=== PATIENT | female | born 1995 | race Caucasian/White ===

== ENCOUNTER 2022-06-18 22:42 | Emergency (ER) | payer OTHER, SELFPAY ==
[2022-06-18 22:51] VITALS: BP 148/90; PULSE 97; RESP 18; TEMP 36.6; O2SAT 97; BMI 33.9
--- NOTE | 2022-06-18 23:03 | ED_ITS ---
HPI - General Adult General Time Seen by Provider: 23:03 <Sincere Valdes MD - Last Filed: 06/20/22 08:49> Date Seen: 06/18/22 <Sincere Valdes MD - Last Filed: 06/20/22 08:49> Chief complaint: Flank Pain <Sincere Valdes MD - Last Filed: 06/20/22 08:49> Stated complaint: Right side flank pain <Sincere Valdes MD - Last Filed: 06/20/22 08:49> Time Seen by Provider: 06/18/22 22:57 <Sincere Valdes MD - Last Filed: 06/20/22 08:49> Source: patient <Sincere Valdes MD - Last Filed: 06/20/22 08:49> Mode of arrival: ambulatory <Sincere Valdes MD - Last Filed: 06/20/22 08:49> Limitations: no limitations <Sincere Valdes MD - Last Filed: 06/20/22 08:49> History of Present Illness HPI narrative: Patient is a 27-year-old female has had a gastric sleeve, and has had frequent right flank pain that typically it is better with the shower or ibuprofen. Since she has had her sleeve she can take anti-inflammatories, and she is complaining of right flank pain. She also has history of reflux and that is been bad for today as well had her IUD checked today apparently by Nursing history patient denies chest pain shortness of breath COVID symptoms, leg swelling or edema. She has had the right flank pain for many months on and off. She has had imaging of this in the past by report. <Sincere Valdes MD - Last Filed: 06/20/22 08:49> Related Data Home medications: Home Medications Medication Instructions Recorded Confirmed ergocalciferol (vitamin D2) 1,250 06/18/22 mcg (50,000 unit) capsule metformin 500 mg tablet mg 06/18/22 ondansetron 4 mg disintegrating mg 06/18/22 tablet sertraline 100 mg tablet mg 06/18/22 Previous Rx's Medication Instructions Recorded hydrocodone 5 mg-acetaminophen 325 1 tab PO Q6H PRN pain #7 tabs 06/19/22 mg tablet <Sincere Valdes MD - Last Filed: 06/20/22 08:49> Allergies/adverse reactions: Allergies Allergy/AdvReac Type Severity Reaction Status Date / Time Sulfa (Sulfonamide Allergy hives Verified 06/18/22 22:55 Antibiotics) <Sincere Valdes MD - Last Filed: 06/20/22 08:49> Review of Systems Status of ROS: Reports: 10 or more systems reviewed and unremarkable except as noted in History and below <Sincere Valdes MD - Last Filed: 06/20/22 08:49> Narrative: Specifically no dysuria, frequency, diarrhea, constipation, melena, hematochezia <Sincere Valdes MD - Last Filed: 06/20/22 08:49> PFSH PFSH Social History: Social History Smoking Status: Never smoker How often do you have a drink containing alcohol: never AUDIT-C Alcohol total score: 0 Non-prescribed substance use: denies use <Sincere Valdes MD - Last Filed: 06/20/22 08:49> Exam Narrative: Exam Narrative: Objective: Patient is alert orient x3 pacing about the room holding on her right posterior superior iliac spine area Vital signs unremarkable No palpable CVA tenderness, no swelling or bruising in the back, abdomen benign Pulse regular Neurologic grossly nonfocal Skin periphery warm and dry <Sincere Valdes MD - Last Filed: 06/20/22 08:49> Const: Vital Signs, click to edit/add: Vital Signs - 24 hr 06/18/22 22:51 06/18/22 23:30 06/19/22 00:00 Temperature 97.8 F Pulse Rate [Left P ulse Oximeter] 97 86 92 Respiratory Rate 18 Blood Pressure [Ri ght Upper Arm] 148/90 H 126/81 118/80 Pulse Oximetry 97 99 97 Oxygen Delivery Me thod Room Air Room Air Room Air <Sincere Valdes MD - Last Filed: 06/20/22 08:49> Vital Signs, click to edit/add: Vital Signs - 24 hr 06/18/22 22:51 06/18/22 23:30 06/19/22 00:00 Temperature 97.8 F Pulse Rate [Left P ulse Oximeter] 97 86 92 Respiratory Rate 18 Blood Pressure [Ri ght Upper Arm] 148/90 H 126/81 118/80 Pulse Oximetry 97 99 97 Oxygen Delivery Me thod Room Air Room Air Room Air <Asmita Acosta MD - Last Filed: 06/19/22 01:11> Course Vital Signs Vital signs: Initial Vital Signs Temperature 97.8 F 06/18/22 22:51 Temperature Source Temporal Artery Scan 06/18/22 22:51 Pulse Rate 97 06/18/22 22:51 Respiratory Rate 18 06/18/22 22:51 Blood Pressure 148/90 H 06/18/22 22:51 Blood Pressure Mean 109 06/18/22 22:51 Blood Pressure Position Sitting 06/18/22 22:51 Pulse Oximetry 97 06/18/22 22:51 Oxygen Delivery Method 06/18/22 22:51 Vital Signs Temperature 97.8 F 06/18/22 22:51 Pulse Rate 97 06/18/22 22:51 Respiratory Rate 18 06/18/22 22:51 Blood Pressure 148/90 H 06/18/22 22:51 Pulse Oximetry 97 06/18/22 22:51 Oxygen Delivery Method 06/18/22 22:51 Temperature 97.8 F 06/18/22 22:51 Pulse Rate 93 06/19/22 01:00 Respiratory Rate 18 06/18/22 22:51 Blood Pressure 117/84 06/19/22 01:00 Pulse Oximetry 97 06/19/22 01:00 Oxygen Delivery Method 06/19/22 01:00 <Sincere Valdes MD - Last Filed: 06/20/22 08:49> Initial Vital Signs Temperature 97.8 F 06/18/22 22:51 Temperature Source Temporal Artery Scan 06/18/22 22:51 Pulse Rate 97 06/18/22 22:51 Respiratory Rate 18 06/18/22 22:51 Blood Pressure 148/90 H 06/18/22 22:51 Blood Pressure Mean 109 06/18/22 22:51 Blood Pressure Position Sitting 06/18/22 22:51 Pulse Oximetry 97 06/18/22 22:51 Oxygen Delivery Method 06/18/22 22:51 Vital Signs Temperature 97.8 F 06/18/22 22:51 Pulse Rate 97 06/18/22 22:51 Respiratory Rate 18 06/18/22 22:51 Blood Pressure 148/90 H 06/18/22 22:51 Pulse Oximetry 97 10 22:51 Oxygen Delivery Method 06/18/22 22:51 Temperature 97.8 F 06/18/22 22:51 Pulse Rate 93 06/19/22 01:00 Respiratory Rate 18 06/18/22 22:51 Blood Pressure 117/84 06/19/22 01:00 Pulse Oximetry 97 06/19/22 01:00 Oxygen Delivery Method 06/19/22 01:00 <Asmita Acosta MD - Last Filed: 06/19/22 01:11> Medical Decision Making MDM Narrative Medical decision making narrative: Patient has had this unusual flank discomfort on and off for quite some time, episode tonight at this point will do IV fluids, pain medication laboratory studies urinalysis. Rule out urinary tract infection, electrolyte abnormality, musculoskeletal component to her pain. Addendum: The patient's white count is normal, hemoglobin normal potassium low normal at 3.2 total bili slightly elevated 1.7 CRP less than 0.5 amylase is mildly elevated 191, her main concern to me is her urinalysis shows 4+ ketones 3+ blood 5-10 red cells per high-powered field moderate bacteria, this was a clean-catch non cath specimen. The patient describes in further history take add intermittent flank pain that happens and bothers her and radiates around her anterior abdomen she has had this about once a month for the last several months she has not had that before she. She has an IUD in place today and was adjusted and it checked today by OBGYN. Given that she has had this recurrent flank pain, microscopic hematuria I think it might make sense to get a unenhanced CT scan of her abdomen pelvis to make she does not have kidney stones. She certainly could be passing recurrent kidney stones symptoms in history. If the CT scan is negative, would wait for the urine culture and then send her home she is pain-free now <Sincere Valdes MD - Last Filed: 06/20/22 08:49> Patient has had this unusual flank discomfort on and off for quite some t niraj, episode tonight at this point will do IV fluids, pain medication laboratory studies urinalysis. Rule out urinary tract infection, electrolyte abnormality, musculoskeletal component to her pain. Addendum: The patient's white count is normal, hemoglobin normal potassium low normal at 3.2 total bili slightly elevated 1.7 CRP less than 0.5 amylase is mildly elevated 191, her main concern to me is her urinalysis shows 4+ ketones 3+ blood 5-10 red cells per high-powered field moderate bacteria, this was a clean-catch non cath specimen. The patient describes in further history take add intermittent flank pain that happens and bothers her and radiates around her anterior abdomen she has had this about once a month for the last several months she has not had that before she. She has an IUD in place today and was adjusted and it checked today by OBGYN. Given that she has had this recurrent flank pain, microscopic hematuria I think it might make sense to get a unenhanced CT scan of her abdomen pelvis to make she does not have kidney stones. She certainly could be passing recurrent kidney stones symptoms in history. If the CT scan is negative, would wait for the urine culture and then send her home she is pain-free now I assumed care from Dr. Valdes. CT scan is reviewed. The 6 x 11 mm right-sided proximal renal pelvis stone is noted. Discussed with patient, reviewed signs and symptoms of infection, complications. Urology offices are not open this time a day nor does not warrant waking up a urologist right now. I have instructed the nursing team to pass along her information to the day shift to call and arrange a referral. I have placed an order for referral and I have instructed the patient to call our facility if she has not heard back by tomorrow afternoon. She verbalized understanding and agreement. We discussed Tylenol and hydrocodone if needed for severe pain, preferentially avoiding NSAIDs because of her stomach surgery status. <Asmita Acosta MD - Last Filed: 06/19/22 01:11> Lab Data Labs: Lab Results 06/18/22 06/18/22 06/18/22 Range/Units 23:15 23:15 23:15 WBC 6.31 (4.50-11.00) K/uL RBC 4.73 (4.00-5.20) m/uL Hgb 14.9 (12.0-16.0) gm/dL Hct 43.9 (33.0-51.0) % MCV 93 (80-100) fL MCH 32 (26-34) pg MCHC 34 (32-36) gm/dL RDW Coeff of Rajni 13.5 (11.5-15.5) % Plt Count 248 (140-440) K/uL Neut % (Auto) 57.8 (42.0-72.0) % Lymph % (Auto) 33.8 (20-44) % [place] % (Auto) 5.4 (0.0-11.0) % Eos % (Auto) 2.2 (0.0-7.0) % Baso % (Auto) 0.6 (0.0-3.0) % Neut # (Auto) 3.65 (1.7-7.0) K/uL Lymph # (Auto) 2.13 (0.90-2.90) K/uL [place] # (Auto) 0.30 (0.00-0.90) K/UL Eos # (Auto) 0.14 (0.00-0.50) K/uL Baso # (Auto) 0.04 (0.00-0.30) K/uL Abs Immat Gran (auto) 0.01 (0.00-0.30) K/uL Sodium 142 (135-149) mmol/L Potassium 3.2 L (3.6-5.1) mmol/L Chloride 106 (96-114) mmol/L Carbon Dioxide 21 (20-32) mmol/L BUN 13 (5-24) mg/dL Creatinine 0.6 (0.5-1.5) mg/dL Estimated Creat Clear 131.85 Estimated GFR 126 ml/min Glucose 88 (60-115) mg/dL Lactate 1.0 (0.5-1.9) mmol/L Calcium 9.6 (8.4-10.6) mg/dL Total Bilirubin 1.7 H (0.1-1.5) mg/dL Direct Bilirubin 0.1 (0.0-0.5) mg/dL AST 18 (12-35) U/L ALT 17 (4-35) U/L Alkaline Phosphatase 73 (40-150) U/L C-Reactive Protein < 0.5 L (0.5-1.0) mg/dL Total Protein 7.5 (6.0-8.3) g/dL Albumin 4.9 (3.3-5.0) g/dL Amylase 191 H (18-89) U/L Urine Color (Yellow) Urine Appearance (Clear) Urine pH (5.0-8.5) Ur Specific [place] (1.000-1.030) Urine Protein (Negative) Urine Glucose (UA) (Negative) Urine Ketones (Negative) Urine Blood (Negative) Urine Nitrite (Negative) Urine Bilirubin (Negative) Urine Urobilinogen (0.2-1.0) Ur Leukocyte Esterase (Negative) Urine RBC (0-2) Urine WBC (0-5) Ur Squamous Epith Cells (None-Few) Urine Bacteria (None) 06/18/22 Range/Units 23:51 WBC (4.50-11.00) K/uL RBC (4.00-5.20) m/uL Hgb (12.0-16.0) gm/dL Hct (33.0-51.0) % MCV (80-100) fL MCH (26-34) pg MCHC (32-36) gm/dL RDW Coeff of Rajni (11.5-15.5) % Plt Count (140-440) K/uL Neut % (Auto) (42.0-72.0) % Lymph % (Auto) (20-44) % [place] % (Auto) (0.0-11.0) % Eos % (Auto) (0.0-7.0) % Baso % (Auto) (0.0-3.0) % Neut # (Auto) (1.7-7.0) K/uL Lymph # (Auto) (0.90-2.90) K/uL [place] # (Auto) (0.00-0.90) K/UL Eos # (Auto) (0.00-0.50) K/uL Baso # (Auto) (0.00-0.30) K/uL Abs Immat Gran (auto) (0.00-0.30) K/uL Sodium (135-149) mmol/L Potassium (3.6-5.1) mmol/L Chloride (96-114) mmol/L Carbon Dioxide (20-32) mmol/L BUN (5-24) mg/dL Creatinine (0.5-1.5) mg/dL Estimated Creat Clear Estimated GFR ml/min Glucose (60-115) mg/dL Lactate (0.5-1.9) mmol/L Calcium (8.4-10.6) mg/dL Total Bilirubin (0.1-1.5) mg/dL Direct Bilirubin (0.0-0.5) mg/dL AST (12-35) U/L ALT (4-35) U/L Alkaline Phosphatase (40-150) U/L C-Reactive Protein (0.5-1.0) mg/dL Total Protein (6.0-8.3) g/dL Albumin (3.3-5.0) g/dL Amylase (18-89) U/L Urine Color Yellow (Yellow) Urine Appearance Clear (Clear) Urine pH 6.0 (5.0-8.5) Ur Specific [place] 1.025 (1.000-1.030) Urine Protein 1+ A (Negative) Urine Glucose (UA) Negative (Negative) Urine Ketones 4+ A (Negative) Urine Blood 3+ A (Negative) Urine Nitrite Negative (Negative) Urine Bilirubin 1+ A (Negative) Urine Urobilinogen 0.2 (0.2-1.0) Ur Leukocyte Esterase Negative (Negative) Urine RBC 5-10 A (0-2) Urine WBC 0-2 (0-5) Ur Squamous Epith Cells Moderate A (None-Few) Urine Bacteria Moderate A (None) <Sincere Valdes MD - Last Filed: 06/20/22 08:49> Lab Results 06/18/22 06/18/22 06/18/22 Range/Units 23:15 23:15 23:15 WBC 6.31 (4.50-11.00) K/uL RBC 4.73 (4.00-5.20) m/uL Hgb 14.9 (12.0-16.0) gm/dL Hct 43.9 (33.0-51.0) % MCV 93 (80-100) fL MCH 32 (26-34) pg MCHC 34 (32-36) gm/dL RDW Coeff of Rajni 13.5 (11.5-15.5) % Plt Count 248 (140-440) K/uL Neut % (Auto) 57.8 (42.0-72.0) % Lymph % (Auto) 33.8 (20-44) % [place] % (Auto) 5.4 (0.0-11.0) % Eos % (Auto) 2.2 (0.0-7.0) % Baso % (Auto) 0.6 (0.0-3.0) % Neut # (Auto) 3.65 (1.7-7.0) K/uL Lymph # (Auto) 2.13 (0.90-2.90) K/uL [place] # (Auto) 0.30 (0.00-0.90) K/UL Eos # (Auto) 0.14 (0.00-0.50) K/uL Baso # (Auto) 0.04 (0.00-0.30) K/uL Abs Immat Gran (auto) 0.01 (0.00-0.30) K/uL Sodium 142 (135-149) mmol/L Potassium 3.2 L (3.6-5.1) mmol/L Chloride 106 (96-114) mmol/L Carbon Dioxide 21 (20-32) mmol/L BUN 13 (5-24) mg/dL Creatinine 0.6 (0.5-1.5) mg/dL Estimated Creat Clear 131.85 Estimated GFR 126 ml/min Glucose 88 (60-115) mg/dL Lactate 1.0 (0.5-1.9) mmol/L Calcium 9.6 (8.4-10.6) mg/dL Total Bilirubin 1.7 H (0.1-1.5) mg/dL Direct Bilirubin 0.1 (0.0-0.5) mg/dL AST 18 (12-35) U/L ALT 17 (4-35) U/L Alkaline Phosphatase 73 (40-150) U/L C-Reactive Protein < 0.5 L (0.5-1.0) mg/dL Total Protein 7.5 (6.0-8.3) g/dL Albumin 4.9 (3.3-5.0) g/dL Amylase 191 H (18-89) U/L Urine Color (Yellow) Urine Appearance (Clear) Urine pH (5.0-8.5) Ur Specific [place] (1.000-1.030) Urine Protein (Negative) Urine Glucose (UA) (Negative) Urine Ketones (Negative) Urine Blood (Negative) Urine Nitrite (Negative) Urine Bilirubin (Negative) Urine Urobilinogen (0.2-1.0) Ur Leukocyte Esterase (Negative) Urine RBC (0-2) Urine WBC (0-5) Ur Squamous Epith Cells (None-Few) Urine Bacteria (None) 06/18/22 Range/Units 23:51 WBC (4.50-11.00) K/uL RBC (4.00-5.20) m/uL Hgb (12.0-16.0) gm/dL Hct (33.0-51.0) % MCV (80-100) fL MCH (26-34) pg MCHC (32-36) gm/dL RDW Coeff of Rajni (11.5-15.5) % Plt Count (140-440) K/uL Neut % (Auto) (42.0-72.0) % Lymph % (Auto) (20-44) % [place] % (Auto) (0.0-11.0) % Eos % (Auto) (0.0-7.0) % Baso % (Auto) (0.0-3.0) % Neut # (Auto) (1.7-7.0) K/uL Lymph # (Auto) (0.90-2.90) K/uL [place] # (Auto) (0.00-0.90) K/UL Eos # (Auto) (0.00-0.50) K/uL Baso # (Auto) (0.00-0.30) K/uL Abs Immat Gran (auto) (0.00-0.30) K/uL Sodium (135-149) mmol/L Potassium (3.6-5.1) mmol/L Chloride (96-114) mmol/L Carbon Dioxide (20-32) mmol/L BUN (5-24) mg/dL Creatinine (0.5-1.5) mg/dL Estimated Creat Clear Estimated GFR ml/min Glucose (60-115) mg/dL Lactate (0.5-1.9) mmol/L Calcium (8.4-10.6) mg/dL Total Bilirubin (0.1-1.5) mg/dL Direct Bilirubin (0.0-0.5) mg/dL AST (12-35) U/L ALT (4-35) U/L Alkaline Phosphatase (40-150) U/L C-Reactive Protein (0.5-1.0) mg/dL Total Protein (6.0-8.3) g/dL Albumin (3.3-5.0) g/dL Amylase (18-89) U/L Urine Color Yellow (Yellow) Urine Appearance Clear (Clear) Urine pH 6.0 (5.0-8.5) Ur Specific [place] 1.025 (1.000-1.030) Urine Protein 1+ A (Negative) Urine Glucose (UA) Negative (Negative) Urine Ketones 4+ A (Negative) Urine Blood 3+ A (Negative) Urine Nitrite Negative (Negative) Urine Bilirubin 1+ A (Negative) Urine Urobilinogen 0.2 (0.2-1.0) Ur Leukocyte Esterase Negative (Negative) Urine RBC 5-10 A (0-2) Urine WBC 0-2 (0-5) Ur Squamous Epith Cells Moderate A (None-Few) Urine Bacteria Moderate A (None) <Asmita Acosta MD - Last Filed: 06/19/22 01:11> Discharge Plan Discharge Clinical Impression: Hydronephrosis with renal and ureteral calculous obstruction <Sincere Valdes MD - Last Filed: 06/20/22 08:49> Patient Disposition: Home w/ Parent or Adult <Sincere Valdes MD - Last Filed: 06/20/22 08:49> Condition: Improved <Sincere Valdes MD - Last Filed: 06/20/22 08:49> Instructions: Ureteral Stones (ED) <Sincere Valdes MD - Last Filed: 06/20/22 08:49> Additional Instructions: You have a kidney stone in your right proximal ureter, the start of the 2 between your kidney and bladder. It is 6 mm wide but 11 mm long and is not likely going to pass without the assistance of a specialist. I suspect that this has been bothering you for quite some time. We do not see any signs of infection which is reassuring. As we discussed, this would be the most worrisome complication. Antibiotics are not likely needed at this time but may be necessary if you exhibit signs of infection. We will culture urine as well. We will call you if this shows signs of bacteria as well. Will take your information and pass along to [facility], the [facility]rology group that serves most of the area. They will call you for an appointment. It may take a couple of weeks to be seen. As we discussed, if there are no signs of infection, it is not an emergency. Take Tylenol for pain. If the pain is severe, I will give you a limited supply of hydrocodone to use. As we discussed, because you have had a gastric sleeve procedure, NSAIDs are not ideal. Drink plenty of water. Follow up with her primary care provider if this pain management plan is not working for you or if you have any signs of changes or complications in the meantime. The urology office is are not open right now for me to facilitate an appointment. I will have the day shift team call in the morning. If you have not heard from anyone by 1:00 p.m., please call the emergency room and ask about the status. <Sincere Valdes MD - Last Filed: 06/20/22 08:49> Activity Level: Light activity <Sincere Valdes MD - Last Filed: 06/20/22 08:49> Light activity <Asmita Acosta MD - Last Filed: 06/19/22 01:11> Discharge Diet: Regular <Sincere Valdes MD - Last Filed: 06/20/22 08:49> Regular <Asmita Acosta MD - Last Filed: 06/19/22 01:11> Prescriptions: New hydrocodone-acetaminophen 5-325 mg tablet 1 tab PO Q6H PRN (Reason: pain) Qty: 7 0RF Rx Instructions: For kidney stone pain No Action metformin 500 mg tablet Label Comments: TAKE 1 TABLET BY MOUTH TWO TIMES A DAY WITH MEALS. sertraline 100 mg tablet Label Comments: TAKE 1.5 TABLETS BY MOUTH ONCE DAILY. ergocalciferol (vitamin D2) 1,250 mcg (50,000 unit) capsule Label Comments: TAKE 1 CAPSULE (50,000 UNITS) BY MOUTH EVERY WEDNESDAY AND WEDNESDAY FOR 24 DOSES. ondansetron 4 mg tablet,disintegrating <Sincere Valdes MD - Last Filed: 06/20/22 08:49> Follow Up/Referrals: Jimbo Rowe MD [Referring] - (first available urologist. 6x11mm proximal right stone) <Sincere Valdes MD - Last Filed: 06/20/22 08:49> Stand Alone Forms: My[facility] Info Instructions <Sincere Valdes MD - Last Filed: 06/20/22 08:49>
[2022-06-18] MEDS: GI COCKTAIL (VISC LIDO/ANTACID) 30 ML PO (23:08)
[2022-06-18] MEDS: 0.9 % SODIUM CHLORIDE 1000 ml 1,000 ML 6000 ML IV (23:20)
[2022-06-18] MEDS: ONDANSETRON 2 MG/ML inj 4 MG IVP (23:20)
[2022-06-18] MEDS: MORPHINE 4 MG/ML INJ IVP (23:23)
[2022-06-18 23:25] LABS: Basophils Absolute Auto 0.04 K/uL (0.00-0.30); Basophils Percent Auto 0.6 % (0.0-3.0); Eosinophils Absolute Auto 0.14 K/uL (0.00-0.50); Eosinophils Percent Auto 2.2 % (0.0-7.0); Hematocrit 43.9 % (33.0-51.0); Hemoglobin* 14.9 gm/dL (12.0-16.0); Immature Granulocytes Abs Auto 0.01 K/uL (0.00-0.30); Lymphocytes Absolute Auto 2.13 K/uL (0.90-2.90); Lymphocytes Percent Auto 33.8 % (20-44); Mean Corpuscular HGB Conc 34 gm/dL (32-36); Mean Corpuscular Hemoglobin 32 pg (26-34); Mean Corpuscular Volume 93 fL (80-100); Monocytes Percent Auto 5.4 % (0.0-11.0); Neutrophils Absolute Auto 3.65 K/uL (1.7-7.0); Neutrophils Percent Auto 57.8 % (42.0-72.0); Platelet Count* 248 K/uL (140-440); RDW Coefficient of Variation % 13.5 % (11.5-15.5); Red Blood Count 4.73 m/uL (4.00-5.20); White Blood Count* 6.31 K/uL (4.50-11.00)
[2022-06-18 23:28] LABS: Slide Review Reflex No
[2022-06-18 23:30] VITALS: BP 126/81; PULSE 86; O2SAT 99
[2022-06-18 23:39] LABS: Albumin* 4.9 g/dL (3.3-5.0); Chloride* 106 mmol/L (96-114); Potassium* 3.2 mmol/L (3.6-5.1); Sodium* 142 mmol/L (135-149)
[2022-06-18 23:41] LABS: Amylase* 191 U/L (18-89)
[2022-06-18 23:42] LABS: Alanine Aminotransferase* 17 U/L (4-35); Alkaline Phosphatase* 73 U/L (40-150); Aspartate Amino Transferase* 18 U/L (12-35); Bilirubin Direct* 0.1 mg/dL (0.0-0.5); Bilirubin Total* 1.7 mg/dL (0.1-1.5); Blood Urea Nitrogen* 13 mg/dL (5-24); Carbon Dioxide* 21 mmol/L (20-32); Creatinine* 0.6 mg/dL (0.5-1.5); Est. Creatinine Clearance* 131.85; Estimated Glomerular Filt Rate 126 ml/min; Glucose* 88 mg/dL (60-115); Total Protein* 7.5 g/dL (6.0-8.3)
[2022-06-18 23:43] LABS: Calcium* 9.6 mg/dL (8.4-10.6)
[2022-06-18 23:46] LABS: C Reactive Protein* < 0.5 mg/dL (0.5-1.0)
[2022-06-18 23:59] LABS: Appearance Urine Clear (Clear); Bilirubin Urine 1+ (Negative); Blood Urine 3+ (Negative); Color Urine Yellow (Yellow); Glucose Urine Negative (Negative); Ketones Urine 4+ (Negative); Leukocyte Esterase Urine Negative (Negative); Nitrite Urine Negative (Negative); Protein Urine 1+ (Negative); Specific Gravity Urine 1.025 (1.000-1.030); Urobilinogen Urine 0.2 (0.2-1.0)
[2022-06-19] VITALS: BP 118/80; PULSE 92; O2SAT 97
[2022-06-19 00:02] LABS: WBC Urine 0-2 (0-5)
[2022-06-19 00:03] LABS: Bacteria Urine Moderate; Squamous Epithelial Cell Urine Moderate (None-Few)
--- OUTSIDE RECORDS SUMMARY | 2022-06-19 00:12 | XMS_ITS | Encounter Summary ---
:1995 Author Organization [facility] Address [address] [place] [address] Care Team Providers Name Role Phone Lily Sebastian APRN, CNP Primary Care Provider [phone] Encounter Details Date Type Department Care Team Description 03/19/2022 [facility] [address] , Pulmonary Medicine [facility] [address] [facility] [address] [facility] [facility] [address] [place] [address] [id number] [place] [id number] (Wo rk) Social History Tobacco Use Types Packs/Day Years Used Date Smoking Tobacco: Former Alcohol Use Standard Drinks/Week Comments Yes 0 (1 standard drink = 0.6 oz pure alcoho l) 2 a week Alcohol Habits Answer Date Recorded How often do you have a drink containing alcohol? Not asked How many drinks containing alcohol do you have on a typical Not asked day when you are drinking? How often do you have six or more drinks on one occasion? No t asked Comment: 2 a week 05/01/2016 Sex Assigned at Date Recorded Not on file documented as of this encounter Plan of Treatment Not on filedocumented as of this encounter Procedures Procedure Name Priority Date/Time Associated Diagnosis Comme nts SLEEP STUDY 03/19/2022 Results for thi s procedure are in the resu lts section. documented in this encounter Results SLEEP STUDY (03/19/2022) Narrative This result has an attachment that is no t available. Kendell CALVO DUMMY/OTHER/AR documented in this encounter Visit Diagnoses Not on filedocumented in this encounter Care Teams Irrigation Service Technician Relationship Specialty Start Date End Date Lily Sebastian, SURGICAL CONSULTANT, [employer] PCP - General 03/07/15 [id number] [place] [id number] documented as of this encounter
--- OUTSIDE RECORDS SUMMARY | 2022-06-19 00:12 | XMS_ITS | Clinical Summary ---
:1995 Author Organization [facility] Address [address], [place] [address] Care Team Providers Name Role Phone Lily Sebastian APRN, CNP Primary Care Provider Source Comments You are receiving this document as you are listed as the primary care provider,follow-up provider, or the patient has been referred to you for consultation.This is in compliance with the Medicare and Medicaid EHR Incentive Program,which states Providers who transition their patient to another setting of careor provider of care or refers their patient to another provider of care shouldprovide summarycare record for each transition of care or referral. [facility] [employer] Allergies Active Allergy Reactions Severity Noted Date Comments Sulfa Antibiotics Hives 12/19/2004 Medications Medication Sig Dispensed Refills Start Date End Date Status metFORMIN Take 1 Tablet by 180 Tablet 0 08/27/2021 A ctive (GLUCOPHAGE) 500 mouth two times 2 MG a day with tabletIndications: meals. Infertility associated with anovulation Norgestimate-Eth Take 1 tablet by 84 tablet 4 03/28/201303/07 Discontinued Estradiol (AKA mouth daily 5 ORTHO-CYCLEN) (every 24 0.25-35 MG-MCG hours). Follow tabletIndications: package Family planning, directions BCP ( control pills) initial prescription Active Problems Problem Noted Date Contraceptive management 03/07/2015 Obesity (BMI 30-39.9) 03/07/2015 Overview: See [facility] notes, 12/2015. Started p t on Topamax for weight loss/headaches. Resolved Problems Problem Noted Date Resolved Date Family planning, BCP ( control pills) initial 3 03/07/2015 prescription Encounters Date Type Specialty Care Team Description 05/04/2022 Orders Only Provider, MD Mike 03/29/2022 Refill Endocrinology Antonio Garduno, Jean Paul ll (metFORMIN (GLUCOPHAGE) 50 0 MG tablet [Pharmacy Med N tyrell: METFORMIN HCL 5 00 MG TABLET]) 03/19/2022 Orders Only Pulmonary Kendell Eid MBBS from Last 3 Months Immunizations Name Administration Dates Next Due 4vHPV (Gardasil) 03/07/2015, 03/24/2007 DTaP 12/09/1999, 12/01/1999, 06/05/1996, 1995, 1995, 1995 DTaP/Hib 06/05/1996, 1995, 1995, 1995 HepB Adult (Engerix-B, 20+ yrs, 3 1995, 1995, dose series) Hib, Unspecified Formulation 06/05/1996, 1995, 995, 1995 IPV (Polio) 12/09/1999, 1995, 1995, 1995 MCV4 (Menactra) 03/24/2007 MMR 12/09/1999, 06/05/1996 OPV, Trivalent (Orimune or tOPV) 1995, 1995, TDAP (BOOSTRIX) 03/24/2007 Family History Medical History Relation Name Comments High Blood Pressure Father High Blood Pressure Mother Thyroid Disorder Mother Relation Name Status Comments Father Alive Mother Alive Maternal Grandfather Alive Maternal Grandmother Alive Paternal Grandfather Paternal Grandmother Alive Sister Alive Social History Tobacco Use Types Packs/Day Years [...] Assigned at Date Recorded Not on file Last Filed Vital Signs Vital Sign Reading Time Taken Comments Blood Pressure 128/80 03/07/2015 10:21 AM CDT Pulse 72 03/07/2015 10:21 AM CDT Temperature 36 ??C (96.8 ??F) 11/25/2014 4:08 PM CDT Respiratory Rate 16 02/06/2014 11:12 AM CDT Oxygen Saturation 98% 06/24/2013 12:37 PM CDT Inhaled Oxygen Concentration - - Weight 120.7 kg (266 lb) 01/16/2022 10:04 AM CDT Height 168.9 cm (5' 6.5) 01/16/2022 10:04 AM CDT Body Mass Index 42.29 01/16/2022 10:04 AM CDT Plan of Treatment Health Maintenance Due Date Last Done Comments Cervical Cancer Screening 1995 Due Hep C Screening (Preventive 1995 Services) COVID-19 Vaccine (#1) 1995 HIV Screening (Preventive 2011 Services) Adult Preventive Visit 2013 DTaP/Tdap/Td (7 - Tdap) 03/24/2017 03/24/2007, 12/09/1999, 12/01/1999, Additional history exists Influenza (#1) 2022 06/25/2021, 07/21/2019, 07/21/2019, Additional history exists Zoster/Shingles (1 of 2) 2045 HepB Completed 1995, 1995, 1995 Hib Completed 06/05/1996, 06/05/1996, 1995, Additional history exists IPV (Polio) Completed 12/09/1999, 1995, 1995, Additional history exists MCV4 Aged Out 03/24/2007 No longer eligib le based on patient 's age to complete this topic HPV Vaccine Completed 03/07/2015, 03/24/2007 HepA Aged Out No longer eligib le based on patient 's age to complete this topic Pneumococcal Aged Out No longer eligib le based on patient 's age to complete this topic Procedures Procedure Name Priority Date/Time Associated Diagnosis Comme nts SLEEP STUDY 05/04/2022 Results for thi s procedure are in the resu lts section. SLEEP STUDY 03/19/2022 Results for thi s procedure are in the resu lts section. from Last 3 Months Results SLEEP STUDY (05/04/2022) Narrative This result has an attachment that is no t available. Interface Provider DUMMY/OTHER/AR SLEEP STUDY (03/19/2022) Narrative This result has an attachment that is no t available. Kendell CALVO DUMMY/OTHER/AR from Last 3 Months Insurance Payer Benefit Plan / Subscriber ID Effective Dates Phone Addre ss Type Group [employer] SELF INSURED [id number] 2018-Alise Commercial t Bina Clark Personal/Family Self 1995 [address] (Home) [place] [id number] Care Teams Electronics Installer Relationship Specialty Start Date End Date Lily Sebastian APRN, OPTICIAN APPRENTICE PCP - General 03/07/15 [id number] [address] [place] [id number]
--- OUTSIDE RECORDS SUMMARY | 2022-06-19 00:12 | XMS_ITS | Encounter Summary ---
:1995 Author Organization [facility] Address [address] [place] [address] Care Team Providers Name Role Phone Lily Sebastian APRN, CNP Primary Care Provider [phone] Encounter Details Date Type Department Care Team Description 02/11/2022 Telephone [facility] Kendell Eid, ZOBS [address] [facility] . [address] [place] [address] [place], [place] [phone] (Wo rk) Social History Tobacco Use Types [...] Not on filedocumented as of this encounter Visit Diagnoses Not on filedocumented in this encounter Care Teams Return To Service Inspector Relationship Specialty Start Date End Date Lily Sebastian APRN, CNP PCP - General 03/07/15 [address] [place] [address] documented as of this encounter
--- OUTSIDE RECORDS SUMMARY | 2022-06-19 00:12 | XMS_ITS | Encounter Summary ---
:1995 [facility] Address [address] [address] Care Team Providers Name Role Phone Lily Sebastian APRN, CNP Primary Care Provider [phone] Encounter Details Date Type Department Care Team Description 05/04/2022 Orders Only HIM DEPARTMENT Provider, Rosa Isela ortiz MD Interface provid er interface provider, [place] [address] Social History Tobacco Use Types Packs/Day Years [...] documented in this encounter Results SLEEP STUDY (05/04/2022) Narrative This result has an attachment that is no t available. Interface Provider DUMMY/OTHER/AR documented in this encounter Visit Diagnoses Not on filedocumented in this encounter Care Teams Residential Pest Control Technician Relationship Specialty Start Date End Date Lily Sebastian APRN, CNP PCP - General 03/07/15 [address] [place] [address] documented as of this encounter
--- OUTSIDE RECORDS SUMMARY | 2022-06-19 00:12 | XMS_ITS | Encounter Summary ---
:1995 Author Organization [facility] Address [address], [place] [address] Care Team Providers Name Role Phone Lily Sebastian APRN, CYNDIE Primary Care Provider [phone] Reason for Visit Reason Comments Refill metFORMIN (GLUCOPHAGE) 500 M G tablet [Pharmacy Med Name: METFORMIN HCL 500 MG TABLET] Encounter Details Date Type Department Care Team Description 03/29/2022 Refill Antonio Corrales Refill ( metFORMIN Endocrinology MD Douglas (GLUCOPHAGE) 500 MG [address] [employer] [facility] [address] tablet [[place] [address] Blvd Name: METFORMIN HCL [address] [place], [place] MG TABLET] ) [address] (Wo rk) Social History Tobacco Use Types [...] on file documented as of this encounter Nursing Notes Radha Barros RN - 03/30/2022 4:48 PM CDT Requested Prescriptions Refused Prescriptions Disp Refills metFORMIN (GLUCOPHAGE) 500 MG tablet [Pharmacy Med Name: METFORMIN HCL 500 MG TABLET] 180 Tablet 0 Sig: Take 1 Tablet by mouth two times a day with meals. Interface, [employer] Prov Query - 03/29/2022 8:31 AM CDT metFORMIN (GLUCOPHAGE) 500 MG tablet [Pharmacy Med Name: METFORMIN HCL 500 MG TABLET] Endocrinology: Diabetes - Biguanides -> An office visit is overdue (performed 16 months ago, required every 12 months). -> eGFR and HBA1C were not found within the last 5 years. Last qualifying visit: 12/13/2020 (in [facility]) Next scheduled visit: None Last ordered by ANTONIO DE OLIVEIRA J: 08/27/2021 (214 days ago) QTY: 180, Refills: 0, Sig: take 1 tablet by mouth two times a day with meals. (unchanged) eGFR: Not found HBA1C: Not found PATIENT IS DUE FOR: - EGFR - HBA1C - OFFICE VISIT [employer] Embedded Refills, Reference: [id number], 03/29/2022 8:31:26 AM CDT, Pool: LASHAUN PN REFILL ([id number]) Electronically signed by Interface, [employer] Prov Query at 04/29/2022 2:01 AM CDT documented in this encounter Plan of Treatment Not on filedocumented as of this encounter Visit Diagnoses Diagnosis Infertility associated with anovulation Female infertility associated with anovu lation documented in this encounter Care Teams Chain Maker Machine Relationship Specialty Start Date End Date Lily Sebastian, CORPORATE PARALEGAL, PALLIATIVE NURSE PCP - General 03/07/15 [address] [place] [address] documented as of this encounter
--- OUTSIDE RECORDS SUMMARY | 2022-06-19 00:13 | XMS_ITS | Encounter Summary ---
:1995 Author Organization [facility] Address [address] [address] Care Team Providers Name Role Phone Unassigned, Provider Primary Care Provider Unavailable Encounter Details Date Type Department Care Team Description 11/25/2010 Office Visit [facility] s Jaden Hough [address] [place] [address] Social History Tobacco Use Types Packs/Day Years Used Date Smoking Tobacco: Never Assessed Sex Assigned at Date Recorded Not on file documented as of this encounter Last Filed Vital Signs Vital Sign Reading Time Taken Comments Blood Pressure 122/76 11/25/2010 9:19 AM CDT Pulse - - Temperature - - Respiratory Rate - - Oxygen Saturation - - Inhaled Oxygen Concentration - - Weight 97.5 kg (214 lb 15.9 oz) 11/25/2010 9:19 AM C: 9 7.5kg CDT Height 164.5 cm (5' 4.75) 11/25/2010 9:19 AM C: 164.5c m CDT Body Mass Index 36.06 11/25/2010 9:19 AM CDT Body Mass Index Percentile 98.69 % 11/25/2010 9:19 AM CDT Growth Chart: FOR[facility] NAMED [facility] (Girls, 2-20 Years) documented in this encounter Progress Notes Jaden Hough MD - 11/25/2010 12:01 AM CDT Well Child/Adolescent Visit or Sports Physical IMPRESSION: Well adolescent visit. Weight is excessive for height. Demographics: Accompanied by father. Patient is 15 years old. Patient is in tenth grade of school. Interval History: No specific patient concerns. No specific parental concerns. Eats 3 meals per day with a varied diet. Adequate milk intake. Patient/family concerned about excessive weight. No concerns about sleep habits. No concerns about social interactions. School / Activities: School: No concerns about school. Grades in school include A's. Activity: Gets regular activity. Organized Activity: Softball. Tobacco: None. Alcohol: None. Drugs: Denies any drug use. Sexual History: Never sexually active. Calendar 11/11/2010. No dysmenorrhea. Past History: ADR's, Medications, and Problem List reviewed and updated today on the Health Profile of the Electronic Medical Record. Adverse drug reactions: None. Medications: None. Food Allergies: No food allergies. Previous Illness: No significant past medical or surgical history. Review of Systems: Except for items noted above, remainder of complete review of systems was negative. Pediatric Symptom Checklist-17: Administered; no concerns identified. See scanned paper questionnaire. Social / Family History: Family: Parents unmarried. Number of siblings: Safety: Wearing seatbelts consistently. Guns in home. guns locked Hypertension- father. Mental illness mom depression. PHYSICAL EXAM: (See online scanned documents for percentile graphs) See sports form. Current Weight: 215 lbs. / 97.7kg. Current Height: 64.75 inches Current BMI: 36.1 Kg/meters squared Blood Pressure: 122/76 Weight: Patient appears overweight. PHYSICAL EXAM II: Abdomen: Soft, nontender, without hepatospenomegaly or masses. Extremities: Full range of motion without abnormalities. /Pelvic: Refused exam Neuro: Normal tone and symmetric reflexes, moves all extremities. Skin: Skin otherwise normal. Some abdominal striae Sports: Extremities: Arm span 63.75 inches. Eyes: No anisocoria. Eyes: Fundi normal in areas seen. CV: No heart murmur noted during squatting or Valsalva. ASSESSMENT: Well adolescent visit. Weight is excessive for height. PLAN: Immunizations: Shot dates not current as had some at last [facility] Labs: Cholesterol. Sports Clearance: Form completed for sports participation. Cleared for all sports activities. Obtain shot dates for review suggested to father. General Counseling: Anticipatory Guidance Handout given and discussed where appropriate. Anticipatory Reminders: Nutrition: Importance of adequate nutrition. Make reasonable food choices. Importance of maintaining weight ideal body weight. Social: Limit television time. Expected clinical course reviewed. Parental concerns discussed. Pertinent handout(s) given. Follow Up: In two years. Medical: Discussed ideal body weight, diet and activity. Consultations: Dietitian appointment recommended. *SH~PC~WSP ~ Shorthand Note completed on: 11/25/2010 12:26 PM documented in this encounter Plan of Treatment Not on filedocumented as of this encounter Visit Diagnoses Not on filedocumented in this encounter Care Teams Electrical Appliance Repairer Relationship Specialty Start Date End Date Unassigned, Provider PCP - General 06/16/00 11/12/[address] [place] [address] documented as of this encounter
--- OUTSIDE RECORDS SUMMARY | 2022-06-19 00:13 | XMS_ITS | Encounter Summary ---
:1995 Author [facility] Address [address], [place] [address] Care Team Providers Name Role Phone Lily Sebastian APRN, CNP Primary Care Provider [phone] Reason for Visit Reason Comments Patient Calling Back Encounter Details Date Type Department Care Team Description 11/11/2015 Telephone [facility] Lily Sebastian Pat ient Calling Back Medicine CYNDIE GORE [address] [address] [place] [address] [place] [address] [phone] (Wo rk) Social History Tobacco Use Types Packs/Day Years Used Date Smoking Tobacco: Never Assessed Sex Assigned at Date Recorded Not on file documented as of this encounter Nursing Notes Dora Torres LPN - 11/11/2015 4:41 PM CST Pt notified of Ayan note below and transferred to our Managed Care Department for explanation ofbenefits RMATICS SCIENTIST Lily Sebastian APRN, CNP - 11/11/2015 4:25 PM CST Please call patient. Let her know that The Managed Care team received your request for care outsideof [facility]. The Care being requested can be provided within our system. Please inform the patient that we will not be able to place the insurance referral.. New referral for PN Resistor Inspector placed. We have a weight management program that would be appropriate for her. Give her # to schedule appt. RMATICS SCIENTIST Giovana Galvin - 11/11/2015 3:35 PM CST Referral faxed RMATICS SCIENTIST Amaya Smiley - 11/11/2015 3:32 PM CST pt calling back. gave fax number [phone] RMATICS SCIENTIST Dora Torres LPN - 11/11/2015 3:27 PM CST Pt notified of Ayan eisenberg below and would like the referral fax'd She will call back with the fax# I am at [phone] RMATICS SCIENTIST Lily Sebastian APRN, CNP - 11/11/2015 3:08 PM CST Referral placed. Print out in my outbox. RMATICS SCIENTIST Rosemary Subramanian - 11/11/2015 2:24 PM CST Referral/Consult Caller Name/Relationship: Primary Care Provider: Lily Sebastian APRN, CNP What referral is needed? Resistor Inspector at [facility] in [place] at [phone], Hernandez ID # [id number] Why is referral needed? Obesity counseling [facility] Appointment already scheduled? no When/With whom/Where? na What is needed from us? referral Call back phone or cell phone: [phone] Best time to call back number: anytime Is it OK to leave a confidential message on this voicemail? yes *ECODE RMATICS SCIENTIST documented in this encounter Plan of Treatment Not on filedocumented as of this encounter Visit Diagnoses Diagnosis Obesity (BMI 30-39.9) ([facility]) - Primary Obesity, unspecified documented in this encounter Care Teams Oxygen System Tester Relationship Specialty Start Date End Date Lily Sebastian, LIFE CARE PLANNER, AWARD MACHINE OPERATOR PCP - General 03/07/15 [address] [place] [address] documented as of this encounter
--- OUTSIDE RECORDS SUMMARY | 2022-06-19 00:13 | XMS_ITS | Encounter Summary ---
:1995 Author Organization [facility] Address [address], [place] [address] Care Team Providers Name Role Phone Lily Sebastian APRN, CYNDIE Primary Care Provider [phone] Reason for Visit Reason Comments Refill metFORMIN (GLUCOPHAGE) 500 M G tablet [Pharmacy Med Name: METFORMIN HCL 500 MG TABLET] Encounter Details Date Type Department Care Team Description 08/26/2021 Refill [place] Antonio De Oliveira Refill ( metFORMIN Endocrinology MD Douglas (GLUCOPHAGE) [address] [facility] [address] tablet [[place] [address] [facility] Name: METFORMIN HCL [address] [place], [place] MG TABLET] ) [address] (Wo rk) [...] documented as of this encounter Nursing Notes Devora Boateng RN - 08/27/2021 7:45 AM CST Renewed medication per medication refill protocol. Requested Prescriptions Signed Prescriptions Disp Refills ??? metFORMIN (GLUCOPHAGE) 500 MG tablet 180 Tablet 0 Sig: Take 1 Tablet by mouth two times a day with meals. Authorizing Provider: ANTONIO DE OLIVEIRA Ordering User: DEVORA BOATENG Y ANALYST Interface, Out [employer] Prov Query - 08/26/2021 6:33 PM CST metFORMIN (GLUCOPHAGE) 500 MG tablet [Pharmacy Med Name: METFORMIN HCL 500 MG TABLET] Endocrinology: Diabetes - Biguanides -> eGFR and HBA1C were not found within the last 5 years. Last qualifying visit: 12/13/2020 (in [facility]) Next scheduled visit: None Last ordered by ANTONIO DE OLIVEIRA: 12/13/2020 (256 days ago) QTY: 60, Refills: 6, Sig: take 1 tablet by mouth two times a day with meals. 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
--- OUTSIDE RECORDS SUMMARY | 2022-06-19 00:13 | XMS_ITS | Encounter Summary ---
:1995 Author Organization [facility] Address [address] [address] Care Team Providers Name Role Phone Unassigned, Provider Primary Care Provider Unavailable Encounter Details Date Type Department Care Team Description 11/25/2010 PN Conversion Only [place] Jaden Duffy [address] [address] [place] [address] Social History Tobacco Use Types Packs/Day Years Used Date Smoking Tobacco: Never Assessed Sex Assigned at Date Recorded Not on file documented as of this encounter Plan of Treatment Not on filedocumented as of this encounter Procedures Procedure Name Priority Date/Time Associated Comments Diagnosis HEMOGLOBIN, BLOOD Routine 11/25/2010 10:34 AM Res ults for this CDT procedure are i n the results section. CHOLESTEROL (TOTAL) Routine 11/25/2010 10:34 AM R esults for this CDT procedure are i n the results section. documented in this encounter Results Hemoglobin, Blood (11/25/2010 10:34 AM CDT) athologist Signature Hemoglobin 13.9 12.0 - 16.0 HP CONVERSION g/dL Specimen (Source) Anatomical Collection Method Collection Time Re ceived Time Location / / Volume Laterality 11/25/2010 10:34 AM CDT Jaden Hough LAB_1 Performing Organization Address City/State/ZIP Code Phon e Number HP CONVERSION Cholesterol (Total) (11/25/2010 10:34 AM CDT) athologist Signature Cholesterol 106 0 - 170 [facility] CONVERSION mg/dL Specimen (Source) Anatomical Collection Method Collection Time Re ceived Time Location / / Volume Laterality 11/25/2010 10:34 AM CDT Jaden Hough LAB_1 Performing Organization Address City/[facility]/ZIP Code Phon e Number HP CONVERSION documented in this encounter Visit Diagnoses Not on filedocumented in this encounter Care Teams Food Technologist Relationship Specialty Start Date End Date Unassigned, Provider PCP - General 06/16/00 11/12/[address] [place] [address] documented as of this encounter
--- OUTSIDE RECORDS SUMMARY | 2022-06-19 00:13 | XMS_ITS | Encounter Summary ---
:1995 [facility] Address [address] [address] Care Team Providers Name Role Phone Lily Sebastian APRN, CNP Primary Care Provider [phone] Encounter Details Date Type Department Care Team Description 01/03/2016 Notes/Orders [facility] Lily Sebastian Obe sity (BMI 30-39.9) Medicine CYNDIE GORE (Primary Dx) [address] [address] [place] [address] [place] [phone] (Wo rk) Social History Tobacco Use Types Packs/Day Years Used Date Smoking Tobacco: Never Assessed Sex Assigned at Date Recorded Not on file documented as of this encounter Plan of Treatment Not on filedocumented as of this encounter Visit Diagnoses Diagnosis Obesity (BMI 30-39.9) ([facility]) - Primary Obesity, unspecified documented in this encounter Care Teams Taxicab Dispatcher Relationship Specialty Start Date End Date Lily Sebastian APRN, CNP PCP - General 03/07/15 [address] [place] [address] documented as of this encounter
--- OUTSIDE RECORDS SUMMARY | 2022-06-19 00:13 | XMS_ITS | Encounter Summary ---
:1995 Author Organization [facility] Address [address] [address] Care Team Providers Name Role Phone Unassigned, Provider Primary Care Provider Unavailable Encounter Details Date Type Department Care Team Description 01/12/2011 PN Conversion Only CONVERSION CONVERSION Social History Tobacco Use Types Packs/Day Years Used Date Smoking Tobacco: Never Assessed Sex Assigned at Date Recorded Not on file documented as of this encounter Plan of Treatment Not on filedocumented as of this encounter Visit Diagnoses Not on filedocumented in this encounter Care Teams Supervisor Motorcycle Repair Shop Relationship Specialty Start Date End Date Unassigned, Provider PCP - General 06/16/00 11/12/[address] [place] [address] documented as of this encounter
--- OUTSIDE RECORDS SUMMARY | 2022-06-19 00:13 | XMS_ITS | Encounter Summary ---
:1995 Author Organization [facility] Address [address], [place] [address] Care Team Providers Name Role Phone Md DELFINO Yee Primary Care Provider Reason for Visit Reason Comments Follow-up Encounter Details Date Type Department Care Team Description 03/28/2013 Office Visit Nancy Family Jailyn Gruber Abdo minal pain (Primary Dx); Medicine Chronic diarrhea [address] [place] [address] [place], [place] [phone] (Wo rk) Social History Tobacco Use Types Packs/Day Years Used Date Smoking Tobacco: Never Assessed Sex Assigned at Date Recorded Not on file documented as of this encounter Last Filed Vital Signs Vital Sign Reading Time Taken Comments Blood Pressure 102/68 03/28/2013 11:17 AM CDT Pulse 72 03/28/2013 11:17 AM CDT Temperature - - Respiratory Rate - - Oxygen Saturation - - Inhaled Oxygen Concentration - - Weight 92.1 kg (203 lb) 03/28/2013 11:17 AM CDT Height - - Body Mass Index 33.78 03/28/2013 10:06 AM CDT Body Mass Index Percentile 97.25 % 03/28/2013 11:17 AM C DT Growth Chart: CDC (Girls, 2-20 Years) documented in this encounter Patient Instructions Patient InstructionsSiJailyn terry MD - 03/28/2013 11:51 AM CDT Please call the Gastroenterology dept. at [phone] to schedule your appointment. documented in this encounter Progress Notes Jailyn Gruber MD - 03/28/2013 1:02 PM CDT Progress Notes signed by Jailyn Gruber MD at 04/02/130 Author: Jailyn Gruber MD Service: (none) Author Type: Physician Filed: 04/02/131719 Note Time: 03/28/132003 Status: Signed Informaticist: Jailyn Gruber MD (Physician) NAME: MARCUS LCEMENT MR#: [id number] CSN: [id number] AUTHENTICATING CLINICIAN: Jailyn Gruber MD CONFIRM #: [id number] LOC: 502 CLINIC PROGRESS NOTE DATE OF VISIT: 03/28/2013 : 1995 CHIEF COMPLAINT: Followup ER for abdominal pain. HISTORY OF PRESENTING ILLNESS: Marcus is an 18-year-old girl who today comes in with her mother for a followup for ER visit from March 20. According to the patient, she had bad right upper quadrant abdominal pain radiating to the umbilical area, sharp, 5/10; and this was associated with nausea, vomiting, worse with eating. There is a strong family history of gallbladder issues in the family. So they went to ER where they did the blood work, including CBC, liver function tests, alkaline phosphatase, test, total bili, calcium, urine, electrolytes, kidney function tests, calcium; came back normal. They also did the right upper quadrant ultrasound that showed possible fatty liver. Otherwise, no gallstone, gallbladder contracted. CT scan abdomen/pelvis was negative. She was to start on Zantac for 10 days. According to the patient, she does get pain after eating intermittently. It is off and on for the last 1 year after eating, not every time, but she gets pain like on the right upper quadrant area whichis maybe 2 times a week. 4/10 in severity, not associated nausea or vomiting. Appetite has been okay; and then after the pain, she does get diarrhea after eating; and the diarrhea is usually more frequent, 4 times a week, associated with abdominal cramping. She does not have any blood in the stool. She does get occasional feelings of incomplete evacuation of the bowel movement, but no history of any constipation or weight loss. No fever. She denies any heartburn, burping, bloating. No recent travel.No recent antibiotic intake. Currently, she has been doing okay. She does not have any abdominal pain. REVIEW OF SYSTEMS: Otherwise negative. MEDICATIONS: Nothing. ALLERGIES: Sulfa. SOCIAL HISTORY: Patient does not smoke. OBJECTIVE: Blood pressure is 102/60. Pulse is 72. Weight is 203 pounds. GENERAL: Patient is comfortable, no acute distress. CARDIOVASCULAR SYSTEM: S1 and S2. Regular. LUNGS: Clear to auscultation bilaterally. ABDOMEN: Soft, nondistended, nontender. Positive bowel sounds. ASSESSMENT: Right upper quadrant abdominal pain, diarrhea. PLAN: We discussed about the differential. Since the abdominal pain has been chronic and the workup so farhas been negative, I recommend to proceed with stool studies, and check with a TSH and celiac panel.Recommend being seen by Aquatic Centre Manager for further evaluation. The patient agreed. Probably its an irritable bowel syndrome. SS:JOHNNY C: CONFIRM #: [id number] documented in this encounter Plan of Treatment Not on filedocumented as of this encounter Visit Diagnoses Diagnosis Abdominal pain - Primary Chronic diarrhea Diarrhea documented in this encounter Care Teams Industrial Furnace Fabricator Relationship Specialty Start Date End Date Md Yee MD PCP - General 03/28/13 03/06/15 [place] [address] documented as of this encounter
--- OUTSIDE RECORDS SUMMARY | 2022-06-19 00:13 | XMS_ITS | Encounter Summary ---
:1995 Author Organization [facility] Address [address], [place] [address] Care Team Providers Name Role Phone Md DELFINO Yee Primary Care Provider Reason for Visit Reason Comments Refill Encounter Details Date Type Department Care Team Description 09/10/2013 Refill [place] Yanni Plummer, SENIOR CENTER DIRECTOR, Ref ill Obstetrics/Gynecolog y METAL FABRICATING INSPECTOR [address] [place] [address] Social History Tobacco Use Types Packs/Day Years Used Date Smoking Tobacco: Never Assessed Sex Assigned at Date Recorded Not on file documented as of this encounter Plan of Treatment Not on filedocumented as of this encounter Visit Diagnoses Not on filedocumented in this encounter Care Teams Upholsterer Limousine And Hearse Relationship Specialty Start Date End Date Md Yee MD PCP - General 03/28/13 03/06/15 [place], [place] [address] documented as of this encounter
--- OUTSIDE RECORDS SUMMARY | 2022-06-19 00:13 | XMS_ITS | Encounter Summary ---
:1995 [facility] Address [address], [place] [address] Care Team Providers Name Role Phone Navid Young MD Primary Care Provider Reason for Visit Reason Comments NEVUS/NEVI Encounter Details Date Type Department Care Team Description 11/13/2011 Initial Consult Fernanda Alvarado MD Nevus, Dermatology [facility] non-neoplastic [address] [facility] (Primary Dx) [place] [address] [place], [place] [phone] Social History Tobacco Use Types Packs/Day Years Used Date Smoking Tobacco: Never Assessed Sex Assigned at Date Recorded Not on file documented as of this encounter Progress Notes Suzi Mcgarry LPN - 11/17/2011 2:53 PM NETWORK TECHNOLOGY INSTRUCTOR Quick Note: Left message for patient on voice mail per her request regarding pathology from 11/13/11. Advised herto call me at [phone] if she has any concerns. ORK TECHNOLOGY INSTRUCTOR Fernanda Swain MD - 11/17/2011 1:18 PM NETWORK TECHNOLOGY INSTRUCTOR Quick Note: please inform. Fernanda Swain MD - 11/13/2011 1:05 PM CST Progress Notes signed by Fernanda Swain MD at 12/08/11 3814 Author: Fernanda Swain MD Service: (none) Author Type: Physician Filed: 12/08/11 1644 Note Time: 11/13/11 1305 Status: Signed Director Network Development: Fernanda Swain MD (Physician) NAME: BINA CLEMENT MR#: [id number] CSN: [id number] AUTHENTICATING CLINICIAN: Fernanda Swain MD CONFIRM #: [id number] LOC: 527 CLINIC PROGRESS NOTE DATE OF VISIT: 11/13/2011 : 1995 CHIEF COMPLAINT: Mole on scalp. HISTORY OF PRESENT ILLNESS: Lhaxdqe-qket-yvp female presents for evaluation of a mole on the scalp. She feels that it is not growing and has been there a long time, but it is raised and gets caught on her comb and she is concerned about it. She has no other specific complaints other than a raised mole on the left neck which gets rubbed by clothing and necklaces and is very irritating to her and becomes itchy. She denies any other bleeding, tender, pruritic or otherwise symptomatic lesions. She has no personal, nor family history of skin cancer. MEDICATIONS: None. ALLERGIES: Sulfa. SOCIAL HISTORY: Patient is a high school student and hopes one day to become a dentist or pharmacist. OBJECTIVE: Well-appearing female, skin type 2, very pleasant, cooperative with exam, alert and oriented x3. Limited exam today of the scalp and neck, as well as the face, reveals a pink papule on the left parietal scalp from which hairs are emerging consistent with a dermal nevus. On the left neckline, there is a pedunculated pink papule and consistent with skin tag versus irritated nevus. The remainder of the exam is unremarkable. ASSESSMENT/PLAN: Fkcipbw-kxlq-dmu female with irritated papule on the left neck consistent most likely with irritated nevus versus skin tag. After explaining the risks and benefits of shave procedure, the patient gave verbal consent. I proceeded to clean the area with alcohol followed by numbing with 1% lidocaine, epinephrine and sodium bicarbonate. The lesion was shaved flat with the surrounding skin using a Maliha blade and the specimen was placed in formalin for H and E staining. Patient will be called with the results once they are available. In terms of the compound nevus on the scalp, this was discussed with the patient and reassurance given. She will return to clinic as needed for followup. GUY:JOHNNY C: CONFIRM #: [id number] documented in this encounter Miscellaneous Notes Miscellaneous - 10/23/2016 8:02 PM CSTNotes Recorded by Suzi Mcgarry LPN on 11/17/2011 at 2:53 PMLeft message for patient on voice mail per her request regarding pathology from 11/13/11. Advised her to call me at [phone] if she has any concerns.------Notes Recorded by Fernanda Swain MD on 11/17/2011 at 1:18 PMplease inform. ORK TECHNOLOGY INSTRUCTOR documented in this encounter Plan of Treatment Not on filedocumented as of this encounter Procedures Procedure Name Priority Date/Time Associated Diagnosis Comme nts SURGICAL PATH, PARK Routine 11/13/2011 6:00 AM Anne cody for this NICOLL NETWORK TECHNOLOGY INSTRUCTOR procedure are i n the results section. documented in this encounter Results Pathology Report (11/13/2011 6:00 AM NETWORK TECHNOLOGY INSTRUCTOR) Component Value Ref Test Analysis Performed At [facility] gist Range Method Time Signature Path: ? Final DERMATOPATHOLOGY REPO RT HP CONVERSION Pathology #: [id number] ? Date Obtained: 11/13/2011 ?Date Received: 11/13/2011 DIAGNOSIS: ? Skin, left neck, shave biopsy: ? - Acrochordon. ? Xander COTTER ? (electronic signatur e) ? 11/16/2011 ??17:2 2 CLINICAL NOTES: ? Nevus vs Skin tag irritated ORGAN/TISSUE SITE ? Left neck GROSS DESCRIPTION: ? Received in a formalin-filled container labeled with the patient's ? name is a 3 x 3 x 4 mm shave biopsy of skin. The spec imen is ? bisected and submitted entirely in one cassette. ?SHAEL MICROSCOPIC DESCRIPTION: ? Microscopic evaluation performed. ? End of Report Specimen Anatomical Collection Method Collection Time Receive d Time (Source) Location / / Volume Laterality SKIN TAG / Unknown 11/13/2011 6:00 AM 10/2011 6:00 NETWORK TECHNOLOGY INSTRUCTOR AM NETWORK TECHNOLOGY INSTRUCTOR Transcriptions 10/23/2016 8:02 PM CSTNotes Recorded by Suzi Mcgarry LPN on 11/17/2011 at 2:53 PMLeft message for patient on voice mail per her request regarding pathology from 11/13/11. Advised her to call me at [phone] if she has any concerns.------ Notes Recorded by Fernanda Swain MD on at 1:18 PMplease inform. Fernanda Swain MD LAB_1 Performing Organization Address City/State/ZIP Code Phon e Number HP CONVERSION documented in this encounter Visit Diagnoses Diagnosis Nevus, non-neoplastic - Primary documented in this encounter Care Teams Mental Health Counselor Relationship Specialty Start Date End Date Navid Young MD PCP - General 11/13/11 03/19/[address] [place] [address], [id number] documented as of this encounter
--- OUTSIDE RECORDS SUMMARY | 2022-06-19 00:13 | XMS_ITS | Encounter Summary ---
:1995 Author Organization [facility] Address [address], [place] [address] Care Team Providers Name Role Phone Lily Sebastian APRN, CNP Primary Care Provider Reason for Visit Reason Comments Annual Exam Encounter Details Date Type Department Care Team Description 03/07/2015 Office Visit [facility] Lily Sebastian general medical examination at a health care facility (Primary Dx); Gia Ford APRN, CNP Contraceptive management; [address] [place] [address] Obesity (BMI 30-39.9); [place] [address] [place], [place] Screening for deficiency ane trixie; [phone] Screening for thyroid disorder; [phone] Encounter for s creening for diabetes mellitus; (Work) Immunity status testing; Routine s creening for STI (sexually transmitted infection); Need for HPV va ccination Social History Tobacco Use Types Packs/Day Years Used Date Smoking Tobacco: Never Assessed Sex Assigned at Date Recorded Not on file documented as of this encounter Last Filed Vital Signs Vital Sign Reading Time Taken Comments Blood Pressure 128/80 03/07/2015 10:21 AM CDT Pulse 72 03/07/2015 10:21 AM CDT Temperature - - Respiratory Rate - - Oxygen Saturation - - Inhaled Oxygen Concentration - - Weight 97.1 kg (214 lb) 03/07/2015 10:21 AM CDT Height 167.6 cm (5' 6) 03/07/2015 10:21 AM CDT Body Mass Index 34.54 03/07/2015 10:21 AM CDT documented in this encounter Progress Notes Lily Sebastian APRN, CNP - 03/07/2015 12:19 PM CDT Bina Enamorado [id number] 1995 SUBJECTIVE: BINA ENAMORADO is a 20 y.o. female who presents to the clinic for a routine physical exam and to establish care. She is , with menarche at age 10. Menses are now regular, occurring every 5 weeks. Asa teenager, cycles were irregular and she was started on an OCP. She has since discontinued the oral contraceptive. She is currently sexually active in a monogamous relationship with her boyfriend. Sheuses condoms for contraception, but is interested in restarting her control pill. No concerns about STI's at this time. She denies dyspareunia, unusual vaginal discharge, or pelvic pain. Denies history of STI's. Denies smoking, HTN, HAs, DVT, FHX DVT, liver issues or breast cancer. The patient would like to be screened for hypothyroidism. Her mother has hypothyroidism. The patienthas struggled with weight since the fourth grade. She managed to lose 30 pounds in seventh grade after meeting with a impregnation operator and taking some type of appetite suppressant. At this point, the patient states that she has not been eating very healthy and is not currently exercising. She feels much better when she is watching her diet and getting exercise. She is interested in jump starting the process. She finds that it's very difficult for her to get motivation to be healthier if she is not seeing results. She denies history of eating disorder. Denies binge eating. Reports that depressed mood oft en makes her eat unhealthfully, but she denies significant depression or anxiety at this time. PAST MEDICAL HISTORY: Past Medical History Diagnosis Date ??? Immunization, other disease ??? Immunization, varicella PAST SURGICAL HISTORY: Past Surgical History Procedure Laterality Date ??? [place] tooth extraction IRRIGATION FLUME LAYER HISTORY: OB History Para Term AB TAB SAB Ectopic Multiple Living 0 Patient's last menstrual period was 03/03/2015. MEDICATIONS: Outpatient Prescriptions Prior to Visit Medication Sig no routine medication No facility-administered medications prior to visit. ALLERGIES: Allergies Allergen Reactions ??? Sulfa (Sulfonamide Antibiotics) Hives FAMILY HISTORY: Family History Problem Relation Age of Onset ??? High Blood Pressure Mother ??? Thyroid Disease Mother ??? High Blood Pressure Father SOCIAL HISTORY: History Social History Narrative Patient is attending college. Plans to major in nursing. Would eventually like to be ENGAGEMENT MGR. Dating boyfriend in [place] long-distance. 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 HABITS: Tobacco: Never Alcohol/Drugs: Drinks socially at college. Denies drug use. Exercise: Currently sedentary Diet: High intake of fast food. Low intake of fruits and vegetables. Drinks diet soda. HEALTHCARE MAINTENANCE: Last Pap: Never Complete ROS negative with any exceptions listed: reports intermittent diarrhea after certain foods.Denies constipation. Denies hematochezia or mucus in her stool. OBJECTIVE VITALS: BP 128/80 Pulse 72 Ht 5' 6 (1.676 m) Wt 214 lb (97.07 kg) BMI 34.56 kg/m2 LMP 03/03/2015 CONSTITUTIONAL; Well-developed, well nourished female, in NAD. Obese body habitus. HEENT: Head AT/NC. External ears normal. TMs clear, bony landmarks visible. Nares patent, turbinateswithout lesions or drainage. Oropharynx non- erythematous. Uvula midline. Dentition in good condition. NECK: Supple, thyroid without enlargement or nodules. No cervical lymphadenopathy. LUNGS: Symmetrical expansion, CTA in all mccarthy bilaterally. HEART: Regular rate and rhythm. No murmurs. ABDOMEN: Soft, non-tender, no guarding or masses. No HSM. EXTREMITIES: No edema. Strong and equal peripheral pulses SKIN: Birthmark above right eyebrow is brown, macular, 8 mm in diameter. No obvious rashes or suspicious lesions. PSYCH: Well-oriented. Appropriate mood and affect. NEURO: Speech and gait are normal. DTRs 2+ in the patellar reflex. BREASTS: Moderate size, symmetrical. No nipple discharge. No palpable masses, tenderness, lesions, dimpling, or retractions. LYMPH: No axillary, supraclavicular, or inguinal lymphadenopathy. GENITALIA: Labia without lesions, normal hair distribution. Vaginal vault pink with clear discharge.No cervical lesions. No CMT. No adnexal masses or tenderness. Uterus anteverted. RECTAL: No external hemorrhoids noted. ASSESSMENT/PLAN: Routine general medical examination at a health care facility - Labs will include hemoglobin, glucose, and TSH. - Varicella Zoster Immune Status for nursing school paperwork - Chlamydia and GC STD - HPV #2 (Gardasil) - Pap smear advised at age 21. - Followup yearly. Contraceptive management - Discussed with patient the various control options that are available. Discussed risks, benefits, side effects, expectations, and efficacy of these options. Patient is interested in starting anoral contraceptive pill. She will start the Wednesday after her next period starts. Discussed increasedrisk of DVT, PE, and hypertension. Discussed common side effects including breakthrough bleeding. OCP brochure given to patient today. Patient also encouraged to use condoms to prevent STDs. - Restart norgestimate-ethinyl estradiol (ORTHO TRI-CYCLEN, TRI-SPRINTEC) 0.18/0.215/0.25 mg-35 mcg (28) tablet; Take 1 tablet by mouth daily (every 24 hours). Follow package directions - Followup yearly Obesity - Encouraged patient to focus on healthy lifestyle. Increase intake of fruits, vegetables, lean protein, and healthy fat. Decrease intake of sugary beverages and processed food. Encouraged regular aerobic exercise. - Discussed pharmacotherapy for weight loss. Initiate phentermine 15 mg capsule; Take 1 capsule by mouth every morning #30 with 2 refills. Discussed possible side effects. - Blood pressure and pulse check in 2 weeks. - Recheck in 2 months. Intermittent diarrhea - Briefly discussed IBS. Patient given FODMAP diet. Counseling: Discussed the importance of safe sexual practices with use of barrier contraception, regular exercise, eating a healthy, well-balanced diet, and sun protection. Lily Sebastian APRN, CNP [facility] NB: A voice recognition dictation system was used for this note. Please excuse any typographical errors. documented in this encounter Plan of Treatment Not on filedocumented as of this encounter Procedures Procedure Name Priority Date/Time Associated Diagnosis Comme nts CHLAMYDIA & GC (14 Routine 03/07/2015 11:32 AM Routine screeni ng Results for this YEARS AND OLDER) CDT for STI (sexually proced ure are in transmitted the results infection) section. documented in this encounter Results Chlamydia & GC (03/07/2015 11:32 AM CDT) [facility] Method Time Signature Chlamydia Negative Negative HP CONVERSION Trachomatis STD Comment: Test Performed by Concrete Block Plant Supervisor Mediated Amplification CLIA Number [id number] N. gonorrhoeae STD Negative Negative HP CONVERSI ON Comment: Test Performed by Concrete Block Plant Supervisor Mediated Amplification Performed at [facility], [address] [place] [id number] CLIA Number [id number] Source STD Cervix HP CONVERSION Comment: CLIA Number [id number] Specimen Anatomical Collection Method Collection Time Receive d Time (Source) Location / / Volume Laterality 03/07/2015 11:32 03/07/2015 7:05 AM CDT PM CDT Lily Sebastian APRN, CNP LAB_1 Performing Organization Address City/State/ZIP Code Phon e Number HP CONVERSION documented in this encounter Visit Diagnoses Diagnosis Routine general medical examination at a health care facility - Primary Contraceptive management Unspecified contraceptive management Obesity (BMI 30-39.9) (C) Obesity, unspecified Screening for deficiency anemia Screening for other and unspecified defi ciency anemia Screening for thyroid disorder Encounter for screening for diabetes sparkle litus Screening for diabetes mellitus Immunity status testing Antibody response examination Routine screening for STI (sexually cisse smitted infection) Screening examination for venereal disea se Need for HPV vaccination Need for prophylactic vaccination and in oculation against other viral diseases documented in this encounter Care Teams Deputy County Clerk Relationship Specialty Start Date End Date Lily Sebastian APRN, BAG MACHINE ADJUSTER PCP - General 03/07/[address] [place] [address] documented as of this encounter
--- OUTSIDE RECORDS SUMMARY | 2022-06-19 00:13 | XMS_ITS | Encounter Summary ---
:1995 Author Organization [employer] Address [address], [place] [address] Care Team Providers Name Role Phone Lily Sebastian APRN, CNP Primary Care Provider [phone] Reason for Visit Reason Comments Prior Authorization Request Encounter Details Date Type Department Care Team Description 03/14/2015 Telephone [facility] Lily Sebastian Pri or Authorization Medicine CYNDIE GORE Request [id number] [place] [address] [place], [place] [phone] (Wo rk) Social History Tobacco Use Types Packs/Day Years Used Date Smoking Tobacco: Never Assessed Sex Assigned at Date Recorded Not on file documented as of this encounter Nursing Notes Lily Sebastian APRN, CNP - 03/14/2015 11:46 AM CDT noted Giovana Galvin - 03/14/2015 11:37 AM CDT The Prior auth for Phentermine was approved from 03-08-15 to 06-08-15. Pharmacy notified Kathy French RN - 03/14/2015 11:11 AM CDT Called back Yassine at [facility] and answered questions. He gave PA rx for phentermine , willfax this OK to FP ,and mail letter to pt. Omayra Olivas - 03/14/2015 10:21 AM CDT see closed note for PA , caller needs more information , transferred to triage. documented in this encounter Plan of Treatment Not on filedocumented as of this encounter Visit Diagnoses Not on filedocumented in this encounter Care Teams Control Clerk Head Relationship Specialty Start Date End Date Lily Sebastian, TRUCK OPERATOR, SLIDE FORMING MACHINE TENDER PCP - General 03/07/15 [address] [place] [id number] documented as of this encounter
--- OUTSIDE RECORDS SUMMARY | 2022-06-19 00:13 | XMS_ITS | Encounter Summary ---
:1995 Author Organization [employer] Address [address], [place] [address] Care Team Providers Name Role Phone Lily Sebastian APRN, CNP Primary Care Provider [phone] Reason for Visit Reason Comments Prior Authorization Request Encounter Details Date Type Department Care Team Description 03/08/2015 Telephone [facility] Lily Sebastian Pri or Authorization Medicine CYNDIE GORE Request [id number] [place] [address] [place] [phone] (Wo rk) Social History Tobacco Use Types Packs/Day Years Used Date Smoking Tobacco: Never Assessed Sex Assigned at Date Recorded Not on file documented as of this encounter Nursing Notes Giovana Galvin - 03/11/2015 8:14 AM CDT PA faxed to insurance. Waiting for response Lily Sykes APRN, CNP - 03/08/2015 5:15 PM CDT PA completed. Giovana Casillas - 03/08/2015 2:23 PM CDT A prior authorization is required for Phentermine 15 mg. Form given to Lily Sebastian for completion documented in this encounter Plan of Treatment Not on filedocumented as of this encounter Visit Diagnoses Not on filedocumented in this encounter Care Teams Shear Assembler Relationship Specialty Start Date End Date Lily Sebastian, VP COMMUNICATIONS, VENDING MACHINE SERVICER PCP - General 03/07/15 [address] [id number] documented as of this encounter
--- OUTSIDE RECORDS SUMMARY | 2022-06-19 00:13 | XMS_ITS | Encounter Summary ---
:1995 Author Organization [employer] Address [address], [place] [address] Care Team Providers Name Role Phone Md DELFINO Yee Primary Care Provider Reason for Visit Reason Comments Dysuria Encounter Details Date Type Department Care Team Description 11/25/2014 Hospital Encounter [place] [facility] Nolvia Thomas, Dysuria; Care PA-C UTI (urinary tract infection) [id number] [place] [address] [phone] Social History Tobacco Use Types Packs/Day Years Used Date Smoking Tobacco: Never Assessed Sex Assigned at Date Recorded Not on file documented as of this encounter Last Filed Vital Signs Vital Sign Reading Time Taken Comments Blood Pressure 131/89 11/25/2014 4:08 PM CDT Pulse 79 11/25/2014 4:08 PM CDT Temperature 36 ??C (96.8 ??F) 11/25/2014 4:08 PM CDT Respiratory Rate - - Oxygen Saturation - - Inhaled Oxygen Concentration - - Weight - - Height - - Body Mass Index - - documented in this encounter Medications at Time of Discharge Medication Sig Dispensed Refills Start Date End Date ciprofloxacin (aka CIPRO) Take 1 tablet by 6 tablet 0 11/1111/28/2014 tablet mouth 2 times daily for 3 days. Norgestimate-Eth Take 1 tablet by 84 tablet 4 03/28/2013 Estradiol (AKA mouth daily (every ORTHO-CYCLEN) 0.25-35 24 hours). Follow MG-MCG tabletIndications: package directions Family planning, BCP ( control pills) initial prescription ORTHO TRI-CYCLEN (28) OR Take by mouth. 0 015 03/07/2015 phenazopyridine (aka Take 1 tablet by 6 tablet 0 5 11/27/2014 PYRIDIUM) tablet mouth 3 times daily as needed for Pain for up to 2 days. documented as of this encounter ED Notes Nolvia Thomas PA-C - 11/25/2014 4:38 PM CDT Subjective: Patient ID: Bina Enamorado is an 19 y.o. female. Chief Complaint: dysuria HPI Pt c/o dysuria, urinary urgency and frequency for 2 days. She denies abnormal vaginal discharge or bleeding, no fevers/chills, cp, sob, abdominal or pelvic pain, nausea or vomiting. She said that she did have some diarrhea after eating roast beef and cabbage today. She is sexually active with 2 partners in the past 6 months and had std testing after that second partner, in 04/2014 with negative std results. Denies h/o std. History Substance Use Topics ??? Smoking status: Former Smoker ??? Smokeless tobacco: Not on file ??? Alcohol Use: Yes Sulfa allergy Student ROS Review of systems positive for what is stated in HPI. Objective: BP 131/89 Pulse 79 Temp(Src) 36 ??C (96.8 ??F) (Oral) Physical Exam Constitutional: She is oriented to person, place, and time. She appears well- developed and well-nourished. HENT: Head: Normocephalic and atraumatic. Eyes: Pupils are equal, round, and reactive to light. Neck: Normal range of motion. Cardiovascular: Normal rate, regular rhythm and normal heart sounds. Pulmonary/Chest: Effort normal and breath sounds normal. No respiratory distress. She has no wheezes. She has no rales. Abdominal: Soft. Bowel sounds are normal. She exhibits no distension. There is no tenderness. There is no guarding. Musculoskeletal: Normal range of motion. Neurological: She is alert and oriented to person, place, and time. Skin: Skin is warm and dry. Psychiatric: She has a normal mood and affect. Her behavior is normal. Procedures No results found for this visit on 11/25/14. Pts urine shows Moderate leuk esterase, trace blood. Neg glu, neg bili, neg ket, neg nitrites. ph8.5 Assessment: Diagnoses of Dysuria and UTI (urinary tract infection) were pertinent to this visit. MDM Plan: 1. Medications Prescribed this Visit Disp Refills Start End ciprofloxacin HCl (CIPRO) 250 mg tablet 6 tablet 0 11/25/2014 11/28/2014 Take 1 tablet by mouth 2 times daily for 3 days. Oral phenazopyridine (PYRIDIUM) 200 mg tablet 6 tablet 0 11/25/2014 11/27/2014 Take 1 tablet by mouth 3 times daily as needed for Pain for up to 2 days. Oral 2. Pt education - agrees with plan to follow up pmd or school nurse and return if sx worsen or she develops fever, pelvic pain, abnormal vaginal discharge. NAD. non toxic. Well appearing. Discharge Instructions Urinary Tract Infection in Women: After Your Visit Your Care Instructions A urinary tract infection, or UTI, is a general term for an infection anywhere between the kidneys and the urethra (where urine comes out). Most UTIs are bladder infections. They often cause pain or burning when you urinate. UTIs are caused by bacteria and can be cured with antibiotics. Be sure to complete your treatment so that the infection goes away. Follow-up care is a yusuf part of your treatment and safety. Be sure to make and go to all appointments, and call your doctor if you are having problems. It's also a good idea to know your test results and keep a list of the medicines you take. How can you care for yourself at home? ?? Take your antibiotics as directed. Do not stop taking them just because you feel better. You need to take the full course of antibiotics. ?? Drink extra water and other fluids for the next day or two. This may help wash out the bacteria that are causing the infection. (If you have kidney, heart, or liver disease and have to limit fluids, talk with your doctor before you increase your fluid intake.) ?? Avoid drinks that are carbonated or have caffeine. They can irritate the bladder. ?? Urinate often. Try to empty your bladder each time. ?? To relieve pain, take a hot bath or lay a heating pad set on low over your lower belly or genital area. Never go to sleep with a heating pad in place. To prevent UTIs ?? Drink plenty of water each day. This helps you urinate often, which clears bacteria from your system. (If you have kidney, heart, or liver disease and have to limit fluids, talk with your doctor before you increase your fluid intake.) ?? Consider adding cranberry juice to your diet. ?? Urinate when you need to. ?? Urinate right after you have sex. ?? Change sanitary pads often. ?? Avoid douches, bubble baths, feminine hygiene sprays, and other feminine hygiene products that have deodorants. ?? After going to the bathroom, wipe from front to back. When should you call for help? Call your doctor now or seek immediate medical care if: ?? Symptoms such as fever, chills, nausea, or vomiting get worse or appear for the first time. ?? You have new pain in your back just below your rib cage. This is called flank pain. ?? There is new blood or pus in your urine. ?? You have any problems with your antibiotic medicine. Watch closely for changes in your health, and be sure to contact your doctor if: ?? You are not getting better after taking an antibiotic for 2 days. ?? Your symptoms go away but then come back. Where can you learn more? Go to [employer] and enter K848 in the search box. Current as of: May 22, 2014 Content Version: 10.3 ?? [id number] [employer] documented in this encounter Miscellaneous Notes Medication History - Bennie Randhawa MD - 11/25/2014 4:38 PM CDT INPATIENT MEDS Encounter Date: 11/25/14 ciprofloxacin HCl (CIPRO) 250 mg tablet Start Date:11/25/14, End Date:11/28/14, Frequency:2 TIMES DAILY *No Administrations Recorded phenazopyridine (PYRIDIUM) 200 mg tablet Start Date:11/25/14, End Date:11/27/14, Frequency:3 TIMES DAILY PRN *No Administrations Recorded NORGESTIMATE-ETHINYL ESTRADIOL (ORTHO TRI-CYCLEN, 28, ORAL) Start Date:-, End Date:03/07/15, Frequency:- *No Administrations Recorded ED AVS Snapshot - Bennie Randhawa MD - 11/25/2014 4:38 PM CDT Images from the original note were not included. [facility] [address] [place] [address] Dept: [phone] [email or web address] Bina Enamorado 11/25/2014 4:10 PM Hospital Encounter Description: Female : 1995 Department: [place] [facility] Thank you for choosing [facility] for your health care visit with Nolvia Thomas PA-C. We are happy to care for you and provide this summary of your visit. Your primary patient care technician instructor iscurrently listed as Md Nakia MD. HERE IS WHAT YOU NEED TO KNOW To learn how you can take steps to stay as healthy as you can be visit [email or web address] Discharge Instructions Urinary Tract Infection in Women: After Your Visit Your Care Instructions A urinary tract infection, or UTI, is a general term for an infection anywhere between the kidneys and the urethra (where urine comes out). Most UTIs are bladder infections. They often cause pain or burning when you urinate. UTIs are caused by bacteria and can be cured with antibiotics. Be sure to complete your treatment sothat the infection goes away. Follow-up care is a yusuf part of your treatment and safety. Be sure to make and go to all appointments, and call your doctor if you are having problems. It's also a good idea to know your test results and keep a list of the medicines you take. How can you care for yourself at home? ?? Take your antibiotics as directed. Do not stop taking them just because you feel better. You needto take the full course of antibiotics. ?? Drink extra water and other fluids for the next day or two. This may help wash out the bacteria that are causing the infection. (If you have kidney, heart, or liver disease and have to limit fluids,talk with your doctor before you increase your fluid intake.) ?? Avoid drinks that are carbonated or have caffeine. They can irritate the bladder. ?? Urinate often. Try to empty your bladder each time. ?? To relieve pain, take a hot bath or lay a heating pad set on low over your lower belly or genitalarea. Never go to sleep with a heating pad in place. To prevent UTIs ?? Drink plenty of water each day. This helps you urinate often, which clears bacteria from your system. (If you have kidney, heart, or liver disease and have to limit fluids, talk with your doctor before you increase your fluid intake.) ?? Consider adding cranberry juice to your diet. ?? Urinate when you need to. ?? Urinate right after you have sex. ?? Change sanitary pads often. ?? Avoid douches, bubble baths, feminine hygiene sprays, and other feminine hygiene products that have deodorants. ?? After going to the bathroom, wipe from front to back. When should you call for help? Call your doctor now or seek immediate medical care if: ?? Symptoms such as fever, chills, nausea, or vomiting get worse or appear for the first time. ?? You have new pain in your back just below your rib cage. This is called flank pain. ?? There is new blood or pus in your urine. ?? You have any problems with your antibiotic medicine. Watch closely for changes in your health, and be sure to contact your doctor if: ?? You are not getting better after taking an antibiotic for 2 days. ?? Your symptoms go away but then come back. Where can you learn more? Go to [employer] and enter K848 in the search box. Current as of: May 22, 2014 Content Version: 10.3 ?? [employer] HERE IS WHAT YOU NEED TO DO Call your clinic if you develop new or worsening symptoms or if you have questions about your visit or medications. Follow-up Information Follow up with [facility]. Specialty: Family Medicine Why: As needed, or you may return to clinic. Contact information: [address] [place] [address] HERE IS INFORMATION FROM TODAY'S VISIT Reason for Visit Dysuria Reason for Visit History Health issues considered by your clinician today Dysuria UTI (urinary tract infection) If you had any tests, you will be notified of your abnormal results by your clinic. We Performed the Following POCT Automated Urinalysis Dipstick: Medications administered today None MEDICATIONS As of today's visit, these are your current medications Medication DOSAGE ciprofloxacin HCl (CIPRO) 250 mg tablet Take 1 tablet by mouth 2 times daily for 3 days. NORGESTIMATE-ETHINYL ESTRADIOL (ORTHO TRI-CYCLEN, 28, ORAL) (Taking) Take by mouth. norgestimate-ethinyl estradiol (ORTHO-CYCLEN, 28,) 0.25-35 mg-mcg per tablet Take 1 tablet by mouthdaily (every 24 hours). Follow package directions phenazopyridine (PYRIDIUM) 200 mg tablet Take 1 tablet by mouth 3 times daily as needed for Pain for up to 2 days. Vital signs from your visit Your Vital Signs Were BP Pulse Temp(Src) Smoking Status 131/89 79 36 ??C (96.8 ??F) (Oral) Former Smoker Allergies as of 11/25/2014 Sulfa (Sulfonamide Antibiotics) 12/19/2004 Allergy LW Reaction: HIVES Immunization History Never Reviewed DTP/HiB (Tetramune) 06/05/1996, 1995, 1995, 1995 DTaP 12/09/1999 HEP B 1995, 1995, 1995 HPV 03/24/2007 IPV 12/09/1999 MMR 12/09/1999, 06/05/1996 Oral Polio Vaccine 1995, 1995, 1995 About You Date Of Sex Race Ethnicity Preferred Language 1995 Female White Non- Kazakh This document contains confidential information about your health and care. It is provided directlyto you for your personal, private use only. documented in this encounter Plan of Treatment Not on filedocumented as of this encounter Procedures Procedure Name Priority Date/Time Associated Comments Diagnosis URINE CULTURE STAT 11/25/2014 4:14 PM Dysuria Results for this CDT procedure are i n the results section. AUTOMATED URINALYSIS Routine 11/25/2014 3:23 PM R esults for this DIPSTICK POCT CDT procedure are in the results section. documented in this encounter Results Urine Culture (11/25/2014 4:14 PM CDT) [facility] Treedom Method Time Signature Source Urine HP CONVERSION Site clean catch HP CONVERSION Urine Culture Gram HP CONVERSION positive organism. <10,000 cfu/mL Specimen (Source) Anatomical Collection Method Collection Time Re ceived Time Location / / Volume Laterality Urine:clean catch 11/25/2014 4:14 PM CDT Narrative HP CONVERSION - 11/26/2014 11:29 AM CDT Performed at [facility] , ??[address] [place] [address], ?? CLIA Number [id number] Nolvia Thomas PA-C LAB_1 Performing Organization Address [facility] Phon e Number HP CONVERSION (ABNORMAL) POCT AUTOMATED URINALYSIS DIPSTICK (11/25/2014 3:23 PM CDT) [facility] Tre[place] Method Time Signature Urine Glucose Negative mg/dL HP CONVERSION (POC) Urine Bilirubin Negative HP CONVERSION (POC) Urine Ketone Negative mg/dL HP CONVERSION (POC) Urine Specific 1.020 HP CONVERSION [place] (POC) Urine Occult Trace-intact HP CONVERSION Blood (POC) Urine PH (POC) 8.5 HP CONVERSION Urine Protein Negative HP CONVERSION (POC) Urine Negative mg/dL HP CONVERSION Urobilinogen (POC) Urine Nitrite Negative HP CONVERSION (POC) Urine Leukocytes Moderate (A) HP CONVERS ION (POC) Urine Color Yellow HP CONVERSION (POC) Urine Appearance Clear HP CONVERSION (POC) Comment: Performed at [address] [place] [address] Strip Lot Number (POC) [id number] mg/dL HP CONV ERSION Specimen Anatomical Collection Method Collection Time Receive d Time (Source) Location / / Volume Laterality 11/25/2014 3:23 PM 5 2:31 CDT PM CDT Nolvia Thomas PA-C LAB_1 Performing Organization Address [facility] Phon e Number HP CONVERSION documented in this encounter Visit Diagnoses Diagnosis Dysuria UTI (urinary tract infection) Urinary tract infection, site not specif ied Triage Assessment Note - Pinky Varner RN - 11/25/2014 4:05 PM CDT Symptoms started on Wednesday. documented in this encounter Care Teams Applied Statistician Relationship Specialty Start Date End Date Md Yee MD PCP - General 03/28/13 03/06/15 [place] [address] documented as of this encounter
--- OUTSIDE RECORDS SUMMARY | 2022-06-19 00:13 | XMS_ITS | Encounter Summary ---
:1995 Author Organization [facility] Address [address] [place] [address] Care Team Providers Name Role Phone Lily Sebastian APRN, CYNDIE Primary Care Provider [phone] Encounter Details Date Type Department Care Team Description 03/07/2015 Lab Visit [facility] Encounter for screening for diabetes mellitus; [address] [email or web address] Screening for thyroid disord er; [place] [address] Screening for deficiency ane trixie; [phone] Immunity status testing Social History Tobacco Use Types Packs/Day Years Used Date Smoking Tobacco: Never Assessed Sex Assigned at Date Recorded Not on file documented as of this encounter Plan of Treatment Not on filedocumented as of this encounter Procedures Procedure Name Priority Date/Time Associated Diagnosis Comme nts GLUCOSE Routine 03/07/2015 11:44 AM Encounter for Results for this CDT screening for procedure are in diabetes mellitus the result s section. TSH AND FREE T4 Routine 03/07/2015 11:44 AM Screening for Resu lts for this (FRT4 IF TSH CDT thyroid disorder procedure a re in ABNORM) the results section. HEMOGLOBIN, BLOOD Routine 03/07/2015 11:44 AM Screening for Re sults for this CDT deficiency anemia procedure are in the results section. V ZOSTER IMMUNE Routine 03/07/2015 11:44 AM Immunity status Re sults for this STATUS, IGG CDT testing procedure are i n the results section. documented in this encounter Results V Zoster Immune Status, IgG (03/07/2015 11:44 AM CDT) P athologist Signature Varicella Immune Immune HP CONVERSION Zoster Immune Status Specimen Anatomical Collection Method Collection Time Receive d Time (Source) Location / / Volume Laterality 03/07/2015 11:44 03/07/2015 3:36 AM CDT PM CDT Narrative HP CONVERSION - 03/08/2015 9:39 AM CDT Performed at [facility], [address] [place] [address] Lily Sebastian APRN, CNP LAB_1 Performing Organization Address [facility] Phon e Number HP CONVERSION Hemoglobin, Blood (03/07/2015 11:44 AM CDT) athologist Signature Hemoglobin 14.9 11.8 - 15.5 HP CONVERSION g/dL Specimen Anatomical Collection Method Collection Time Receive d Time (Source) Location / / Volume Laterality 03/07/2015 11:44 03/07/2015 AM CDT 11:43 AM CDT Narrative HP CONVERSION - 03/07/2015 11:48 AM CDT Performed at [facility], [address] [place], [place] [id number] Lily Sebastian APRN, CNP LAB_1 Performing Organization Address [facility] Phon e Number HP CONVERSION TSH AND FREE T4 (FRT4 IF TSH ABNORM) (03/07/2015 11:44 AM CDT) athologist Signature Thyroid 2.48 0.20 - HP CONVERSION Stimulating 4.50 mIU/L Hormone Specimen Anatomical Collection Method Collection Time Receive d Time (Source) Location / / Volume Laterality 03/07/2015 11:44 03/07/2015 3:36 AM CDT PM CDT Narrative HP CONVERSION - 03/07/2015 4:32 PM CDT Performed at [facility], [address] [place], [place] [id number] Lily Sebastian APRN, CNP LAB_1 Performing Organization Address [facility] Phon e Number HP CONVERSION GLUCOSE (03/07/2015 11:44 AM CDT) athologist Signature Lab Glucose 83 60 - 100 HP CONVERSION mg/dL Specimen Anatomical Collection Method Collection Time Receive d Time (Source) Location / / Volume Laterality 03/07/2015 11:44 03/07/2015 AM CDT 11:43 AM CDT Narrative HP CONVERSION - 03/07/2015 2:58 PM CDT Performed at [facility], [address] [facility], [place] [address] Lily Sebastian APRN, CNP LAB_1 Performing Organization Address City/State/ZIP Code Phon e Number HP CONVERSION documented in this encounter Visit Diagnoses Diagnosis Encounter for screening for diabetes sparkle litus Screening for diabetes mellitus Screening for thyroid disorder Screening for deficiency anemia Screening for other and unspecified defi ciency anemia Immunity status testing Antibody response examination documented in this encounter Care Teams Telegrapher Agent Relationship Specialty Start Date End Date Lily Sebastian APRN, CNP PCP - General 03/07/15 [id number] [address] [phone] documented as of this encounter
--- OUTSIDE RECORDS SUMMARY | 2022-06-19 00:13 | XMS_ITS | Encounter Summary ---
:1995 Author Organization [employer] Address [address], [place] [address] Care Team Providers Name Role Phone Md DELFINO Yee Primary Care Provider Encounter Details Date Type Department Care Team Description 03/28/2013 Lab Visit [facility] Abdominal pain; [id number] [place] [address] Social History Tobacco Use Types Packs/Day Years Used Date Smoking Tobacco: Never Assessed Sex Assigned at Date Recorded Not on file documented as of this encounter Plan of Treatment Not on filedocumented as of this encounter Procedures Procedure Name Priority Date/Time Associated Comments Diagnosis GLIADIN IGA Routine 03/28/2013 12:19 Results for this PM CDT procedure are i n the results section. CELIAC PANEL Routine 03/28/2013 12:19 Abdominal pain Results for this PM CDT Chronic diarrhea procedure a re in the results section. THYROID STIMULATING Routine 03/28/2013 12:19 Abdominal p ain Results for this HORMONE PM CDT Chronic diarrhea procedure a re in the results section. TISSUE TRANSGLUTAMINASE Routine 03/28/2013 12:19 Results for this AB IGA PM CDT procedure are i n the results section. documented in this encounter Results GLIADIN IGA (03/28/2013 12:19 PM CDT) P athologist Signature Gliadin IgA 6 0 - 19 HP CONVERSION Antibodies Units Comment: INTERPRETIVE INFORMATION: Deamidated Gli zoe Peptide (DGP) Ab, IgA 19 Units or less: ........... Negative 20-30 Units: ................ Weak Posit coleman 31 Units or greater: ........ Positive Specimen Anatomical Collection Method Collection Time Receive d Time (Source) Location / / Volume Laterality 03/28/2013 12:19 03/28/2013 3:33 PM CDT PM CDT Narrative HP CONVERSION - 03/30/2013 12:32 AM CDT Performed at [facility] [address] [place], [place] [id number] Jailyn Gruber MD LAB_1 Performing Organization Address [facility] Code Phon e Number HP CONVERSION TISSUE TRANSGLUTAMINASE AB IGA (03/28/2013 12:19 PM CDT) Patholo gist Method Time Signature Tissue 4 0 - 19 HP CONVERSION Transglutaminase Units Antibody, IgA Comment: INTERPRETIVE INFORMATION: Tissue Transgl utaminase (tTG) Antibody, IgA 19 Units or less: Negative 20-30 Units: Weak Positive 31 Units or greater: Moderate to Strong Positive Presence of the tissue transglutaminase (tTG) IgA antibody is associated with gluten-sensitive ente ropathies such as celiac disease and dermatitis herpetifor mis. tTG IgA antibody concentrations greater than or equal to 100 Units usually correlate with results of duoden al biopsies consistent with a diagnosis of celiac di sease. For antibody concentrations greater than 20 Units but less than 100 Units, additional testing for endomysial (KAUSHIK) IgA concentrations may improve the positive predictive value for disease. Specimen Anatomical Collection Method Collection Time Receive d Time (Source) Location / / Volume Laterality 03/28/2013 12:19 03/28/2013 3:33 PM CDT PM CDT Narrative HP CONVERSION - 03/30/2013 12:32 AM CDT Performed at [facility] [address] [place], [place] [id number] Jailyn Gruber MD LAB_1 Performing Organization Address City/[facility] Phon e Number HP CONVERSION THYROID STIMULATING HORMONE (03/28/2013 12:19 PM CDT) P athologist Signature Thyroid 2.85 0.20 - HP CONVERSION Stimulating 4.50 mIU/L Hormone Specimen Anatomical Collection Method Collection Time Receive d Time (Source) Location / / Volume Laterality 03/28/2013 12:19 03/28/2013 3:41 PM CDT PM CDT Jailyn Gruber MD LAB_1 Performing Organization Address City/State/ZIP Code Phon e Number HP CONVERSION CELIAC PANEL (03/28/2013 12:19 PM CDT) Analysis Performed At Patho logist Time Signature Immunoglobulin A 167 68 - 378 HP CONVERSION mg/dL Comment: Tissue Transglutaminase Antibody, IgA b y DEE DEE ([id number]) and Gliadin Peptide (deamidated) Antibod y, IgA ([id number]) to follow. REFERENCE INTERVAL: Immunoglobulin A Access complete set of age- and/or gende r-specific reference intervals for this test in the [facility] Test Directory ([employer]). Specimen Anatomical Collection Method Collection Time Receive d Time (Source) Location / / Volume Laterality 03/28/2013 12:19 03/28/2013 3:33 PM CDT PM CDT Narrative HP CONVERSION - 03/29/2013 4:25 PM CDT Performed at [facility] [address] [place] [id number] Jailyn Gruber MD LAB_1 Performing Organization Address [facility] Phon e Number HP CONVERSION documented in this encounter Visit Diagnoses Diagnosis Abdominal pain Chronic diarrhea Diarrhea documented in this encounter Care Teams Solutions Sales Executive Relationship Specialty Start Date End Date Md Yee MD PCP - General 03/28/13 03/06/15 [place] [address] documented as of this encounter
--- OUTSIDE RECORDS SUMMARY | 2022-06-19 00:13 | XMS_ITS | Encounter Summary ---
:1995 Author Organization [employer] Address [address], [place] [address] Care Team Providers Name Role Phone Md DELFINO Yee Primary Care Provider Reason for Visit Reason Comments Contraception Encounter Details Date Type Department Care Team Description 03/28/2013 Initial Consult Yanni Aguila BCP Obstetrics/Gynecolog y BAO Horan CNP ( control pills) [address] [place] [address] (Primary Dx) [phone] Social History Tobacco Use Types Packs/Day Years Used Date Smoking Tobacco: Never Assessed Sex Assigned at Date Recorded Not on file documented as of this encounter Last Filed Vital Signs Vital Sign Reading Time Taken Comments Blood Pressure 110/70 03/28/2013 10:06 AM CDT Pulse - - Temperature - - Respiratory Rate - - Oxygen Saturation - - Inhaled Oxygen Concentration - - Weight 92.5 kg (204 lb) 03/28/2013 10:06 AM CDT Height 165.1 cm (5' 5) 03/28/2013 10:06 AM CDT Body Mass Index 33.95 03/28/2013 10:06 AM CDT Body Mass Index Percentile 97.32 % 03/28/2013 10:06 AM C DT Growth Chart: CDC (Girls, 2-20 Years) documented in this encounter Patient Instructions Patient InstructionsMacYanni tena APRN, CNP - 03/28/2013 10:22 AM CDT Take 2 pills today and tomorrow, then 1 a day after that. It will be an effective form of control in 2 weeks. You have been provided with a pamphlet. Please have your blood pressure evaluated in 3-4 months. You will need to see me annually to renew your prescription. documented in this encounter Progress Notes Yanni Plummer APRN, CNP - 03/28/2013 10:27 AM CDT Subjective: Bina Enamorado is a 18 y.o. female presents for initiation of oral contraceptives. 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 She currently is not in arelationsh. She has only had one sexual partner and they were virgins. They had sex one time only.She reports no risk of sexually transmitted infection and declines offer for testing. Current Outpatient Prescriptions Medication Sig Dispense Refill ??? norgestimate-ethinyl estradiol (ORTHO-CYCLEN, 28,) 0.25-35 mg-mcg per tablet Take 1 tablet by mouth daily (every 24 hours). Follow package directions 84 tablet 4 ??? DISCONTD: op medications reviewed ??? patient not taking any chronic medication No current facility-administered medications for this visit. Allergies Allergen Reactions ??? Sulfa (Sulfonamide Antibiotics) LW Reaction: HIVES Patient's last menstrual period was 03/20/2013. Single History Occupational History ??? student, freshman, [employer] Patient Active Problem List Diagnosis ??? Family planning, BCP ( control pills) initial prescription Past Medical History Diagnosis Date ??? Immunization, other disease ??? Immunization, varicella Past Surgical History Procedure Laterality Date ??? [place] tooth extraction No results found for this basename: PAPDX, PAPL, XC, L Objective: BP 110/70 Ht 5' 5 (1.651 m) Wt 204 lb (92.534 kg) BMI 33.95 kg/m2 LMP 03/20/2013 patient is a pleasant appearing woman in no acute distress. Affect and appearance are appropriate. She is well groomed. She is unaccompanied to the office visit today. She is oriented to time and date. Assessment: contraceptive counseling and initiation of oral contraceptives. Plan: Total time of office visit was 15 minutes spent entirely in counseling regarding options for contraception. Reviewed contraceptive action, administration, efficacy, benefits versus risks, possible sideeffects and warning signs. I have asked her to check blood pressure in 3-4 months. Rationale discussed. Pamphlet was provided. After visit summary provided. I have asked her to return to clinic in one year for prescription renewal. Orders Placed This Encounter ??? norgestimate-ethinyl estradiol (ORTHO-CYCLEN, 28,) 0.25-35 mg-mcg per tablet Sig: Take 1 tablet by mouth daily (every 24 hours). Follow package directions Dispense: 84 tablet Refill: 4 Prescriptions: Orders Placed This Encounter Medications ??? norgestimate-ethinyl estradiol (ORTHO-CYCLEN, 28,) 0.25-35 mg-mcg per tablet Sig: Take 1 tablet by mouth daily (every 24 hours). Follow package directions Dispense: 84 tablet Refill: 4 She will be informed of test results when available. If MyChart is activated, she will be informed of normal results through [employer]. If not activated and results are normal, she will be informed of results through the mail. If results are abnormal or further evaluation is required, she will be informed by phone. This note was generated using voice activated mechanical drawing teacher software. Typographical errors may be present. Please feel free to contact me at [phone] for clarification. documented in this encounter Plan of Treatment Not on filedocumented as of this encounter Visit Diagnoses Diagnosis Family planning, BCP ( control pill s) initial prescription - Primary General counseling for prescription of o ral contraceptives documented in this encounter Care Teams Sap Sd Analyst Relationship Specialty Start Date End Date Md Yee MD PCP - General 03/28/13 03/06/15 [place] [address] documented as of this encounter
--- OUTSIDE RECORDS SUMMARY | 2022-06-19 00:13 | XMS_ITS | Encounter Summary ---
:1995 Author Organization [employer] Address [address], [place] [address] Care Team Providers Name Role Phone Md DELFINO Yee Primary Care Provider Reason for Visit Reason Comments Cough Pharyngitis CONJUNCTIVITIS Tinnitus Dental Pain Encounter Details Date Type Department Care Team Description 06/24/2013 Hospital Encounter [facility] Acute pharyngitis (Primary Dx); Care A, PA-C Unspecified otitis media; [address] Sinus congest ion; [address] [address] [phone] Social History Tobacco Use Types Packs/Day Years Used Date Smoking Tobacco: Never Assessed Sex Assigned at Date Recorded Not on file documented as of this encounter Last Filed Vital Signs Vital Sign Reading Time Taken Comments Blood Pressure 120/70 06/24/2013 12:37 PM CDT Pulse 80 06/24/2013 12:37 PM CDT Temperature 36.9 ??C (98.4 ??F) 06/24/2013 12:37 PM CDT Respiratory Rate 12 06/24/2013 12:37 PM CDT Oxygen Saturation 98% 06/24/2013 12:37 PM CDT Inhaled Oxygen Concentration - - Weight - - Height - - Body Mass Index - - documented in this encounter Medications at Time of Discharge Medication Sig Dispensed Refills Start Date End Date amoxicillin (aka AMOXIL) Take 1 tablet by 20 tablet 0 06/2407/04/2013 tablet mouth 2 times daily for 10 days. guaiFENesin-codeine (aka Take 5-10 mLs by 120 mL 0 06/2411/25/2014 ROBITUSSIN AC) 100-10 mouth 3 times daily MG/5ML oral liquid as needed for Cough. loratadine-pseudoephedri Take 1 tablet by 0 06/2411/25/2014 ne (aka CLARITIN-D mouth 2 times daily. 12-hour) 5-120 MG TB12 Norgestimate-Eth Take 1 tablet by 84 tablet 4 03/28/2013 Estradiol (AKA mouth daily (every 24 ORTHO-CYCLEN) 0.25-35 hours). Follow MG-MCG package directions tabletIndications: Family planning, BCP ( control pills) initial prescription tobramycin (aka TOBREX) Place 1-2 drops into 5 mL 1 11/25/2014 0.3 % eye drops both eyes 3 times daily. documented as of this encounter ED Notes Brayden Birmingham PA-C - 06/25/2013 10:07 PM CDT ED Provider Notes signed by rBayden Birmingham PA-C at 07/02/13 104 Author: Brayden Birmingham PA-C Service: (none) Author Type: Physician Cash Van Salesperson Filed: 07/02/13 1047 Note Time: 06/26/13 1402 Status: Signed Physical Therapist Technician: Brayden Birmingham PA-C (Physician Cash Van Salesperson) NAME: BINA CLEMENT MR#: [id number] CSN: [id number] AUTHENTICATING CLINICIAN: Brayden Birmingham PA-C CONFIRM #: [id number] LOC: [facility] PROGRESS NOTE DATE OF VISIT: 06/24/2013 : 1995 SUBJECTIVE: An 18-year-old patient, for the past 8 days has had cough, for the past day had sore throat and bilateral eye irritation. Her ears have had severe congestion. At times has had chills. She has been trying to do symptomatic care. Nonsmoker. OBJECTIVE: GENERAL: Patient afebrile, well hydrated, not dyspneic. VITAL SIGNS: See electronic record. HEENT: Both TMs are mildly erythematous, bulging, some loss of landmarks. Nares: Moderate bilateral nasal congestion with discharge seen. Oropharynx: Some slight postnasal drip, moderate erythema, otherwise unremarkable. NECK: Supple with mild bilateral anterior cervical lymphadenopathy. CHEST: Clear. ASSESSMENT: 1. Sinus congestion. 2. Bilateral otitis media, mild. 3. Cough. PLAN: Amoxil b.i.d. for 10 days. Patient also noted to have some redness to the top of bulbar conjunctiva and I think it would be reasonable to place her on a short course of Tobrex for 5 days. Robitussin ACfor cough. Continue symptomatic cares. If worsening, new symptoms next several days, urgent care canbe contacted p.r.n. MAP:MEDQ C: CONFIRM #: [id number] Yessi Centeno RN - 06/24/2013 12:51 PM CDT Rst neg documented in this encounter Miscellaneous Notes Miscellaneous - 06/24/2013 2:03 PM CDTNotes Recorded by Yvonne Cartagena PA-C on 06/25/2013 at 10:58 AMYvonne Cartagena PA-C 10:58 AM 06/25/2013 FRAME FITTER Miscellaneous - 06/24/2013 2:03 PM CDTNotes Recorded by Yvonne Cartagena PA-C on 06/25/2013 at 10:58 AMYvonne Cartagena PA-C 10:58 AM 06/25/2013 Medication History - Bennie Randhawa MD - 06/24/2013 2:03 PM CDT INPATIENT MEDS Encounter Date: 06/24/13 guaiFENesin-codeine (GUAIFENESIN AC) 10-100 mg/5 mL liquid Start Date:06/24/13, End Date:11/25/14, Frequency:3 TIMES DAILY PRN *No Administrations Recorded tobramycin (TOBREX) 0.3 % ophthalmic solution Start Date:06/24/13, End Date:11/25/14, Frequency:3 TIMES DAILY *No Administrations Recorded amoxicillin (AMOXIL) 875 mg tablet Start Date:06/24/13, End Date:07/04/13, Frequency:2 TIMES DAILY *No Administrations Recorded loratadine-pseudoephedrine (CLARITIN-D 12-HOUR) 5-120 mg per tablet Start Date:-, End Date:11/25/14, Frequency:2 TIMES DAILY *No Administrations Recorded documented in this encounter Plan of Treatment Not on filedocumented as of this encounter Procedures Procedure Name Priority Date/Time Associated Diagnosis Comme nts BETA STREP FOLLOWUP Routine 06/24/2013 3:41 PM Re sults for this CDT procedure are i n the results section. GROUP A STREP STAT 06/24/2013 12:41 PM Acute pharyngitis Re sults for this ANTIGEN SCREEN CDT procedure are in the results section. documented in this encounter Results BETA STREP FOLLOWUP (06/24/2013 3:41 PM CDT) [facility] gist Method Time Signature Source Throat HP CONVERSION Site HP CONVERSION Strep Screen No beta HP CONVERSION hemolytic Strep Group A isolated. Specimen (Source) Anatomical Collection Method Collection Time Re ceived Time Location / / Volume Laterality Throat: 06/24/2013 3:41 PM CDT Transcriptions 06/24/2013 2:03 PM CDTNotes Recorded by Yvonne Cartagena PA-C on 06/25/2013 at 10:58 AMYvonne Cartagena PA-C 10:58 AM 06/25/2013 Nathan Ortiz MD LAB_1 Performing Organization Address City/State/ZIP Code Phon e Number HP CONVERSION RAPID STREP GROUP A WAIVED (06/24/2013 12:41 PM CDT) [facility] St[facility] A Negative Negative HP CONVERSION Antigen Strep A Source Throat: HP CONVERSION Specimen Anatomical Collection Method Collection Time Receive d Time (Source) Location / / Volume Laterality 06/24/2013 12:41 06/24/2013 3:41 PM CDT PM CDT Narrative HP CONVERSION - 06/24/2013 3:43 PM CDT Performed at [facility], [address], [place] [address] Transcriptions 06/24/2013 2:03 PM CDTNotes Recorded by Yvonne Cartagena PA-C on 06/25/2013 at 10:58 AMYvonne Cartagena PA-C 10:58 AM 06/25/2013 Nathan Ortiz MD LAB_1 Performing Organization Address City/State/ZIP Code Phon e Number HP CONVERSION documented in this encounter Visit Diagnoses Diagnosis Acute pharyngitis - Primary Unspecified otitis media Sinus congestion Other diseases of nasal cavity and sinus es Cough documented in this encounter Care Teams Mechanical Test Engineer Relationship Specialty Start Date End Date Md Yee MD PCP - General 03/28/13 03/06/15 [place] [address] documented as of this encounter
--- OUTSIDE RECORDS SUMMARY | 2022-06-19 00:13 | XMS_ITS | Encounter Summary ---
:1995 Author Organization [employer] Address [address] [address] Care Team Providers Name Role Phone Lily Sebastian APRN, CNP Primary Care Provider [phone] Reason for Visit Reason Comments CONSULT Encounter Details Date Type Department Care Team Description 01/16/2022 [facility] [address], [place] alaise and fatigue (Primary Dx); Pulmonary Medicine A, MBBS Snoring; [address] [facility] [address] [facility] Morbid obesity (HRC) [place], [place] # [address] [address] [place], [place] [phone] (Wo rk) Social History Tobacco Use [...] Sign Reading Time Taken Comments Blood Pressure - - Pulse - - Temperature - - Respiratory Rate - - Oxygen Saturation - - Inhaled Oxygen Concentration - - Weight 120.7 kg (266 lb) 01/16/2022 10:04 AM CDT Height 168.9 cm (5' 6.5) 01/16/2022 10:04 AM CDT Body Mass Index 42.29 01/16/2022 10:04 AM CDT documented in this encounter Progress Notes Kendell Eid MBBS - 01/16/2022 12:00 AM CDT NAME: BINA BASS CSN: [id number] CLINIC NOTE DATE OF SERVICE: 01/16/2022 : 1995 Bina has come in for a sleep evaluation. This was a telemedicine visit. The patient was located at home and I was in my office. The patient presents with the chief complaint that she has some difficulty in falling asleep, but this is not something which is present every night. She has been told by her that she snores and at times it can be loud. She has never woken up choking or gasping for air and does not describe any symptoms of observed apneas. She describes headaches in the morning on a very rare occasion. There is no history of dry throat. She does not give any history of restless legs, sleepwalking or clenching. She typically goes to bed at 11, wakes up at 7:30. On weekends goes tobed at midnight and wakes up at 9. She does not take any naps. PAST MEDICAL HISTORY: Significant for PCOS, anxiety, depression, and morbid obesity. SOCIAL HISTORY: Does not smoke. Does not drink alcohol. 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 She drinks 2 cans of pop per day. FAMILY HISTORY: Mom has sleep apnea. REVIEW OF SYSTEMS: Carefully carried out. It was otherwise completely negative. MEDICATIONS: Include metformin, sertraline, and vitamin D3. PHYSICAL EXAMINATION: Height is 5 feet 7 inches, weight is 270. BMI is 43. [place] Sleepiness Score was a 7. The sleep questionnaire was reviewed. Notes from [place] and her primary care physician were also reviewed. 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 The patient is currently being evaluated for bariatric surgery. 1.Obstructive sleep apnea remains a possibility with the risk factors being elevated BMI of 43. 2.Morbid obesity with obesity hypoventilation is also possible, especially since the patient has a BMI of 43. 3.Polycystic ovary syndrome which is likely associated with sleep-disordered breathing. 4.Anxiety, depression. Stable on medications. PLAN: 1.I discussed with her about the possibility of obstructive sleep apnea and obesity hypoventilation. 2.I have recommended that we proceed ahead with a polysomnogram with transcutaneous CO2 to evaluate for obstructive sleep apnea and obesity hypoventilation. 3.The patient will return back to our clinic after the sleep test is completed. We will recommend a trial of CPAP if she does indeed have a case of sleep apnea. Thank you very much for allowing me to participate in the care of this patient. Total time was 45 minutes. LUBNA RENAE SAK/AQS /[id number] cc:Em[place] [address] [place] documented in this encounter Plan of Treatment Not on filedocumented as of this encounter Visit Diagnoses Diagnosis Malaise and fatigue - Primary Other malaise and fatigue Snoring Other dyspnea and respiratory abnormalit y Morbid obesity (HRC) Morbid obesity documented in this encounter Care Teams Airborne Operations Relationship Specialty Start Date End Date Lily Sebastian, CRAYON GRADER, REHAB MANAGER PCP - General 03/07/15 [address] [place] [address] documented as of this encounter
--- OUTSIDE RECORDS SUMMARY | 2022-06-19 00:13 | XMS_ITS | Encounter Summary ---
:1995 Author [facility] Address [address] [address] Care Team Providers Name Role Phone Lily Sebastian Liliana GORE, CYNDIE Primary Care Provider [phone] Encounter Details Date Type Department Care Team Description 12/13/2020 [facility]icine [place] [facility] MD [place] associated with [address] [employer] [address] [place] [address] anovulation ([place] [address] Blvd [address]x) [phone] [place] [address] (Wo rk) Social History Tobacco Use Types [...] documented as of this encounter Progress Notes Antonio Garduno MD - 12/13/2020 2:30 PM CDT Chief Complaint: No chief complaint on file. HPI: Bina Clark is a 25 y.o. female with PMH significant prediabetes who presents as a Patient Self-Referral for evaluation in regards to PCOS. Pt initially presented due to difficulties with conception since May of 2019. Pt has previously been on letrozole for fertility x4 ultimately increasing to 7.5mg. She did ovulateonce at dose of 5mg, but then did not ovulate on subsequent doses. Last dose was in October 2019. Pt has prediabetes managed by metformin since November 2018. Did lose 30lbs initially with it but has been gaining back weight lately. Does have issue with hirsutism for which she gets laser therapy. Does not have issues with acne, andno hair loss. Pt has never had regular periods, but now they are essentially nonexistent. She has had to use progesterone to induce it lately. Last period was earlier this month. Is doing f1eyixil if not able to have period on her own. Pt is on 25mcg of Synthroid for adjustment of TSH to goal 1-2. Has been on this dose since September. Past Medical History: Past Medical History: Diagnosis Date ??? Immunization, other disease ??? Immunization, varicella Surgical History: Past Surgical History: Procedure Laterality Date ??? WISDOM TEETH EXTRACTION Family History: Family History Problem Relation Age of Onset ??? High Blood Pressure Mother ??? Thyroid Disorder Mother ??? High Blood Pressure Father Medications: Current Outpatient Medications Medication Sig Dispense Refill ??? Norgestimate-Ethinyl Estradiol (AKA ORTHO TRI-CYCLEN;TRI-SPRINTEC) 0.18/0.215/0.25 MG-35 MCG tablet Take 1 tablet by mouth daily (every 24 hours). Follow package directions 84 tablet 3 ??? topiramate (AKA TOPAMAX) 25 MG tablet Take 4 tablets by mouth 2 times daily. 120 tablet 3 No current facility-administered medications for this visit. Allergies: Allergies Allergen Reactions ??? Sulfa Antibiotics Hives Physical Exam: There were no vitals filed for this visit. Eyes: Scleral icterus not present. Ears, nose, and mouth: Moist mucous membranes Skin: no visible rashes Labs: I have reviewed all pertinent investigations including labs, including outside records if relevant 07/13/2019 FSH 4.9 Estradiol 27 07/04/2019 Prolactin normal 06/2016 17-OH normal Testosterone, free 2.21 (H) Testosterone, total 63 (H) Imaging: I have reviewed all pertinent investigations including imaging, including outside records if relevant Assessment/Plan: Bina Clark is a 25 y.o. female who presents for evaluation in regards to PCOS. Any outside records, prior notes, labwork, and imaging studies were reviewed, if relevant. Labwork all previously consistent with PCOS. Pt most interested in trying to lose weight and fertility at this time. Discused options for weight loss, and advised on diet/exercise changes including calorie restriction to try forweight loss. Will also increase metformin to see if this helps. For fertility, offered clomid. At this time, pt will see of Small Business Representative able to administer clomid with any additional ovulation treatments, but if not will let us know she wants to try clomid through us. #PCOS - recommend diet/exercise changes as described above - increase metformin to 500mg bid - pt declines restoration silversmith at this time - can consider clomid for fertility assistance, pt will discuss with her Small Business Representative - recheck TSH reflex. If TSH not at goal 1-2, will adjust dose of Synthroid (25mcg currently) as management. RTC in 3 months Total time personally spent with patient [id number]: 20 minutes. Additional 10 minutes were spent on chart review, clinical decision-making, and documentation outside of [id number] time with patient on date of patient visit. This encounter was performed as a video visit. Pt agreeable to video visit. Pt was located at home for duration of visit. I was located at my home office. Antonio Garduno MD documented in this encounter Plan of Treatment Not on filedocumented as of this encounter Visit Diagnoses Diagnosis Infertility associated with anovulation - Primary Female infertility associated with anovu lation documented in this encounter Care Teams Cake Press Operator Helper Relationship Specialty Start Date End Date Lily Sebastian, FACILITIES OPERATOR, ADMIN ASST PCP - General 03/07/15 [address] [address] [place] [address] documented as of this encounter
--- OUTSIDE RECORDS SUMMARY | 2022-06-19 00:13 | XMS_ITS | Encounter Summary ---
:1995 Author Organization [facility] Address [address], [place] [address] Care Team Providers Name Role Phone Md DELFINO Yee Primary Care Provider Reason for Visit Reason Comments Dysuria Encounter Details Date Type Department Care Team Description 02/06/2014 Hospital Encounter [facility] Vira Johnson D ysuria (Primary Dx); Care MD Pelvic pain in female; [address] [address] [email or web address] [address] [phone] Social History Tobacco Use Types Packs/Day Years Used Date Smoking Tobacco: Never Assessed Sex Assigned at Date Recorded Not on file documented as of this encounter Last Filed Vital Signs Vital Sign Reading Time Taken Comments Blood Pressure 130/87 02/06/2014 11:12 AM CDT Pulse 82 02/06/2014 11:12 AM CDT Temperature 36.8 ??C (98.2 ??F) 02/06/2014 11:12 AM CDT Respiratory Rate 16 02/06/2014 11:12 AM CDT Oxygen Saturation - - Inhaled Oxygen Concentration - - Weight - - Height - - Body Mass Index - - documented in this encounter Medications at Time of Discharge Medication Sig Dispensed Refills Start Date End Date guaiFENesin-codeine (aka Take 5-10 mLs by 120 [...] documented as of this encounter ED Notes Vira Johnson MD - 03/11/2014 7:51 AM CDT ED Provider Notes signed by Vira Johnson MD at 03/11/14 9493 Author: Vira Johnson MD Service: (none) Author Type: Physician Filed: 03/11/14 6734 Note Time: 03/11/14 1341 Status: Signed Storm Sash Maker: Vira Johnson MD (Physician) NAME: BINA ENAMORADO MR#: [id number] CSN: [id number] AUTHENTICATING CLINICIAN: Vira Johnson MD CONFIRM #: [id number] LOC: 520 URGENT CARE PROGRESS NOTE DATE OF VISIT: 02/06/2014 : 1995 Bina is a 19-year-old here today with urinary frequency. She says that if she does not urinate she has pain in her pelvis. She did not get her normal period this month. She had slight spotting the morning her period was due. She has had a new sexual partner for 3 weeks. She does not exactly say she has pelvic pain, but it feels sensitive. She has had no vaginal discharge. She has had cramps a few mornings. No vaginal itching. LMP was 01/02. She can miss periods at times. She has not used condoms with her partner. Her partner does not have symptoms that she knows of. PAST HISTORY: Updated and reviewed on [email or web address]. MEDICATIONS: Updated and reviewed on [email or web address]. ALLERGIES: Updated and reviewed on [email or web address]. OBJECTIVE: VITAL SIGNS: Reviewed on [email or web address]. GENERAL: Alert and in no acute distress. ABDOMEN: Soft with mild suprapubic tenderness. PELVIC: Mild diffuse tenderness, but no cervical motion tenderness and no specific adnexal tenderness or masses. Wet prep done was negative. Urine test negative. CBC normal as was a UA, and a GC and Chlamydia are pending. ASSESSMENT: Pelvic pain. Not localizing to the right lower quadrant. I have recommended followup with RENTAL SALES AGENT if this persists for further evaluation. HAH:MEDQ C: CONFIRM #: [id number] Jose Wilkins RN - 02/06/2014 1:34 PM CDT BG 94 documented in this encounter Miscellaneous Notes Letter - Vira Johnson MD - 02/06/2014 12:00 AM CDT [facility] [address] [place] [address] [facility] [address] February 06, 2014 Patient: Bina Enamorado Date of : 1995 Date of Visit: 02/06/2014 To Whom It May Concern: Bina Enamorado was seen and treated in our department on 02/06/2014. She is missing work due to being seen today. If you have any questions or concerns, please don't hesitate to call. Sincerely, Vira Johnson MD ERECTOR documented in this encounter Plan of Treatment Not on filedocumented as of this encounter Procedures Procedure Name Priority Date/Time Associated Comments Diagnosis BGS NO CHARGE Routine 02/06/2014 1:33 PM Results for this CDT procedure are i n the results section. WET PREP STAT 02/06/2014 12:59 Dysuria Results for this PM CDT Pelvic pain in procedure are in female the results section. SEXUALLY TRANSMITTED STAT 02/06/2014 12:59 Dysuria Results for this DISEASE PROBE PM CDT Pelvic pain in procedure ar e in female the results section. URINE MICROSCOPIC STAT 02/06/2014 11:13 Dysuria Result s for this AM CDT procedure are i n the results section. URINALYSIS STAT 02/06/2014 11:13 Dysuria Results for this ROUTINE(MICRO IF POS) AM CDT proced ure are in the results section. TEST STAT 02/06/2014 11:13 Pelvic pain in Results for this (URINE) AM CDT female procedure are i n the results section. documented in this encounter Results BGS NO CHARGE (02/06/2014 1:33 PM CDT) athologist Signature Bedside Blood 94 mg/dL HP CONVERSION Glucose Test Comment: Performed at [facility], [address] [facility] [place]. [address] Specimen Anatomical Collection Method Collection Time Receive d Time (Source) Location / / Volume Laterality 02/06/2014 1:33 PM 4 1:35 CDT PM CDT Vira Johnson MD LAB_1 Performing Organization Address [facility] Phon e Number HP CONVERSION SEXUALLY TRANSMITTED DISEASE PROBE (02/06/2014 12:59 PM CDT) Component Value Ref Test Analysis Performed At [facility] gist Range Method Time Signature Source Endocervical for HP CONVERSION molecular testing Site HP CONVERSION Chlamydia Chlamydia HP CONVERSION Trach DNA trachomatis NEGATIVE by DNA amplification GC DNA Neisseria HP CONVERSION gonorrhea NEGATIVE by DNA amplification. Specimen (Source) Anatomical Collection Method Collection Time Re ceived Time Location / / Volume Laterality Endocervical for 02/06/2014 12:59 molecular testing: PM CDT Vira Johnson MD LAB_1 Performing Organization Address City/[facility] Code Phon e Number HP CONVERSION (ABNORMAL) WET PREP (02/06/2014 12:59 PM CDT) [facility] gist Method Time Signature WETPR [place] (A) HP CONVERSION Blood Cells WETPR Moderate HP CONVERSION Epithelial Cells WETPR Yeast None Seen HP CONVERSION WETPR None Seen HP CONVERSION Trichomonas WETPR Clue None Seen HP CONVERSION Cells Wet Prep Source Cervix/Vagin HP CONVERSI ON al: Specimen Anatomical Collection Method Collection Time Receive d Time (Source) Location / / Volume Laterality 02/06/2014 12:59 02/06/2014 1:08 PM CDT PM CDT Narrative HP CONVERSION - 02/06/2014 1:22 PM CDT Performed at [facility], [address], [place] [address] Vira Johnson MD LAB_1 Performing Organization Address [facility] Phon e Number HP CONVERSION Test (Urine) (02/06/2014 11:13 AM CDT) [facility] Signature Urine Negative HP CONVERSION Test Specimen Anatomical Collection Method Collection Time Receive d Time (Source) Location / / Volume Laterality 02/06/2014 11:13 02/06/2014 AM CDT 12:49 PM CDT Narrative HP CONVERSION - 02/06/2014 12:55 PM CDT Performed at [facility], [address] [place] [address] Vira Johnson MD LAB_1 Performing Organization Address [facility] Phon e Number HP CONVERSION (ABNORMAL) URINE MICROSCOPIC (02/06/2014 11:13 AM CDT) [facility] Method Time Signature Urine WBC 3-4 0 - 4 HP CONVERSION Urine RBC None seen 0 - 2 HP CONVERSION Bacteria Urine Occasional (A) HP CONVERS ION Epithelial Few HP CONVERSION Cells Specimen Anatomical Collection Method Collection Time Receive d Time (Source) Location / / Volume Laterality 02/06/2014 11:13 02/06/2014 AM CDT 11:22 AM CDT Narrative HP CONVERSION - 02/06/2014 11:46 AM CDT Performed at [facility], [address] [place] [address] Vira Johnson MD LAB_1 Performing Organization Address [facility] Phon e Number HP CONVERSION URINALYSIS ROUTINE(MICRO IF POS) (02/06/2014 11:13 AM CDT) [facility] Method Time Signature Urine Type Urine:clean HP CONVERSION cat Turbidity Clear Clear HP CONVERSION U BILI Negative Negative HP CONVERSION Blood Urine Negative Negative HP CONVERSION Glucose, Negative Neg-30 HP CONVERSION Qualitative U mg/dL Ketones Negative Negative HP CONVERSION Leukocyte Negative Negative HP CONVERSION Esterase Urine Nitrite Urine Negative Negative HP CONVERSION pH Urine 6.0 5.0 - 8.0 HP CONVERSION Protein Urine Negative Neg - Trace HP CONVERSION mg/dL U Specific 1.020 1.005 - HP CONVERSION [place] 1.030 Urobilinogen Negative Negative HP CONVERSION Urine Specimen Anatomical Collection Method Collection Time Receive d Time (Source) Location / / Volume Laterality Urine: 02/06/2014 11:13 02/06/2014 AM CDT 11:22 AM CDT Narrative HP CONVERSION - 02/06/2014 11:29 AM CDT Performed at [facility], [address] [id number] Vira Johnson MD LAB_1 Performing Organization Address City/State/ZIP Code Phon e Number HP CONVERSION documented in this encounter Visit Diagnoses Diagnosis Dysuria - Primary Pelvic pain in female Unspecified symptom associated with fema le genital organs Frequency Urinary frequency Triage Assessment Note - Gunjan Espinosa RN - 02/06/2014 11:11 AM CDT pt late with menses. has new sexual partner. has had a tiny bit of bloody discharge Triage Assessment Note - Gunjan Espinosa RN - 02/06/2014 11:09 AM CDT onset 3 days ago. pt c/o frequency. burning if she doesn't urinate. no fever. some vaginal itching and discharge. documented in this encounter Care Teams Chemical Supervisor Relationship Specialty Start Date End Date Md Yee MD PCP - General 03/28/13 03/06/15 [place] [address] documented as of this encounter
--- OUTSIDE RECORDS SUMMARY | 2022-06-19 00:14 | XMS_ITS | Encounter Summary ---
:[address] [facility] Address [address], [place] [address] Care Team Providers Name Role Phone Unassigned, Provider Primary Care Provider Unavailable Encounter Details Date Type Department Care Team Description 11/25/2007 Office Visit [facility] [place] [address] [place] [address] [place], [place] [phone] (Wo rk) Social History Tobacco Use Types Packs/Day Years Used Date Smoking Tobacco: Never Assessed Sex Assigned at Date Recorded Not on file documented as of this encounter Last Filed Vital Signs Vital Sign Reading Time Taken Comments Blood Pressure 107/74 11/25/2007 7:23 PM CDT Pulse 87 11/25/2007 7:23 PM CDT Temperature 36.3 ??C (97.3 ??F) 11/25/2007 7:23 PM CDT C: 36 .3 C Respiratory Rate 20 11/25/2007 7:23 PM CDT Oxygen Saturation - - Inhaled Oxygen Concentration - - Weight - - Height - - Body Mass Index - - documented in this encounter Progress Notes Pau Remy MD - 11/25/2007 12:01 AM CDT Progress Notes signed by Pau Remy MD at 11/30/071955 Author: Pau Remy MD Service: (none) Author Type: Physician Filed: 01/03/11 0254 Note Time: 11/25/07 0001 Status: Signed Senior Mobile Solutions Architect: Pau Remy MD (Physician) NAME: IBNA CLEMENT MR#: [id number] ACCT: [id number] VISIT: [id number] DICTATING CLINICIAN: Pau Remy MD JOB: [id number] LOC: 520 CLINIC PROGRESS NOTE DATE OF VISIT: 11/25/2007 SUBJECTIVE: She presents to the clinic with her father with a chief complaint of a rash. She notes that yesterday she had a sore throat and it is gone today. In the past 2 days, she has had some stuffy nose but no cough. She has a fever of 100.8 two days ago which was once only and then resolved. Beginning over the past week, however, she has had some intermittent itchy rash over the body. It comes and goes. No trouble breathing, trouble swallowing, or throat swelling. She has never had a rash like this before. She cannot think of anything that would have caused it. She denies any new medications, detergents or foods. She tried Benadryl which helped somewhat. PAST MEDICAL HISTORY: None. MEDICATIONS: None. ADR/ALLERGIES: SULFA. OBJECTIVE: VS: BP: 107/74. T: 97.4. P: 87. R: 20. She is in no distress, does not appear ill. She is alert. Tympanic membranes are normal. Nares show enlarged turbinates with watery discharge. Pharynx shows slight erythema. Tonsils are 1+ in size. No exudate. There is no facial swelling or lip swelling. NECK: No lymphadenopathy. LUNGS: Clear to auscultation bilaterally. HEART: Regular rate and rhythm. No murmur. SKIN: She has multiple urticarial plaques over the arms and trunk, both anteriorly and posteriorly. Rapid strep test negative. ASSESSMENT: 1. Viral URI. 2. Urticaria, acute. PLAN: Discussed natural history of URI and it should resolve without specific treatment. Strep culture sent, and if positive, I have discussed they will be contacted and treated. I have discussed urticaria. Specifically discussed it usually resolves in a few weeks. Discussed 50% of the time the etiology is not found. Discussed common causes, and I have asked them to review whether they can think of anything that may have caused it. Recommend a trial of Zyrtec 10 mg a day. Recommend holding off on steroids at this time, but if it worsens or does not resolve, I recommended following up with primary care doctor to discuss further evaluation and possible steroid use. Father verbalizes understanding and agreement with this plan. JLP:[id number] C: 11/28/07 12:37 DOCUMENT: [id number] documented in this encounter Plan of Treatment Not on filedocumented as of this encounter Visit Diagnoses Not on filedocumented in this encounter Care Teams Bus Analyst Relationship Specialty Start Date End Date Unassigned, Provider PCP - General 06/16/00 11/12/[address] [place] [address] documented as of this encounter
--- OUTSIDE RECORDS SUMMARY | 2022-06-19 00:14 | XMS_ITS | Encounter Summary ---
:1995 Author Organization [facility] Address [address] [place] [address] Care Team Providers Name Role Phone Unavailable Primary Care Provider Unavailable Reason for Visit Reason Onset Date Comments Testing For Upper Respiratory Virus Symptoms 08/21/2020 Encounter Details Date Type Department Care Team Description 08/21/2020 External Outreach Department of [facility] Medicine, [facility] Respiratory (Primary Building, in [address]) [place], [place] [address] [facility] [address] [place], [place] [phone] [address] (Work) [phone] Social History Tobacco Use Types Packs/Day Years Used Date Smoking Tobacco: Never Assessed Sex Assigned at Date Recorded Not on file documented as of this encounter Progress Notes El Mcdonough, C.M.A. - 08/21/2020 9:37 AM CST Encounter created for symptomatic infectious disease screening with possible COVID, Influenza, and RSV testing. ER OPERATOR documented in this encounter Plan of Treatment Not on filedocumented as of this encounter Procedures Procedure Name Priority Date/Time Associated Comments Diagnosis SARS CORONAVIRUS 2 Routine 08/21/2020 10:58 Resul ts for this PCR DETECT, V AM MUCKER OPERATOR procedure are in the results section. documented in this encounter Results SARS Coronavirus 2 RNA Detection (08/21/2020 10:58 AM MUCKER OPERATOR) [facility] Method Time Signature SARS-CoV-2 Nasopharynx 08/22/2020 [facility] Specimen 4:42 AM MUCKER OPERATOR Source SARS-CoV-2 Undetected Undetected 08/22/2020 [facility] RNA by PCR 4:42 AM MUCKER OPERATOR Comment: SARS-CoV-2 RNA absent. This result does not rule out COVID-19 in the patient, as the sensitivity of the test depends o n the timing of the specimen collection and the quality of the specim en. Result should be correlated with patient's history and clinical presentat ion. ----ADDITIONAL INFORMATION---- This PCR test was performed using the [employer] Interactive SARS-CoV-2 assay ([employer] on the brian Decurate0 System under emergency use authorization (EUA) by the U.S. Food and Drug Administ ration. Fact sheets for this assay can be found at the following links: For Healthcare Providers: https://www.ReFlow Medical a.gov/media/905289/download For Patients: https://www.fda.gov/media/ 297874/download Specimen Anatomical Collection Method Collection Time Receive d Time (Source) Location / / Volume Laterality Varies 08/21/2020 10:58 08/21/2020 AM MUCKER OPERATOR 10:54 PM MUCKER OPERATOR Kenji Woodruff D.O. LAB MICROBIOLOGY - GENERAL O RDERABLES Performing Organization Address City/State/ZIP Code Phon e Number [facility] [address] [place] [address] [facility] [place] [address] Laboratory Medicine and Pathology [address] [place] documented in this encounter Visit Diagnoses Diagnosis Infection Upper Respiratory - Primary documented in this encounter Additional Health Concerns Infection Onset Date Last Indicated Resolved Time COVID19 Pending 08/21/2020 08/21/2020 08/21/2020 2:56 PM MUCKER OPERATOR documented as of this encounter
--- OUTSIDE RECORDS SUMMARY | 2022-06-19 00:14 | XMS_ITS | Encounter Summary ---
:1995 Author Organization [facility] Address [address], [place] [address] Care Team Providers Name Role Phone Unassigned, Provider Primary Care Provider Unavailable Encounter Details Date Type Department Care Team Description 11/24/2010 PN Conversion Only [address] [address] [address] [place] [address] Social History Tobacco Use Types Packs/Day Years Used Date Smoking Tobacco: Never Assessed Sex Assigned at Date Recorded Not on file documented as of this encounter Plan of Treatment Not on filedocumented as of this encounter Visit Diagnoses Not on filedocumented in this encounter Care Teams Hot Dip Tinning Supervisor Relationship Specialty Start Date End Date Unassigned, Provider PCP - General 06/16/00 11/12/[address] [place] [address] documented as of this encounter
--- OUTSIDE RECORDS SUMMARY | 2022-06-19 00:14 | XMS_ITS | Encounter Summary ---
:1995 Author Organization [facility] Address [address] [address] Care Team Providers Name Role Phone Unassigned, Provider Primary Care Provider Unavailable Encounter Details Date Type Department Care Team Description 11/25/2007 PN Conversion Only [employer] [address] [address] [place] [address] Social History Tobacco Use Types Packs/Day Years Used Date Smoking Tobacco: Never Assessed Sex Assigned at Date Recorded Not on file documented as of this encounter Plan of Treatment Not on filedocumented as of this encounter Visit Diagnoses Not on filedocumented in this encounter Care Teams Food Mixer Repairer Relationship Specialty Start Date End Date Unassigned, Provider PCP - General 06/16/00 11/12/[address] [place] [address] documented as of this encounter
--- OUTSIDE RECORDS SUMMARY | 2022-06-19 00:14 | XMS_ITS | Encounter Summary ---
:1995 Author Organization [facility] Address [address] [place] [address] Care Team Providers Name Role Phone Unavailable Primary Care Provider Unavailable Reason for Visit Reason Comments COVID Inquiry Encounter Details Date Type Department Care Team Description 08/21/2020 Clinical Communication Department of Family Unassigned , Pcp COVID Inquiry Medicine, [facility], in [address] [phone] Social History Tobacco Use Types Packs/Day Years Used Date Smoking Tobacco: Never Assessed Sex Assigned at Date Recorded Not on file documented as of this encounter Miscellaneous Notes Telephone Encounter - Quang Vargas - 08/21/2020 9:28 AM CST What is the purpose of the call?: Requesting Testing Only Request Testing In the past 14 days are any of the following symptoms new to you and not related to an existing health condition?: New cough, New sore throat Because of symptoms, transfer patient to: : [place] COVID Nurse Line (End Screening) Symptom Onset Date of symptom onset: 08/20/20 Testing Recommendation Endpoint Is testing recommended? : Transferred to nursing call line Plan: Endpoint recommendation: Transferred to Nursing/COVID Line/Care Team *Reminder if sending patient for testing in [facility] or [facility], route encounter to the correct testing pool. [employer] documented in this encounter Plan of Treatment Not on filedocumented as of this encounter Visit Diagnoses Not on filedocumented in this encounter
--- OUTSIDE RECORDS SUMMARY | 2022-06-19 00:14 | XMS_ITS | Encounter Summary ---
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 sleep due to croup; Call back within 24 hours if:; -Coughing spasms worsen; -Coughing episodes occur more than 3 nights in a row; -Any other questions or concerns; PROBLEM 2: RECOMMENDED THE FOLLOWING... Referenced guideline Diaper rash (child) nurse guidelines. Schedule appointment within 24 hours (1 unit); -Change diapers frequently-check hourly; -Bathe child 1-2 times a day; -Use plain water to cleanse diaper area with each diaper change; -Dry diaper area thoroughly before rediapering; -Expose diaper area to air-naptimes are best; INFORMED PATIENT... Patient information given perDiaper Rash nurse guidelines.; INFORMED PATIENT TO CALLBACK IF... -Increased redness; -Crusting or pustules; -Large blisters; -Fever; -White spots develop in baby's mouth; -No improvement after 3-4 days of home management; -Any other questions or concerns; Call taken by KARELY DO RN [phone] 06/24/1996 01:43 AM ADDENDUM: ADDENDUM 06/24/1996 02:09 AM by KARELY DO RN: ADDENDUM 06/24/1996 02:37 AM by KARELY DO RN sent note to provider. OPRACTIC NEUROLOGIST Agustin Rodriguez - 03/16/1996 12:01 AM CDT Phone Note signed by at 03/16/96 0338 Author: Agustin Conversion Service: (none) Author Type: (none) Filed: 12/30/102009 Note Time: 03/16/96 0001 Status: Signed Wool Hanker: Agustin Rodriguez IMPRESSION: Ear pain-(child)-nurse guidelines SUBJECTIVE: PATIENT COMPLAINS OF... Possible * HOME PHONE:[phone] * ear pain in younger child; ALLERGIES/SENSITIVITIES... Sulfa 03/16/96 CURRENT MEDICATIONS... 03/16/96 PERTINENT PAST HISTORY... hx. ear infection, 03/16/96 ASSESSMENT: Ear pain-(child)-nurse guidelines DISPOSITION: SEMI-URGENT WEIGHT: 25 PLAN: RECOMMENDED THE FOLLOWING... Referenced guideline Ear pain-(child)-nurse guidelines. Schedule appointment within 24 hours (1 unit); Start interim home management.; -Give acetaminophen as directed; -Apply warm, moist towel over ear; -Elevate head; -Give OTC Benadryl for sleep, if child remains uncomfortable after acetaminophen; INFORMED PATIENT... Patient information given [facility].; Verbalizes understanding and agrees with phone care recommendation INFORMED PATIENT TO CALLBACK IF... -Child is getting worse; -There is no improvement after 48-72 hours of antibiotics; CALL BY HERVE KNOTT RN 03/16/1996 03:27AM [phone] ADDENDUM: ADDENDUM 03/16/1996 03:40 AM by HERVE KNOTT RN: sent note to provider A Rodriguez [facility] - 1995 12:01 AM CDT Progress Notes signed by at 07/15/02 776 Author: Agustin Conversion Service: (none) Author Type: (none) Filed: 12/30/101924 Note Time: 95 0001 Status: Signed Wool Hanker: Agustin Rodriguez IMPRESSION: No dictation required. SUBJECTIVE: N/A OBJECTIVE: N/A ASSESSMENT: N/A PLAN: N/A lap SCHEDULED RESOURCE: REGINE ADAMSON / ISOTOPE HYDROLOGIST Mac Nascimento MD - 1995 12:01 AM CDT Progress Notes signed by Mac Cortez MD at 04/30/96 1622 Author: Mac Cortez MD Service: (none) Author Type: Physician Filed: 12/30/101918 Note Time: 95 0001 Status: Signed Wool Hanker: Mac Cortez MD (Physician) IMPRESSION: Upper respiratory infection. SUBJECTIVE: Marcus Clement. Problem: check possible ear infection. This 56-oslah-dxe child has had repeated ear infections. Was last on Biaxin two weeks ago. She has been on sulfas to which she is allergic. Has been on amoxicillin. On Augmentin a number of times and finally taken off of Augmentin because perhaps resistant. Child has been doing quite well, but has had a cold in the last two weeks, some stuffiness of the nose. Last night awoke once during the night and the mother is concerned that she is coming down with another ear infection. Needs to catch it early. OBJECTIVE: Child looks very well. There is cerumen in both ears, but I can get a peak at both drums and I see no evidence of inflammation. ASSESSMENT: N/A. PLAN: Do not choose to put on a prophylactic antibiotic without the child looking more ill. Therefore, will treat just symptomatically with Tylenol and have patient go in and see Dr. Szymanski or one of her delivery table operator colleagues in approximately three days. Sooner if worse. lap Sanford Thomas MD - 1995 12:01 AM CST Progress Notes signed by Sanford Thomas MD at 01/20/96 0847 Author: Sanford Thomas Md, MD Service: (none) Author Type: Physician Filed: 12/30/10 0985 Note Time: 11/30/952321 Status: Signed Wool Hanker: Sanford Thomas Md, MD (Physician) IMPRESSION: Left serous otitis. SUBJECTIVE: Marcus is here for an ear recheck. She was on Augmentin and seemed to do well with that. Now that she has finished it, in the last five days she is having a little bit more fussiness and poking at her ear some. OBJECTIVE: Weight 20 lb. Ears: Right is normal. Left is slightly dull with a little fluid. It is not red. Nose is normal. Pharynx normal. ASSESSMENT: N/A. PLAN: Biaxin 125 per 5, 1/2 tsp. p.o. b.i.d. x 10 days. Recheck ears in three weeks. [facility] Chuck Lim MD - 1995 12:01 AM CST Progress Notes signed by Chuck Lim MD at 07/15/022158 Author: Chuck Lim MD Service: (none) Author Type: (none) Filed: 12/30/101850 Note Time: 95 0001 Status: Signed Wool Hanker: Chuck Lim MD (Physician) IMPRESSION: No dictation required. Viral syndrome, teething. SUBJECTIVE: N/A OBJECTIVE: N/A ASSESSMENT: N/A PLAN: N/A [facility] OPRACTIC NEUROLOGIST Conversion, [facility] - 1995 12:01 AM CST Progress Notes signed by at 07/01/98 5888 Author: Agustin Rodriguez Service: (none) Author Type: (none) Filed: 12/30/101840 Note Time: 95 0001 Status: Signed Wool Hanker: Agustin Conversion IMPRESSION: Ear recheck. SUBJECTIVE: Marcus comes in today for possible ear infection. She just finished Augmentin a couple of days ago. No new cough or cold symptoms. Sleeping fine. ALLERGIES: Sulfa. OBJECTIVE: Left TM has a little fluid inferiorly. Right TM looks fine. Chest is clear. Abdomen soft and nontender. ASSESSMENT: Resolving otitis. PLAN: Discussed with mom. She was interested in prophylaxis, and I gave her a prescription for amoxicillin 250 per tsp., 1/2 tsp. p.o. q.d. x 14 days, to be used either intermittently when she gets a cold or to be used consistently, but probably would recommend intermittent prophylaxis, as she is allergic to sulfa. [facility] SCHEDULED RESOURCE: JORGE LUIS SPARKS / OPRACTIC NEUROLOGIST Conversion, [facility] - 1995 12:01 AM CST Phone Note signed by at 10/05/952038 Author: Agustin Rodriguez Service: (none) Author Type: (none) Filed: 12/30/10 035 Note Time: 95 0001 Status: Signed Wool Hanker: Agustin Rodriguez IMPRESSION: Cough-(child)-nurse guidelines SUBJECTIVE: PATIENT COMPLAINS OF... Mild * HOME PHONE:[phone] * cough,; -VURI symptoms; Started * WORK PHONE:[phone] * having cold sx. x2 days ago, started on antibiotics yesterday, cough slightly worse today, woke up last night with cough. Mom asking what she can give baby at night for cough. Antibiotics for ear infection, she was seen in clinic yesterday. PATIENT DENIES... -Any urgent or semi-urgent symptoms; ALLERGIES/SENSITIVITIES... Sulfa 95 CURRENT MEDICATIONS... augmentin, 1/2tsp. TID x10 days, started -10/05/95 PERTINENT PAST HISTORY... hx. ear infection, started antibiotic 10-04. 95 ASSESSMENT: Cough-(child)-nurse guidelines DISPOSITION: HOME CARE WEIGHT: 19 PLAN: RECOMMENDED THE FOLLOWING... Cough-(child)-nurse guidelines was the Guideline used. -Encourage rest; -Offer warm, clear liquids to relax the airway; -Add 1 teaspoon of honey to loosen and thin secretions; -Use humidity for respiratory comfort; -Avoid active and passive smoking, as well as smoke from fireplaces; -Elevate head of crib or use extra pillow for older child; -Use OTC cough suppressants with dextromethorphan only if cough interferes with sleep or activities; -Give acetaminophen as directed; Discussed home care mom could try and sx. to watch for, she will call back if further problems, prefers no call back from us. INFORMED PATIENT... Patient information given [facility] nurse guidelines.; Verbalizes understanding and agrees with phone care recommendation INFORMED PATIENT TO CALLBACK IF... -Child develops respiratory difficulty.; -Fever for >3 days; -Child develops sinus congestion.; -Symptoms progress or persist > 3 weeks.; CALL BY BIANCA GHOTRA 1995 08:33PM [phone] ADDENDUM: Ermias Hernandes 1995 12:01 AM CST Progress Notes signed by Ermias Aguilera MD at 95 4950 Author: Ermias Aguilera MD Service: (none) Author Type: Physician Filed: 12/30/10 4088 Note Time: 95 0001 Status: Signed Wool Hanker: Ermias Aguilera MD (Physician) IMPRESSION: No dictation required. Otitis media. SUBJECTIVE: N/A OBJECTIVE: N/A ASSESSMENT: N/A PLAN: N/A [facility] OPRACTIC NEUROLOGIST Conversion, [facility] - 1995 12:01 AM CST Progress Notes signed by at 07/01/98 5661 Author: [facility] Conversion Service: (none) Author Type: (none) Filed: 12/30/101834 Note Time: 95 0001 Status: Signed Wool Hanker: Agustin Rodriguez IMPRESSION: Resolved otitis SUBJECTIVE: Marcus Clement is 9 months old. She finished off antibiotics for an ear infection about 5 days ago. She had seemed fine until last night, when she woke up a few times. She has had no cold symptoms associated with this, nor any fever. OBJECTIVE: Today her ears are totally clear. Throat is not injected. Chest is clear. ASSESSMENT: Resolved otitis. PLAN: Symptomatic care. rem SCHEDULED RESOURCE: AMIE TOMLIN MD OPRACTIC NEUROLOGIST Conversion, [facility] - 1995 12:01 AM CST Phone Note signed by at 95 7790 Author: [facility] Conversion Service: (none) Author Type: (none) Filed: 12/30/10 6612 Note Time: 95 0001 Status: Signed Wool Hanker: Agustin Conversion IMPRESSION: Fever (3months to 3 years) nurse guideline - APPOINTMENT MADE WITH [facility] 1995 09:40AM * HOME PHONE:[phone] * SUBJECTIVE: * WORK PHONE:[phone] * PATIENT COMPLAINS OF... Fever,; mm calling with 8 mon. old who is teething and cut tooth today. fever is responding to tylenol. mom states fever and fussiness has been going on for 24 hours. requests appt. baby drinking formula fair. urinating wnl's. child is congested and mouth breathing. mom just started humidifier, and will try saline drops now. also gave pediatric dimetapp now. ; ALLERGIES/SENSITIVITIES... Sulfa? 95 95 CURRENT MEDICATIONS... tylenol and pediatric dimetapp prn PERTINENT PAST HISTORY... Ear infection-was on Cotrin when rash broke out on last dose on day 10 95 95 ASSESSMENT: Fever (3months to 3 years) nurse guideline DISPOSITION: SEMI-URGENT WEIGHT: 18 PLAN: RECOMMENDED THE FOLLOWING... Fever (3months to 3 years) nurse guideline was the Guideline used. Schedule appointment within 24 hours (1 unit); Start interim home management.; -Dress lightly; -Encourage increased intake of clear liquids; -Give acetaminophen as directed; INFORMED PATIENT... Patient information given per Fever nurse guideline.; Verbalizes understanding and agrees with phone care recommendation INFORMED PATIENT TO CALLBACK IF... -Serious symptoms develop; -Cold symptoms that are bothersome or not improving; -Fever continues without other symptoms of illness for > 2 days; [facility] reviewed teething guideline with mom. she requests appt. call taken at 200am(computer down). had to call mom back after making appointment. she stated saline drops,humidity and otc dimetapp really helped. baby sleeping now. CALL BY MICHELLE PARHAM 1995 03:44AM [phone] ADDENDUM: APPOINTMENT MADE. Bianca Colorado MD - 1995 12:01 AM CST Progress Notes signed by Bianca Bojorquez MD at 95 3561 Author: Bianca Bojorquez MD Service: (none) Author Type: Physician Filed: 12/30/10 1828 Note Time: 95 0001 Status: Signed Wool Hanker: Bianca Bojorquez MD (Physician) IMPRESSION: Recurrent bilateral otitis media, right greater than left SUBJECTIVE: Marcus Clement is an 8-1/2-month-old who has had a fever to 102.9 degrees over the past 24 hours. She also has had cold symptoms. Her last episode of otitis media was 1-1/2 weeks ago; she was treated with Septra. Before that she had been on Vantin. She has had a little bit of a cough. She is also teething. OBJECTIVE: WT: 16 lb T: 101.5 Eyes are clear. Both TMs are erythematous and have purulent fluid behind them, right greater than left. Nose is congested with clear rhinorrhea. Pharynx is benign. Neck is supple, without nodes or masses. Lungs are clear bilaterally. Heart is normal S1, S2, without murmur. ASSESSMENT: Recurrent bilateral otitis media, right greater than left PLAN: She will be treated with Augmentin 125 mg/5 cc, 2.5 cc tid x 10 days. She should return in 10-14 days to have her ears rechecked. Mother is wondering about the possibility of PE tubes. She will discuss this with her regular delivery table operator. rem OPRACTIC NEUROLOGIST Conversion, [facility] - 1995 12:01 AM CST Phone Note signed by at 95 0422 Author: [facility] Conversion Service: (none) Author Type: (none) Filed: 12/30/10 1825 Note Time: 95 0001 Status: Signed Wool Hanker: Agustin Conversion IMPRESSION: Hives-(child)-nurse guidelines SUBJECTIVE: PATIENT COMPLAINS OF... Hive-like * HOME PHONE:[phone] * rash associated with medication, * WORK PHONE:[phone] * current or within the last 21 days.; On last dose of sulfa drug when broke out in rash from Cotrin? Saw What else can she do? ; ALLERGIES/SENSITIVITIES... Sulfa? 95 CURRENT MEDICATIONS... none 95 95 PERTINENT PAST HISTORY... none 95 Ear infection-was on Cotrin when rash broke out on last dose on day 10 95 ASSESSMENT: Hives-(child)-nurse guidelines DISPOSITION: HOME CARE WEIGHT: 18 PLAN: RECOMMENDED THE FOLLOWING... Hives-(child)-nurse guidelines was the Guideline used. Send message to provider.; Start home management.; -Stop medication.; -Give OTC Benadryl; mom will go and get some_benadryl. Avoid Caldryl but can use Calamine or other anti-itch as Aveeno or Sarna lotion. ; -Give cool baths, or apply cool compresses; given aveeno oatmeal bath. Pat skin dry , no hot baths and take fewer so no dry out skin. ; INFORMED PATIENT... Patient information given per Hives nurse guidelines.; Give antihistamine regularly until hives are completely gone.; Verbalizes understanding and agrees with phone care recommendation INFORMED PATIENT TO CALLBACK IF... -Symptoms worsen, or persist after 24 hours of home management; -Itching continues after 24 hours, and is not relieved by antihistamine; [facility]... Call taken at 1:20am, computer down. Mom will get some Benadryl and anti-itch lotion-Has tried cool Aveeno oatmeal bath. Mom prefers to callback. CALL BY KARELY DO 1995 04:12AM [phone] ADDENDUM: Caern Sesay 1995 12:01 AM CST Progress Notes signed by Caren Szymanski at 95 1158 Author: Caren Szymanski Service: (none) Author Type: Nurse Practitioner Filed: 12/30/10 0233 Note Time: 95 0001 Status: Signed Wool Hanker: Caren Szymanski (Nurse Practitioner) IMPRESSION: NO DICTATION REQUIRED FOR THIS NOTE OPRACTIC NEUROLOGIST Chuck Lim MD - 1995 12:01 AM CST Progress Notes signed by Chuck Lim MD at 95 1326 Author: Chuck Lim MD Service: (none) Author Type: (none) Filed: 12/30/10 1820 Note Time: 95 0001 Status: Signed Wool Hanker: Chuck Lim MD (Physician) IMPRESSION: No dictation required. Otitis media. SUBJECTIVE: N/A OBJECTIVE: N/A ASSESSMENT: N/A PLAN: N/A [facility] Chuck Miller MD - 1995 12:01 AM CST Progress Notes signed by Chuck Lim MD at 95 1452 Author: Chuck Lim MD Service: (none) Author Type: (none) Filed: 12/30/10 1815 Note Time: 95 0001 Status: Signed Wool Hanker: Chuck Lim MD (Physician) IMPRESSION: No dictation required. Viral syndrome. SUBJECTIVE: N/A OBJECTIVE: N/A ASSESSMENT: N/A PLAN: N/A [facility]J OPRACTIC NEUROLOGIST Conversion, [facility] - 1995 12:01 AM CST Phone Note signed by at 08/09/952014 Author: Agustin Conversion Service: (none) Author Type: (none) Filed: 12/30/10 1809 Note Time: 95 0001 Status: Signed Wool Hanker: Agustin Conversion IMPRESSION: cough - TREATING PROVIDER: SUE JULIETA * HOME PHONE:[phone] * - APPOINTMENT MADE WITH SUE * WORK PHONE:[phone] * JULIETA 1995 01:00PM SUBJECTIVE: PATIENT COMPLAINS OF... cough x1 day. child also fussy and clingy. up during noc last noc. tired. good appetite. hx of otitis with similar sx. ALLERGIES/SENSITIVITIES... nkda 95 CURRENT MEDICATIONS... none 95 PERTINENT PAST HISTORY... none 95 ASSESSMENT: cough DISPOSITION: NON-URGENT WEIGHT: 17 PLAN: RECOMMENDED THE FOLLOWING... appt. with pmd in am Verbalizes understanding and agrees with phone care recommendation INFORMED PATIENT TO CALLBACK IF... change/increase in sx prior to appt. CALL BY ALEIX CARPIO 1995 08:05PM [phone] ADDENDUM: ADDENDUM 1995 12:42AM BY SEFERINO WALDEN: Mom calling; baby now has croup-like cough. Denies emergent/urgent sx. Has appointment with tomorrow. Reviewed croup guideline with Mom and advised regarding home management for croup per guideline. Advised to call back if sx. unchanged after 20 minutes, sx. of respiratory distress, any other emergent/urgent sx., child unable to to sleep due to croup. Mom verbalized understanding and agreement with home management. ADDENDUM 1995 01:26AM BY MICHELLE PARHAM:mom called back and she stated that baby refuses all warm liquids and the few drops of fluid that she took did not relieve her cough. she stated that the humidity has not helped and that coughing has been continous since 9pm and has not abated. fever is 102 rectal. will try and give acetaminoph en prior to er. baby has not slept at all tonight. reviwed guideline for croup and instructed to drive to facility with car windows down. father will be with mom and baby during transport. OPRACTIC NEUROLOGIST Conversion, [facility] - 1995 12:01 AM CST Progress Notes signed by at 07/01/98 174 Author: Agustin Rodriguez Service: (none) Author Type: (none) Filed: 12/30/101807 Note Time: 95 0001 Status: Signed Wool Hanker: Agustin Rodriguez IMPRESSION: Left effusion. SUBJECTIVE: Marcus Clement is a vutvz-wzlux-jke who comes in having had an ear infection a couple of weeks ago. She just finished antibiotic about four to five days ago and her mom wanted her ears rechecked. She has had a little stuffy nose and just an occasional cough. No fever. Hasn't been fussy. Allergies--none. OBJECTIVE: T: 96.8. Weight: 17 lb. 8 oz. In general, she is an alert wksxc-vbzlc-opr in no acute distress. She does have slight decreased mobility on the left TM but it was not injected. Right TM was clear with good mobility. Oropharynx clear. Neck--supple, without any adenopathy. Lungs--clear to auscultation. ASSESSMENT: Left effusion. PLAN: Discussed with mom the options of doing a preventative vs just observing her, and we elected to just observe her off antibiotics and see how she does. lap SCHEDULED RESOURCE: KARINA CEE MD OPRACTIC NEUROLOGIST Sanford Thomas MD - 1995 12:01 AM CST Progress Notes signed by Sanford Thomas MD at 95 9779 Author: Sanford Thomas Md, MD Service: (none) Author Type: Physician Filed: 12/30/101801 Note Time: 95 0001 Status: Signed Wool Hanker: Sanford Thomas Md, MD (Physician) IMPRESSION: Left otitis media SUBJECTIVE: Marcus Clement developed a cold yesterday. She was up during the night, crying. She has had 1 ear infection in the past. OBJECTIVE: Maceo is normal. Ears: Right is clear; left is distorted, pink, with some blisters on the eardrum. Nose runny. Pharynx normal. Lungs clear. Abdomen soft. ASSESSMENT: N/A PLAN: Amoxicillin 125/5 3 cc po tid x 10 days. Recheck ears in 3 weeks. rem OPRACTIC NEUROLOGIST Conversion, [facility] - 1995 12:01 AM CDT Phone Note signed by at 95 2155 Author: [facility] Conversion Service: (none) Author Type: (none) Filed: 12/30/10 3298 Note Time: 95 0001 Status: Signed Wool Hanker: [facility] Conversion SUBJECTIVE: PATIENT COMPLAINS OF... Diarrhea * HOME PHONE:[phone] * since Sun(07/04) started on * WORK PHONE:[phone] * pedialyte on sun. Was vomiting on * CONTACT PHONE:[phone] * Sun but now is no longer * Mom * vomiting. Tried rice & nutramigen, but stools continued to be loose. Has had 5 watery stools today._Child wetting diaper normal amt, looks well hydrated to Mom. Mom asking whether to go back to Pedialyte. Child chewing more than normal on everything,_as to appear to be teething. ALLERGIES/SENSITIVITIES... nkda 95 CURRENT MEDICATIONS... Recently on Amoxicillin 95 PERTINENT PAST HISTORY... OM x 1 95 ASSESSMENT: Diarrhea worsening again DISPOSITION: HOME CARE PLAN: RECOMMENDED THE FOLLOWING... Recommended cutting back to Pedialyte. Then progressing to ripe banan- as as santiago. May then progress to pasta, soft potatoes, rice cereal, tur yusuf meat-white & cottage cheese. Resume formula when diarrhea subsides Verbalizes understanding and agrees with phone care recommendation INFORMED PATIENT TO CALLBACK IF... Diarrhea continues and child is not able to maintain hydration through tomorrow. Will check back w/ Mom in 16 hours. CALL TAKEN BY SALVADOR MONAE 1995 05:22PM [phone] ADDENDUM: ADDENDUM 1995 08:40AM BY SALVADOR MONAE:Talked w/ Mom & she repor ts baby's last stool was at 5:30 pm yesterday. She is giving her only Pedialyte. Plan is to start ripe bananas at noon today, gradually in- troducing bland foods to tolerance and then ease back in to formula 1/2 strength. Will evaluate again later today. NURSE FOLLOW UP NEEDED. ADDENDUM 1995 05:28PM BY BIANCA CABRALES:Father thinks she did OK today, but wasn't home; will have call. LEFT MESSAGE. ADDENDUM 1995 12:01PM BY ALEYDA THURSTON: UNABLE TO REACH. OPRACTIC NEUROLOGIST Conversion, [facility] - 1995 12:01 AM CDT Phone Note signed by at 95 1528 Author: [facility] Conversion Service: (none) Author Type: (none) Filed: 12/30/10 3543 Note Time: 95 0001 Status: Signed Wool Hanker: [facility] Conversion SUBJECTIVE: PATIENT COMPLAINS OF... Vomiting,; * HOME PHONE:[phone] * -Age < 1-6 months, duration < 12 * WORK PHONE:[phone] * hours; (x 3); 3 loose stools * CONTACT PHONE:[phone] * today. Resisting feeding, has * in am * taken approx 17 oz today.Oral mucosa moist, wetting diapers. Afebrile. Playing, normal behavior otherwise. ; PATIENT DENIES... -Any urgent or semi-urgent symptoms; ALLERGIES/SENSITIVITIES... nkda 95 CURRENT MEDICATIONS... Recently on Amoxicillin 95 PERTINENT PAST HISTORY... OM x 1 95 ASSESSMENT: Vomiting-( to 3 years)-Nurse Guidelines DISPOSITION: HOME CARE PLAN: RECOMMENDED THE FOLLOWING... Vomiting-( to 3 years)-Nurse Guidelines was the Guideline used. Start home management.; -Allow stomach to rest for 1/2 to 1 hour after vomiting occurs; For bottle-fed babies and older children:; -Offer clear liquids; -Stop all solids and medications for 8 hours; -Observe for symptoms of dehydration; -Resume breast feeding and milk or formula after after 4 hours without vomiting.; -Progress to regular diet after retaining liquids for 8 hours; -Offer bland, easy to digest solids if on solid food; -Monitor behavior, fluids, intake and urine output; Discussed measures to follow per Diarrhea draft Guideline once vomiting resolved. ; Verbalizes understanding and agrees with phone care recommendation INFORMED PATIENT TO CALLBACK IF... -Symptoms of dehydration; >12 hours if <6 months of age; -Other symptoms of concern; continues to resist feeding. CALL TAKEN BY BIANCA CABRALES 1995 09:20PM [phone] ADDENDUM: ADDENDUM 1995 10:46PM BY BIANCA CABRALES:Mom calling.Marcus has taken 1 oz. fluid w/o further vomiting. Now sleeping. Wondering if she needs to wake her for more fluid. Recommended letting her sleep, but check on her in the night and offer fluids as previously described when she does waken.Reports temp 96.8 ax. NURSE FOLLOW UP NEEDED. ADDENDUM 1995 10:12AM BY BIANCA SEPULVEDA: LEFT MESSAGE. ADDENDUM 1995 10:27AM BY NAHEED MONTEMAYOR:mom called to say Marcus Has stopped vomiting, slept well last noc, mom will continue with the pedialyte and increase diet as tolerated. Will call back with any additional concerns. NURSE FOLLOW UP NEEDED. ADDENDUM 1995 09:58AM BY BIANCA THURSTON:child is playing and taking fluids well she did have a loose stool this am. Child does not appear to be in any discomfort. Will continue to increase diet as tolerated and c/b with any concerns or is she doesn't cont. to improve Caren Sesay 1995 12:01 AM CDT Progress Notes signed by Caren Szymanski at 95 [phone] Author: Caren Szymanski Service: (none) Author Type: Nurse Practitioner Filed: 04/19/11 1753 Note Time: 95 0001 Status: Signed Wool Hanker: Caren Szymanski (Nurse Practitioner) IMPRESSION: Healthy 6-month-old, resolved otitis media. SUBJECTIVE: Marcus is a 6-month-old who comes in for a six-month checkup. Mom would like her ears rechecked. Diet consists of applesauce and some fruits, as well as Nutramigen. She has been tolerating this quite well. There are milk allergies in the family, and she did not tolerate milk-based formula or Isomil. She did do a little bit better on Prosoybee. No problems with elimination. She does sleep through the night, with some cat-naps during the day. She does taker longer naps at daycare. Developmentally, she sits briefly and rolls both ways. She scoots and rocks on her knees and hands. She does transfer and jabber. Hearing and vision appear okay. She lives with her mom and dad, and attends daycare. The mom is an occupational therapist in the [place] school district. She does use a car seat. ALLERGIES: None. OBJECTIVE: Height 26 1/4 inches, 50th percentile. Weight 16 lb., 10 oz, 65th percentile. OFC 43.5 cm, 75th percentile. On exam, she is an alert and playful child. Anterior fontanel is soft and flat. Eyes: She follows 180 degrees. Reflex and corneal light reflexes are symmetric bilaterally. Ears are pearly bennett. Nose is clear. Oropharynx has no lesions or erythema. Neck has no palpable nodes. Chest clear and equal bilaterally. Cardiovascular, regular rate and rhythm, S1 and S2 audible without murmur. Femoral pulses 2+. Abdomen is soft and nontender, without hepatosplenomegaly or masses. Normal female external genitalia. Hips are stable without click. Back is in alignment. She does bear weight on her legs, has no head lag when pulled to a sit. ASSESSMENT: Healthy 6-month-old, resolved otitis media. PLAN: We will go ahead with her DPT, HIB, and OPV for today. We discussed development and safety issues. She will return at 10 months of age, or sooner if there are questions or concerns. [facility] Sanford Ortiz MD - 1995 12:01 AM CDT Progress Notes signed by Sanford Thomas MD at 95 [phone] Author: Sanford Thomas Md, MD Service: (none) Author Type: Physician Filed: 12/30/10 0748 Note Time: 95 0001 Status: Signed Wool Hanker: Sanford Thomas Md, MD (Physician) IMPRESSION: Resolved otitis. SUBJECTIVE: Marcus is 7-zvrzp-zith. She is here for an ear recheck. She was seen in Urgent Care about two weeks ago with an ear infection and was started on amoxicillin. She seems to be doing much better now. OBJECTIVE: PE: Ears: Right and left are both clear. Nose is normal. Pharynx normal. Fontanel is normal. ASSESSMENT: N/A. PLAN: Observe. TJ Ermias Sharma - 1995 12:01 AM CDT Progress Notes signed by Ermias Oconnell MD at 95 1157 Author: Ermias Oconnell MD Service: (none) Author Type: Physician Filed: 12/30/101744 Note Time: 06/09/952321 Status: Signed Wool Hanker: Ermias Oconnell MD (Physician) IMPRESSION: No dictation required. SUBJECTIVE: N/A OBJECTIVE: N/A ASSESSMENT: N/A PLAN: N/A ncss/kda Conversion, [facility] - 1995 12:01 AM CDT Phone Note signed by at 06/05/952000 Author: Imr Conversion Service: (none) Author Type: (none) Filed: 12/30/101743 Note Time: 06/05/952321 Status: Signed Wool Hanker: Imr Conversion SUBJECTIVE: PATIENT COMPLAINS OF... mom * HOME PHONE:[phone] * calling. states child was put on * WORK PHONE:[phone] * Amox. today for otitis. mom * CONTACT PHONE:[phone] * states child is uncomfortable with ear pain and nasal congestion-she is wondering if child can have cough/cold medicine. ALLERGIES/SENSITIVITIES... nkda 95 CURRENT MEDICATIONS... amoxicillin 95 PERTINENT PAST HISTORY... none 95 ASSESSMENT: ear pain DISPOSITION: HOME CARE WEIGHT: 15 PLAN: RECOMMENDED THE FOLLOWING... child too young for cough/cold medicines. home management information given from [facility] and ear pain guideline-information for 5 mo. child given. Verbalizes understanding and agrees with phone care recommendation INFORMED PATIENT TO CALLBACK IF... change/increase in sx. no improvement after 48-72 hrs on Amox. other questions/concerns. CALL TAKEN BY ALEXI CRAPIO 1995 07:53PM [phone] ADDENDUM: ADDENDUM 1995 03:56PM BY ALEXI CARPIO: LEFT MESSAGE. ADDENDUM 1995 09:49PM BY ALEXI CARPIO: spoke with mom. [facility] child is doing glbq-nufryrtn-cewrx through noc-taking fluids. mom will call phone care with change/increase in sx or other questions or concerns. Jose Werner MD - 1995 12:01 AM CDT Progress Notes signed by Jose Gallagher MD at 95 1228 Author: Jose Gallagher MD Service: (none) Author Type: Physician Filed: 12/30/10 5723 Note Time: 95 0001 Status: Signed Wool Hanker: Jose Gallagher MD (Physician) IMPRESSION: Right otitis media. SUBJECTIVE: 5-month-old infant who has been sleeping poorly, fussy, with increased congestion. Diagnosed in Urgent Care 10 days ago with upper respiratory infection. No previous significant illnesses. Has been on decongestant medicine without effect. OBJECTIVE: Not ill-appearing. Playful youngster. Weight 15 lb., 6 oz. Right TM is opaque and injected, bulging. Left TM within normal limits. Eyes, nose, and oropharynx within normal limits. Neck is supple. Chest is clear. ASSESSMENT: Right otitis media. PLAN: Amoxicillin 125 mg per 5, 3/4 tsp. t.i.d. Ear recheck in three weeks. Discussion with parents indicating risk factors for otitis, as well as treatment plans. [facility] Ermias Oconnell - 1995 12:01 AM CDT Progress Notes signed by Ermias Oconnell MD at 95 0946 Author: Ermias Oconnell MD Service: (none) Author Type: Physician Filed: 12/30/10 1740 Note Time: 95 0001 Status: Signed Wool Hanker: Ermias Oconnell MD (Physician) IMPRESSION: No dictation required. Upper respiratory infection. SUBJECTIVE: N/A OBJECTIVE: N/A ASSESSMENT: N/A PLAN: N/A pjv Conversion, [facility] - 1995 12:01 AM CDT Progress Notes signed by at 95 1122 Author: Agustin Conversion Service: (none) Author Type: (none) Filed: 12/30/10 1733 Note Time: 95 0001 Status: Signed Wool Hanker: Imr Conversion IMPRESSION: Healthy 4-month-old girl. SUBJECTIVE: Patient is a 4-month-old girl here for well-child check today. She is currently healthy and on no medications. Eating well at home. Just starting with cereal. Doing well on Nutramigen, taking 6-8 oz. every three hours. Starting with pear juice. No food allergies or dietary sensitivities. Stools have been normal. She is sleeping well at night. Developmentally, is rolling both ways, reaches for objects, stands and sits with assistance, tracks with gaze and babbles frequently. OBJECTIVE: Shows an alert and active girl. HEENT exam shows pupils equally round and reactive to light. Intact EOMs. TMs are clear. Throat shows no erythema or lesions. Neck exam shows no adenopathy. Respiratory exam is clear. Cardiac exam shows regular rate and rhythm without murmur. Abdominal exam shows soft abdomen with active bowel sounds. exam is normal. Extremity exam is normal. Neurologic exam is intact. Height is 24 1/4 inches. Weight is 13 lb., 7 oz. OFC 41.5 cm. ASSESSMENT: Healthy 4-month-old girl. Four-month tetramune, hepatitis B, and oral polio will be given today. Mother is advised to follow up at six months of age for next scheduled well-child check, or sooner if other problems develop. PLAN: N/A. SCHEDULED RESOURCE: UNKNOWN [facility] OPRACTIC NEUROLOGIST documented in this encounter Plan of Treatment Not on filedocumented as of this encounter Procedures Procedure Name Priority Date/Time Associated Comments Diagnosis URINALYSIS COMPLETE Routine 08/09/2000 8:47 AM Re sults for this HOLD CULTURE CHIROPRACTIC NEUROLOGIST procedure are i n the results section. URINE CULTURE Routine 08/09/2000 8:47 AM Results for this CHIROPRACTIC NEUROLOGIST procedure are i n the results section. LAB MISCELLANEOUS Routine 01/06/2000 3:43 PM Resu lts for this CDT procedure are i n the results section. LAB MISCELLANEOUS Routine 01/06/2000 3:42 PM Resu lts for this CDT procedure are i n the results section. LAB MISCELLANEOUS Routine 01/06/2000 3:41 PM Resu lts for this CDT procedure are i n the results section. LAB MISCELLANEOUS Routine 01/06/2000 3:40 PM Resu lts for this CDT procedure are i n the results section. LAB MISCELLANEOUS Routine 01/06/2000 3:39 PM Resu lts for this CDT procedure are i n the results section. LAB MISCELLANEOUS Routine 01/06/2000 3:38 PM Resu lts for this CDT procedure are i n the results section. LAB MISCELLANEOUS Routine 01/06/2000 3:37 PM Resu lts for this CDT procedure are i n the results section. LAB MISCELLANEOUS Routine 01/06/2000 3:35 PM Resu lts for this CDT procedure are i n the results section. LAB MISCELLANEOUS Routine 01/06/2000 3:34 PM Resu lts for this CDT procedure are i n the results section. LAB MISCELLANEOUS Routine 01/06/2000 3:32 PM Resu lts for this CDT procedure are i n the results section. LAB MISCELLANEOUS Routine 01/06/2000 3:31 PM Resu lts for this CDT procedure are i n the results section. LAB MISCELLANEOUS Routine 01/06/2000 3:30 PM Resu lts for this CDT procedure are i n the results section. LAB MISCELLANEOUS Routine 01/06/2000 3:28 PM Resu lts for this CDT procedure are i n the results section. HEMOGLOBIN, BLOOD Routine 01/06/2000 3:28 PM Resu lts for this CDT procedure are i n the results section. CHOLESTEROL (TOTAL) Routine 01/06/2000 3:28 PM Re sults for this CDT procedure are i n the results section. URINALYSIS COMPLETE Routine 02/23/1999 4:31 PM Re sults for this CDT procedure are i n the results section. URINE CULTURE Routine 02/23/1999 4:31 PM Results for this CDT procedure are i n the results section. URINALYSIS COMPLETE Routine 03/08/1998 10:41 Resu lts for this AM CDT procedure are i n the results section. documented in this encounter Results (ABNORMAL) Urinalysis Complete Hold Culture (08/09/2000 8:47 AM CHIROPRACTIC NEUROLOGIST) [facility] Method Time Signature U Specific 1.025 1.005 - 25 HP CONVERSION [place] pH Urine 7.0 4.5 - 7.5 HP CONVERSION Protein Urine 100mg/dL Neg-Trac HP CONVERSION (A) Glucose, Negative Neg-Trac HP CONVERSION Qualitative U Ketones Negative Negative HP CONVERSION U BILI Negative Negative HP CONVERSION Blood Urine Large (A) Negative HP CONVERSION Nitrite Urine Positive Negative HP CONVERSION (A) Leukocyte Moderate Negative HP CONVERSION Esterase Urine (A) Urobilinogen Negative 0.2 - 1.0 HP CONVERSION Urine White Blood Packed (A) 0 - 3 /HPF HP CONVERSION Cells Urine Red Blood Cells 25-50 (A) 0 - 3 /HPF HP CONVERSION Urine Epithelial Cells Few Few /HPF HP CONVERSION Bacteria Urine Many (A) None HP CONVERSION Confirmatory SSA Pos (A) No normal HP CONVERSION Test Done? range Hold For Yes No normal HP CONVERSION Culture? range Specimen (Source) Anatomical Collection Method Collection Time Re ceived Time Location / / Volume Laterality 08/09/2000 8:47 AM CHIROPRACTIC NEUROLOGIST Kerri Gregory MD LAB_1 Performing Organization Address City/State/ZIP Code Phon e Number HP CONVERSION Urine Culture (08/09/2000 8:47 AM CHIROPRACTIC NEUROLOGIST) [facility] Signature Urine Culture SEE TEXT HP CONVERSION Comment: Patient: MARCUS CLEMENT Culture, Urine @ ?Collected: ??[id number] ??[id number] Source: Clean Ca ?Processed: ??[id number] ??[id number] ? SENS 1V Final Report ------ ?[id number] ??[id number] >100,000 CFU/mL Escherichia coli Susceptibility Testing E COL ??MARI INTERP: ?S ??AMC (AUGME NTIN), CIPROFLOXACIN, CEFTRIAXONE, ?GENT AMICIN, NITROFURANTOIN, NORFLOXACIN, TRIMETH-SULFA ? I ??CHAU [place] ? R ??AMPIC ILLIN, CARBENICILLIN @ = URINE CULTURE Performed at ??[address] [place], [place] ?[address] URINE CULTURE ( -- Current) Specimen (Source) Anatomical Collection Method Collection Time Re ceived Time Location / / Volume Laterality 08/09/2000 8:47 AM CHIROPRACTIC NEUROLOGIST Kerri Gregory MD LAB_1 Performing Organization Address City/[facility]/ZIP Code Phon e Number HP CONVERSION Lab miscellaneous (01/06/2000 3:43 PM CDT) P athologist Signature Result See Note No normal HP CONVERSION range Comment: PARDO TEST 33514, EPI PANEL#1 ? RESULT S EPITHELIA PANEL #1 ? <0.35 KU/L ? CLASS 0 (NEGATIVE) CAT EPITHELIA HORSE EPITHELIA COW EPITHELIA DOG EPITHELIA Specimen (Source) Anatomical Collection Method Collection Time Re ceived Time Location / / Volume Laterality 01/06/2000 3:43 PM CDT Jeanine Beal MD LAB_1 Performing Organization Address City/[facility] Code Phon e Number HP CONVERSION Lab miscellaneous (01/06/2000 3:42 PM CDT) P athologist Signature Result See Note No normal HP CONVERSION range Comment: PARDO TEST 26337, GRASS PANEL #1 ? RES ULTS GRASS PANEL #1 ? <0.35 KU/L ? CLA SS 0 (NEGATIVE) ORCHARD MEADOW FESCUE RYE KRYS [place] BLUE Specimen (Source) Anatomical Collection Method Collection Time Re ceived Time Location / / Volume Laterality 01/06/2000 3:42 PM CDT Jeanine Beal MD LAB_1 Performing Organization Address City/State/ZIP Code Phon e Number HP CONVERSION Lab miscellaneous (01/06/2000 3:41 PM CDT) P athologist Signature Result See Note No normal HP CONVERSION range Comment: PARDO TEST 71548, TREE PANEL #1 ? RESULTS TREE PANEL #1 ?<0.35 KU/L ? CLASS 0 ( NEGATIVE) BOX ELDER/MAPLE BIRCH [place] WALNUT Specimen (Source) Anatomical Collection Method Collection Time Re ceived Time Location / / Volume Laterality 01/06/2000 3:41 PM CDT Jeanine Beal MD LAB_1 Performing Organization Address City/State/ZIP Code Phon e Number HP CONVERSION Lab miscellaneous (01/06/2000 3:40 PM CDT) P athologist Signature Result See Note No normal HP CONVERSION range Comment: PARDO TEST 86677, WEED PANEL #1 ? RESULTS WEED PANEL #1 ?<0.35 KU/L ? CLASS 0 ( NEGATIVE) SHORT RAGWEED MUGWORT [place]ESE PLANTAIN PAUL'S QUARTERS [place]AI[place]ESE THISTLE Specimen (Source) Anatomical Collection Method Collection Time Re ceived Time Location / / Volume Laterality 01/06/2000 3:40 PM CDT Jeanine Beal MD LAB_1 Performing Organization Address City/State/ZIP Code Phon e Number HP CONVERSION Lab miscellaneous (01/06/2000 3:39 PM CDT) P athologist Signature Result See Note No normal HP CONVERSION range Comment: PARDO TEST 93235, EPI PANEL #2 ?RESU LTS EPITHELIA PANEL #2 ?<0.35 KU/L ?CLAS S 0 (NEGATIVE) GUINEA PIG EPITHELIA RABBIT EPITELIA HAMSTER EPITHELIA RAT EPITELIA MOUSE EPITHELIA This test was developed and its perform ance characteristics determined by [facility]ology, [facility]. ??It h as not been cleared or approved by the U.S. Food and Drug Ad ministration. Specimen (Source) Anatomical Collection Method Collection Time Re ceived Time Location / / Volume Laterality 01/06/2000 3:39 PM CDT Jeanine Beal MD LAB_1 Performing Organization Address [facility]/ZIP Code Phon e Number HP CONVERSION Lab miscellaneous (01/06/2000 3:38 PM CDT) P athologist Signature Result See Note No normal HP CONVERSION range Comment: PARDO TEST 95297, MOLD PANEL ?RESULTS MOLD PANEL ?<0.35 KU/L ?CLASS 0 (N EGATIVE) PENICILLUM NOTATUM CLADOSPORIUM HERBARUM ASPERGILLUS FUMIGATUS KEVIN ALBICANS ALTERNARIA ALTERNATA HELMINTHOSPORIUM HALODES Specimen (Source) Anatomical Collection Method Collection Time Re ceived Time Location / / Volume Laterality 01/06/2000 3:38 PM CDT Jeanine Beal MD LAB_1 Performing Organization Address City/[facility]/ZIP Code Phon e Number HP CONVERSION Lab miscellaneous (01/06/2000 3:37 PM CDT) P athologist Signature Result See Note No normal HP CONVERSION range Comment: PARDO TEST 69988, HOUSE DUST PANEL ? RES ULTS HOUSE DUST PANEL ? <0.35 KU/L ? CLA SS 0 (NEGATIVE) [facility] LAB[facility] DERMATOPHAGOIDES PTERONYSSINSUS DERMATOPHAGOIDES FARINAE BLATELLA GERMANICA Specimen (Source) Anatomical Collection Method Collection Time Re ceived Time Location / / Volume Laterality 01/06/2000 3:37 PM CDT Jeanine Beal MD LAB_1 Performing Organization Address City/[facility]/ZIP Code Phon e Number HP CONVERSION Lab miscellaneous (01/06/2000 3:35 PM CDT) P athologist Signature Result See Note No normal HP CONVERSION range Comment: PARDO TEST 05612, FOOD PANEL ? RES ULTS FOOD-NUT PANEL #2 ?<0.35 KU/L ? CLA SS 0 (NEGATIVE) PECAN CASHEW PISTACHIO WALNUT This test was developed and its perform ance characteristics determined by [facility] Pathology, [facility]. ??It h as not been cleared or approved by the U.S. Food and Drug Ad ministration. Specimen (Source) Anatomical Collection Method Collection Time Re ceived Time Location / / Volume Laterality 01/06/2000 3:35 PM CDT Jeanine Beal MD LAB_1 Performing Organization Address [facility] Code Phon e Number HP CONVERSION Lab miscellaneous (01/06/2000 3:34 PM CDT) P athologist Signature Result See Note No normal HP CONVERSION range Comment: PARDO TEST 51503, FOOD MEAT PANEL ?RESULTS FOOD-MEAT PANEL ? <0.35 KU/L ?CLASS 0 (NEGATIVE) PORK BEEF CHICKEN TURKEY This test was developed and its perform ance characteristics determined by [facility], [facility]. ??It h as not been cleared or approved by the U.S. Food and Drug Ad ministration. Specimen (Source) Anatomical Collection Method Collection Time Re ceived Time Location / / Volume Laterality 01/06/2000 3:34 PM CDT Jeanine Beal MD LAB_1 Performing Organization Address City/State/ZIP Code Phon e Number HP CONVERSION Lab miscellaneous (01/06/2000 3:32 PM CDT) P athologist Signature Result See Note No normal HP CONVERSION range Comment: PARDO TEST 94672, FOOD GRAIN PANEL ?R ESULTS FOOD-GRAIN PANEL ?<0.35 KU/ L ?C LASS 0 (NEGATIVE) WHAT RYE BARLEY RICE This test was developed and its perform ance characteristics determined by [facility], [facility]. ??It h as not been cleared or approved by the U.S. Food and Drug Ad ministration. Specimen (Source) Anatomical Collection Method Collection Time Re ceived Time Location / / Volume Laterality 01/06/2000 3:32 PM CDT Jeanine Beal MD LAB_1 Performing Organization Address City/State/ZIP Code Phon e Number HP CONVERSION Lab miscellaneous (01/06/2000 3:31 PM CDT) P athologist Signature Result See Note No normal HP CONVERSION range Comment: PARDO TEST 65906, FOOD VEG PANEL ?R ESULTS FOOD-VEGATABLE PANEL ?<0.35 KU/L ?C LASS 0 (NEGATIVE) CORN PEA WJOTE BEAM CARROT BROCCOLI This test was developed and its perform ance characteristics determined by [facility], [facility]. ??It h as not been cleared or approved by the U.S. Food and Drug Ad ministration. Specimen (Source) Anatomical Collection Method Collection Time Re ceived Time Location / / Volume Laterality 01/06/2000 3:31 PM CDT Jeanine Beal MD LAB_1 Performing Organization Address [facility] Phon e Number HP CONVERSION Lab miscellaneous (01/06/2000 3:30 PM CDT) P athologist Signature Result See Note No normal HP CONVERSION range Comment: PARDO TEST 55707, FOOD FRUIT PANEL ? RES ULTS FOOD-FRUIT PANEL ? <0.35 KU/L ? CLA SS 0 (NEGATIVE) APPLE BANANA PEAR PEACH Specimen (Source) Anatomical Collection Method Collection Time Re ceived Time Location / / Volume Laterality 01/06/2000 3:30 PM CDT Jeanine Beal MD LAB_1 Performing Organization Address [facility] Phon e Number HP CONVERSION Cholesterol (Total) (01/06/2000 3:28 PM CDT) P athologist Signature Cholesterol 136 100 - 199 HP CONVERSION mg/dL Specimen (Source) Anatomical Collection Method Collection Time Re ceived Time Location / / Volume Laterality 01/06/2000 3:28 PM CDT Jeanine Beal MD LAB_1 Performing Organization Address [facility] Phon e Number HP CONVERSION Lab miscellaneous (01/06/2000 3:28 PM CDT) P athologist Signature Result See Note No normal HP CONVERSION range Comment: PARDO TEST PANEL 16360, FOOD PANEL #1 ? RESULT S FOOD PANEL ? <0.35 KU/L ? CLASS 0 (NEGATIVE) EGG WHITE MILK CODFISH WHEAT PEANUT SOYBEAN Specimen (Source) Anatomical Collection Method Collection Time Re ceived Time Location / / Volume Laterality 01/06/2000 3:28 PM CDT Jeanine Beal MD LAB_1 Performing Organization Address [facility] Phon e Number HP CONVERSION Hemoglobin, Blood (01/06/2000 3:28 PM CDT) P athologist Signature Hemoglobin 12.9 11.0 - 14.5 HP CONVERSION gm/dL Specimen (Source) Anatomical Collection Method Collection Time Re ceived Time Location / / Volume Laterality 01/06/2000 3:28 PM CDT Jeanine Beal MD LAB_1 Performing Organization Address [facility] Phon e Number HP CONVERSION (ABNORMAL) Urinalysis Complete (02/23/1999 4:31 PM CDT) Qio Method Time Signature Glucose, Negative Neg-Trac HP CONVERSION Qualitative U Protein Urine 100mg/dL Neg-Trac HP CONVERSION (A) Ketones Negative Negative HP CONVERSION U BILI Negative Negative HP CONVERSION U Specific >=1.030 1.005 - 25 HP CONVERSION [place] Blood Urine Moderate Negative HP CONVERSION (A) pH Urine 5.0 4.5 - 7.5 HP CONVERSION Urobilinogen Negative 0.2 - 1.0 HP CONVERSION Urine Nitrite Urine Positive Negative HP CONVERSION (A) Leukocyte Moderate Negative HP CONVERSION Esterase Urine (A) White Blood 50-99 (A) 0 - 3 /HPF HP CONVERSION Cells Urine Red Blood Cells 5-10 (A) 0 - 3 /HPF HP CONVERSION Urine Bacteria Urine Few (A) None HP CONVERSION Epithelial Cells Few Few /HPF HP CONVERSION Specimen (Source) Anatomical Collection Method Collection Time Re ceived Time Location / / Volume Laterality 02/23/1999 4:31 PM CDT Evan Moore MD LAB_1 Performing Organization Address [facility] Phon e Number HP CONVERSION (ABNORMAL) Urine Culture (02/23/1999 4:31 PM CDT) Qio Method Time Signature Urine Culture SEE TEXT HP CONVERSION (A) Comment: Patient: MARCUS CLEMENT Culture, Urine @ ?Collected: ??[id number] ??[id number] Source: Clean Ca ?Processed: ??[id number] ??[id number] ? SENSITIVITY Final Report ------ ?[id number] ??[id number] 10-50,000 CFU/mL Escherichia coli <10,000 CFU/mL Gram negative rods No fur ther workup Susceptibility Testing E COL ??MARI INTERP: ?S ??AMPICILLIN , CEPH(CEFAZOLIN), AMC (AUGMENTIN), ?CARB ENICILLIN, CIPROFLOXACIN, CEFTRIAXONE, ?NITR OFURANTOIN, NORFLOXACIN, TRIMETH-SULFA, ?TETR ACYCLINE @ = URINE CULTURE Performed at ??[address], [place], [place] ?[address] Specimen (Source) Anatomical Collection Method Collection Time Re ceived Time Location / / Volume Laterality 02/23/1999 4:31 PM CDT Evan Moore MD LAB_1 Performing Organization Address City/State/ZIP Code Phon e Number HP CONVERSION (ABNORMAL) Urinalysis Complete (03/08/1998 10:41 AM CDT) [facility] gist Method Time Signature Glucose, Negative Neg-Trac HP CONVERSION Qualitative U Protein Urine Negative Neg-Trac HP CONVERSION Ketones Negative Negative HP CONVERSION U BILI Negative Negative HP CONVERSION U Specific 1.015 1.005 - 25 HP CONVERSION [place] Blood Urine Negative Negative HP CONVERSION pH Urine 7.5 4.5 - 7.5 HP CONVERSION Urobilinogen Negative 0.2 - 1.0 HP CONVERSION Urine Nitrite Urine Negative Negative HP CONVERSION Leukocyte Negative Negative HP CONVERSION Esterase Urine White Blood 0-2 0 - 3 /HPF HP CONVERSION Cells Urine Red Blood Cells 0-2 0 - 3 /HPF HP CONVERSION Urine Bacteria Urine Rare (A) None HP CONVERSION Epithelial Cells None Few /HPF HP CONVERSION Specimen (Source) Anatomical Collection Method Collection Time Re ceived Time Location / / Volume Laterality 03/08/1998 10:41 AM CDT Aleyda Light MD LAB_1 Performing Organization Address City/State/ZIP Code Phon e Number HP CONVERSION documented in this encounter Visit Diagnoses Not on filedocumented in this encounter Care Teams Timing Inspector Relationship Specialty Start Date End Date Unassigned, Provider PCP - General 06/16/00 11/12/11 [address] [place] [address] documented as of this encounter
--- OUTSIDE RECORDS SUMMARY | 2022-06-19 00:14 | XMS_ITS | Clinical Summary ---
:1995 Author Organization [facility] Address [address] [place] [address] Care Team Providers Name Role Phone Unavailable Primary Care Provider Unavailable Source Comments Patient records contain information from all sites at [facility]. For routine questions regarding patient records, call [phone] during business hours, M-F 8:00 AM - 5:00 PM Central Time. Record requests for emergency care only can be directed to [phone] at any time.[facility] Social History Tobacco Use Types Packs/Day Years Used Date Smoking Tobacco: Never Assessed Sex Assigned at Date Recorded Not on file Plan of Treatment Health Maintenance Due Date Last Done Comments Cervical Cancer Screening 1995 HIV Screening 1995 Hepatitis B Vaccines (1 of 3 1995 - 3-dose series) Hepatitis C Screening 1995 DTaP,Tdap,and Td Vaccines (1 2014 - Tdap) Depression Screening (Annual 09/13/2021 PHQ-2) COVID-19 Vaccine (4 - Booster 10/24/2021 08/29/2021, for Pfizer series) 10/14/2020, 09/24/2020 Influenza Vaccine (#1) 2022 06/25/2021, 07/21/2019, 05/14/2018 Pneumococcal vaccine (0-64 Aged Out No lo nger eligible based years) on patient's age to complete this to the medical center Insurance Payer Benefit Plan / Subscriber ID Effective Phone Address T ype Group Dates [facility] [id number] 2018-Pre [phone] [address] PPO OPEN ACCESS sent [address] [place] [address]
--- OUTSIDE RECORDS SUMMARY | 2022-06-19 00:14 | XMS_ITS | Encounter Summary ---
:1995 Author Organization [facility] Address [address] [address] Care Team Providers Name Role Phone Unassigned, Provider Primary Care Provider Unavailable Encounter Details Date Type Department Care Team Description 11/25/2007 PN Conversion Only [place], [address] [facility] [place] [address] [address] [place] [phone] (Wo rk) Social History Tobacco Use Types Packs/Day Years Used Date Smoking Tobacco: Never Assessed Sex Assigned at Date Recorded Not on file documented as of this encounter Plan of Treatment Not on filedocumented as of this encounter Procedures Procedure Name Priority Date/Time Associated Diagnosis Comme nts STREP GROUP A Routine 11/25/2007 8:54 PM Results for this ANTIGEN TEST CDT procedure are i n the results section. BETA STREP FOLLOWUP Routine 11/25/2007 8:54 PM Re sults for this CDT procedure are i n the results section. documented in this encounter Results Strep Group A Antigen Test (11/25/2007 8:54 PM CDT) Analysis Performed At Patho logist Time Signature Strep Group A Negative Negative HP CONVERSION Antigen Test Comment: Culture to follow. Specimen (Source) Anatomical Collection Method Collection Time Re ceived Time Location / / Volume Laterality 11/25/2007 8:54 PM CDT Pau Remy MD LAB_1 Performing Organization Address City/State/ZIP Code Phon e Number HP CONVERSION Beta Strep Followup (11/25/2007 8:54 PM CDT) P athologist Signature Strep Screen SEE TEXT HP CONVERSION Comment: Patient: CLEMENT, BINA A Rapid Strep Follow up Culture ? Collected: ?2053 Source: Throat ?Processed: ??[id number] ??[id number] ? 1V Final Report ------ ?[id number] ??[id number] No beta hemolytic Strep group A isolated . Specimen (Source) Anatomical Collection Method Collection Time Re ceived Time Location / / Volume Laterality 11/25/2007 8:54 PM CDT Pau Remy MD LAB_1 Performing Organization Address City/State/ZIP Code Phon e Number HP CONVERSION documented in this encounter Visit Diagnoses Not on filedocumented in this encounter Care Teams Operations Support Professionals Relationship Specialty Start Date End Date Unassigned, Provider PCP - General 06/16/00 11/12/11 [address] [place] [address] documented as of this encounter
--- OUTSIDE RECORDS SUMMARY | 2022-06-19 00:14 | XMS_ITS | Encounter Summary ---
:1995 Author Organization [facility] Address [address] [address] Care Team Providers Name Role Phone Unassigned, Provider Primary Care Provider Unavailable Encounter Details Date Type Department Care Team Description 12/19/2004 Office Visit [facility] Ion Gonzáles PA-C [address] [address] [place] [address] [place] [address] [phone] (Wo rk) Social History Tobacco Use Types Packs/Day Years Used Date Smoking Tobacco: Never Assessed Sex Assigned at Date Recorded Not on file documented as of this encounter Last Filed Vital Signs Vital Sign Reading Time Taken Comments Blood Pressure - - Pulse 90 12/19/2004 10:37 AM CDT Temperature 37.4 ??C (99.3 ??F) 12/19/2004 10:37 AM C: 37.4 C CDT Respiratory Rate 20 12/19/2004 10:37 AM CDT Oxygen Saturation - - Inhaled Oxygen Concentration - - Weight 43.5 kg (95 lb 15.8 oz) 12/19/2004 10:37 AM C: 4 3.5kg CDT Height - - Body Mass Index - - documented in this encounter Progress Notes Ion Gonzáles PA-C - 12/19/2004 12:01 AM CDT Progress Notes signed by Ion Gonzáles PA-C at 12/25/04 1338 Author: Ion Gonzáles PA-C Service: (none) Author Type: Physician Accountant Helper Filed: 01/02/11 0510 Note Time: 12/19/04 0001 Status: Signed Protohistorian: Ion Gonzáles PA-C (Physician Accountant Helper) NAME: BINA CLEMENT MR: [id number] ACCT: [id number] VISIT: [id number] DICTATING CLINICIAN: JOMAR HOWELL JOB: [id number] CLINIC PROGRESS NOTE DATE OF VISIT: 12/19/2004 SUBJECTIVE: 9-year-old female presents to urgent care for right knee pain, slipped last night while walking at the pool injuring the knee about a week ago. Had hurt the same right knee while dancing. Performs in competitive dance. No history of knee pain. Describes it as on the inside of the knee. Worse with movement and standing. Does not give out. Does not lock, pop or crack. No history of knee pain. ADR/ALLERGIES: SULFA. MEDICATIONS: None. PAST MEDICAL HISTORY: Healthy. OBJECTIVE: VS: T: 99.4. P: 90. R: 20. Wt: 96 lb. GENERAL: NAD. RIGHT KNEE: Reveals no obvious effusion. She has some tenderness, mildly so over the joint space. She is also tenderness in the right knee, over the medial collateral ligament. Pain with valgus stress is slight. No anterior or posterior drawer. X-rays are obtained and are negative for any adverse abnormalities. ASSESSMENT: Right knee pain. PLAN: We discussed gentle range of motion. Crutches were administered. Follow up in orthopedics in a couple of weeks. No heavy exertion. Certainly no competitive dance. Return p.r.n. if questions develop or problems persist. [id number] C: 12/22/04 22:43 DOCUMENT: [id number] documented in this encounter Plan of Treatment Not on filedocumented as of this encounter Procedures Procedure Name Priority Date/Time Associated Diagnosis Comme nts XR KNEE RT 3 VIEWS Routine 12/19/2004 11:39 AM Re sults for this CDT procedure are i n the results section. documented in this encounter Results XR Knee Rt 3 Views (12/19/2004 11:39 AM CDT) Anatomical Region Laterality Modality Lower Extremity, Knee Other Specimen (Source) Anatomical Location Collection Method / Collectio n Time Received Time / Laterality Volume Narrative 12/19/2004 11:39 AM CDT Findings: BN1 No radiographic evidence of bone or join t abnormality. Dictating GRZEGORZ VANEGAS MD Procedure Note Grzegorz Jimenez - 11/19/2016 Findings: BN1 No radiographic evidence of bone or join t abnormality. Dictating GRZEGORZ VANEGAS MD Ion RING GD documented in this encounter Visit Diagnoses Not on filedocumented in this encounter Care Teams Credit Union Manager Relationship Specialty Start Date End Date Unassigned, Provider PCP - General 06/16/00 11/12/[address] [place] [address] documented as of this encounter
--- OUTSIDE RECORDS SUMMARY | 2022-06-19 00:14 | XMS_ITS | Encounter Summary ---
:1995 Author Organization [facility] Address [address] [place] [address] Care Team Providers Name Role Phone Unassigned, Provider Primary Care Provider Unavailable Encounter Details Date Type Department Care Team Description 12/29/2004 Office Visit [facility] darrel Gregory, [address] [facility] [place] [address] [address] [facility] [phone] [place] [address] (Wo rk) Social History Tobacco Use Types Packs/Day Years Used Date Smoking Tobacco: Never Assessed Sex Assigned at Date Recorded Not on file documented as of this encounter Progress Notes Kerri Gregory MD - 12/29/2004 12:01 AM CDT Progress Notes signed by Kerri Gregory MD at 02/22/05 1513 Author: Kerri Gregory MD Service: (none) Author Type: Physician Filed: 01/02/11 0520 Note Time: 12/29/04 0001 Status: Signed Fork Truck Driver: Kerri Gregory MD (Physician) NAME: BINA CLEMENT MR: [id number] ACCT: [id number] VISIT: [id number] DICTATING CLINICIAN: ZAC GREGORY MD JOB: [id number] CLINIC PROGRESS NOTE DATE OF VISIT: 12/29/2004 SUBJECTIVE: This is a 9-year-old female with a 2-week history of right knee pain. She fell, landing on the front of her knee. She continues to have pain. Tends to be better with not using it and worse when she uses it. REVIEW OF SYSTEMS: Negative for fever, rash, numbness and tingling. PAST HISTORY: Negative for diabetes, stomach problems, or other joint problems. MEDICATIONS: None. ADR/ALLERGIES: SULFA. CURRENT MEDICAL PROBLEMS: None. PREVIOUS SURGERY: None. OBJECTIVE: GENERAL: No acute distress. Cooperative, healthy-appearing female. GAIT: Normal without a limp. Skin overlying each knee is negative for rash. LEFT KNEE: No deformity or signs of trauma, no effusion, full range of motion. RIGHT KNEE: Tenderness on the medial and lateral patella facet, full range of motion, no effusion, ligaments intact. X-ray is negative. ASSESSMENT: Patella contusion. PLAN: Treat symptomatically. Symptoms should resolve. If it does not resolve or worsen or change, please return for reevaluation. I recommended she no longer use crutches and try not to limp. [id number] C: 12/30/04 18:04 DOCUMENT: [id number] documented in this encounter Plan of Treatment Not on filedocumented as of this encounter Visit Diagnoses Not on filedocumented in this encounter Care Teams Director Energy Relationship Specialty Start Date End Date Unassigned, Provider PCP - General 06/16/00 11/12/[address] [place] [address] documented as of this encounter
--- OUTSIDE RECORDS SUMMARY | 2022-06-19 00:14 | XMS_ITS | Encounter Summary ---
:1995 Author Organization [facility] Address [address] [place] [address] Care Team Providers Name Role Phone Unavailable Primary Care Provider Unavailable Reason for Visit Reason Comments COVID Inquiry Encounter Details Date Type Department Care Team Description 08/21/2020 Clinical Communication Department of [facility] Provider Medicine in [place], [place] [address] [place] [address] Social History Tobacco Use Types Packs/Day Years Used Date Smoking Tobacco: Never Assessed Sex Assigned at Date Recorded Not on file documented as of this encounter Miscellaneous Notes Telephone Encounter - Bonnie Arcemartina Ramirez - 08/21/2020 9:34 AM CST COVID-19 Nurse Line Screening ASSESSMENT PLAN Endpoint recommendation: Screening positive, testing indicated, advised to be swabbed for COVID-19 and Influenza, sent to [facility] located at [address] [place] [address]. The entrance is on the north side of the building. You must call [phone] for an appointment time.Testing hours are Daily 9 am to 7 pm.When you arrive at the testing site: Remain in your vehicle and check-in by phone using the same appointment line number. and Please avoid using public transportation per CDC recommendation. If you do not have personal transportation please self-quarantine until a personal transportation option is available. Care Points: -Wash hands frequently with soap and water for at least 20 seconds -If soap and water are not avialable, use a hand criminal intelligence analyst -Avoid touching your eyes, nose and mouth. -Clean and disinfect high-touch surfaces routinely. -Wear a mask over your nose and mouth. A cloth face cover is not a substitute for social distancing -Continue to keep about 6 feet between yourself and others. -Avoid public areas and public transportation. -Find new ways to connect with family and friends, get support and share feelings. -Seek emergent care if any of the following occur Trouble breathing Bluish lips or face Persistent pain or pressure in the chest New confusion or inability to rouse. -Notify your regular care provider of any new or worsening symptoms. Symptomatic Carepoints: Separate yourself from others and stay in a specific sick room if able. Education: Not applicable Patient agreeable to plan of care: Yes The following references were used: [facility] novel coronavirus (COVID- 19) resources ER [place] documented in this encounter Plan of Treatment Not on filedocumented as of this encounter Visit Diagnoses Not on filedocumented in this encounter Additional Health Concerns Infection Onset Date Last Indicated Resolved Time COVID19 Pending 08/21/2020 08/21/2020 08/21/2020 2:56 PM [facility] [place] COVID19 Pending 08/21/2020 08/21/2020 08/22/2020 4:42 AM [facility] [place] documented as of this encounter
--- OUTSIDE RECORDS SUMMARY | 2022-06-19 00:15 | XMS_ITS | Clinical Summary ---
:1995 Author Organization [facility]ates [place] [address] Care Team Providers Name Role Phone Emilee Villalobos MD Primary Care Provider [phone] Blue Aden MD Unavailable Allison Dunbar RN Unavailable Cyndi Wise RD Unavailable Allergies Active Allergy Reactions Severity Noted Date Comments Sulfa (Sulfonamide Antibiotics) Hives Medium 0 Medications Medication Sig Dispensed Refills Start End Status Date Date sertraline Take 1.5 Tablets 135 Tablet 3 A ctive (ZOLOFT) 100 mg (150 mg) by mouth 1 tabletIndications: once daily. Depressed mood, CRISTÓBAL (generalized anxiety disorder) docusate (COLACE) Take 1 Capsule 60 Capsule 0 Active 100 mg (100 mg) by mouth 2 capsuleIndications in the morning : S/P gastric and 1 Capsule sleeve procedure (100 mg) in the evening. metFORMIN Take 1 Tablet 0 Active (GLUCOPHAGE) 500 (500 mg) by 2 mg tablet mouth. pediatric Chew 1 Tablet by 0 Act coleman multivitamins-iron mouth once daily. 2 18 mg chewable (FLINTSTONES PLUS IRON; BUGS BUNNY PLUS IRON) chewable tablet cyanocobalamin Take 1 Tablet 90 Tablet 0 A ctive (Vitamin B-12) (1,000 mcg) by 1,000 mcg tablet mouth once daily. cholecalciferol, Take 1 Tablet 0 Active Vitamin D3, (5,000 units) by 2 (Vitamin D-3) mouth once daily. 5,000 unit tab tablet calcium Take 2 Tablets by 0 Ac tive citrate-vitamin mouth two times 2 D3, 315 mg-250 daily with meals. units, (CITRACAL WITH VITAMIN D) 315 mg-6.25 mcg (250 unit) tab tablet acetaminophen Take 2 Tablets 30 Tablet 0 E xpired (TYLENOL EXTRA (1,000 mg) by 2 022 STRGTH) 500 mg mouth three times tabletIndications: daily 8 hours S/P gastric sleeve apart for 5 days. procedure Max acetaminophen dose: 4000mg in 24 hrs. omeprazole Take 1 Capsule 30 Capsule 0 Dis continued (PRILOSEC) 20 mg (20 mg) by mouth 2 022 (*Patient Delayed-Release once daily before states no capsuleIndications a meal. Open and longer : S/P gastric sprinkle on Jello taking/Not on sleeve procedure for 30 days after sending surgery facility l ist) aspirin enteric Take 1 Tablet 14 Tablet 0 Discontinued coated (ECOTRIN) (325 mg) by mouth 2 022 (*Patient 325 mg once daily for 14 st ates no tabletIndications: days. l onger S/P gastric sleeve t aking/Not on procedure sending facility l ist) HYDROmorphone Take 1-2 Tablets 10 Tablet 0 Discontinued (DILAUDID) 2 mg (2-4 mg) by mouth 2 022 (*Patient tabletIndications: every 4 hours if states no S/P gastric sleeve needed for Pain. longer procedure taking/Not on sending facility l ist) hyoscyamine Place 1 Tablet 30 Tablet 0 Dis continued sublingual (LEVSIN (0.125 mg) under 2 022 (*Patient SL) 0.125 mg the tongue every states no sublIndications: 4 hours if needed longer S/P gastric sleeve (painful t aking/Not on procedure swallowing/drinki se nding ng, epigastric facil ity list) pain). ondansetron Place 1 Tablet (4 30 Tablet 0 Discontinued (ZOFRAN ODT) 4 mg mg) on the tongue 2 022 (*Patient disintegrating every 8 hours if states no tabletIndications: needed for longer S/P gastric sleeve Nausea/Vomiting. taking/Not on procedure sending facility l ist) simethicone Chew 1 Tablet (80 30 Tablet 0 Discontinued chewable (MYLANTA mg) by mouth 4 2 022 (*Patient GAS RELIEF; GAS X) times daily after states no 80 mg chewable meals and at lo nger tabletIndications: bedtime. Max taking/Not on S/P gastric sleeve dose: 500 mg per sending procedure 24 hrs facility l ist) milk of magnesia Take 15 mL by 355 mL 0 Discontinued (MOM) 400 mg/5 mL mouth once daily. 2 022 (*Patient suspensionIndicati Until first bowel states no ons: S/P gastric movement after longer sleeve procedure surgery, increase taking/Not on to 30mL if no sendin g bowel movement by fa cility list) POD # 3 Hospital, Clinic, or Other Ordered Dose Route Frequency Start Date End Date Status Facility Administered Medication levonorgestrel intrauterine 1 Device IU Q 7 YEARS 04/06/2022 Active device (MIRENA) 1 DeviceIndications: Encounter for IUD insertion Active Problems Problem Noted Date S/P robotic gastric sleeve procedure by Dr. Aden 05/04 PCOS (polycystic ovarian syndrome) 09/12/2021 BMI 45.0-49.9, adult 09/12/2021 Depressed mood 09/12/2021 CRISTÓBAL (generalized anxiety disorder) 09/12/2021 Resolved Problems Problem Noted Date Resolved Date Prediabetes 09/12/2021 09/12/2021 Encounters Date Type Specialty Care Team Description 06/18/2022 Office Visit Zelda Potts Follow Up (c/ o constant Jacinda Cortés, bleeding wi th blood clots and inter mittent cramping since IUD placement in .) 06/18/2022 Travel 06/09/2022 Nurse Triage Emilee Villalobos MD 06/04/2022 Phone Office Visit Education (5 week post) 05/14/2022 Telemedicine Blue Aden, Post-op ( 1 wk post op MD visit-Sleeve on 05/05) 05/07/2022 Phone Office Visit Education (Post op ) 05/07/2022 Patient Outreach Jacinta, Primary RN Care Yolanda Terrell RN Management; Denilson eubanks F/U 05/05/2022 Anesthesia Event Chuck Gerardo, LINDA Chavez, Bang [place] MD 05/05/2022 Surgery Blue Aden, ROBOTIC S LEEVE GASTRECTOMY 05/05/2022 - Hospital Encounter Blue Aden, Mor bid obesity (HC) (Primary Dx); 05/06/2022 S/P robotic gas tric sleeve procedure by Dr. Aden; Depressed mood Discharge Summary - Celina Rojas PA - 05/06/2022 12:13 PM CDT HOSPITAL DISCHARGE SUMMARY Patient Name: Bina de la o Date of : 1995 Age : 27 y.o. [id number] Primary Physician: Emilee Villalobos MD Admission Date: 05/05/2022 Discharge Date: 05/06/2022 She will be discharged from [facility] to home. PRINCIPAL DISCHARGE DIAGNOSI S: Morbid Obesity Principal Problem: S/P robotic gastric sleeve procedure by Dr. Aden Active Problems: BMI 45.0-49.9, adult (HC) CRISTÓBAL (generalized anxiety di sorder) BRIEF HOSPITAL COURSE: This 27 y.o. female was admitted for a Robotic assisted, Sleeve Gastrectomy. After surgery she had an uneventful recovery and was discharged home on POD 1. PROCEDURES PERFORMED DURING HOSPITALIZATION: Robotic assisted, Sleeve Gastrectomy COMPLICATIONS IN HOSPITAL: N one PERTINENT FINDINGS/RESULTS A T DISCHARGE: BP 117/69 (Cuff Size: Adult Regular) Pulse 69 Temp 98.1 ??F (36.7 ??C) Resp 16 Ht 1.676 m (5' 6) Wt 106.6 kg (235 lb 1.6 oz) LMP 04/23/2022 (Exact Date) SpO2 98% BMI 37.95 kg/m?? Patient Vitals for the past 72 hrs: Weight 05/05/22 1649 106.6 kg (235 lb 1.6 oz) None Latest Laboratory Results: Chem: No results for input(s): SOD IUM, POTASSIUM, CREATININE in the last 720 hours. WBC/Hgb: Recent Labs 04/21/22 1310 HGB 14.3 IMPORTANT PENDING TEST RESUL TS: Lab results that may not be resulted at time of discharge: (From admission through now) Start Ordered 05/05/221900 PATH TISSUE E XAM RELEASE UPON ORDERING, TODAY Question: Release to patient Answer: Immediate 05/05/221900 CONDITION AT DISCHARGE: Impr oving DISCHARGE ORDERS Your Home Medicines START taking these medicines Instructions acetaminophen 500 mg tablet For diagnoses: S/P robotic g astric sleeve procedure by Dr. Aden Commonly known as: TYLENOL E XTRA STRGTH Take 2 Tablets (1,000 mg) b y mouth three times daily 8 hours apart for 5 days. Max acetaminophen dose: 4000mg in 24 hrs. aspirin enteric coated 325 m g tablet For diagnoses: S/P robotic g astric sleeve procedure by Dr. Aden Commonly known as: ECOTRIN Take 1 Tablet (325 mg) by m outh once daily for 14 days. docusate 100 mg capsule For diagnoses: S/P robotic g astric sleeve procedure by Dr. Aden Commonly known as: COLACE Take 1 Capsule (100 mg) by mouth in the morning and 1 Capsule (100 mg) in the evening. HYDROmorphone 2 mg tablet For diagnoses: S/P robotic g astric sleeve procedure by Dr. Aden Commonly known as: DILAUDID Take 1-2 Tablets (2-4 mg) b y mouth every 4 hours if needed for Pain. hyoscyamine sublingual 0.125 mg Subl For diagnoses: S/P robotic g astric sleeve procedure by Dr. Aden Commonly known as: LEVSIN SL Place 1 Tablet (0.125 mg) u nder the tongue every 4 hours if needed (painful swallowing/drinking, epigastric pain). milk of magnesia 400 mg/5 mL suspension For diagnoses: S/P robotic g astric sleeve procedure by Dr. Aden Commonly known as: MOM Take 15 mL by mouth once da brandy. Until first bowel movement after surgery, increase to 30mL if no bowel movement by POD # 3 omeprazole 20 mg Delayed-Rel ease capsule For diagnoses: S/P robotic g astric sleeve procedure by Dr. Aden Commonly known as: PRILOSEC Take 1 Capsule (20 mg) by m outh once daily before a meal. Open and sprinkle on Jello for 30 days after surgery ondansetron 4 mg disintegrat ing tablet For diagnoses: S/P robotic g astric sleeve procedure by Dr. Aden Commonly known as: ZOFRAN OD T Place 1 Tablet (4 mg) on th e tongue every 8 hours if needed for Nausea/Vomiting. simethicone chewable 80 mg c hewable tablet For diagnoses: S/P robotic g astric sleeve procedure by Dr. Aden Commonly known as: MYLANTA G RELIEF; GAS X Chew 1 Tablet (80 mg) by mo [facility] 4 times daily after meals and at bedtime. Max dose: 500 mg per 24 hrs CONTINUE taking these medici ludwig Instructions sertraline 100 mg tablet For diagnoses: Depressed moo d, CRISTÓBAL (generalized anxiety disorder) Commonly known as: ZOLOFT Take 1.5 Tablets (150 mg) b y mouth once daily. STOP taking these medicines cholecalciferol 400 unit tab let Commonly known as: VITAMIN D 3 metFORMIN 500 mg tablet Commonly known as: GLUCOPHAG E multivitamin pediatric chewa ble tablet Where to get your medicines These medications were sent to [facility] [address] [place] [id number] [id number] Hours: Open 24 Hours ?? acetaminophen 500 mg tabl et ?? aspirin enteric coated 32 5 mg tablet ?? docusate 100 mg capsule ?? HYDROmorphone 2 mg tablet ?? hyoscyamine sublingual 0. 125 mg Subl ?? milk of magnesia 400 mg/5 mL suspension ?? omeprazole 20 mg Delayed- Release capsule ?? ondansetron 4 mg disinteg rating tablet ?? simethicone chewable 80 m g chewable tablet After Discharge Orders and I nstructions Additional information abou t your medicines: Surgery and pain medication can cause constipation. Do not wait to become constipated to start medications. As soon as you get home you should take milk of magnesia 15mL until the bowel movements begin, also start colace 100 mg oral twice daily. If you have not had a bowel movement in 2 days increase the Milk of Magnesia 30cc by mouth to twice daily. If no bowel movement after 8 hours repeat the dose. If no bowel movement after 4 doses of Milk of Magnesia, contact Dr Aden. You have been prescribed celestine n medicine: - Do not drive any motor veh icles while taking pain medicines that make you sleepy. - Do not mix any prescribed pain medicine with alcohol. Suggestions for tapering you r pain medicine: - Cut back on the pain medic ine when you think the pain is under control. - As your pain decreases, yo u can go for longer times between doses. Or, take one pill instead of two. - Take the medicine at the t niraj of the day when you most often feel pain. This may be: when you wake up in the morning, before you start certain activities, or when you are ready for bed. ACETAMINOPHEN SAFETY: - Do not take more than 4,00 0 milligrams (4 grams) of acetaminophen in 24 hours. More than that could damage your liver. - Acetaminophen is also foun d in cough and cold medicines. After Hospital Follow Up Ap pointment(s) Please follow up with Dr. Colt caruso about 1 week from the date of your surgery. You have an appointment scheduled with Dr. Aden on 05/14 at 11:45am. Call the clinic if you need to change this or reschedule. [facility] [address] [place] [address], [address] [place], [place] [id number] Or [phone] When to follow up: 6 to 10 days When is patient being disch arged?: Today Caring for your wound or in cision You may shower and pat your incisions dry. Do not take bath or swim for 2 weeks or until your skin incisions are healed. Leave the steri strips (tape over your incisions) on for 2 weeks. Do not be concerned if they fall off earlier. Your incisions are located o n your mid abdomen. You will need to see your do ctor to have your incisions checked. Your incisions were closed w ith sutures that do not need to be removed. Your incision is not covered . Patient Instruction post bl adder scan Same Day Discharge patients If unable to urinate in 6-8 hours after discharge, return to Emergency Room with your discharge instructions. Up as tolerated It is important to slowly r eturn to your regular level of activity. Start with 5-10 minutes at one time and slowly build to 30 minutes at one time. Save your energy by spreading out activities that make you tired. Rest as needed. What you may eat and drink after your hospital stay: 1. Diet - Week 1: Follow a bariatric c lear liquid diet with the addition of protein shakes until your 1 week post-operative visit. Weeks 2&3: Full liquid diet Weeks 4&5: Pureed diet Week 6: Gradually advance to a regular diet Please review our You Tube v ideo Nourishing the New You on the recommended diet progression after surgery. A link to the video can be found on [email or web address] and is located in the Related Resou rces section in the right l ower part of the page. 2. Fluid intake should be at least 64 oz each day. 3. Vitamins - After your first follow up v isit start: Chewable Rye Complete multivitamin 1 tablet twice daily Vitamin B12 1,000 mcg sublin gual (under the tongue) tablet daily If your first visit after [facility] is more than one week after discharge, you may try to begin these supplements and take them if tolerated. 1 month post-operatively sta rt: Vitamin D3 - 5,000 internati onal units daily Calcium Citrate - take 1,200 mg in two divided doses daily Ferrous sulfate 325 mg once daily plus Vitamin C 500 mg once daily for menstruating females. Alternatively, if you are ch oosing to use a vitamin patch, then you may restart this at discharge. 4. Exercise - Activity as to lerated. Start implementing an exercise routine. 5. You may take bubw-ggp-cdd nter Colace 100 mg twice daily as needed for constipation. Stool softeners usually work within 1-2 days. Results may take as long as 3-5 days. If no bowel movement occurs aft er using the Colace, then co ntact our office for further recommendations. 6. Do not take NSAID's, Aspi rin, or Aguirre-2 inhibitors for 1 month. These include, but are not limited to, ibuprofen, Advil, Motrin, Aleve, Celebrex. However, if your primary care physician has recommende d a daily aspirin due to you r cardiovascular risk, then you may resume an enteric coated aspirin at home. 7. If you have diabetes, con zahida to monitor your blood sugars. If they are consistently greater than 150 mg/dL then contact your primary MD for medication recommendations. 8. If you have hypertension, continue to monitor your blood pressure. If your systolic blood pressure is less than 100 mmHg, then do not take your ARB (Losartan, Valsartan) or MIHAELA inhibitors (Lisinopril , Enalapril) and contact you r primary care physician for further instructions. If you are taking a beta blo cker (Atenolol, Metoprolol) or calcium channel lissette (Amlodipine, Diltiazem), then continue to monitor your heart rate. If your heart rate is less than 60 beats per minute, then stop your medication a nd contact your primary care physician. These are examples of medica tions and not a complete list. 9. Female patients, - Do NOT take your oral contraceptive pill for one month following surgery. You should use 2 forms of control in the meantime - please discuss options with your primary care physician if necessary. Further discharge instructio ns can be found in your Bariatric education binder on pages 147-155. Emergency Care: Surgeons are available 05/04 through the clinic phone number.?? If you are having a medical emergency, please report to your nearest Emergency Department.?? As a reminder, starting July 17, 2019 weigh t loss surgeons will not be able to see patients at [facility] or [facility].?? For post-weight loss surgery care, when medically stable, you would be transported to [facility] or [facility]. When should you be concerne d? If you are having a hard ti me getting in your recommended fluid intake and start to feel dizzy, lightheaded, fatigued or nauseated you should call the clinic right away as this can be a sign of dehydra tion and we can set up IV fl uids for you as an outpatient. Call [phone] Aden if you develo p and of the following symptoms: Fever over 101.5, persistent nausea or vomiting, severe abdominal pain or pain around your incision, or purulent (pus) drainage from your incision. Your health care provider is : Emilee Villalobos MD Please call your health care provider if: - you feel you are getting w orse or having an increase in problems - fever greater than 101 deg nathaniel - increasing shortness of br eath - any signs of infection (in creasing redness, swelling, tenderness, warmth, change in appearance, or increased drainage) - blood in your urine or sto ol - coughing or vomiting blood - nausea (upset stomach) and vomiting and/or diarrhea that will not stop - severe pain that is not re lieved by medicine, rest or ice Call 911 if you feel you are having a medical emergency. [facility] were you [facility] the [facility]? [facility] bariatric surgery for obesity. The surgery you had done was a robotic assisted laparoscopic sleeve gastrectomy FOLLOW-UP: She should see Ro se Ashanti Villalobos MD in 1-2 weeks. Specialty follow-up: She shashi uld see Blue Aden MD - [facility] as previously scheduled. Celina Rojas, PAC ..... ............... 05/06/2022 12:13 PM .................... 05/05/2022 Travel 05/01/2022 Nurse/Clinic Staff Only Test ing (Pre-procedure COVID testing ) 05/01/2022 Travel 04/21/2022 Preop Visit Emilee Villalobos Preoperat coleman Exam MD [place] (05/05/2022, Dr. Aden [place]) 04/21/2022 Telemedicine Cyndi Wise Medica l Nutrition Therapy RD (SWL check in ) 04/21/2022 Travel 04/17/2022 Telephone Vale Brito Appointment (Please MD Haylee contact patient to help her schedule he r pre-procedure C OVID-19 collection on c orrect schedule) 04/14/2022 Telemedicine Blue Aden MD Telehe alth (Final visit-sleeve on 05/05) 04/14/2022 Office Visit Education (Pre- op Class) 04/14/2022 Travel 04/13/2022 Travel 04/06/2022 Procedure Only Emilee Villalobos IUD (Pl acement) MD [place] 04/06/2022 Travel from Last 3 Months Immunizations Name Administration Dates Next Due AMB INFLUENZA, IIV4 (AGE=>6MOS) MDV 07/21/2019 (Flu Clinic Only) COVID-19 vaccine ([email or web address] 10/14/2020 30mcg/0.3mL) PF, MDV DTaP 12/09/1999, 12/01/1999, 06/05/1996, 1995, 1995, 1995 DTaP-HIB (TriHIBIT) 06/05/1996, 1995, 1995, 1995 Hepatitis B (Adult) 1995, 1995, 1995 Hib Conjugate, Unspecified 06/05/1996, 1995, 5, 1995 Human Papilloma Virus Vaccine 03/07/2015, 03/24/2007 Inactivated Polio Vaccine 12/09/1999, 1995, 1995 , 1995 Influenza, IIV4 06/25/2021, 05/14/2018 Influenza,CCIIV4 PRESERV FREE 07/21/2019 MMR 12/09/1999, 06/05/1996 Meningococcal Vaccine (Menactra) 03/24/2007 Oral Polio Vaccine 1995, 1995, 1995 Family History Medical History Relation Name Comments Anxiety disorder Father Depression Father Hypertension Father No Known Problems Maternal Aunt Unknown Maternal Grandfather Unknown Maternal Grandmother No Known Problems Maternal Uncle Anxiety disorder Mother Depression Mother Hypertension Mother Obesity Mother No Known Problems Paternal Aunt Cancer-pancreatic Paternal Grandfather Coronary artery disease Paternal Grandfather Hypertension Paternal Grandmother No Known Problems Paternal Uncle Depression Sister Relation Name Status Comments Father Alive Maternal Aunt Maternal Grandfather Maternal Grandmother Maternal Uncle Mother Alive Paternal Aunt Paternal Grandfather Paternal Grandmother Alive Paternal Uncle Sister Alive Social History Tobacco Use Types Packs/Day Years Used Date Never Smoker Smokeless Tobacco: Never Used Alcohol Use Standard Drinks/Week Comments Not Currently 0 (1 standard drink = 0.6 oz pure alcoho l) Alcohol Habits Answer Date Recorded How often do you have a drink containing alcohol? Never 09/12/2021 How many drinks containing alcohol do you have on a typical Not asked day when you are drinking? How often do you have six or more drinks on one occasion? No t asked Comment: Not asked Sex Assigned at Date Recorded Not on file COVID-19 Exposure Response Date Recorded In the last 10 days, have you been in contact with No / Unsu re 06/18/2022 11:04 AM CDT someone who was confirmed or suspected to have Coronavirus/COVID-19? Obstetrics History Last Filed Vital Signs Vital Sign Reading Time Taken Comments Blood Pressure 117/69 05/06/2022 8:23 AM CDT Pulse 69 05/06/2022 8:23 AM CDT Temperature 36.7 ??C (98.1 ??F) 05/06/2022 8:23 AM CDT Respiratory Rate 16 05/06/2022 2:00 AM CDT Oxygen Saturation 98% 05/06/2022 8:23 AM CDT Inhaled Oxygen Concentration - - Weight 106.6 kg (235 lb 1.6 oz) 05/05/2022 4:49 PM CDT Height 167.6 cm (5' 6) 05/05/2022 4:49 PM CDT Body Mass Index 37.95 05/05/2022 4:49 PM CDT Plan of Treatment Upcoming Encounters Date Type Specialty Care Team Description 06/19/2022 Telemedicine Liliana Giraldo, RD [address] [place] [id number] (Wo rk) Health Maintenance Due Date Last Done Comments Tdap 2006 Tetanus booster 2015 COVID-19 vaccine series (4 - 10/24/2021 08/29/2021, 021, Booster for Pfizer series) 09/24/2020 Influenza for age 9-49 05/14/2022 06/25/2021, 07/21/2019, 07/21/2019, Additional history exists Depression screening for age 12+ 12/30/2022 12/30/2021, , 09/12/2021 BMI (ht and wt on same day) for 04/21/2023 04/21/2022, 08/0 10/2021, age 18+ 02/13/2022, Additional history exists Pap test for age 21-65 01/26/2025 01/26/2022, 11/11/2018 Hepatitis C screening for age Completed 04/21/2022 18-79 Procedures Procedure Name Priority Date/Time Associated Comments Diagnosis PATH TISSUE EXAM Today 05/05/2022 7:01 PM Resul ts for this CDT procedure are i n the results section. ENDOTRACHEAL TUBE Routine 05/05/2022 6:55 PM Resu lts for this CDT procedure are i n the results section. ENDOTRACHEAL TUBE Routine 05/05/2022 6:55 PM Resu lts for this CDT procedure are i n the results section. ENDOTRACHEAL TUBE Routine 05/05/2022 6:55 PM Resu lts for this CDT procedure are i n the results section. OR IMAGE CAPTURE Routine 05/05/2022 6:18 PM CDT ROBOTIC ASSISTED Tier 3 05/05/2022 5:57 PM Morbid obesity (HC ) GASTRIC SLEEVE XI CDT Special Needs WT [address] [facility] AN IV START Routine 05/05/2022 5:02 PM Result s for this CDT procedure are i n the results section. [facility] AN IV START Routine 05/05/2022 5:02 PM Result s for this CDT procedure are i n the results section. [facility] AN IV START Routine 05/05/2022 5:02 PM Result s for this CDT procedure are i n the results section. URINE Preop 05/05/2022 4:15 PM Result s for this CDT procedure are i n the results section. SCAN-CARDIAC STRIP 05/05/2022 12:00 Resul ts for this AM CDT procedure are i n the results section. COVID 19 Routine 05/01/2022 2:41 PM Preoperative examinati on Results for this CDT procedure are i n the results section. COVID 19 Routine 05/01/2022 2:41 PM Preoperative examinati on Results for this COLLECTION CDT procedure are i n the results section. ANTI HCV Routine 04/21/2022 1:10 PM Need for hepatitis C R esults for this CDT screening test procedure are in the results section. HEPATIC FUNCTION Routine 04/21/2022 1:10 PM Hyperbilirubinemia Results for this PANEL CDT procedure are i n the results section. HEMOGLOBIN Routine 04/21/2022 1:10 PM Preoperative examinati on Results for this CDT procedure are i n the results section. URINE Routine 04/06/2022 10:56 Encounter for IUD Res ults for this AM CDT insertion procedure are i n the results section. from Last 3 Months Results PATH TISSUE EXAM (05/05/2022 7:01 PM CDT) Component Value Ref Test Analysis Performed At [facility] gist Range Method Time Signature Case Report Pathology Report ?Case: [id number] ? 05/08/2022 [facility] Authorizing Provider: ??Blue Aden MD ?Collected: ? 05/05/2022 1901 ? 11:30 AM HEALTH Ordering Location: ? [facility] ?Received: ?05/06/2022 0753 ? CDT [facility] ? Hospital ? ENTRAL Pathologist: ? Jose David Muro, ? LABORATORY ? MD ? Specimen: ?Stomach, Port ion of Stomach ? Final A) STOMACH, SLEEVE GASTRECTOMY: 05/08/20 22 [facility] Electronically Diagnosis 1. Gastric body with mild no n-specific chronic gastritis (see comment) 11:30 AM HEALTH signed by 2. Negative for atrophic gastritis CDT LABORATORY-C Jina, 3. No Helicobacter organisms identified (immunohistochemis try negative) ENTRAL Jose David Easton, 4. Negative for dysplasia and malignancy LABORATORY on 05/08/2022 at 11:30 A M Comment A) Mild chronic 05/08/2022 [facility] inflammation in 11:30 AM HEALTH the stomach in CDT LABORATORY-C the absence of ENTRAL Helicobacter LABORATORY often remains unexplained, but it could reflect prior or treated Helicobacter infection. The likelihood of histologically undetected Helicobacter is quite low in our opinion. Clinical Ms. Patel is a 05/08/2022 [facility] Information 27 y.o. with 11:30 AM HEALTH morbid obesity. CDT LABORATORY-C ENTRAL LABORATORY Gross A) Received fresh labeled wi th the patient's name and portion of stomach, is a 17.4 x 4.5 x 2.5 cm partial gastrectomy specimen with a 17.0 cm in length staple line resection margin. ??The serosal amber 05/08/2022 [facility] Description face is sapp-pink and smooth with scant adherent sapp-yellow adipose tissue. ??The specimen is opened to reveal a sapp-pink grossly unremarkable folded architecture with no lesions or polyps identified. ?? 11:30 AM HEALTH The average wall thickness i s 0.4 cm. ??Mine Production Engineer sections are submitted in 1 cassette. CDT LABORATORY-C ENTRAL Time and date in formalin: 0 757 on 05/06/2022 LABORATORY LMT 05/06/2022 Microscopic The final 05/08/2022 [facility] Description diagnosis is 11:30 AM HEALTH based on CDT LABORATORY-C microscopic ENTRAL examination of LABORATORY appropriate sections of all specimens. Additional 05/08/2022 [facility] Information Interpreted at [facility], Central Laboratory - [address], [place] [address] 11:30 AM HEALTH CDT LABORATORY-C ENTRAL LABORATORY Specimen Anatomical Collection Method Collection Time Receive d Time (Source) Location / / Volume Laterality Tissue SPECIMEN FROM 05/05/2022 7:01 PM 05/06/20 7:53 STOMACH / Unknown CDT AM CDT Blue Aden MD PATHOLOGY/CYTOLOGY Performing Organization Address City/State/ZIP Code Phon e Number [facility] [address] [place] [address] LABORATORY-CENTRAL 2000 LABORATORY HCHG TUBE PR1, HCHG STYLET PR1, HCHG MOUTHPIECE PR1 (05/05/2022 6:55 PM CDT) Narrative Chuck Gerardo CRNA - 022 6:55 PM CDT Chuck Gerardo CRNA ? 05/05/2022 ??6:55 PM Procedure: ETT Patient location during procedure: OR ETT Properties Mask Ventilation: easy Final Technique: direct laryngoscopy Type: straight Location: oral Cuffed: yes Tube Size: 7.0 mm Stylet: yes Laryngoscope Blade: Donaldson Blade Size: 2 Cormack-Lehane Grade View: 1 Insertion Attempts: 1 Placement Verification: auscultation, en d tidal CO2 and symmetrical chest wall movement Assessment: pharynx clear, atraumatic an d dentition unchanged Secured at: 22 Measured From: lips Tooth guard used and removed: yes Difficulty: 0 (not difficult) Electronically signed by Greg Gerardo CRNA ? Chuck Sanford Gerardo ASSOCIATE LOAN OFFICER ANESTHESIA PX NOTE ORDERA BLES HCHG KIT PR1, HCHG NDL PR1, HCHG NDL PR1 (05/05/2022 5:02 PM CDT) Narrative Oscar Vidal Jr., MD - 05/05/2022 5:02 PM CDT Oscar Vidal Jr., MD ? 05/05/2022 ??6:58 PM IV Start Patient location during procedure: pre-o p Start time: 05/05/2022 5:02 PM End time: 05/05/2022 5:05 PM PIV Site was prepped per hospital policy Laterality: left Needle Size: 20 G Site: forearm Insertion Technique: US real time and US permanent image Electronically signed by Oscar Vidal Jr., MD ? Chuck Christina Akin ASSOCIATE LOAN OFFICER ANESTHESIA PX NOTE ORDERA BLES Urine (05/05/2022 4:15 PM CDT)Only the most recent of2 resultswithin the time period is included. Analysis Performed At [facility] Time Signature ,URIN Negative Negative 05/05/2022 [facility] E 4:47 PM CDT LABORATORY-SARA TRAL LABORATORY Specimen Anatomical Collection Method Collection Time Receive d Time (Source) Location / / Volume Laterality Urine URINE SPECIMEN / Non-Blood / 05/05/2022 4:15 PM 05/05 4:38 Unknown Unknown CDT PM CDT Celina URIARTE URINE Performing Organization Address City/State/ZIP Code Phon e Number [facility] [address] [place] [address] LABORATORY-CENTRAL 2000 LABORATORY SCAN-CARDIAC STRIP (05/05/2022 12:00 AM CDT) Narrative 05/05/2022 12:00 AM CDT This result has an attachment that is no t available. Ordered by an unspecified provider. Other Clinical Staff OTHER COVID 19 (05/01/2022 2:41 PM CDT) Analysis Performed At Path logist Time Signature COVID 19 Negative Negative 05/02/2022 [facility] 1:22 PM CDT LABORATORY-SARA MOLECULAR TRAL LABORATORY Specimen Anatomical Location / Collection Method Collection Trino e Received Time (Source) Laterality / Volume Other SPECIMEN FROM Non-Blood / 05/01/2022 2:41 05/01/2022 9:18 NASOPHARYNGEAL Unknown PM CDT PM CDT STRUCTURE / Unknown Narrative [facility] LABORATORY-CENTRAL LABORAT ORY - 05/02/2022 1:22 PM CDT All PCR tests are subject to false negative result due to variability in viral load and collection te chnique. A negative result does not rule out a SARS-CoV-2 infection. Clinical correlation required. This test has been authorized by FDA und er an Emergency Use Authorization (EUA). This test is only authorized for the duration of time the declaration that circumstances exist justifying the authorizati on of the emergency use of in vitro diag nostic tests for detection of SARS-CoV-2 virus and/or diagnosis of COVID-19 infection under section 564(b)(1) of the Act, 21 U.S.C. 360bbb-3(b) (1), unless the authorization is terminated or revoked sooner. Emilee Villalobos MD MICROBIOLOGY Performing Organization Address City/State/ZIP Code Phon e Number [facility] [address] [place] [address] LABORATORY-CENTRAL 2000 LABORATORY COVID 19 COLLECTION (05/01/2022 2:41 PM CDT) [facility] gist Method Time Signature TESTING [facility] 05/01/2022 [facility] Laboratory 9:18 PM CDT LABORATORY-CE NTRAL LABORATORY Comment: Specimen submitted to [facility] for testing. Specimen Anatomical Location / Collection Method Collection Trino e Received Time (Source) Laterality / Volume Other SPECIMEN FROM Non-Blood / 05/01/2022 2:41 05/01/2022 3:54 NASOPHARYNGEAL Unknown PM CDT PM CDT STRUCTURE / Unknown Emilee Villalobos MD SEND OUTS Performing Organization Address [facility]/ZIP Code Phon e Number [facility] [address] [place] [address] LABORATORY-CENTRAL 2000 LABORATORY ANTI HCV (04/21/2022 1:10 PM CDT) [facility] Method Time Signature HEPATITIS C Non-Reacti Non-Reacti 04/21/2022 [facility] ANTIBODY ve ve 8:35 PM CDT LABORATORY-SARA TRAL LABORATORY Comment: Antibodies to HCV not detected; does not exclude the possibility of exposure to HCV. Specimen Anatomical Collection Method / Collection Time Recei magdalena Time (Source) Location / Volume Laterality Blood BLOOD SPECIMEN / Venipuncture / 04/21/2022 1:10 2021 1:02 Unknown Unknown PM CDT PM CDT Emilee Villalobos MD SEND OUTS Performing Organization Address [facility]/ZIP [facility] e Number [facility] [address] [place] [address] LABORATORY-CENTRAL 2000 LABORATORY HEMOGLOBIN (04/21/2022 1:10 PM CDT) athologist Signature HEMOGLOBIN 14.3 12.0 - 16.0 04/21/2022 [place] g/dL 1:21 PM CDT [facility] LABORATORY MCV 91 80 - 100 fL [facility]20[facility] 1:21 PM CDT [facility] LABORATORY Specimen Anatomical Collection Method / Collection Time Recei magdalena Time (Source) Location / Volume Laterality Blood BLOOD SPECIMEN / Venipuncture / 04/21/2022 1:10 2021 1:02 Unknown Unknown PM CDT PM CDT Emilee Villalobos MD HEMATOLOGY Performing Organization Address City/[facility]/ZIP [facility] e [facility] LABORATORY [address] [place] [address] LIVER PANEL (HEPATIC FUNCTION PANEL) (04/21/2022 1:10 PM CDT) athologist Signature ALBUMIN 4.1 3.5 - 5.2 04/21/2022 [facility] g/dL 10:25 PM CDT LABORATORY-SARA TRAL LABORATORY PROTEIN,TOTAL 6.5 6.0 - 8.0 04/21/2022 [facility] g/dL 10:25 PM CDT LABORATORY-SARA TRAL LABORATORY GLOBULIN 2.4 2.0 - 3.7 04/21/2022 [facility] g/dL 10:25 PM CDT LABORATORY-SARA TRAL LABORATORY A/G RATIO 1.7 1.0 - 2.0 04/21/2022 [facility] 10:25 PM CDT LABORATORY-SARA TRAL LABORATORY BILIRUBIN,TOTAL 1.1 0.2 - 1.2 04/21/2022 [facility] mg/dL 10:25 PM CDT LABORATORY-SARA TRAL LABORATORY BILIRUBIN,DIRECT 0.4 0.1 - 0.5 04/21/2022 [facility] mg/dL 10:25 PM CDT LABORATORY-SARA TRAL LABORATORY BILIRUBIN,INDIRE 0.7 0.2 - 0.8 04/21/[address] [facility] [address] [address] mg/dL 10:25 PM CDT LABORATORY-SARA TRAL LABORATORY ALK PHOSPHATASE 61 50 - 136 04/21/2022 [facility] IU/L 10:25 PM CDT LABORATORY-SARA TRAL LABORATORY ALT (SGPT) 16 8 - 45 04/21/2022 [facility] IU/L 10:25 PM CDT LABORATORY-SARA TRAL LABORATORY AST (SGOT) 19 2 - 40 04/21/2022 [facility] IU/L 10:25 PM CDT LABORATORY-SARA TRAL LABORATORY Specimen Anatomical Collection Method / Collection Time Recei magdalena Time (Source) Location / Volume Laterality Blood BLOOD SPECIMEN / Venipuncture / 04/21/2022 1:10 2021 1:02 Unknown Unknown PM CDT PM CDT Emilee Villalobos MD CHEMISTRY Performing Organization Address City/State/ZIP Code Phon e Number [facility] [address] [place] [address] LABORATORY-CENTRAL 2000 LABORATORY from Last 3 Months Insurance Payer Benefit Plan / Subscriber ID Effective Dates Phone Addre ss Type Group [employer] [id number] 2018-Presen [address] [place] [address] (Work) Bina Patel Workers Comp Self 1995 [address] (Home) [place] [id number] Advance Directives Latest Code Status on File Code Status Date Activated Date Inactivated Comments Full Code 05/05/2022 9:15 PM 05/06/2022 4:38 PM Code Status Discussion: Reviewed Preferences Full Code 05/05/2022 4:17 PM 05/05/2022 9:15 PM Code Status Discussion: Not Discussed Care Teams Recruitment Intern Relationship Specialty Start Date End Date Emilee Villalobos PCP - General Family Practice 09/12/21 MD [facility] [address] [place] [id number] Blue Aden MD Consulting Physician Surgery - General 12/09/[address] [id number] Allison Dunbar, Yeast Fermentation Attendant Registered Nurse 12/09/21 RN [address] [id number] Cyndi Wise, Overcoiler/Tank Erector [address] [id number]
--- NOTE | 2022-06-19 00:18 | CRLHL7_ITS ---
For Patients: As a result of the Century Cures Act, medical imaging exams and procedure reports are released immediately into your electronic medical record. You may view this report before your referring provider. If you have questions, please contact your health care provider. INDICATION: Right flank pain. TECHNIQUE: CT abdomen and pelvis without contrast. COMPARISON: None. FINDINGS: Lower chest: Scattered dependent atelectasis. Liver: Normal in size and attenuation. No suspicious masses. Focal fatty infiltration adjacent to falciform ligament. Gallbladder and bile ducts: No stones or inflammation. No biliary dilatation. Pancreas: Unremarkable. No mass or inflammation. Spleen: Normal in size. No masses. Adrenal glands: Normal in size. No nodules. Kidneys: Mild right-sided hydroureteronephrosis secondary to 11 millimeter obstructing UPJ stone. GI tract: Gastric sleeve. Normal in caliber. No sign of mass or inflammation. Normal appendix. Vasculature: Abdominal aorta is normal in caliber. Lymph nodes: No lymphadenopathy. Peritoneum/Abdominal Wall: Unremarkable. No sign of mass or infiltration. No free air or significant free fluid. Pelvis: Intrauterine device. Bones: Unremarkable for age. IMPRESSION: Mild right-sided hydroureteronephrosis secondary to 11 millimeter obstructing UPJ stone. Please note that all CT scans at this facility use dose modulation, iterative reconstruction, and/or weight-based dosing when appropriate to reduce radiation dose to as low as reasonably achievable. Dictated by Rustam Jean Baptiste MD @ 06/19/2022 12:47:10 AM (Electronically Signed)
[2022-06-19 01:00] VITALS: BP 117/84; PULSE 93; O2SAT 97
== END 2022-06-19 01:20 | disposition home or self-care (01) ==
PROVIDERS: Family Medicine; Emergency Provider Family Medicine; PCP Family Medicine
DX: N13.2 Hydronephrosis with renal and ureteral calculous obstruction (principal)
CPT/HCPCS: 36415; 74176; 80048; 80076; 81001; 82150; 83605; 85025; 86140; 87086; 96374; 96375; 99284; A9270; J2270; J2405; J7030

== ENCOUNTER 2022-07-29 07:22 | Emergency (ER) | payer OTHER, SELFPAY ==
[2022-07-29 07:28] VITALS: BP 129/75; PULSE 80; RESP 20; TEMP 36.5; O2SAT 97; BMI 15.8
--- NOTE | 2022-07-29 07:34 | ED_ITS ---
HPI - General Adult General Time Seen by Provider: 07:35 Date Seen: 07/29/22 Chief complaint: Flank Pain Stated complaint: right flank pain/post lithotripsy Time Seen by Provider: 07/29/22 07:25 History of Present Illness HPI narrative: Bina is a 27 year old female past medical history gastric sleeve, recent 6x11mm proximal right ureteral stone s/p lithotripsy yesterday at [facility] Who presents emerged department via private car with postop pain. patient states that she had lipid C done yesterday [facility] Urology, no displaced. Patient has not been able to keep anything down over the last 36 hours, she continually some right flank pain 02/20, no radiation, he has had ongoing nausea vomiting. mild dysuria with urination, she denies any hematuria. Follow up for her would be in 6 months, she denies any fevers or chills, she denies any abdominal pain, she has been taking oxycodone every 6 hours as needed for pain, her this bowel movement was Wednesday, she did do with prep with MiraLax prior to the procedure. no other concerns at this time. Related Data Home Medications Medication Instructions Recorded Confirmed ergocalciferol (vitamin D2) 1,250 06/18/22 mcg (50,000 unit) capsule metformin 500 mg tablet mg 06/18/22 ondansetron 4 mg disintegrating mg 06/18/22 tablet sertraline 100 mg tablet mg 06/18/22 Previous Rx's Medication Instructions Recorded hydrocodone 5 mg-acetaminophen 325 1 tab PO Q6H PRN pain #7 tabs 06/19/22 mg tablet cefdinir 300 mg capsule 300 mg PO BID 7 days #14 caps 07/29/22 Allergies Allergy/AdvReac Type Severity Reaction Status Date / Time Sulfa (Sulfonamide Allergy hives Verified 07/29/22 07:28 Antibiotics) Review of Systems Status of ROS: Reports: 10 or more systems reviewed and unremarkable except as noted in History and below [facility] Social History Smoking Status: Never smoker Do you use any of these nicotine containing products: None How often do you have a drink containing alcohol: never AUDIT-C Alcohol total score: 0 Non-prescribed substance use: denies use service: No Exam Narrative: Exam Narrative: General: no obvious distress sitting comfortably HEENT: oral mucosa moist, pupils equal round reactive to light, extraocular muscles intact Neck: supple full range of motion heart: normal sinus rhythm S1-S2 lungs: clear to auscultation bilaterally abdomen: bowel sounds present, soft, nontender to palpation muscle skeletal: right CVA tenderness, mild right flank tenderness neuro: alert awake and oriented x3 Const: Vital Signs, click to edit/add: Vital Signs - 24 hr 07/29/22 07:28 07/29/22 10:05 Temperature 97.7 F Pulse Rate [Pulse Oximeter] 80 76 Respiratory Rate 20 18 Blood Pressure [Le ft Upper Arm] 129/75 121/80 Pulse Oximetry 97 99 Oxygen Delivery Me thod Room Air Room Air Course Course Hospital Course: 8:00 AM: AIDET performed. workup will include IV peripheral, 0.9 normal saline bolus, 4 mg IV Zofran and 30 mg IV Toradol for her pain and nausea, will obtain urinalysis, urine test, CBC, CMP. Plan to treat symptomatically. Discussed further imaging but will hold at this time, patient recently had a CT abdomen and pelvis without. Differential diagnosis include but is not limited to renal calculi, appendicitis, pyelonephritis, urine tract infection, constipation, ovarian cyst torsion. This includes a life-threatening complication of sepsis and appendicitis. Reevaluation(s) Reevaluation #1: Patient was updated on her urinalysis and lab results, CBC did not show any leukocytosis, metabolic panel showed chronically elevated bilirubin levels, urinalysis was positive for RBCs, 4+ ketones, 2+ protein, bilirubin, no white blood cells, positive leukocyte esterase, negative nitrite, few bacteria. Previous culture showed contamination, did add a urine culture at this time, discuss treating with Omnicef 300 mg b.i.d. over the next 7 days, patient was given 2 L 0.9 normal saline, she is feeling better after above care given pain has been controlled she is tolerating orals. Plan to hold on imaging at this time. Plan would be to discharge. Patient should follow up with her primary care provider over the next 7-10 days. Return precautions given Time: 11:01 Vital Signs Vital signs: Initial Vital Signs Temperature 97.7 F 07/29/22 07:28 Temperature Source Temporal Artery Scan 07/29/22 07:28 Pulse Rate 80 07/29/22 07:28 Pulse Rhythm 07/29/22 07:28 Respiratory Rate 20 07/29/22 07:28 Blood Pressure 129/75 07/29/22 07:28 Blood Pressure Mean 93 07/29/22 07:28 Pulse Oximetry 97 07/29/22 07:28 Oxygen Delivery Method 07/29/22 07:28 Vital Signs Temperature 97.7 F 07/29/22 07:28 Pulse Rate 80 07/29/22 07:28 Respiratory Rate 20 07/29/22 07:28 Blood Pressure 129/75 07/29/22 07:28 Pulse Oximetry 97 07/29/22 07:28 Oxygen Delivery Method 07/29/22 07:28 Temperature 97.7 F 07/29/22 07:28 Pulse Rate 76 07/29/22 10:05 Respiratory Rate 18 07/29/22 10:05 Blood Pressure 121/80 07/29/22 10:05 Pulse Oximetry 99 07/29/22 10:05 Oxygen Delivery Method 07/29/22 10:05 Medical Decision Making Lab Data Labs: Lab Results 07/29/22 07/29/22 07/29/22 Range/Units 07:28 07:50 07:50 WBC 8.53 (4.50-11.00) K/uL RBC 4.38 (4.00-5.20) m/uL Hgb 14.2 (12.0-16.0) gm/dL Hct 41.3 (33.0-51.0) % MCV 94 (80-100) fL MCH 32 (26-34) pg MCHC 34 (32-36) gm/dL RDW Coeff of Rajni 12.8 (11.5-15.5) % Plt Count 207 (140-440) K/uL Neut % (Auto) 79.1 H (42.0-72.0) % Lymph % (Auto) 13.1 L (20-44) % Wayne % (Auto) 6.9 (0.0-11.0) % Eos % (Auto) 0.6 (0.0-7.0) % Baso % (Auto) 0.2 (0.0-3.0) % Neut # (Auto) 6.70 (1.7-7.0) K/uL Lymph # (Auto) 1.10 (0.90-2.90) K/uL Wayne # (Auto) 0.60 (0.00-0.90) K/UL Eos # (Auto) 0.05 (0.00-0.50) K/uL Baso # (Auto) 0.02 (0.00-0.30) K/uL Abs Immat Gran (auto) 0.01 (0.00-0.30) K/uL Imm/Tot Granulo (auto) 0.1 % Sodium 139 (135-149) mmol/L Potassium 3.9 (3.6-5.1) mmol/L Chloride 109 (96-114) mmol/L Carbon Dioxide 20 (20-32) mmol/L BUN 11 (5-24) mg/dL Creatinine 1.1 (0.5-1.5) mg/dL Estimated Creat Clear 53.91 Estimated GFR 71 ml/min Glucose 77 (60-115) mg/dL Calcium 8.9 (8.4-10.6) mg/dL Total Bilirubin 2.3 H (0.1-1.5) mg/dL AST 16 (12-35) U/L ALT 13 (4-35) U/L Alkaline Phosphatase 51 (40-150) U/L Total Protein 6.6 (6.0-8.3) g/dL Albumin 4.3 (3.3-5.0) g/dL Urine Color Yellow (Yellow) Urine Appearance Clear (Clear) Urine pH 5.0 (5.0-8.5) Ur Specific [place] >= 1.030 (1.000-1.030) Urine Protein 2+ A (Negative) Urine Glucose (UA) Trace A (Negative) Urine Ketones 4+ A (Negative) Urine Blood 2+ A (Negative) Urine Nitrite Positive A (Negative) Urine Bilirubin 2+ A (Negative) Urine Urobilinogen 2.0 A (0.2-1.0) Ur Leukocyte Esterase Negative (Negative) Urine RBC 5-10 A (0-2) Urine WBC 2-5 (0-5) Ur Squamous Epith Cells Few (None-Few) Calcium Oxalate Crystal Few A (None) Urine Bacteria Few A (None) Discharge Plan Discharge Clinical Impression: H/O lithotripsy, Right flank pain, Nausea & vomiting Patient Disposition: Home, Self-Care Condition: Improved Instructions: Acute Nausea and Vomiting (ED) Activity Level: No Restrictions Prescriptions: New cefdinir 300 mg capsule 300 mg PO BID 7 Days Qty: 14 0RF No Action metformin 500 mg tablet Label Comments: TAKE 1 TABLET BY MOUTH TWO TIMES A DAY WITH MEALS. sertraline 100 mg tablet Label Comments: TAKE 1.5 TABLETS BY MOUTH ONCE DAILY. ergocalciferol (vitamin D2) 1,250 mcg (50,000 unit) capsule Label Comments: TAKE 1 CAPSULE (50,000 UNITS) BY MOUTH EVERY WEDNESDAY AND WEDNESDAY FOR 24 DOSES. ondansetron 4 mg tablet,disintegrating hydrocodone-acetaminophen 5-325 mg tablet 1 tab PO Q6H PRN (Reason: pain) Qty: 7 0RF Rx Instructions: For kidney stone pain Follow Up/Referrals: Emilee Vail MD [Primary Care Provider] - Stand Alone Forms: MyHealth Info Instructions
[2022-07-29] MEDS: 0.9 % SODIUM CHLORIDE 1000 ml 1,000 ML IV ×2 (07:51→09:01)
[2022-07-29] MEDS: KETOROLAC 30 MG/ML inj IVP (07:59)
[2022-07-29 08:00] LABS: Basophils Absolute Auto 0.02 K/uL (0.00-0.30); Basophils Percent Auto 0.2 % (0.0-3.0); Eosinophils Absolute Auto 0.05 K/uL (0.00-0.50); Eosinophils Percent Auto 0.6 % (0.0-7.0); Hematocrit 41.3 % (33.0-51.0); Hemoglobin* 14.2 gm/dL (12.0-16.0); Immature Granulocytes Abs Auto 0.01 K/uL (0.00-0.30); Immature Granulocytes Pct Auto 0.1 %; Lymphocytes Percent Auto 13.1 % (20-44); Mean Corpuscular HGB Conc 34 gm/dL (32-36); Mean Corpuscular Hemoglobin 32 pg (26-34); Mean Corpuscular Volume 94 fL (80-100); Monocytes Percent Auto 6.9 % (0.0-11.0); Neutrophils Percent Auto 79.1 % (42.0-72.0); Platelet Count* 207 K/uL (140-440); RDW Coefficient of Variation % 12.8 % (11.5-15.5); Red Blood Count 4.38 m/uL (4.00-5.20); White Blood Count* 8.53 K/uL (4.50-11.00)
[2022-07-29] MEDS: ONDANSETRON 2 MG/ML inj 4 MG IVP (08:00)
--- OUTSIDE RECORDS SUMMARY | 2022-07-29 08:00 | XMS_ITS | Encounter Summary ---
:1995 Author Organization [facility] Address [address] [place] [id number] Care Team Providers Name Role Phone Unavailable Primary Care Provider Unavailable Encounter Details Date Type Department Care Team Description 08/21/2020 Admin Visit Department of Family Medicine, [address] [phone] [facility] [phone] Social History Tobacco Use Types Packs/Day Years Used Date Smoking Tobacco: Never Assessed Sex Assigned at Date Recorded Not on file documented as of this encounter Plan of Treatment Not on filedocumented as of this encounter Visit Diagnoses Not on filedocumented in this encounter Additional Health Concerns Infection Onset Date Last Indicated Resolved Time COVID19 Pending 08/21/2020 08/21/2020 08/21/2020 2:56 PM FACILITIES PROJECT MANAGER documented as of this encounter
--- OUTSIDE RECORDS SUMMARY | 2022-07-29 08:00 | XMS_ITS | Encounter Summary ---
:1995 Author Organization [facility] Address [address] [place] [address] Care Team Providers Name Role Phone Unavailable Primary Care Provider Unavailable Reason for Visit Reason Comments COVID Inquiry Encounter Details Date Type Department Care Team Description 08/21/2020 Clinical Communication Department of [facility] Inquiry Cardiovascular Provider Medicine in [address] [place] [id number] Social History Tobacco Use Types Packs/Day Years Used Date Smoking Tobacco: Never Assessed Sex Assigned at Date Recorded Not on file documented as of this encounter Miscellaneous Notes Telephone Encounter - Asmita Arce - 08/21/2020 9:34 AM CST COVID-19 Nurse Line Screening ASSESSMENT PLAN Endpoint recommendation: Screening positive, testing indicated, advised to be swabbed for COVID-19 and Influenza, sent to [facility] located at [address] [place] [address]. The entrance is on the north side of the building. You must call [phone] for an appointment time.Testing hours are Daily [...] water are not avialable, use a hand manager treasury -Avoid touching your eyes, nose and mouth. [...] care: Yes The following references were used: [facility] novel coronavirus (COVID- 19) resources SCAPING MANAGER documented in this encounter Plan of Treatment Not on filedocumented as of this encounter Visit Diagnoses Not on filedocumented in this encounter Additional Health Concerns Infection Onset Date Last Indicated Resolved Time COVID19 Pending 08/21/2020 08/21/2020 08/21/2020 2:56 PM LANDSCAPING MANAGER COVID19 Pending 08/21/2020 08/21/2020 08/22/2020 4:42 AM LANDSCAPING MANAGER documented as of this encounter
--- OUTSIDE RECORDS SUMMARY | 2022-07-29 08:00 | XMS_ITS | Encounter Summary ---
:1995 [facility] Address [address] [address] Care Team Providers Name Role Phone SebastianLily APRN, CYNDIE Primary Care Provider [phone] Reason for Visit Reason Comments CONSULT Encounter Details Date Type Department Care Team Description 01/16/2022 [facility] [address] alaise and fatigue (Primary Dx); Pulmonary Medicine LUBNA Horan Snoring; [address] [facility] [address] [facility] Morbid obesity (HRC) [place], [place] [address] [address] [place], [place] [phone] (Wo rk) Social History Tobacco Use Types Packs/Day Years Used Date Smoking Tobacco: Former Alcohol Use Standard Drinks/Week Comments Yes 0 (1 standard drink = 0.6 oz pure alcoho l) 2 a week Sex Assigned at Date Recorded Not on [...] 12:00 AM CDT NAME: BINA BASS CSN: [id number] CLINIC NOTE DATE OF SERVICE: 01/16/2022 : [...] alcohol. 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 She drinks 2 cans of pop per day. FAMILY HISTORY: Mom has sleep apnea. REVIEW OF SYSTEMS: Carefully carried out. It was otherwise completely negative. MEDICATIONS: Include metformin, sertraline, and vitamin D3. PHYSICAL EXAMINATION: Height is 5 feet 7 inches, weight is 270. BMI is 43. Galvin Sleepiness Score was a 7. The sleep questionnaire was reviewed. Notes from Blue dAen and her primary care physician were also [...] time was 45 minutes. LUBNA RENAE SAK/AQS /[id number] cc:Emilee Villalobos MD [address] [address] [place] documented in this encounter Plan of Treatment Not on filedocumented as of this encounter Visit Diagnoses Diagnosis Malaise and fatigue - Primary Other malaise and fatigue Snoring Other dyspnea and respiratory abnormalit y Morbid obesity (HRC) Morbid obesity documented in this encounter Care Teams Horse Buyer Relationship Specialty Start Date End Date Lily Sebastian, INTERNET PROJECT MANAGER, PRODUCTION INTERN PCP - General 03/07/15 [address] [place] [address] documented as of this encounter
--- OUTSIDE RECORDS SUMMARY | 2022-07-29 08:00 | XMS_ITS | Encounter Summary ---
:1995 Author Organization [facility] Address [address] [place] [address] Care Team Providers Name Role Phone Unavailable Primary Care Provider Unavailable Reason for Visit Reason Onset Date Comments Testing For Upper Respiratory Virus Symptoms 08/21/2020 Encounter Details Date Type Department Care Team Description 08/21/2020 External Outreach Department of Kenji Elizondo [facility] Medicine, [facility] Loretta Cole Respiratory (Primary Building, in [address] [place], [place] [address] [facility] [address] [place], [place] [phone] (Work) [phone] Social History Tobacco Use Types Packs/Day Years Used Date Smoking Tobacco: Never Assessed Sex Assigned at Date Recorded Not on file documented as of this encounter Progress Notes [place], C.M.A. - 08/21/2020 9:37 AM CST Encounter created for symptomatic infectious disease screening with possible COVID, Influenza, and RSV testing. [employer]ER ORIGINAL documented in this encounter Plan of Treatment Not on filedocumented as of this encounter Procedures Procedure Name Priority Date/Time Associated Comments Diagnosis SARS CORONAVIRUS 2 Routine 08/21/2020 10:58 Resul ts for this PCR DETECT, V AM SAMPLE MAKER ORIGINAL procedure are in the results section. documented in this encounter Results SARS Coronavirus 2 RNA Detection (08/21/2020 10:58 AM SAMPLE MAKER ORIGINAL) [facility] Method Time Signature SARS-CoV-2 Nasopharynx 08/22/2020 [facility] Specimen 4:42 AM SAMPLE MAKER ORIGINAL Source SARS-CoV-2 Undetected Undetected 08/22/2020 [facility] RNA by PCR 4:42 AM SAMPLE MAKER ORIGINAL Comment: SARS-CoV-2 RNA absent. This result does not rule out COVID-19 in the patient, as the sensitivity of the test depends o n the timing of the specimen collection and the quality of the specim en. Result should be correlated with patient's history and clinical presentat ion. ----ADDITIONAL INFORMATION---- This PCR test was performed using the IvyDate SARS-CoV-2 assay ([employer] on the [employer] System under emergency use authorization (EUA) by the U.S. Food and Drug Administ ration. Fact sheets for this assay can be found at the following links: For Healthcare Providers: https://www.[employer] a.gov/media/628082/download For Patients: https://www.fda.gov/media/ 324816/download Specimen Anatomical Collection Method Collection Time Receive d Time (Source) Location / / Volume Laterality Varies 08/21/2020 10:58 08/21/2020 AM SAMPLE MAKER ORIGINAL 10:54 PM SAMPLE MAKER ORIGINAL Kenji Woodruff D.O. LAB MICROBIOLOGY - GENERAL O RDERABLES Performing Organization Address City/State/ZIP Code Phon e Number [facility] [address] [place] [address] [facility] [address] Laboratory Medicine and Pathology [address] [place] documented in this encounter Visit Diagnoses Diagnosis Infection Upper Respiratory - Primary documented in this encounter Additional Health Concerns Infection Onset Date Last Indicated Resolved Time COVID19 Pending 08/21/2020 08/21/2020 08/21/2020 2:56 PM SAMPLE MAKER ORIGINAL documented as of this encounter
--- OUTSIDE RECORDS SUMMARY | 2022-07-29 08:00 | XMS_ITS | Clinical Summary ---
:1995 Author Organization [facility] Address [address] [place] [address] Care Team Providers Name Role Phone Lily Sebastian APRN, CNP Primary Care Provider [phone] Source Comments You are receiving this document [...] for each transition of care or referral. [facility] Allergies Active Allergy Reactions Severity Noted Date [...] 03/07/2015 Obesity (BMI 30-39.9) 03/07/2015 Overview: See [facility] notes, 12/2015. Started p t on Topamax for weight loss/headaches. Resolved Problems Problem Noted Date Resolved Date Family planning, BCP ( control pills) initial 3 03/07/2015 prescription Encounters Date Type Specialty Care Team Description 05/04/2022 Orders Only Provider, MD Mike from Last 3 Months Immunizations Name Administration [...] is no t available. Interface Provider DUMMY/OTHER/AR from Last 3 Months Insurance Payer Benefit Plan / Subscriber ID Effective Dates Phone Addre ss Type Group [employer] SELF [employer]ED [id number] 2018-Alise Commercial t Bina Clark Personal/Family Self 1995 [address] (Home) [place] [id number] Care Teams Rodding Machine Tender Relationship Specialty Start Date End Date Lily Sebastian, SAND DIGGER, FUND ACCOUNTING MANAGER PCP - General 03/07/15 [address] [address] [place] [address]
--- OUTSIDE RECORDS SUMMARY | 2022-07-29 08:00 | XMS_ITS | Encounter Summary ---
:1995 Author Organization [facility] Address [address] [place] [address] Care Team Providers Name Role Phone SebastianLily APRN, CYNDIE Primary Care Provider [phone] Reason for Visit Reason Comments Refill metFORMIN (GLUCOPHAGE) 500 M G tablet [Pharmacy Med Name: METFORMIN HCL 500 MG TABLET] Encounter Details Date Type Department Care Team Description 03/29/2022 Refill [place] Antonio De Oliveira Refill ( metFORMIN Endocrinology MD [place] (GLUCOPHAGE) 500 MG [address] [place] [address] tablet [[place] [address] vd Name: METFORMIN HCL [address] [place], [place] MG TABLET] ) [address] (Wo rk) [...] times a day with meals. Interface, Out Surescripts Prov Query - 03/29/2022 8:31 AM CDT [...] EGFR - HBA1C - OFFICE VISIT [facility] Embedded Refills, Reference: [id number], 03/29/2022 8:31:26 AM CDT, Pool: ENDO PN REFILL ([id number]) documented in this encounter Plan of Treatment Not on filedocumented as of this encounter Visit Diagnoses Diagnosis Infertility associated with anovulation Female infertility associated with anovu lation documented in this encounter Care Teams Vat Packer Relationship Specialty Start Date End Date Lily Sebastian, LIME KILN OPERATOR, BULB SORTER PCP - General 03/07/[address] [place], [place] [address] documented as of this encounter
--- OUTSIDE RECORDS SUMMARY | 2022-07-29 08:00 | XMS_ITS | Clinical Summary ---
:1995 Author Organization [facility] Address [address] [place] [address] Care Team Providers Name Role Phone Unavailable Primary Care Provider Unavailable Source Comments Patient records contain information from all sites at [facility]. For routine questions regarding patient records, call [phone] during business hours, M-F 8:00 AM - 5:00 PM Central Time. Record requests for emergency care only can be directed to [phone] at any time.[facility] Social History Tobacco Use Types Packs/Day Years Used Date Smoking Tobacco: Never Assessed Sex Assigned at Date Recorded Not on file Plan of Treatment Health Maintenance Due Date Last Done Comments Cervical Cancer Screening 1995 HIV Screening 1995 Hepatitis B Vaccines (1 of 1995 3 - 3-dose series) Hepatitis C Screening 1995 DTaP,Tdap,and Td Vaccines 2014 (1 - Tdap) Depression Screening 09/13/2021 (Annual PHQ-2) COVID-19 Vaccine (4 - 10/24/2021 08/29/2021, 10/14/2020, Booster for Pfizer series) 09/24/2020 Influenza Vaccine Completed 06/05/2022, 06/25/2021, 07/21/2019, Additional history exists Pneumococcal vaccine (0-64 Aged Out No lo nger eligible years) based on patient 's age to complete this topic Insurance Payer Benefit Plan / Subscriber ID Effective Phone Address T ype Group Dates [facility] [id number] 2018-Pre [phone] [address] PPO OPEN ACCESS sent [address] [place] [address]
--- OUTSIDE RECORDS SUMMARY | 2022-07-29 08:00 | XMS_ITS | Clinical Summary ---
:1995 Author Organization [employer] [facility] llian Affiliates [place] [address] Care Team Providers Name Role Phone Emilee Villalobos MD Primary Care Provider [phone] Blue Aden MD Unavailable Allison Dunbar RN Unavailable Cyndi Wise RD Unavailable Allergies Active Allergy Reactions Severity Noted Date Comments Sulfa (Sulfonamide Antibiotics) Hives Medium 0 Medications Medication Sig Dispensed Refills Start Date End Date Status sertraline (ZOLOFT) 100 Take 1.5 Tablets 135 Tablet 3 09/12/20 21 Active mg tabletIndications: (150 mg) by Depressed mood, CRISTÓBAL mouth once (generalized anxiety daily. disorder) docusate (COLACE) 100 Take 1 Capsule 60 Capsule 0 05/06/2022 Active mg capsuleIndications: (100 mg) by S/P gastric sleeve mouth in the procedure morning and 1 Capsule (100 mg) in the evening. metFORMIN (GLUCOPHAGE) Take 1 Tablet 0 06/04/2022 Active 500 mg tablet (500 mg) by mouth. pediatric Chew 1 Tablet by 0 06/04/2022 Ac tive multivitamins-iron 18 mouth once mg chewable daily. (FLINTSTONES PLUS IRON; BUGS BUNNY PLUS IRON) chewable tablet cyanocobalamin (VITAMIN Take 1 Tablet 90 Tablet 0 Active B12) 1,000 mcg tablet (1,000 mcg) by mouth once daily. cholecalciferol, Take 1 Tablet 0 06/04/2022 Active Vitamin D3, 5,000 unit (5,000 units) by tab tablet mouth once daily. calcium citrate-vitamin Take 2 Tablets 0 06/04/2022 Active D3, 315 mg-250 units, by mouth two (CITRACAL WITH VITAMIN times daily with D) 315 mg-6.25 mcg (250 meals. unit) tab tablet oxyCODONE (ROXICODONE) Take 1 Tablet (5 10 Tablet 0 07/28/2022 Active 5 mg immediate release mg) by mouth tabletIndications: every 6 hours if Kidney stone needed for Pain. oxybutynin (DITROPAN) 5 Take 1 Tablet (5 12 Tablet 0 2 Active mg tabletIndications: mg) by mouth 2 Kidney stone times daily if needed (bladder spasms, urgency). Hospital, Clinic, or Other Ordered Dose Route [...] Encounters Date Type Specialty Care Team Description 07/28/2022 Anesthesia Event Abelino De Leon MD Slakey, Karen P, HOT STRIP MILL INSPECTOR 07/28/2022 Surgery Leroy Mitchell RIGHT EXTRACOR POREAL MD Jad SHOCK WAVE LITH OTRIPSY 07/28/2022 Hospital Encounter Leroy Mitchell Kidney s tone (Primary MD Jad Dx) 07/27/2022 Travel 07/24/2022 Preop Visit Zelda Potts Preoperative Exam Jacinda Cortés, (07/28/22 R IGHT EXTRACORPOREAL SHOCK WAVE LITHOTRIPS Y) 07/24/2022 Travel 06/19/2022 Telemedicine Liliana Giraldo Medical Nut rition RD Therapy ([facility]) 06/19/2022 Orders Only Scanner <No scans attac hed> 06/19/2022 Travel 06/18/2022 Office Visit Zelda Potts Follow Up (c/ o constant Jacinda Cortés, bleeding wi th blood clots and inter mittent cramping since IUD placement in .) 06/18/2022 Travel 06/09/2022 Nurse Triage Emilee Villalobos MD 06/04/2022 Phone Office Visit Education (5 week post) 05/14/2022 Telemedicine Blue Aden Post-op (1 wk p ost op MD Jaziel visit-Sleeve on 05/05) 05/07/2022 Phone Office Visit Education (Post op ) 05/07/2022 Patient Outreach Jacinta, Primary RN Care Yolanda Terrell RN Management; Hos pital F/U 05/05/2022 Anesthesia Event Chuck Gerardo, LINDA Chavez, Bang Orlando MD 05/05/2022 Surgery Blue Aden ROBOTIC SLEEVE MD Jaziel GASTRECTOMY 05/05/2022 - Hospital Encounter Blue Aden Morbid ob esity (HC) (Primary Dx); 05/06/2022 MD Jaziel S/P robotic gas tric sleeve procedure by Dr. Aden; Depressed mood Discharge Summary - Celina Rojas PA - 05/06/2022 12:13 PM CDT HOSPITAL DISCHARGE SUMMARY Patient Name: Bina de la o Date of : 1995 Age : 27 y.o. [id number] Primary Physician: Emilee Villalobos MD Admission Date: 05/05/2022 Discharge Date: 05/06/2022 She will be discharged from [facility] to home. PRINCIPAL DISCHARGE DIAGNOSI S: Morbid [...] PRILOSEC Take 1 Capsule (20 mg) by [facility] once daily before a meal. Open and [...] X Chew 1 Tablet (80 mg) by [facility] 4 times daily after meals and at [...] your medicines These medications were sent to [facility] [address] [place] [id number] [address] Hours: Open 24 Hours ?? acetaminophen 500 [...] you need to change this or reschedule. [facility] [address], [address] [place], [place] [id number] [place] [phone] When to follow up: 6 to 10 [...] to the video can be found on [email or web address] and is located in the Related Resou rces section in the right l ower part of the page. 2. Fluid intake should be at least 64 oz each day. 3. Vitamins - After your first follow up v isit start: Chewable Sturtevant Complete multivitamin 1 tablet twice daily Vitamin B12 1,000 mcg sublin gual (under the tongue) tablet daily If your first visit after roche rgery is more than one week after discharge, [...] an exercise routine. 5. You may take pczp-lrw-vqd nter Colace 100 mg twice daily as [...] home. 7. If you have diabetes, con tinue to monitor your blood sugars. If they [...] not be able to see patients at [facility] or [facility].?? For post-weight loss surgery care, when medically stable, you would be transported to [facility] or [facility]. When should you be concerne d? If you are having a hard ti me getting in your recommended fluid intake and start to feel dizzy, lightheaded, fatigued or nauseated you should call the clinic right away as this can be a sign of dehydra tion and we can set up IV fl uids for you as an outpatient. Call [phone] Aden if you develo p [...] medical emergency. [facility]? [facility] for obesity. The surgery you had done was a robotic assisted laparoscopic sleeve gastrectomy FOLLOW-UP: She should see Ro se Ashanti Villalobos MD in 1-2 weeks. Specialty follow-up: She shashi Blue Mena MD - [facility] as previously scheduled. Celina Rojas, JOMAR ..... ............... 05/06/2022 12:13 PM .................... 05/05/2022 Travel 05/01/2022 Nurse/Clinic Staff Only Test ing (Pre-procedure COVID testing ) 05/01/2022 Travel from Last 3 Months Immunizations Name Administration Dates Next Due AMB INFLUENZA, IIV4 (AGE=>6MOS) MDV 07/21/2019 (Flu Clinic Only) COVID-19 vaccine ([employer] 10/14/2020 30mcg/0.3mL) PF, MDV DTaP 12/09/1999, 12/01/1999, [...] in contact with No / Unsu re 07/27/2022 3:01 PM FAMILY NURSE PRACTITIONER someone who was confirmed or suspected to have Coronavirus/COVID-19? Obstetrics History Last Filed Vital Signs Vital Sign Reading Time Taken Comments Blood Pressure 123/82 07/28/2022 1:00 PM FAMILY NURSE PRACTITIONER Pulse 66 07/28/2022 1:00 PM FAMILY NURSE PRACTITIONER Temperature 36.5 ??C (97.7 ??F) 07/28/2022 12:00 PM FAMILY NURSE PRACTITIONER Respiratory Rate 20 07/28/2022 1:15 PM FAMILY NURSE PRACTITIONER Oxygen Saturation 97% 07/28/2022 1:00 PM FAMILY NURSE PRACTITIONER Inhaled Oxygen Concentration - - Weight 89.8 kg (198 lb) 07/28/2022 10:11 AM FAMILY NURSE PRACTITIONER Height 167.6 cm (5' 6) 07/28/2022 10:11 AM FAMILY NURSE PRACTITIONER Body Mass Index 31.96 07/28/2022 10:11 AM FAMILY NURSE PRACTITIONER Plan of Treatment Health Maintenance Due Date Last Done Comments Tdap 2006 HIV for age 15-65 2010 Tetanus booster 2015 COVID-19 vaccine series (4 - 10/24/2021 08/29/2021, 021, Booster for Pfizer series) 09/24/2020 Influenza for age 9-49 05/14/2022 06/25/2021, 07/21/2019, 07/21/2019, Additional history exists Depression screening for age 12+ 12/30/2022 12/30/2021, , 09/12/2021 BMI (ht and wt on same day) for 06/19/2023 06/19/2022, 08/0 05/2022, age 18+ 04/14/2022, Additional history exists Pap test for age 21-65 01/26/2025 01/26/2022, 11/11/2018 Hepatitis C screening for age Completed 04/21/2022 18-79 Procedures Procedure Name Priority Date/Time Associated Comments Diagnosis SUPRAGLOTTIC-LMA Routine 07/28/2022 11:25 Results for this AM FAMILY NURSE PRACTITIONER procedure are i n the results section. LITHOTRIPSY Elective 07/28/2022 10:47 STONES EXTRACORPOREAL SHOCK AM FAMILY NURSE PRACTITIONER WAVE RENAL UNILATERAL VENDOR Case Notes TOMMY FROM [place] STONE NOT IFIED ON 06/20/2022 URINE Preop 07/28/2022 10:03 AM Resul ts for this FAMILY NURSE PRACTITIONER procedure are i n the results section. SCAN-CT INTERPRETATION 06/19/2022 12:00 AM CDT PATH TISSUE EXAM Today 05/05/2022 7:01 PM [...] Routine 05/05/2022 6:18 PM CDT ROBOTIC ASSISTED GASTRIC Tier 3 05/05/2022 5:57 PM Morbid obe sity SLEEVE XI CDT (HC) Special Needs WT [address] [facility] AN IV START Routine 05/05/2022 5:02 PM Result s for this CDT procedure are i n the results section. [facility] AN IV START Routine 05/05/2022 5:02 PM Result s for this CDT procedure are i n the results section. [facility] AN IV START Routine 05/05/2022 5:02 PM Result s for this CDT procedure are i n the results section. URINE Preop 05/05/2022 4:15 PM Result s for this CDT procedure are i n the results section. SCAN-CARDIAC STRIP 05/05/2022 12:00 AM Re sults for this CDT procedure are i n the results section. COVID 19 Routine 05/01/2022 2:41 PM Preoperative Results f or this CDT examination procedure are i n the results section. COVID 19 COLLECTION Routine 05/01/2022 2:41 PM Preoperative Re sults for this CDT examination procedure are i n the results section. from Last 3 Months Results HCHG MASK PR5 (07/28/2022 11:25 AM FAMILY NURSE PRACTITIONER) Narrative Laura Padilla CRNA - 07/28/2022 11:25 AM FAMILY NURSE PRACTITIONER Laura Padilla CRNA ? 07/28/2022 11:25 AM Procedure: Supraglottic Patient location during procedure: OR Supraglottic Airway Properties Mask Ventilation: not attempted Type: unique Tube Size: 4 Insertion Attempts: 1 Placement Verification: auscultation, CO 2 detection and other Assessment Assessment: atraumatic, dentition unchan ged and other (comment) (lips & teeth intact) Cuff Volume: 4 Electronically signed by Laura Padilla CRNA ? Abelino De Leon MD ANESTHESIA PX NOTE ORDER ORESTES Urine (07/28/2022 10:03 AM FAMILY NURSE PRACTITIONER)Only the most recent of2 resultswithin the time period is included. Analysis Performed At [facility] logist Time Signature ,URIN Negative Negative 07/28/2022 [facility] 11:14 AM FAMILY NURSE PRACTITIONER LABORATORY-SARA TRAL LABORATORY Specimen Anatomical Collection Method Collection Time Receive d Time (Source) Location / / Volume Laterality Urine URINE SPECIMEN / Non-Blood / 07/28/2022 10:03 022 Unknown Unknown AM FAMILY NURSE PRACTITIONER 10:18 AM FAMILY NURSE PRACTITIONER Nely URIARTE URINE Performing Organization Address City/State/ZIP Code Phon e Number [facility] [address] [place] [address] LABORATORY-CENTRAL 1999 LABORATORY SCAN-CT INTERPRETATION (06/19/2022 12:00 AM CDT) Narrative This result has an attachment that is no t available. Scanner OTHER PATH TISSUE EXAM (05/05/2022 7:01 PM CDT) Component Value Ref Test Analysis Performed At [facility] gist Range Method Time Signature Case Report Pathology Report ?Case: [id number] ? 05/08/2022 PAVEL Authorizing Provider: ??Bule Aden MD ?Collected: ? 05/05/2022 1901 ? 11:30 AM HEALTH Ordering Location: ? [facility] ?Received: ?05/06/2022 0753 ? CDT [facility] ? ENTRAL Pathologist: ? Jose David Muro, ? LABORATORY ? MD ? Specimen: ?Stomach, Port ion of Stomach ? Final A) STOMACH, SLEEVE GASTRECTOMY: 05/08/20 22 [facility] Electronically Diagnosis 1. Gastric body with mild no n-specific chronic gastritis (see comment) 11:30 AM HEALTH signed by 2. Negative for atrophic gastritis CDT JANNETTE-Liliana Muro, 3. No Helicobacter organisms identified (immunohistochemis try negative) ENTRAL Jose David Easton, 4. Negative for dysplasia and malignancy LABORATORY MD on 05/08/2022 at 11:30 A M Comment [...] average wall thickness i s 0.4 cm. ??Peanut Blancher sections are submitted in 1 cassette. CDT LABORATORY-C ENTRAL Time and date in formalin: 0 757 on 05/06/2022 LABORATORY LMT 05/06/2022 Microscopic The final 05/08/2022 [facility] Description diagnosis is 11:30 AM HEALTH based on CDT LABORATORY-C microscopic ENTRAL examination of LABORATORY appropriate sections of all specimens. Additional 05/08/2022 [facility] Information Interpreted at [facility], Central Laboratory - [address], [place] [address] 11:30 AM HEALTH CDT LABORATORY-C ENTRAL LABORATORY Specimen Anatomical Collection Method Collection Time Receive d Time (Source) Location / / Volume Laterality Tissue SPECIMEN FROM 05/05/2022 7:01 PM 05/06/20 7:53 STOMACH / Unknown CDT AM CDT Blue Aden MD PATHOLOGY/CYTOLOGY Performing Organization Address City/State/ZIP Code Phon e Number [facility] [address] [place] [address] LABORATORY-CENTRAL 2000 LABORATORY HCHG TUBE PR1, HCHG [...] signed by Greg Gerardo CRNA ? Chuck Gerardo CRNA ANESTHESIA PX NOTE ORDERA BLES HCHG KIT [...] by Oscar Vidal Jr., MD ? Chuck Gerardo HOT STRIP MILL INSPECTOR ANESTHESIA PX NOTE ORDERA BLES SCAN-CARDIAC STRIP (05/05/2022 12:00 AM CDT) Narrative 05/05/2022 12:00 AM CDT This result has an attachment that is no t available. Ordered by an unspecified provider. Other Clinical Staff OTHER COVID 19 (05/01/2022 2:41 PM CDT) Analysis Performed At Patho logist Time Signature COVID 19 Negative Negative 05/02/2022 [facility] 1:22 PM CDT LABORATORY-SARA MOLECULAR TRAL LABORATORY Specimen Anatomical Location / Collection Method Collection Trino e Received Time (Source) Laterality / Volume Other SPECIMEN FROM Non-Blood / 05/01/2022 2:41 05/01/2022 9:18 NASOPHARYNGEAL Unknown PM CDT PM CDT STRUCTURE / Unknown Narrative [facility] LABORATORY-CENTRAL LABORAT ORY - 05/02/2022 1:22 PM [...] Organization Address City/State/ZIP Code Phon e Number [facility] [address] [place] [address] LABORATORY-CENTRAL 2000 LABORATORY COVID 19 COLLECTION (05/01/2022 2:41 PM CDT) [facility] Method Time Signature TESTING [facility] 05/01/2022 [facility] LABORATORY Laboratory 9:18 PM CDT LABORATORY-CE NTRAL LABORATORY Comment: Specimen submitted to [facility] Laboratory for testing. Specimen Anatomical Location / Collection Method Collection Trino e Received Time (Source) Laterality / Volume Other SPECIMEN FROM Non-Blood / 05/01/2022 2:41 05/01/2022 3:54 NASOPHARYNGEAL Unknown PM CDT PM CDT STRUCTURE / Unknown Emilee Villalobos MD SEND OUTS Performing Organization Address [facility] Code Phon e Number [facility] [address] [facility] [address] LABORATORY-CENTRAL 1999 LABORATORY from Last 3 Months Insurance Payer Benefit Plan / Subscriber ID Effective Dates Phone Addre ss Type Group [employer] [id number] 2018-Presen [address] [place] [address] (Work) Bina Patel Workers Comp Self 1995 [address] (Home) [place] [id number] Advance Directives Latest Code Status on File Code Status Date Activated Date Inactivated Comments Full Code 07/28/2022 9:56 AM 07/28/2022 4:30 PM Code Status Discussion: Not Discussed Full Code 05/05/2022 9:15 PM 05/06/2022 4:38 PM Code Status Discussion: Reviewed Preferences Full Code 05/05/2022 4:17 PM 05/05/2022 9:15 PM Code Status Discussion: Not Discussed Care Teams Veterinary Anatomist Relationship Specialty Start Date End Date GriseldaEmilee paz PCP - General Family Practice 09/12/21 MD [place] [address] [place] [address] Blue Aden MD Consulting Physician Surgery - General 12/09/[address] [phone] Allison Dunbar, Paper Sales Manager Registered Nurse 12/09/21 RN [address] [address] Cyndi Wise, Electromechanical Technologist/Theatrical Variety Agent [place] [address] [phone]
--- OUTSIDE RECORDS SUMMARY | 2022-07-29 08:00 | XMS_ITS | Encounter Summary ---
:1995 Author Organization [facility] Address [address] [place] [address] Care Team Providers Name Role Phone Lily Sebastian APRN, CNP Primary Care Provider [phone] Encounter Details Date Type Department Care Team Description 02/11/2022 Telephone [facility] Kendell Eid MBBS [address] [facility] [address] [place] [address] [place], [place] [phone] (Wo rk) Social History Tobacco Use [...] on filedocumented in this encounter Care Teams Redevelopment Manager Relationship Specialty Start Date End Date Lily Sebastian APRN, MANAGER QUALITY PCP - General 03/07/15 [address] [address] [place] [id number] documented as of this encounter
--- OUTSIDE RECORDS SUMMARY | 2022-07-29 08:00 | XMS_ITS | Encounter Summary ---
:1995 Author Organization [email or web address] Address [address], [place] [address] Care Team Providers Name Role Phone Leeroy Sebastianisten Liliana GORE, CYNDIE Primary Care Provider [phone] Reason for Visit Reason Comments Refill metFORMIN (GLUCOPHAGE) 500 M G tablet [Pharmacy Med Name: METFORMIN HCL 500 MG TABLET] Encounter Details Date Type Department Care Team Description 08/26/2021 Refill [place] Antonio De Oliveiraill ( metFORMIN Endocrinology MD Douglas (GLUCOPHAGE) 500 MG [id number] [facility] [address] tablet [[place] [address] [facility] Name: METFORMIN HCL 500 [place], [place] MG TABLET] ) [id number] (Wo rk) [...] ANTONIO DE OLIVEIRA Ordering User: DEVORA BOATENG ITY CONTROL SCIENTIST Interface, Out Surescripts Prov Query - 08/26/2021 6:33 PM CST metFORMIN (GLUCOPHAGE) 500 MG tablet [Pharmacy Med Name: METFORMIN HCL 500 MG TABLET] Endocrinology: Diabetes - Biguanides -> eGFR and HBA1C were not found within the last 5 years. Last qualifying visit: 12/13/2020 (in [facility]) Next scheduled visit: None Last ordered by ANTONIO DE OLIVEIRA J: 12/13/2020 (256 days ago) QTY: 60, Refills: 6, Sig: take 1 tablet by mouth two times a day with meals. (unchanged) eGFR: Not found HBA1C: Not found PATIENT IS DUE FOR: - EGFR - HBA1C Powered by [email or web address], Reference: [id number], 08/26/2021 6:33:05 PM QUALITY CONTROL SCIENTIST, Pool:ENDO PN REFILL ([id number]) ITY CONTROL SCIENTIST documented in this encounter Plan of Treatment Not on filedocumented as of this encounter Visit Diagnoses Diagnosis Infertility associated with anovulation Female infertility associated with anovu lation documented in this encounter Care Teams Foreign Exchange Trader Relationship Specialty Start Date End Date Lily Sebastian, CYLINDER FILLER, ERP TECHNICAL LEAD PCP - General 03/07/[address] [place] [address] documented as of this encounter
--- OUTSIDE RECORDS SUMMARY | 2022-07-29 08:00 | XMS_ITS | Encounter Summary ---
:1995 Author Organization [facility] Address [address] [place] [address] Care Team Providers Name Role Phone Lily Sebastian APRN, CNP Primary Care Provider [phone] Encounter Details Date Type Department Care Team Description 05/04/2022 Orders Only HIM DEPARTMENT Provider, Rosa Isela ortiz MD Interface provid er interface provider, [place] [id number] Social History Tobacco Use Types Packs/Day Years [...] on filedocumented in this encounter Care Teams Coal Drier Operator Relationship Specialty Start Date End Date Lily Sebastian APRN, CYNDIE PCP - General 03/07/15 [address] [place] [address] documented as of this encounter
--- OUTSIDE RECORDS SUMMARY | 2022-07-29 08:00 | XMS_ITS | Encounter Summary ---
:1995 Author Organization [facility] Address [address] [place] [address] Care Team Providers Name Role Phone Lily Sebastian APRN, CNP Primary Care Provider [phone] Encounter Details Date Type Department Care Team Description 03/19/2022 Orders Only Specialty Center [address] E[address] , Pulmonary Medicine LUBNA [address] [facility] [address] [facility] [place] [address] [place] [address] [address] [place] [phone] (Wo rk) Social History Tobacco Use Types [...] on filedocumented in this encounter Care Teams Business Office Technician Relationship Specialty Start Date End Date Lily Sebastian APRN, CNP PCP - General 03/07/15 [address] [place] [address] documented as of this encounter
--- OUTSIDE RECORDS SUMMARY | 2022-07-29 08:00 | XMS_ITS | Encounter Summary ---
:1995 Author Organization [facility] Address [address] [place] [address] Care Team Providers Name Role Phone Unavailable Primary Care Provider Unavailable Reason for Visit Reason Comments COVID Inquiry Encounter Details Date Type Department Care Team Description 08/21/2020 Clinical Communication Department of Family Unassigned , Pcp COVID Inquiry Medicine, [facility], in [place] [address] [facility] [phone] Social History Tobacco Use Types Packs/Day Years [...] Because of symptoms, transfer patient to: : [facility] COVID Nurse Line (End Screening) Symptom Onset Date of symptom onset: 08/20/20 Testing Recommendation Endpoint Is testing recommended? : Transferred to nursing call line Plan: Endpoint recommendation: Transferred to Nursing/COVID Line/Care Team *Reminder if sending patient for testing in [facility] or [facility], route encounter to the correct testing pool. MACY CASHIER documented in this encounter Plan of Treatment Not on filedocumented as of this encounter Visit Diagnoses Not on filedocumented in this encounter
--- OUTSIDE RECORDS SUMMARY | 2022-07-29 08:01 | XMS_ITS | Encounter Summary ---
:1995 [facility] Address [address] [place] [address] Care Team Providers Name Role Phone Lily Sebastian APRN, CYNDIE Primary Care Provider [phone] Encounter Details Date Type Department Care Team Description 03/07/2015 Lab Visit [facility] Encounter for screening for diabetes mellitus; [address] [employer] Screening for thyroid disord er; [place] [address] Screening for deficiency ane trixie; [phone] Immunity status testing Social History Tobacco Use [...] - 03/08/2015 9:39 AM CDT Performed at [facility], [address] [place] [address] Lily Sebastian APRN, CNP LAB_1 Performing Organization Address [facility] Phon e Number HP CONVERSION Hemoglobin, Blood (03/07/2015 11:44 AM CDT) athologist Signature Hemoglobin 14.9 11.8 - 15.5 HP CONVERSION g/dL Specimen Anatomical Collection Method Collection Time Receive d Time (Source) Location / / Volume Laterality 03/07/2015 11:44 03/07/2015 AM CDT 11:43 AM CDT Narrative HP CONVERSION - 03/07/2015 11:48 AM CDT Performed at [facility], [address] [place] [address] Lily Sebastian APRN, CNP LAB_1 Performing Organization Address [facility] Phon e Number HP CONVERSION TSH AND FREE T4 (FRT4 IF TSH ABNORM) (03/07/2015 11:44 AM CDT) athologist Signature Thyroid 2.48 0.20 - HP CONVERSION Stimulating 4.50 mIU/L Hormone Specimen Anatomical Collection Method Collection Time Receive d Time (Source) Location / / Volume Laterality 03/07/2015 11:44 03/07/2015 3:36 AM CDT PM CDT Narrative HP CONVERSION - 03/07/2015 4:32 PM CDT Performed at [facility], [facility] [place] [address] Lily Sebastian APRN, CNP LAB_1 Performing Organization Address [facility] Phon e Number HP CONVERSION GLUCOSE (03/07/2015 11:44 AM CDT) athologist Signature Lab Glucose 83 60 - 100 HP CONVERSION mg/dL Specimen Anatomical Collection Method Collection Time Receive d Time (Source) Location / / Volume Laterality 03/07/2015 11:44 03/07/2015 AM CDT 11:43 AM CDT Narrative HP CONVERSION - 03/07/2015 2:58 PM CDT Performed at [facility], [address] [facility], [place] [address] Lily Sebastian APRN, CNP LAB_1 Performing Organization Address City/State/ZIP Code Phon e Number HP CONVERSION documented in this encounter Visit Diagnoses Diagnosis Encounter for screening for diabetes sparkle litus Screening for diabetes mellitus Screening for thyroid disorder Screening for deficiency anemia Screening for other and unspecified defi ciency anemia Immunity status testing Antibody response examination documented in this encounter Care Teams Dock Guard Relationship Specialty Start Date End Date Lily Sebastian APRN, CNP PCP - General 03/07/[address] [place] [address] documented as of this encounter
--- OUTSIDE RECORDS SUMMARY | 2022-07-29 08:01 | XMS_ITS | Encounter Summary ---
:1995 Author Organization [facility] Address [address] [place] [address] Care Team Providers Name Role Phone Lily Sebastian APRN, CNP Primary Care Provider [phone] Reason for Visit Reason Comments Annual Exam Encounter Details Date Type Department Care Team Description 03/07/2015 Office Visit [facility] Lily Sebastian general medical examination at a health care facility (Primary Dx); Gia Ford APRN, CNP Contraceptive management; [address] [address] [facility] Obesity (BMI 30-39.9); [place] [address] [place], [place] Screening for deficiency ane trixie; [phone] [address] Screening for thyroid disorder; [phone] Encounter for s creening for diabetes mellitus; [...] - 03/07/2015 12:19 PM CDT Bina Enamorado [id number] 1995 SUBJECTIVE: BINA ENAMORADO is a 20 [...] in seventh grade after meeting with a copy chaser and taking some type of appetite suppressant. [...] Past Surgical History Procedure Laterality Date ??? 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 Dating boyfriend in [place] long-distance. Working at [employer] for summer job. HABITS: Tobacco: Never Alcohol/Drugs: [...] and sun protection. Lily Sebastian APRN, CNP [facility] NB: A voice recognition dictation system was [...] Chlamydia & GC (03/07/2015 11:32 AM CDT) [facility] Method Time Signature Chlamydia Negative Negative HP CONVERSION Trachomatis STD Comment: Test Performed by [facility] CLIA Number [id number] N. gonorrhoeae STD Negative Negative HP CONVERSI ON Comment: Test Performed by [facility] [facility] Performed at [facility], [address] [place] [address] ??[address] CLIA Number [id number] Source STD Cervix HP CONVERSION Comment: CLIA Number [id number] Specimen Anatomical Collection Method Collection Time Receive [...] management Unspecified contraceptive management Obesity (BMI 30-39.9) ([facility]) Obesity, unspecified Screening for deficiency anemia Screening [...] diseases documented in this encounter Care Teams Pershing Missile Crewmember Relationship Specialty Start Date End Date Lily Sebastian APRN, CYNDIE PCP - General 03/07/15 [address] [place] [address] documented as of this encounter
--- OUTSIDE RECORDS SUMMARY | 2022-07-29 08:01 | XMS_ITS | Encounter Summary ---
:1995 Author Organization [facility] Address [address], [place] [address] Care Team Providers Name Role Phone Lily Sebastian APRN, CNP Primary Care Provider [phone] Encounter Details Date Type Department Care Team Description 01/03/2016 Notes/Orders [facility] Lily Sebastian Obe sity (BMI 30-39.9) Medicine CYNDIE GORE (Primary Dx) [address] [address] [address] [place] [address] [place] [phone] (Wo rk) Social History Tobacco Use Types Packs/Day Years Used Date Smoking Tobacco: Never Assessed Sex Assigned at Date Recorded Not on file documented as of this encounter Plan of Treatment Not on filedocumented as of this encounter Visit Diagnoses Diagnosis Obesity (BMI 30-39.9) ([facility]) - Primary Obesity, unspecified documented in this encounter Care Teams Diving Board Assembler Relationship Specialty Start Date End Date Lily Sebastian APRN, CNP PCP - General 03/07/15 [address] [place] [address] documented as of this encounter
--- OUTSIDE RECORDS SUMMARY | 2022-07-29 08:01 | XMS_ITS | Encounter Summary ---
:1995 Author Organization [facility] Address [address] [address] Care Team Providers Name Role Phone Md DELFINO Yee Primary Care Provider Encounter Details Date Type Department Care Team Description 03/28/2013 Lab Visit [facility] Abdominal pain; [address] [place] [address] Social History Tobacco Use Types [...] Results GLIADIN IGA (03/28/2013 12:19 PM CDT) athologist Signature Gliadin IgA 6 0 - [...] - 03/30/2013 12:32 AM CDT Performed at [email or web address] [address] [place], [place] [id number] Jailyn Gruber MD LAB_1 Performing Organization Address [facility] Phon e Number HP CONVERSION TISSUE TRANSGLUTAMINASE [...] - 03/30/2013 12:32 AM CDT Performed at [facility] [address] [place], [place] [address] Jailyn Gruber MD LAB_1 Performing Organization Address [facility] Phon e Number HP CONVERSION THYROID STIMULATING HORMONE (03/28/2013 12:19 PM CDT) P athologist Signature Thyroid 2.85 0.20 - HP CONVERSION Stimulating 4.50 mIU/L Hormone Specimen Anatomical Collection Method Collection Time Receive d Time (Source) Location / / Volume Laterality 03/28/2013 12:19 03/28/2013 3:41 PM CDT PM CDT Jailyn Gruber MD LAB_1 Performing Organization Address [facility] Phon e Number HP CONVERSION CELIAC PANEL (03/28/2013 12:19 PM CDT) Analysis Performed At Patho logist Time Signature Immunoglobulin A 167 68 - 378 HP CONVERSION mg/dL Comment: Tissue Transglutaminase Antibody, IgA b y DEE DEE ([id number]) and Gliadin Peptide (deamidated) Antibod y, IgA ([id number]) to follow. REFERENCE INTERVAL: Immunoglobulin A Access complete set of age- and/or gende r-specific reference intervals for this test in the [facility] Directory ([employer]). Specimen Anatomical Collection Method Collection Time Receive d Time (Source) Location / / Volume Laterality 03/28/2013 12:19 03/28/2013 3:33 PM CDT PM CDT Narrative HP CONVERSION - 03/29/2013 4:25 PM CDT Performed at [facility] [address] [place] [address] Jailyn Gruber MD LAB_1 Performing Organization Address [facility] Phon e Number HP CONVERSION documented in this encounter Visit Diagnoses Diagnosis Abdominal pain Chronic diarrhea Diarrhea documented in this encounter Care Teams Feller Seam Operator Relationship Specialty Start Date End Date Md Yee MD PCP - General 03/28/13 03/06/15 [place] [address] documented as of this encounter
--- OUTSIDE RECORDS SUMMARY | 2022-07-29 08:01 | XMS_ITS | Encounter Summary ---
:1995 Author Organization [email or web address] Address [address], [place] [address] Care Team Providers Name Role Phone Lily Sebastian APRN, CNP Primary Care Provider [phone] Reason for Visit Reason Comments Prior Authorization Request Encounter Details Date Type Department Care Team Description 03/14/2015 Telephone [facility] Lily Sebastian Pri or Authorization Medicine CYNDIE GORE Request [id number] [place] [address] [place], [place] [phone] (Wo rk) Social History Tobacco Use Types Packs/Day Years Used Date Smoking Tobacco: Never Assessed Sex Assigned at Date Recorded Not on file documented as of this encounter Nursing Notes Lily Sebastian APRN, CNP - 03/14/2015 11:46 AM CDT noted Giovana Galvin - 03/14/2015 11:37 AM CDT The Prior auth for Phentermine was approved from 03-08-15 to 06-08-15. Pharmacy notified NDRAT Kathy French RN - 03/14/2015 11:11 AM CDT Called back Yassine at [facility] and answered questions. He gave PA rx [...] filedocumented in this encounter Care Teams Business Support Liaison Relationship Specialty Start Date End Date Lily Sebastian, ROLLER STAKER, RADIOPHARMACIST PCP - General 03/07/15 [address] [place] [address] documented as of this encounter
--- OUTSIDE RECORDS SUMMARY | 2022-07-29 08:01 | XMS_ITS | Encounter Summary ---
:1995 Author [facility] Address [address] [address] Care Team Providers Name Role Phone Lily Sebastian APRN, CNP Primary Care Provider [phone] Reason for Visit Reason Comments Prior Authorization Request Encounter Details Date Type Department Care Team Description 03/08/2015 Telephone [facility] Lily Sebastian Pri or Authorization Medicine CYNDIE GORE Request [id number] [place] [address] [place] [phone] (Wo rk) Social History Tobacco Use Types Packs/Day Years Used Date Smoking Tobacco: Never Assessed Sex Assigned at Date Recorded Not on file documented as of this encounter Nursing Notes Giovana Galvin - 03/11/2015 8:14 AM CDT [place] faxed to insurance. Waiting for response ily Gupta APRN, CNP - 03/08/2015 5:15 PM CDT PA completed. Giovana Casillas - 03/08/2015 2:23 PM CDT A prior authorization is required for Phentermine 15 mg. Form given to Lily Sebastian for completion documented in this encounter Plan of Treatment Not on filedocumented as of this encounter Visit Diagnoses Not on filedocumented in this encounter Care Teams Remedial Masseur Relationship Specialty Start Date End Date Lily Sebastian, BELL TIER, CATECHIST PCP - General 03/07/15 [address] [place] [address] documented as of this encounter
--- OUTSIDE RECORDS SUMMARY | 2022-07-29 08:01 | XMS_ITS | Encounter Summary ---
:1995 Author Organization [facility] Address [address], [place] [address] Care Team Providers Name Role Phone Lily Sebastian APRN, CNP Primary Care Provider [phone] Reason for Visit Reason Comments Patient Calling Back Encounter Details Date Type Department Care Team Description 11/11/2015 Telephone [facility] Lily Sebastian Pat ient Calling Back Medicine CYNDIE GORE [address] [facility] [address] [place] [address] [place] [address] [phone] (Wo rk) Social History Tobacco Use Types Packs/Day Years Used Date Smoking Tobacco: Never Assessed Sex Assigned at Date Recorded Not on file documented as of this encounter Nursing Notes Dora Torres LPN - 11/11/2015 4:41 PM CST Pt notified of Ayan note below and transferred to our Managed Care Department for explanation ofbenefits ITIONER TUMBLER Lily Sebastian APRN, CNP - 11/11/2015 4:25 PM CST Please call patient. Let her know that [facility] Man[facility] team [facility] The Care being requested can be provided within our system. Please inform the patient that we will not be able to place the insurance referral.. New referral for PN Field Associate placed. We have a weight management program that would be appropriate for her. Give her # to schedule appt. ITIONER TUMBLER Giovana Galvin - 11/11/2015 3:35 PM CST Referral faxed ITIONER TUMBLER Amaya Smiley - 11/11/2015 3:32 PM CST pt calling back. gave fax number [phone] ITIONER TUMBLER Dora Torres LPN - 11/11/2015 3:27 PM CST Pt notified of Ayan eisenberg below and would like the referral fax'd She will call back with the fax# I am at [phone] ITIONER TUMBLER Lily Sebastian APRN, CNP - 11/11/2015 3:08 PM CST Referral placed. Print out in my outbox. ITIONER TUMBLER Rosemary Subramanian - 11/11/2015 2:24 PM CST Referral/Consult Caller Name/Relationship: Primary Care Provider: Lily Sebastian APRN, CYNDIE What referral is needed? Field Associate at [facility] in [place] at [phone], Hernandez ID # [id number] Why is referral needed? Obesity counseling Insurance Carrier: [employer] Appointment already scheduled? no When/With whom/Where? na What is needed from us? referral Call back phone or cell phone: [phone] Best time to call back number: anytime Is it OK to leave a confidential message on this voicemail? yes *ECODE ITIONER TUMBLER documented in this encounter Plan of Treatment Not on filedocumented as of this encounter Visit Diagnoses Diagnosis Obesity (BMI 30-39.9) ([facility]) - Primary Obesity, unspecified documented in this encounter Care Teams Control Panel Assembler Relationship Specialty Start Date End Date Lily Sebastian APRN, CHINESE TEACHER PCP - General 03/07/15 [address] [place] [address] documented as of this encounter
--- OUTSIDE RECORDS SUMMARY | 2022-07-29 08:01 | XMS_ITS | Encounter Summary ---
:1995 Author Organization [email or web address] Address [address], [place] [address] Care Team Providers Name Role Phone Md DELFINO Yee Primary Care Provider Reason for Visit Reason Comments Dysuria Encounter Details Date Type Department Care Team Description 11/25/2014 Hospital Encounter [facility] Nolvia Thomas, Dysuria; Care PA-C UTI (urinary tract infection) [address] [place] [address] [phone] Social History Tobacco Use Types Packs/Day Years [...] Where can you learn more? Go to [employer]ner[employer] and enter K848 in the search box. Current as of: May 22, 2014 Content Version: 10.3 ?? [id number] [employer] documented in this encounter Miscellaneous Notes Medication History - Sydnee, MD Bennie - 11/25/2014 4:38 PM CDT INPATIENT MEDS [...] from the original note were not included. [facility] [address] [place] [address] Dept: [phone] [email or web address] Bina Enamorado 11/25/2014 4:10 PM Hospital Encounter Description: Female : 1995 Department: [facility] Thank you for choosing [facility] for your health care visit with Nolvia Thomas PA-C. We are happy to care for you and provide this summary of your visit. Your primary day care home provider iscurrently listed as Md Nakia MD. HERE IS WHAT YOU NEED TO KNOW To learn how you can take steps to stay as healthy as you can be visit [email or web address] Discharge Instructions Urinary Tract Infection in Women: [...] Where can you learn more? Go to [employer] and enter K848 in the search box. Current as of: May 22, 2014 Content Version: 10.3 ?? [employer] HERE IS WHAT YOU NEED TO DO Call your clinic if you develop new or worsening symptoms or if you have questions about your visit or medications. Follow-up Information Follow up with Nancy Nielsen. Specialty: Family Medicine Why: As needed, or you may return to clinic. Contact information: [address] [address] [place] [address] HERE IS INFORMATION FROM TODAY'S VISIT [...] Ethnicity Preferred Language 1995 Female White Non- Wolof This document contains confidential information about your [...] Results Urine Culture (11/25/2014 4:14 PM CDT) [facility] Method Time Signature Source Urine HP CONVERSION Site clean catch HP CONVERSION Urine Culture Gram HP CONVERSION positive organism. <10,000 cfu/mL Specimen (Source) Anatomical Collection Method Collection Time Re ceived Time Location / / Volume Laterality Urine:clean catch 11/25/2014 4:14 PM CDT Narrative HP CONVERSION - 11/26/2014 11:29 AM CDT Performed at [facility] , ??[address] [place] [address], ?? CLIA Number [id number] Nolvia Thomas PA-C LAB_1 Performing Organization Address [facility] Phon e Number HP CONVERSION (ABNORMAL) POCT AUTOMATED URINALYSIS DIPSTICK (11/25/2014 3:23 PM CDT) [facility] Method Time Signature Urine Glucose Negative mg/dL HP CONVERSION (POC) Urine Bilirubin Negative HP CONVERSION (POC) Urine Ketone Negative mg/dL HP CONVERSION (POC) Urine Specific 1.020 HP CONVERSION Heath (POC) Urine Occult Trace-intact HP CONVERSION Blood (POC) Urine PH (POC) 8.5 HP CONVERSION Urine Protein Negative HP CONVERSION (POC) Urine Negative mg/dL HP CONVERSION Urobilinogen (POC) Urine Nitrite Negative HP CONVERSION (POC) Urine Leukocytes Moderate (A) HP CONVERS ION (POC) Urine Color Yellow HP CONVERSION (POC) Urine Appearance Clear HP CONVERSION (POC) Comment: Performed at [address] [place] [address] Strip Lot Number (POC) 410,064 mg/dL HP CONV ERSION Specimen Anatomical Collection Method Collection Time Receive d Time (Source) Location / / Volume Laterality 11/25/2014 3:23 PM 5 2:31 CDT PM CDT Nolvia Thomas PA-C LAB_1 Performing Organization Address [facility] Phon e Number HP CONVERSION documented in this encounter Visit Diagnoses Diagnosis Dysuria UTI (urinary tract infection) Urinary tract infection, site not specif ied Triage Assessment Note - Pinky Varner RN - 11/25/2014 4:05 PM CDT Symptoms started on Wednesday. documented in this encounter Care Teams Guest Services Attendant Relationship Specialty Start Date End Date Md Yee MD PCP - General 03/28/13 03/06/15 [place] [address] documented as of this encounter
--- OUTSIDE RECORDS SUMMARY | 2022-07-29 08:01 | XMS_ITS | Encounter Summary ---
:1995 Author [facility] Address [address] [place] [address] Care Team Providers Name Role Phone RomuloLily APRN, CYNDIE Primary Care Provider [phone] Encounter Details Date Type Department Care Team Description 12/13/2020 Telemedicine [facility] Antonio Garduno Infertil it Endocrinology MD Douglas associated with [facility] anovulation ([place] [address] Blvd Dx) [phone] [place], [place] [address] (Wo rk) Social History Tobacco Use Types [...] period was earlier this month. Is doing i0sdwmdy if not able to have period on [...] At this time, pt will see of Oil And Gas Field Technician able to administer clomid with any additional ovulation treatments, but if not will let us know she wants to try clomid through us. #PCOS - recommend diet/exercise changes as described above - increase metformin to 500mg bid - pt declines installation helper at this time - can consider clomid for fertility assistance, pt will discuss with her Oil And Gas Field Technician - recheck TSH reflex. If TSH not at goal 1-2, will adjust dose of Synthroid (25mcg currently) as management. RTC in 3 months Total time personally spent with patient [id number]: 20 minutes. Additional 10 minutes were spent on chart review, clinical decision-making, and documentation outside of [id number] time with patient on date of patient [...] lation documented in this encounter Care Teams Launchman Relationship Specialty Start Date End Date Lily Sebastian, GLASS ENAMEL MIXER, STRAP BUCKLER PCP - General 03/07/15 [address] [place] [address] documented as of this encounter
--- OUTSIDE RECORDS SUMMARY | 2022-07-29 08:01 | XMS_ITS | Encounter Summary ---
:1995 Author Organization [employer] Address [address] [address] Care Team Providers Name Role Phone Md DELFINO Yee Primary Care Provider Reason for Visit Reason Comments Dysuria Encounter Details Date Type Department Care Team Description 02/06/2014 Hospital Encounter [facility] Vira Johnson D ysuria (Primary Dx); Care Pelvic pain in female; [address] [address] [place] [address] [phone] Social History Tobacco Use Types Packs/Day Years [...] signed by Vira Johnson MD at 03/11/14 7810 Author: Vira Johnson MD Service: (none) Author Type: Physician Filed: 03/11/14 1403 Note Time: 03/11/14 1341 Status: Signed Market Research Interviewer: Vira Johnson MD (Physician) NAME: BINA ENAMORADO MR#: [id number] CSN: [id number] AUTHENTICATING CLINICIAN: Vira Johnson MD CONFIRM #: [id number] LOC: 520 URGENT CARE PROGRESS NOTE DATE [...] of. PAST HISTORY: Updated and reviewed on Yext. MEDICATIONS: Updated and reviewed on Yext. ALLERGIES: Updated and reviewed on Yext. OBJECTIVE: VITAL SIGNS: Reviewed on [facility]. GENERAL: Alert and in no acute distress. [...] lower quadrant. I have recommended followup with CLINICAL INFORMATICS STRATEGIST if this persists for further evaluation. HAH:MEDQ C: CONFIRM #: [id number] Jose Wilkins RN - 02/06/2014 1:34 PM CDT BG 94 documented in this encounter Miscellaneous Notes Letter - Vira Johnson MD - 02/06/2014 12:00 AM CDT [facility] [address] [place] [address] [place] [address] February 06, 2014 Patient: Bina Enamorado Date of : 1995 Date of Visit: 02/06/2014 To Whom It May Concern: Bina Enamorado was seen and treated in our department on 02/06/2014. She is missing work due to being seen today. If you have any questions or concerns, please don't hesitate to call. Sincerely, Vira Johnson MD K GRADER documented in this encounter Plan of Treatment [...] HP CONVERSION Glucose Test Comment: Performed at [facility], [address] [place]. [address] Specimen Anatomical Collection Method Collection Time Receive d Time (Source) Location / / Volume Laterality 02/06/2014 1:33 PM 4 1:35 CDT PM CDT Vira Johnson MD LAB_1 Performing Organization Address [facility] Phon e Number HP CONVERSION SEXUALLY TRANSMITTED DISEASE PROBE (02/06/2014 12:59 PM CDT) Component Value Ref Test Analysis Performed At [facility] Tom[place]i [place] Range Method Time Signature Source Endocervical for [...] Vira Johnson MD LAB_1 Performing Organization Address [facility] Code Phon e Number HP CONVERSION (ABNORMAL) WET PREP (02/06/2014 12:59 PM CDT) [facility] gist Method Time Signature WETPR [place] [...] - 02/06/2014 1:22 PM CDT Performed at [facility], [address], [place] [address] Vira Johnson MD LAB_1 Performing Organization Address [facility] Phon e Number HP CONVERSION Test (Urine) (02/06/2014 11:13 AM CDT) Analysis Performed At [facility] [place] Time Signature Urine Negative HP CONVERSION Test Specimen Anatomical Collection Method Collection Time Receive d Time (Source) Location / / Volume Laterality 02/06/2014 11:13 02/06/2014 AM CDT 12:49 PM CDT Narrative HP CONVERSION - 02/06/2014 12:55 PM CDT Performed at [facility], [address] [place] [address] Vira Johnson MD LAB_1 Performing Organization Address [facility] Phon e Number HP CONVERSION (ABNORMAL) URINE MICROSCOPIC (02/06/2014 11:13 AM CDT) [facility] Method Time Signature Urine WBC 3-4 [...] - 02/06/2014 11:46 AM CDT Performed at [facility], [address] [place] [address] Vira Johnson MD LAB_1 Performing Organization Address [facility] Phon e Number HP CONVERSION URINALYSIS ROUTINE(MICRO IF POS) (02/06/2014 11:13 AM CDT) [facility] Method Time Signature Urine Type Urine:clean [...] U Specific 1.020 1.005 - HP CONVERSION [place] 1.030 Urobilinogen Negative Negative HP CONVERSION Urine Specimen Anatomical Collection Method Collection Time Receive d Time (Source) Location / / Volume Laterality Urine: 02/06/2014 11:13 02/06/2014 AM CDT 11:22 AM CDT Narrative HP CONVERSION - 02/06/2014 11:29 AM CDT Performed at [facility], [address] [place] [address] Vira Johnson MD LAB_1 Performing Organization Address City/State/ZIP Code Phon e Number HP CONVERSION documented in this encounter Visit Diagnoses Diagnosis Dysuria - Primary Pelvic pain in female Unspecified symptom associated with fema le genital organs Frequency Urinary frequency Triage Assessment Note - Gunjan Espinosa, MALATHI - 02/06/2014 11:11 AM CDT pt late with menses. has new sexual partner. has had a tiny bit of bloody discharge Triage Assessment Note - Gunjan Espinosa RN - 02/06/2014 11:09 AM CDT onset 3 days ago. pt c/o frequency. burning if she doesn't urinate. no fever. some vaginal itching and discharge. documented in this encounter Care Teams Ornament Stapler Relationship Specialty Start Date End Date Md Yee MD PCP - General 03/28/13 03/06/15 [place] [address] documented as of this encounter
--- OUTSIDE RECORDS SUMMARY | 2022-07-29 08:01 | XMS_ITS | Encounter Summary ---
:1995 Author Organization [facility] Address [address] [address] Care Team Providers Name Role Phone Md DELFINO Yee Primary Care Provider Reason for Visit Reason Comments Contraception Encounter Details Date Type Department Care Team Description 03/28/2013 Initial Consult [address] CRISTIAN arvizu Obstetrics/Gynecolog y BAO Horan CNP ( control pills) [address] [employer] 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 She currently is not in arelationsh. She [...] Single History Occupational History ??? student, freshman, [employer] Patient Active Problem List Diagnosis ??? Family planning, BCP ( control pills) initial prescription Past Medical History Diagnosis Date ??? Immunization, other disease ??? Immunization, varicella Past Surgical History Procedure Laterality Date ??? [place]aks tooth extraction No results found for this [...] will be informed of normal results through [employer]har[employer]. If not activated and results are normal, she will be informed of results through the mail. If results are abnormal or further evaluation is required, she will be informed by phone. This note was generated using voice activated booky software. Typographical errors may be present. Please feel free to contact me at [phone] for clarification. documented in this encounter Plan of Treatment Not on filedocumented as of this encounter Visit Diagnoses Diagnosis Family planning, BCP ( control pill s) initial prescription - Primary General counseling for prescription of o ral contraceptives documented in this encounter Care Teams Peoplesoft Hrms Developer Relationship Specialty Start Date End Date Md Yee MD PCP - General 03/28/13 03/06/15 [place] [address] documented as of this encounter
--- OUTSIDE RECORDS SUMMARY | 2022-07-29 08:01 | XMS_ITS | Encounter Summary ---
:1995 Author Organization [facility] Address [address] [address] Care Team Providers Name Role Phone Md DELFINO Yee Primary Care Provider Reason for Visit Reason Comments Cough Pharyngitis CONJUNCTIVITIS Tinnitus Dental Pain Encounter Details Date Type Department Care Team Description 06/24/[address] [facility] Brayden Birmingham Acute pharyngitis (Primary Dx); Care A, PA-C Unspecified otitis media; [address] [place] Sinus congest ion; [address] [place] [address] [phone] Social History Tobacco Use Types Packs/Day Years [...] PM CDT ED Provider Notes signed by Brayden Birmingham PA-C at 07/02/13 1047 Author: Brayden Birmingham PA-C Service: (none) Author Type: Physician Trademark Affixer Filed: 07/02/13 1047 Note Time: 06/26/13 1402 Status: Signed Front End Developer Javascript Html Css: Brayden Birmingham PA-C (Physician Trademark Affixer) NAME: BINA CLEMENT MR#: [id number] CSN: [id number] AUTHENTICATING CLINICIAN: Brayden Birmingham PA-C CONFIRM #: [id number] LOC: 520 URGENT CARE PROGRESS NOTE DATE [...] canbe contacted p.r.n. MAP:MEDQ C: CONFIRM #: [id number] Yessi Centeno RN - 06/24/2013 12:51 PM CDT Rst neg documented in this encounter Miscellaneous Notes Miscellaneous - 06/24/2013 2:03 PM CDTNotes Recorded by Yvonne Cartagena PA-C on 06/25/2013 at 10:58 AMYvonne Cartagena PA-C 10:58 AM 06/25/2013 TANCE ABUSE COUNSELOR Miscellaneous - 06/24/2013 2:03 PM CDTNotes Recorded [...] BETA STREP FOLLOWUP (06/24/2013 3:41 PM CDT) [facility] gist Method Time Signature Source Throat HP [...] (06/24/2013 12:41 PM CDT) [facility] Strep A Negative Negative HP CONVERSION Antigen Strep A Source Throat: HP CONVERSION Specimen Anatomical Collection Method Collection Time Receive d Time (Source) Location / / Volume Laterality 06/24/2013 12:41 06/24/2013 3:41 PM CDT PM CDT Narrative HP CONVERSION - 06/24/2013 3:43 PM CDT Performed at [facility], [address] [facility], [place] [address] Transcriptions 06/24/2013 2:03 PM CDTNotes Recorded by Yvonne Cartagena PA-C on 06/25/2013 at 10:58 AMYvonne Cartagena PA-C 10:58 AM 06/25/2013 Nathan Jeromy Ortiz MD LAB_1 Performing Organization Address City/State/ZIP Code Phon e Number HP CONVERSION documented in this encounter Visit Diagnoses Diagnosis Acute pharyngitis - Primary Unspecified otitis media Sinus congestion Other diseases of nasal cavity and sinus es Cough documented in this encounter Care Teams Shochet Relationship Specialty Start Date End Date Md Yee MD PCP - General 03/28/13 03/06/15 [place] [address] documented as of this encounter
--- OUTSIDE RECORDS SUMMARY | 2022-07-29 08:01 | XMS_ITS | Encounter Summary ---
:1995 Author [facility] Address [address], [place] [address] Care Team Providers Name Role Phone Md DELFINO Yee Primary Care Provider Reason for Visit Reason Comments Refill Encounter Details Date Type Department Care Team Description 09/10/2013 Refill [facility] Yanni Plummer, SUPERVISOR CABINETMAKER, Ref ill Obstetrics/Gynecolog y SLOTS MANAGER [address] [place], [place] [address] Social History Tobacco Use Types Packs/Day Years Used Date Smoking Tobacco: Never Assessed Sex Assigned at Date Recorded Not on file documented as of this encounter Plan of Treatment Not on filedocumented as of this encounter Visit Diagnoses Not on filedocumented in this encounter Care Teams Electrical Unit Rebuilder Relationship Specialty Start Date End Date Md Yee MD PCP - General 03/28/13 03/06/15 [place], [place] [address] documented as of this encounter
--- OUTSIDE RECORDS SUMMARY | 2022-07-29 08:01 | XMS_ITS | Encounter Summary ---
:1995 Author Organization [employer] Address [address] [address] Care Team Providers Name Role Phone Md DELFINO Yee Primary Care Provider Reason for Visit Reason Comments Follow-up Encounter Details Date Type Department Care Team Description 03/28/2013 Office Visit [facility] Jailyn Gruber Abdo minal pain (Primary Dx); Medicine Chronic diarrhea [address] [address] [address] Pérez [address] [place] [phone] (Wo rk) Social History Tobacco Use Types [...] CDT Please call the Gastroenterology dept. at [phone] to schedule your appointment. documented in this encounter Progress Notes Jailyn Gruber MD - 03/28/2013 1:02 PM CDT Progress Notes signed by Jailyn Gruber MD at 04/02/130 Author: Jailyn Gruber MD Service: (none) Author Type: Physician Filed: 04/02/131719 Note Time: 03/28/132003 Status: Signed Crutch Maker: Jailyn Gruber MD (Physician) NAME: MARCUS CLEMENT MR#: [id number] CSN: [id number] AUTHENTICATING CLINICIAN: Jailyn Gruber MD CONFIRM #: [id number] LOC: 502 CLINIC PROGRESS NOTE DATE OF [...] TSH and celiac panel.Recommend being seen by Physician for further evaluation. The patient agreed. Probably its an irritable bowel syndrome. SS:JOHNNY C: CONFIRM #: [id number] documented in this encounter Plan of Treatment Not on filedocumented as of this encounter Visit Diagnoses Diagnosis Abdominal pain - Primary Chronic diarrhea Diarrhea documented in this encounter Care Teams Nuclear Plant Operator Relationship Specialty Start Date End Date Md Yee MD PCP - General 03/28/13 03/06/15 [place] [address] documented as of this encounter
--- OUTSIDE RECORDS SUMMARY | 2022-07-29 08:02 | XMS_ITS | Encounter Summary ---
:1995 Author Organization [facility] Address [address], [place] [address] Care Team Providers Name Role Phone Unassigned, Provider Primary Care Provider Unavailable Encounter Details Date Type Department Care Team Description 11/24/2010 PN Conversion Only [place] [address] [address] [place] [address] Social History Tobacco Use Types Packs/Day Years Used Date Smoking Tobacco: Never Assessed Sex Assigned at Date Recorded Not on file documented as of this encounter Plan of Treatment Not on filedocumented as of this encounter Visit Diagnoses Not on filedocumented in this encounter Care Teams Botany Technician Relationship Specialty Start Date End Date Unassigned, Provider PCP - General 06/16/00 11/12/[address] [place] [address] documented as of this encounter
--- OUTSIDE RECORDS SUMMARY | 2022-07-29 08:02 | XMS_ITS | Encounter Summary ---
:1995 Author Organization [facility] Address [address] [place] [address] Care Team Providers Name Role Phone Unassigned, [...] on filedocumented in this encounter Care Teams Back Tender Cloth Printing Relationship Specialty Start Date End Date Unassigned, Provider PCP - General 06/16/00 11/12/11 [address] [place] [address] documented as of this encounter
--- OUTSIDE RECORDS SUMMARY | 2022-07-29 08:02 | XMS_ITS | Encounter Summary ---
:1995 Author Organization [facility] Address [address] [address] Care Team Providers Name Role Phone Unassigned, Provider Primary Care Provider Unavailable Encounter Details Date Type Department Care Team Description 11/25/2007 Office Visit [facility] [place] [address] [address] [place], [place] [phone] [address] (Wo rk) Social History Tobacco Use Types [...] 12:01 AM CDT Progress Notes signed by aPu Remy MD at 11/30/071955 Author: Pau Remy MD Service: (none) Author Type: Physician Filed: 01/03/11 0254 Note Time: 11/25/07 0001 Status: Signed Supervisor Prepress: Pau Remy MD (Physician) NAME: BINA CLEMENT MR#: [id number] ACCT: [id number] VISIT: [id number] DICTATING CLINICIAN: Pau Remy MD JOB: [id number] LOC: 520 CLINIC PROGRESS NOTE DATE OF [...] verbalizes understanding and agreement with this plan. [id number] C: 11/28/07 12:37 DOCUMENT: [id number] documented in this encounter Plan of Treatment Not on filedocumented as of this encounter Visit Diagnoses Not on filedocumented in this encounter Care Teams Rehabilitator Relationship Specialty Start Date End Date Unassigned, Provider PCP - General 06/16/00 11/12/[address] [place] [address] documented as of this encounter
--- OUTSIDE RECORDS SUMMARY | 2022-07-29 08:02 | XMS_ITS | Encounter Summary ---
:1995 Author Organization Replaced by [facility] Address [address] [address] Care Team Providers Name Role Phone Unassigned, Provider Primary Care Provider Unavailable Encounter Details Date Type Department Care Team Description 12/29/2004 Office Visit [facility] darrel Gregory, [address] [facility] [place] [address] [address] [facility] [phone] [place], [place] [address] (Wo rk) Social History Tobacco Use Types [...] 0520 Note Time: 12/29/04 0001 Status: Signed Bale Stacker: Kerri Gregory MD (Physician) NAME: MARCUS CLEMENT MR: [id number] ACCT: [id number] VISIT: [id number] DICTATING CLINICIAN: ZAC GREGORY MD JOB: [id number] CLINIC PROGRESS NOTE DATE OF VISIT: 12/29/2004 [...] use crutches and try not to limp. [id number] C: 12/30/04 18:04 DOCUMENT: [id number] documented in this encounter Plan of Treatment Not on filedocumented as of this encounter Visit Diagnoses Not on filedocumented in this encounter Care Teams Hoseman Relationship Specialty Start Date End Date Unassigned, Provider PCP - General 06/16/00 11/12/[address] [place] [address] documented as of this encounter
--- OUTSIDE RECORDS SUMMARY | 2022-07-29 08:02 | XMS_ITS | Encounter Summary ---
:1995 Author Organization [facility] Address [address] [place] [address] Care Team Providers Name Role Phone Unassigned, Provider Primary Care Provider Unavailable Encounter Details Date Type Department Care Team Description 11/25/2010 Office Visit [facility] Jaden Hough [address] [place] [address] Social History Tobacco Use Types Packs/Day Years [...] % 11/25/2010 9:19 AM CDT Growth Chart: [facility] (Girls, 2-20 Years) documented in this encounter [...] as had some at [facility] Labs: Cholesterol. Sports Clearance: Form completed for [...] on filedocumented in this encounter Care Teams Mammalogy Teacher Relationship Specialty Start Date End Date Unassigned, Provider PCP - General 06/16/00 11/12/[address] [place] [address] documented as of this encounter
--- OUTSIDE RECORDS SUMMARY | 2022-07-29 08:02 | XMS_ITS | Encounter Summary ---
:1995 Author Organization [facility] Address [address], [place] [address] Care Team Providers Name Role Phone Unassigned, Provider Primary Care Provider Unavailable Encounter Details Date Type Department Care Team Description 12/19/2004 Office Visit [facility] Ion Gonzáles PA-C [address] [place] [address] [place], [place] [address] (Wo rk) Social History Tobacco Use Types [...] Gonzáles PA-C Service: (none) Author Type: Physician Supervisor Airplane Flight Attendant Filed: 01/02/11 0510 Note Time: 12/19/04 0001 Status: Signed Senior Quality Assurance Specialist: Ion Gonzáles PA-C (Physician Supervisor Airplane Flight Attendant) NAME: BINA CLEMENT MR: [id number] ACCT: [id number] VISIT: [id number] DICTATING CLINICIAN: JOMAR HOWELL JOB: [id number] CLINIC PROGRESS NOTE DATE OF VISIT: 12/19/2004 [...] p.r.n. if questions develop or problems persist. [id number] C: 12/22/04 22:43 DOCUMENT: [id number] documented in this encounter Plan of Treatment [...] t abnormality. Dictating GRZEGORZ VANEGAS MD Ion Gonzáles PA-C RAD GD documented in this encounter Visit Diagnoses Not on filedocumented in this encounter Care Teams Surgical Scrub Technologist Relationship Specialty Start Date End Date Unassigned, Provider PCP - General 06/16/00 11/12/[address] [place] [address] documented as of this encounter
--- OUTSIDE RECORDS SUMMARY | 2022-07-29 08:02 | XMS_ITS | Encounter Summary ---
:1995 Author Organization [facility] Address [address], [place] [address] Care Team Providers Name Role Phone Unassigned, Provider Primary Care Provider Unavailable Encounter Details Date Type Department Care Team Description 11/25/2010 PN Conversion Only [facility] Jaden Duffy [address] [place] [address] Social History Tobacco Use Types Packs/Day Years [...] on filedocumented in this encounter Care Teams Photoengraving Proofer Relationship Specialty Start Date End Date Unassigned, Provider PCP - General 06/16/00 11/12/[address] [place] [address] documented as of this encounter
--- OUTSIDE RECORDS SUMMARY | 2022-07-29 08:02 | XMS_ITS | Encounter Summary ---
:1995 Author Organization [facility] Address [address], [place] [address] Care Team Providers Name Role Phone Unassigned, Provider Primary Care Provider Unavailable Encounter Details Date Type Department Care Team Description 11/25/2007 PN Conversion Only [place] Pau [place]es, [address] [facility] [address] [address] [place] [address] (Wo rk) Social History Tobacco Use [...] Screen SEE TEXT HP CONVERSION Comment: Patient: BINA CLEMENT Rapid Strep Follow up Culture ? Collected: ??[id number] ??[id number] Source: Throat ?Processed: ??[id number] ??[id number] ? 1V Final Report ------ ?[id number] ??[id number] No beta hemolytic Strep group A isolated . Specimen (Source) Anatomical Collection Method Collection Time Re ceived Time Location / / Volume Laterality 11/25/2007 8:54 PM CDT Pau Remy MD LAB_1 Performing Organization Address City/State/ZIP Code Phon e Number HP CONVERSION documented in this encounter Visit Diagnoses Not on filedocumented in this encounter Care Teams Basting Cleaner Relationship Specialty Start Date End Date Unassigned, Provider PCP - General 06/16/00 11/12/11 [address] [place] [address] documented as of this encounter
--- OUTSIDE RECORDS SUMMARY | 2022-07-29 08:02 | XMS_ITS | Encounter Summary ---
:1995 Author Organization [facility] Address [address] [address] Care Team Providers Name Role Phone Unassigned, Provider Primary Care Provider Unavailable Encounter Details Date Type Department Care Team Description 11/25/2007 PN Conversion Only [place] [address] [address] [place] [address] Social History Tobacco Use Types Packs/Day Years Used Date Smoking Tobacco: Never Assessed Sex Assigned at Date Recorded Not on file documented as of this encounter Plan of Treatment Not on filedocumented as of this encounter Visit Diagnoses Not on filedocumented in this encounter Care Teams Extracorporeal Technician Relationship Specialty Start Date End Date Unassigned, Provider PCP - General 06/16/00 11/12/[address] [place] [address] documented as of this encounter
--- OUTSIDE RECORDS SUMMARY | 2022-07-29 08:02 | XMS_ITS | Encounter Summary ---
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 City/[facility] Code Phon e Number HP CONVERSION Lab miscellaneous (01/06/2000 3:42 PM CDT) P athologist Signature Result See Note No normal HP CONVERSION range Comment: PARDO TEST 08347, GRASS PANEL #1 ? RES ULTS GRASS PANEL #1 ? <0.35 KU/L ? CLA SS 0 (NEGATIVE) ORCHARD MEADOW FESCUE RYE KRYS ANAYA BLUE Specimen (Source) Anatomical Collection Method Collection Time Re ceived Time Location / / Volume Laterality 01/06/2000 3:42 PM CDT Jeanine Beal MD LAB_1 Performing Organization Address City/[facility] Code Phon e Number HP CONVERSION Lab miscellaneous (01/06/2000 3:41 PM CDT) P athologist Signature Result See Note No normal HP CONVERSION range Comment: PARDO TEST 40872, TREE PANEL #1 ? RESULTS TREE PANEL #1 ?<0.35 KU/L ? CLASS 0 ( NEGATIVE) BOX ELDER/MAPLE BIRCH O[place]M WALNUT Specimen (Source) Anatomical Collection Method Collection Time Re ceived Time Location / / Volume Laterality 01/06/2000 3:41 PM CDT Jeanine Beal MD LAB_1 Performing Organization Address [facility] Phon e Number HP CONVERSION Lab miscellaneous (01/06/2000 3:40 PM CDT) P athologist Signature Result See Note No normal HP CONVERSION range Comment: PARDO TEST 61272, WEED PANEL #1 ? RESULTS WEED PANEL #1 ?<0.35 KU/L ? CLASS 0 ( NEGATIVE) SHORT RAGWEED MUGWORT ANDORRAN PLANTAIN PAUL'S QUARTERS BOLIVIAN THISTLE Specimen (Source) Anatomical Collection Method Collection Time Re ceived Time Location / / Volume Laterality 01/06/2000 3:40 PM CDT Jeanine Beal MD LAB_1 Performing Organization Address City/[facility] Code Phon e Number HP CONVERSION Lab miscellaneous (01/06/2000 3:39 PM CDT) P athologist Signature Result See Note No normal HP CONVERSION range Comment: PARDO TEST 20241, EPI PANEL #2 ?RESU LTS EPITHELIA PANEL #2 ?<0.35 KU/L ?CLAS S 0 (NEGATIVE) GUINEA PIG EPITHELIA RABBIT EPITELIA HAMSTER EPITHELIA RAT EPITELIA MOUSE EPITHELIA This test was developed and its perform ance characteristics determined by [facility], [facility]. ??It h as not been cleared or approved by the U.S. Food and Drug Ad ministration. Specimen (Source) Anatomical Collection Method Collection Time Re ceived Time Location / / Volume Laterality 01/06/2000 3:39 PM CDT Jeanine Beal MD LAB_1 Performing Organization Address [facility] Phon e Number HP CONVERSION Lab miscellaneous (01/06/2000 3:38 PM CDT) P athologist Signature Result See Note No normal HP CONVERSION range Comment: PARDO TEST 91277, MOLD PANEL ?RESULTS MOLD PANEL ?<0.35 KU/L ?CLASS 0 (N EGATIVE) PENICILLUM NOTATUM CLADOSPORIUM HERBARUM ASPERGILLUS FUMIGATUS KEVIN ALBICANS ALTERNARIA ALTERNATA HELMINTHOSPORIUM HALODES Specimen (Source) Anatomical Collection Method Collection Time Re ceived Time Location / / Volume Laterality 01/06/2000 3:38 PM CDT Jeanine Beal MD LAB_1 Performing Organization Address [facility] Phon e Number HP CONVERSION Lab miscellaneous (01/06/2000 3:37 PM CDT) P athologist Signature Result See Note No normal HP CONVERSION range Comment: PARDO TEST 00495, HOUSE DUST PANEL ? RES ULTS HOUSE DUST PANEL ? <0.35 KU/L ? CLA SS 0 (NEGATIVE) SARANYA-MOI LABS DERMATOPHAGOIDES PTERONYSSINSUS DERMATOPHAGOIDES FARINAE BLATELLA GERMANICA Specimen (Source) Anatomical Collection Method Collection Time Re ceived Time Location / / Volume Laterality 01/06/2000 3:37 PM CDT Jeanine Beal MD LAB_1 Performing Organization Address City/State/ZIP Code Phon e Number HP CONVERSION Lab miscellaneous (01/06/2000 3:35 PM CDT) P athologist Signature Result See Note No normal HP CONVERSION range Comment: PARDO TEST 41771, FOOD PANEL ? RES ULTS FOOD-NUT PANEL #2 ?<0.35 KU/L ? CLA SS 0 (NEGATIVE) PECALEXANDRO GOFF PISTACHIO WALNUT This test was developed and its perform ance characteristics determined by [facility], [facility]. ??It h as not been cleared or approved by the U.S. Food and Drug Ad ministration. Specimen (Source) Anatomical Collection Method Collection Time Re ceived Time Location / / Volume Laterality 01/06/2000 3:35 PM CDT Jeanine Beal MD LAB_1 Performing Organization Address City/[facility] Code Phon e Number HP CONVERSION Lab miscellaneous (01/06/2000 3:34 PM CDT) P athologist Signature Result See Note No normal HP CONVERSION range Comment: PARDO TEST 74160, FOOD MEAT PANEL ?RESULTS FOOD-MEAT PANEL ? <0.35 KU/L ?CLASS 0 (NEGATIVE) PORK BEEF CHICKEN TURKEY This test was developed and its perform ance characteristics determined by [facility], [facility]. ??It h as not been cleared or [...] normal HP CONVERSION range Comment: PARDO TEST 75448, FOOD GRAIN PANEL ?R ESULTS FOOD-GRAIN PANEL ?<0.35 KU/ L ?C LASS 0 (NEGATIVE) WHAT RYE BARLEY RICE This test was developed and its perform ance characteristics determined by [facility], [facility]. ??It h as not been cleared or [...] normal HP CONVERSION range Comment: PARDO TEST 86728, FOOD VEG PANEL ?R ESULTS FOOD-VEGATABLE PANEL ?<0.35 KU/L ?C LASS 0 (NEGATIVE) CORN PEA WJOTE BEAM CARROT BROCCOLI This test was developed and its perform ance characteristics determined by [facility], [facility]. ??It h as not been cleared or approved by the U.S. Food and Drug Ad ministration. Specimen (Source) Anatomical Collection Method Collection Time Re ceived Time Location / / Volume Laterality 01/06/2000 3:31 PM CDT Jeanine Beal MD LAB_1 Performing Organization Address [facility] Phon e Number HP CONVERSION Lab miscellaneous (01/06/2000 3:30 PM CDT) P athologist Signature Result See Note No normal HP CONVERSION range Comment: PARDO TEST 88315, FOOD FRUIT PANEL ? RES ULTS FOOD-FRUIT PANEL ? <0.35 KU/L ? CLA SS 0 (NEGATIVE) APPLE BANANA PEAR PEACH Specimen (Source) Anatomical Collection Method Collection Time Re ceived Time Location / / Volume Laterality 01/06/2000 3:30 PM CDT Jeanine Beal MD LAB_1 Performing Organization Address [facility] Phon e Number HP CONVERSION Cholesterol (Total) (01/06/2000 3:28 PM CDT) P athologist Signature Cholesterol 136 100 - 199 HP CONVERSION mg/dL Specimen (Source) Anatomical Collection Method Collection Time Re ceived Time Location / / Volume Laterality 01/06/2000 3:28 PM CDT Jeanine Beal MD LAB_1 Performing Organization Address [facility] Phon e Number HP CONVERSION Lab miscellaneous (01/06/2000 3:28 PM CDT) P athologist Signature Result See Note No normal HP CONVERSION range Comment: PARDO TEST PANEL 69633, FOOD PANEL #1 ? RESULT S FOOD PANEL ? <0.35 KU/L ? CLASS 0 (NEGATIVE) EGG WHITE MILK CODFISH WHEAT PEANUT SOYBEAN Specimen (Source) Anatomical Collection Method Collection Time Re ceived Time Location / / Volume Laterality 01/06/2000 3:28 PM CDT Jeanine Beal MD LAB_1 Performing Organization Address [facility] Phon e Number HP CONVERSION Hemoglobin, Blood (01/06/2000 3:28 PM CDT) P athologist Signature Hemoglobin 12.9 11.0 - 14.5 HP CONVERSION gm/dL Specimen (Source) Anatomical Collection Method Collection Time Re ceived Time Location / / Volume Laterality 01/06/2000 3:28 PM CDT Jeanine Beal MD LAB_1 Performing Organization Address [facility] Phon e Number HP CONVERSION (ABNORMAL) Urinalysis Complete (02/23/1999 4:31 PM CDT) [facility] Method Time Signature Glucose, Negative Neg-Trac HP CONVERSION Qualitative U Protein Urine 100mg/dL Neg-Trac HP CONVERSION (A) Ketones Negative Negative HP CONVERSION U BILI Negative Negative HP CONVERSION U Specific >=1.030 1.005 - 25 HP CONVERSION [place] Blood Urine Moderate Negative HP CONVERSION (A) [...] Evan Moore MD LAB_1 Performing Organization Address City/[facility] Phon e Number HP CONVERSION (ABNORMAL) Urine Culture (02/23/1999 4:31 PM CDT) [facility] Method Time Signature Urine Culture SEE TEXT HP CONVERSION (A) Comment: Patient: MARCUS CLEMENT Culture, Urine @ ?Collected: ??[id number] ??[id number] Source: Clean Ca ?Processed: ??[id number] ??1631 ? SENSITIVITY Final Report ------ ?[id number] ??0951 10-50,000 CFU/mL Escherichia coli <10,000 CFU/mL Gram negative rods No fur ther workup Susceptibility Testing E COL ??MARI INTERP: ?S ??AMPICILLIN , CEPH(CEFAZOLIN), AMC (AUGMENTIN), ?CARB ENICILLIN, CIPROFLOXACIN, CEFTRIAXONE, ?NITR OFURANTOIN, NORFLOXACIN, TRIMETH-SULFA, ?TETR ACYCLINE @ = URINE CULTURE Performed at ??[address] [facility], [place] ?[address] Specimen (Source) Anatomical Collection Method Collection Time Re ceived Time Location / / Volume Laterality 02/23/1999 4:31 PM CDT Evan Moore MD LAB_1 Performing Organization Address City/State/ZIP Code Phon e Number HP CONVERSION (ABNORMAL) Urinalysis Complete (03/08/1998 10:41 AM CDT) [facility] gist Method Time Signature Glucose, Negative Neg-Trac HP CONVERSION Qualitative U Protein Urine Negative Neg-Trac HP CONVERSION Ketones Negative Negative HP CONVERSION U BILI Negative Negative HP CONVERSION U Specific 1.015 1.005 - 25 HP CONVERSION [place] Blood Urine Negative Negative HP CONVERSION pH [...] on filedocumented in this encounter Care Teams Banquet Pilot Relationship Specialty Start Date End Date Unassigned, Provider PCP - General 06/16/00 11/12/11 [address] [place] [address] documented as of this encounter
--- OUTSIDE RECORDS SUMMARY | 2022-07-29 08:02 | XMS_ITS | Encounter Summary ---
:1995 [facility] Address [address] [address] Care Team Providers Name Role Phone Navid Young MD Primary Care Provider Reason for Visit Reason Comments NEVUS/NEVI Encounter Details Date Type Department Care Team Description 11/13/2011 Initial Consult Fernanda Alvarado MD Nevus, Dermatology [address] [facility] non-neoplastic [id number] [facility] (Primary Dx) [place] [address] [place], [place] [phone] [id number] Social History Tobacco Use Types Packs/Day Years Used Date Smoking Tobacco: Never Assessed Sex Assigned at Date Recorded Not on file documented as of this encounter Progress Notes Suzi Mcgarry LPN - 11/17/2011 2:53 PM SHELL FREEZING MACHINE OPERATOR Quick Note: Left message for patient on voice mail per her request regarding pathology from 11/13/11. Advised herto call [place] at [phone] if she has any concerns. L FREEZING MACHINE OPERATOR Fernanda wSain MD - 11/17/2011 1:18 PM SHELL FREEZING MACHINE OPERATOR Quick Note: please inform. Fernanda Swain MD - 11/13/2011 1:05 PM CST Progress Notes signed by Fernanda Swain MD at 12/08/11 0298 Author: Fernanda Swain MD Service: (none) Author Type: Physician Filed: 12/08/11 8208 Note Time: 11/13/11 1305 Status: Signed Employee Relations Manager: Fernanda Swain MD (Physician) NAME: BINA CLEMENT MR#: [id number] CSN: [id number] AUTHENTICATING CLINICIAN: Fernanda Swain MD CONFIRM #: [id number] LOC: 527 CLINIC PROGRESS NOTE DATE OF VISIT: 11/13/2011 : 1995 CHIEF COMPLAINT: Mole on scalp. HISTORY OF PRESENT ILLNESS: Jvsqlav-tqjf-whi female presents for evaluation of a mole [...] remainder of the exam is unremarkable. ASSESSMENT/PLAN: Tmzmfko-hagb-xch female with irritated papule on the left neck consistent most likely with irritated nevus versus skin tag. After explaining the risks and benefits of shave procedure, the patient gave verbal consent. I proceeded to clean the area with alcohol followed by numbing with 1% lidocaine, epinephrine and sodium bicarbonate. The lesion was shaved flat with the surrounding skin using a [place] blade and the specimen was placed in formalin for H and E staining. Patient will be called with the results once they are available. In terms of the compound nevus on the scalp, this was discussed with the patient and reassurance given. She will return to clinic as needed for followup. GUY:JOHNNY C: CONFIRM #: [id number] documented in this encounter Miscellaneous Notes Miscellaneous - 10/23/2016 8:02 PM CSTNotes Recorded by Suzi Mcgarry LPN on 11/17/2011 at 2:53 PMLeft message for patient on voice mail per her request regarding pathology from 11/13/11. Advised her to call me at [phone] if she has any concerns.------Notes Recorded by Fernanda Swain MD on 11/17/2011 at 1:18 PMplease inform. L FREEZING MACHINE OPERATOR documented in this encounter Plan of Treatment Not on filedocumented as of this encounter Procedures Procedure Name Priority Date/Time Associated Diagnosis Comme nts SURGICAL PATH, PARK Routine 11/13/2011 6:00 AM [facility] SHELL FREEZING MACHINE OPERATOR procedure are i n the results section. documented in this encounter Results Pathology Report (11/13/2011 6:00 AM SHELL FREEZING MACHINE OPERATOR) Component Value Ref Test Analysis Performed At [facility] gist Range Method Time Signature Path: ? Final DERMATOPATHOLOGY REPO RT HP CONVERSION Pathology #: [id number] ? Date Obtained: 11/13/2011 ?Date Received: 11/13/2011 [...] / Unknown 11/13/2011 6:00 AM 10/2011 6:00 SHELL FREEZING MACHINE OPERATOR AM SHELL FREEZING MACHINE OPERATOR Transcriptions 10/23/2016 8:02 PM CSTNotes Recorded by Suzi Mcgarry LPN on 11/17/2011 at 2:53 PMLeft message for patient on voice mail per her request regarding pathology from 11/13/11. Advised her to call me at [phone] if she has any concerns.------ Notes Recorded by Fernanda Swain MD on at 1:18 PMplease inform. Fernanda Swain MD LAB_1 Performing Organization Address City/State/ZIP Code Phon e Number HP CONVERSION documented in this encounter Visit Diagnoses Diagnosis Nevus, non-neoplastic - Primary documented in this encounter Care Teams Military Lawyer Relationship Specialty Start Date End Date Navid Young MD PCP - General 11/13/11 03/19/[address] [place] [id number] documented as of this encounter
[2022-07-29 08:06] LABS: Appearance Urine Clear (Clear); Bilirubin Urine 2+ (Negative); Blood Urine 2+ (Negative); Color Urine Yellow (Yellow); Glucose Urine Trace (Negative); Ketones Urine 4+ (Negative); Leukocyte Esterase Urine Negative (Negative); Nitrite Urine Positive (Negative); Protein Urine 2+ (Negative); Specific Gravity Urine >= 1.030 (1.000-1.030)
[2022-07-29 08:07] LABS: Slide Review Reflex No
[2022-07-29 08:12] LABS: Albumin* 4.3 g/dL (3.3-5.0); Chloride* 109 mmol/L (96-114); Potassium* 3.9 mmol/L (3.6-5.1); Sodium* 139 mmol/L (135-149)
[2022-07-29 08:14] LABS: Creatinine* 1.1 mg/dL (0.5-1.5); Est. Creatinine Clearance* 53.91; Estimated Glomerular Filt Rate 71 ml/min
[2022-07-29 08:15] LABS: Alanine Aminotransferase* 13 U/L (4-35); Alkaline Phosphatase* 51 U/L (40-150); Aspartate Amino Transferase* 16 U/L (12-35); Bilirubin Total* 2.3 mg/dL (0.1-1.5); Blood Urea Nitrogen* 11 mg/dL (5-24); Carbon Dioxide* 20 mmol/L (20-32); Glucose* 77 mg/dL (60-115); Total Protein* 6.6 g/dL (6.0-8.3)
[2022-07-29 08:16] LABS: Calcium* 8.9 mg/dL (8.4-10.6)
[2022-07-29 10:05] VITALS: BP 121/80; PULSE 76; RESP 18; O2SAT 99
[2022-07-29 10:18] LABS: Bacteria Urine Few; Calcium Oxalate Crystals Urine Few; Squamous Epithelial Cell Urine Few (None-Few)
== END 2022-07-29 11:10 | disposition home or self-care (01) ==
PROVIDERS: Emergency Provider Student in an Organized Health Care Education/Training Program; PCP Family Medicine
DX: R11.2 Nausea with vomiting, unspecified (principal); R10.9 Unspecified abdominal pain
CPT/HCPCS: 36415; 80053; 81001; 85025; 87086; 96374; 96375; 99283; 99284; J1885; J2405; J7030

== ENCOUNTER 2022-11-28 16:49 | Emergency (ER) | payer BC, SELFPAY ==
[2022-11-28 16:55] VITALS: BP 138/83; PULSE 65; RESP 20; TEMP 36.8; O2SAT 96; BMI 23.4
[2022-11-28 17:00] VITALS: O2SAT 98
--- NOTE | 2022-11-28 17:09 | CRLHL7_ITS ---
For Patients: As a result of the Century Cures Act, medical imaging exams and procedure reports are released immediately into your electronic medical record. You may view this report before your referring provider. If you have questions, please contact your health care provider. INDICATION: Abdominal pain TECHNIQUE: CT abdomen and pelvis without contrast. COMPARISON: 19 June 2022 FINDINGS: Lower chest: Unremarkable. Liver: Unremarkable. Spleen: Unremarkable. Pancreas: Unremarkable. Gallbladder and bile ducts: Unremarkable. Kidneys: Unremarkable. No kidney or ureteral stones and no hydronephrosis. Density at the right pelvis chronic versus comparison none appears to be adjacent to the distal ureter not in. Adrenal glands: Unremarkable. GI tract: Gastric banding staple of the greater curve. Appendix is normal. Vascular structures: Unremarkable. Lymph nodes: Unremarkable. Miscellaneous: Unremarkable. No free air or significant free fluid. Pelvic Organs: Unremarkable. Bones: Unremarkable for age. IMPRESSION: Unremarkable noncontrast CT of the abdomen and pelvis. No urinary tract stones, hydronephrosis, or other cause for flank pain. Gastric banding surgical changes. Please note that all CT scans at this facility use dose modulation, iterative reconstruction, and/or weight-based dosing when appropriate to reduce radiation dose to as low as reasonably achievable. Dictated by Surendra Friend MD @ 11/28/2022 6:26:22 PM (Electronically Signed)
--- NOTE | 2022-11-28 17:11 | ED_ITS ---
HPI - Abdominal Pain General Chief Complaint: Abdominal Pain Stated Complaint: Abdominal and Back Pain Time Seen by Provider: 11/28/22 16:52 History of Present Illness HPI narrative: This 27-year-old female comes in reporting severe abdominal pain that started earlier today. She has so she did nausea and vomiting. She states that she cannot get into a position that is comfortable. She does report a history of kidney stone 3 or 4 months ago. She had lithotripsy to treat this. She has also had a gastric bypass and states that her gallbladder and appendix are still in place. She does not report any fevers or diarrhea. She does not have any dysuria symptoms. Related Data Home Medications Medication Instructions Recorded Confirmed ergocalciferol (vitamin D2) 1,250 06/18/22 mcg (50,000 unit) capsule metformin 500 mg tablet mg 06/18/22 ondansetron 4 mg disintegrating mg 06/18/22 tablet sertraline 100 mg tablet mg 06/18/22 Previous Rx's Medication Instructions Recorded hydrocodone 5 mg-acetaminophen 325 1 tab PO Q6H PRN pain #7 tabs 06/19/22 mg tablet cefdinir 300 mg capsule 300 mg PO BID 7 days #14 caps 07/29/22 Allergies Allergy/AdvReac Type Severity Reaction Status Date / Time Sulfa (Sulfonamide Allergy hives Verified 11/28/22 16:59 Antibiotics) Review of Systems Status of ROS Reports: 10 or more systems reviewed and unremarkable except as noted in History and below Narrative Constitutional: No fevers, no weight gain or loss. Eyes: No discharge. No vision changes. HENT: No congestion, no sore throat, no ear pain. Cardiovascular: No chest pain, no palpitations. Respiratory: No shortness of breath, no wheezes, no cough. Gastrointestinal: No diarrhea. Abdominal pain with nausea and vomiting. Genitourinary: No dysuria, no hematuria. Musculoskeletal: Normal range of motion. Skin: No rashes, no pruritis. Neurological: No dizziness, weakness, sensory change, speech change. Endo/Heme/Allergies: No bruising or bleeding. No polydipsia. Pysch: no suicidality, no anxiety, no insomnia. All other systems reviewed and are negative. PFS PFS Social History Smoking Status: Never smoker Do you use any of these nicotine containing products: None How often do you have a drink containing alcohol: never AUDIT-C Alcohol total score: 0 Non-prescribed substance use: denies use service: No Exam Narrative: Exam Narrative: Constitutional: Well-developed, well-nourished, no acute distress. HEENT: Normocephalic, atraumatic. Neck: Normal range of motion. Nontender. Supple. Heart: Regular. No murmurs. Normal rate. Intact distal pulses. Lungs: Clear to auscultation. No chest discomfort. No wheezes, rhonchi, or rales. Abdomen: Normal bowel sounds. Diffuse tenderness in the abdomen. No flank pain. Genitalia: Deferred. Back: No midline tenderness. Normal range of motion. Extremities: Normal range of motion. No injury. Skin: Intact. No rash. Warm. No erythema or pallor. Neurologic: No altered sensation. No weakness. Alert and oriented. Psychiatric: No suicidality. No anxiety or depression. No insomnia. Nursing notes and vitals signs are reviewed. Const: Vital Signs, click to edit/add: Vital Signs - 24 hr 11/28/22 16:55 Temperature 98.3 F Pulse Rate [Right Pulse Oximeter] 65 Respiratory Rate 20 Blood Pressure [Ri ght Upper Arm] 138/83 Pulse Oximetry 96 Oxygen Delivery Me thod Room Air Course Vital Signs Vital signs: Initial Vital Signs Temperature 98.3 F 11/28/22 16:55 Temperature Source Temporal Artery Scan 11/28/22 16:55 Pulse Rate 65 11/28/22 16:55 Pulse Rhythm 11/28/22 16:55 Pulse Strength 3+ Normal 11/28/22 16:55 Respiratory Rate 20 11/28/22 16:55 Blood Pressure 138/83 11/28/22 16:55 Blood Pressure Mean 101 11/28/22 16:55 Blood Pressure Position Sitting 11/28/22 16:55 Pulse Oximetry 96 11/28/22 16:55 Oxygen Delivery Method 11/28/22 16:55 Vital Signs Temperature 98.3 F 11/28/22 16:55 Pulse Rate 65 11/28/22 16:55 Respiratory Rate 20 11/28/22 16:55 Blood Pressure 138/83 11/28/22 16:55 Pulse Oximetry 96 11/28/22 16:55 Oxygen Delivery Method 11/28/22 16:55 Temperature 98.3 F 11/28/22 16:55 Pulse Rate 65 11/28/22 16:55 Respiratory Rate 20 11/28/22 16:55 Blood Pressure 138/83 11/28/22 16:55 Pulse Oximetry 96 11/28/22 16:55 Oxygen Delivery Method 11/28/22 16:55 MDM - Abdominal Pain MDM Narrative Medical decision making narrative: This patient comes in with diffuse upper epigastric abdominal pain that was very severe at times. She does have a history of kidney stones and a gastric sleeve done about 6 or 8 months ago. She has been doing well until today. An IV was established where she did received doses of Toradol 30 mg, Dilaudid 0.5 mg, and Zofran 4 mg. This brought great relief to her symptoms. CT imaging of the abdomen and pelvis without contrast shows no acute findings to explain her pain. Her lab results also returned with normal results except for slightly elevation of her liver enzymes and bilirubin. She states this is not new for her. I did use bedside ultrasound also to look at her gallbladder and saw normal results. The patient is okay to return home. She states that she has medicines for pain and nausea if needed. Lab Data Labs: Lab Results 11/28/22 11/28/22 11/28/22 Range/Units 17:12 17:12 17:12 WBC 7.92 (4.50-11.00) K/uL RBC 4.52 (4.00-5.20) m/uL Hgb 14.8 (12.0-16.0) gm/dL Hct 42.7 (33.0-51.0) % MCV 95 (80-100) fL MCH 33 (26-34) pg MCHC 35 (32-36) gm/dL RDW Coeff of Rajni 12.1 (11.5-15.5) % Plt Count 241 (140-440) K/uL Neut % (Auto) 73.6 H (42.0-72.0) % Lymph % (Auto) 19.8 L (20-44) % [place] % (Auto) 4.2 (0.0-11.0) % Eos % (Auto) 1.6 (0.0-7.0) % Baso % (Auto) 0.5 (0.0-3.0) % Neut # (Auto) 5.80 (1.7-7.0) K/uL Lymph # (Auto) 1.60 (0.90-2.90) K/uL [place] # (Auto) 0.30 (0.00-0.90) K/UL Eos # (Auto) 0.13 (0.00-0.50) K/uL Baso # (Auto) 0.04 (0.00-0.30) K/uL Sodium 141 (135-149) mmol/L Potassium 3.8 (3.6-5.1) mmol/L Chloride 109 (96-114) mmol/L Carbon Dioxide 23 (20-32) mmol/L BUN 13 (5-24) mg/dL Creatinine 0.7 (0.5-1.5) mg/dL Estimated Creat Clear 113.01 Estimated GFR 121 ml/min Glucose 111 (60-115) mg/dL Calcium 8.6 (8.4-10.6) mg/dL Total Bilirubin 1.6 H (0.1-1.5) mg/dL Direct Bilirubin 0.1 (0.0-0.5) mg/dL AST 201 H (12-35) U/L ALT 130 H (4-35) U/L Alkaline Phosphatase 58 (40-150) U/L Total Protein 7.3 (6.0-8.3) g/dL Albumin 4.5 (3.3-5.0) g/dL Lipase 162 (23-300) U/L HCG, Qual Negative (Negative) Urine Color (Yellow) Urine Appearance (Clear) Urine pH (5.0-8.5) Ur Specific [place] (1.000-1.030) Urine Protein (Negative) Urine Glucose (UA) (Negative) Urine Ketones (Negative) Urine Blood (Negative) Urine Nitrite (Negative) Urine Bilirubin (Negative) Urine Urobilinogen (0.2-1.0) Ur Leukocyte Esterase (Negative) Urine RBC (0-2) Urine WBC (0-5) Ur Squamous Epith Cells (None-Few) Urine Bacteria (None) 11/28/22 Range/Units 17:51 WBC (4.50-11.00) K/uL RBC (4.00-5.20) m/uL Hgb (12.0-16.0) gm/dL Hct (33.0-51.0) % MCV (80-100) fL MCH (26-34) pg MCHC (32-36) gm/dL RDW Coeff of Rajni (11.5-15.5) % Plt Count (140-440) K/uL Neut % (Auto) (42.0-72.0) % Lymph % (Auto) (20-44) % [place] % (Auto) (0.0-11.0) % Eos % (Auto) (0.0-7.0) % Baso % (Auto) (0.0-3.0) % Neut # (Auto) (1.7-7.0) K/uL Lymph # (Auto) (0.90-2.90) K/uL [place] # (Auto) (0.00-0.90) K/UL Eos # (Auto) (0.00-0.50) K/uL Baso # (Auto) (0.00-0.30) K/uL Sodium (135-149) mmol/L Potassium (3.6-5.1) mmol/L Chloride (96-114) mmol/L Carbon Dioxide (20-32) mmol/L BUN (5-24) mg/dL Creatinine (0.5-1.5) mg/dL Estimated Creat Clear Estimated GFR ml/min Glucose (60-115) mg/dL Calcium (8.4-10.6) mg/dL Total Bilirubin (0.1-1.5) mg/dL Direct Bilirubin (0.0-0.5) mg/dL AST (12-35) U/L ALT (4-35) U/L Alkaline Phosphatase (40-150) U/L Total Protein (6.0-8.3) g/dL Albumin (3.3-5.0) g/dL Lipase (23-300) U/L HCG, Qual (Negative) Urine Color Yellow (Yellow) Urine Appearance Clear (Clear) Urine pH 7.0 (5.0-8.5) Ur Specific [place] 1.025 (1.000-1.030) Urine Protein Negative (Negative) Urine Glucose (UA) Negative (Negative) Urine Ketones Negative (Negative) Urine Blood Trace-intact A (Negative) Urine Nitrite Negative (Negative) Urine Bilirubin Negative (Negative) Urine Urobilinogen 1.0 (0.2-1.0) Ur Leukocyte Esterase Negative (Negative) Urine RBC 0-2 (0-2) Urine WBC 0-2 (0-5) Ur Squamous Epith Cells Few (None-Few) Urine Bacteria None (None) Imaging Data CT scan - abdomen: Radiologist's impression: Unremarkable noncontrast CT of the abdomen and pelvis. No urinary tract stones, hydronephrosis, or other cause for flank pain. Gastric banding surgical changes. Discharge Plan Discharge Clinical Impression: Abdominal pain Patient Disposition: Home, Self-Care Condition: Improved Additional Instructions: Use medications as needed and directed for symptomatic relief. Follow up with MD or return if symptoms are recurrent or worsening. Prescriptions: No Action cefdinir 300 mg capsule 300 mg PO BID 7 Days Qty: 14 0RF metformin 500 mg tablet Label Comments: TAKE 1 TABLET BY MOUTH TWO TIMES A DAY WITH MEALS. sertraline 100 mg tablet Label Comments: TAKE 1.5 TABLETS BY MOUTH ONCE DAILY. ergocalciferol (vitamin D2) 1,250 mcg (50,000 unit) capsule Label Comments: TAKE 1 CAPSULE (50,000 UNITS) BY MOUTH EVERY WEDNESDAY AND WEDNESDAY FOR 24 DOSES. ondansetron 4 mg tablet,disintegrating hydrocodone-acetaminophen 5-325 mg tablet 1 tab PO Q6H PRN (Reason: pain) Qty: 7 0RF Rx Instructions: For kidney stone pain Follow Up/Referrals: Emilee Vali MD [Primary Care Provider] - Stand Alone Forms: [employer] Info Instructions
[2022-11-28] MEDS: ONDANSETRON 2 MG/ML inj 4 MG IVP (17:17)
[2022-11-28] MEDS: HYDROmorphone 0.5 mg/0.5 ml inj IVP (17:17)
[2022-11-28] MEDS: KETOROLAC 30 MG/ML inj IVP (17:17)
[2022-11-28 17:25] LABS: Basophils Absolute Auto 0.04 K/uL (0.00-0.30); Basophils Percent Auto 0.5 % (0.0-3.0); Eosinophils Absolute Auto 0.13 K/uL (0.00-0.50); Eosinophils Percent Auto 1.6 % (0.0-7.0); Hematocrit 42.7 % (33.0-51.0); Hemoglobin* 14.8 gm/dL (12.0-16.0); Immature Granulocytes Abs Auto 0.02 K/uL (0.00-0.30); Immature Granulocytes Pct Auto 0.3 %; Lymphocytes Percent Auto 19.8 % (20-44); Mean Corpuscular HGB Conc 35 gm/dL (32-36); Mean Corpuscular Hemoglobin 33 pg (26-34); Mean Corpuscular Volume 95 fL (80-100); Monocytes Percent Auto 4.2 % (0.0-11.0); Neutrophils Percent Auto 73.6 % (42.0-72.0); Platelet Count* 241 K/uL (140-440); RDW Coefficient of Variation % 12.1 % (11.5-15.5); Red Blood Count 4.52 m/uL (4.00-5.20); White Blood Count* 7.92 K/uL (4.50-11.00)
[2022-11-28 17:30] LABS: Slide Review Reflex No
[2022-11-28 17:37] LABS: Albumin* 4.5 g/dL (3.3-5.0); Chloride* 109 mmol/L (96-114); Sodium* 141 mmol/L (135-149)
[2022-11-28 17:38] LABS: Potassium* 3.8 mmol/L (3.6-5.1)
[2022-11-28 17:40] LABS: Alkaline Phosphatase* 58 U/L (40-150); Aspartate Amino Transferase* 201 U/L (12-35); Bilirubin Direct* 0.1 mg/dL (0.0-0.5); Bilirubin Total* 1.6 mg/dL (0.1-1.5); Blood Urea Nitrogen* 13 mg/dL (5-24); Calcium* 8.6 mg/dL (8.4-10.6); Carbon Dioxide* 23 mmol/L (20-32); Creatinine* 0.7 mg/dL (0.5-1.5); Est. Creatinine Clearance* 113.01; Estimated Glomerular Filt Rate 121 ml/min; Glucose* 111 mg/dL (60-115); Lipase* 162 U/L (23-300); Total Protein* 7.3 g/dL (6.0-8.3)
[2022-11-28 17:41] LABS: Alanine Aminotransferase* 130 U/L (4-35)
[2022-11-28 17:50] LABS: HCG Qualitative Serum* Negative (Negative)
[2022-11-28 18:03] LABS: Appearance Urine Clear (Clear); Bilirubin Urine Negative (Negative); Blood Urine Trace-intact (Negative); Color Urine Yellow (Yellow); Glucose Urine Negative (Negative); Ketones Urine Negative (Negative); Leukocyte Esterase Urine Negative (Negative); Nitrite Urine Negative (Negative); Protein Urine Negative (Negative); Specific Gravity Urine 1.025 (1.000-1.030)
[2022-11-28 18:21] LABS: RBC Urine 0-2 (0-2); Squamous Epithelial Cell Urine Few (None-Few); WBC Urine 0-2 (0-5)
[2022-11-28 18:58] VITALS: BP 102/69
== END 2022-11-28 18:59 | disposition home or self-care (01) ==
PROVIDERS: Emergency Provider Emergency Medicine Emergency Medical Services; PCP Family Medicine
DX: R10.9 Unspecified abdominal pain (principal)
CPT/HCPCS: 36415; 74176; 80048; 80076; 81001; 83690; 84703; 85025; 96374; 96375; 99284; J1170; J1885; J2405

== ENCOUNTER 2023-01-04 16:50 | Emergency (ER) | payer BC, SELFPAY ==
[2023-01-04 17:20] VITALS: BP 132/82; PULSE 85; RESP 20; TEMP 36.6; O2SAT 100; BMI 27.6
--- NOTE | 2023-01-04 19:08 | CRLHL7_ITS ---
For Patients: As a result of the Century Cures Act, medical imaging exams and procedure reports are released immediately into your electronic medical record. You may view this report before your referring provider. If you have questions, please contact your health care provider. CLINICAL HISTORY: Spotting TECHNIQUE: Real time, bennett scale images were acquired of the pelvis using a transabdominal and transvaginal approach. Color Doppler analysis was performed of the ovaries. FINDINGS: Presence of intrauterine gestation with crown-rump length measuring 2 millimeters. Yolk appears normal. Small subchorionic hemorrhage measuring 1.5 x 0.4 x1 centimeter. No cardiac activity detected. Right ovary measures 5.9 x 2.6 x 4 centimeters. There is a corpus luteum cyst present. Left ovary measures 3.8 x 2.7 x 2.4 centimeters. Small amount of free fluid IMPRESSION: Very early intrauterine with 2 millimeter crown-rump length. cardiac activity not detected at this time. Small subchorionic hemorrhage. Recommend follow-up ultrasound in 7-10 days to assess for normal progression of this early . Dictated by Patti Flores MD @ 01/04/2023 8:22:45 PM (Electronically Signed)
[2023-01-04 19:48] LABS: Basophils Percent Auto 0.5 % (0.0-3.0); Eosinophils Percent Auto 1.6 % (0.0-7.0); Hematocrit 39.5 % (33.0-51.0); Hemoglobin* 13.8 gm/dL (12.0-16.0); Immature Granulocytes Pct Auto 0.2 %; Lymphocytes Percent Auto 32.8 % (20-44); Mean Corpuscular HGB Conc 35 gm/dL (32-36); Mean Corpuscular Hemoglobin 32 pg (26-34); Mean Corpuscular Volume 92 fL (80-100); Monocytes Percent Auto 5.7 % (0.0-11.0); Neutrophils Percent Auto 59.2 % (42.0-72.0); Platelet Count* 172 K/uL (140-440); RDW Coefficient of Variation % 12.5 % (11.5-15.5); Red Blood Count 4.28 m/uL (4.00-5.20); White Blood Count* 4.39 K/uL (4.50-11.00)
[2023-01-04 19:57] LABS: Slide Review Reflex No
[2023-01-04 20:00] LABS: Chloride* 105 mmol/L (96-114); Sodium* 136 mmol/L (135-149)
[2023-01-04 20:01] LABS: Potassium* 3.7 mmol/L (3.6-5.1)
[2023-01-04 20:03] LABS: Blood Urea Nitrogen* 12 mg/dL (5-24); Carbon Dioxide* 23 mmol/L (20-32); Creatinine* 0.6 mg/dL (0.5-1.5); Est. Creatinine Clearance* 130.68; Estimated Glomerular Filt Rate 125 ml/min
[2023-01-04 20:04] LABS: Calcium* 8.8 mg/dL (8.4-10.6); Glucose* 86 mg/dL (60-115)
--- NOTE | 2023-01-04 20:26 | ED_ITS ---
HPI - General Time Seen by Provider: 20:26 Date Seen: 01/04/23 Chief complaint: Vaginal Bleeding Stated complaint: 5w w Vaginal Bleeding Time Seen by Provider: 01/04/23 19:08 Source: patient, RN notes reviewed and old records reviewed Mode of arrival: ambulatory Limitations: no limitations History of Present Illness HPI Narrative: Patient is a very pleasant 28-year-old female with an LMP of early November but known ovulation at the end of November who comes to the emergency room for evaluation of some spotting. Patient notes that she did work out today and had some brown spotting noted. No real lower pelvic pain. Chin has a history of PCOS, weight loss surgery last fall and is currently on metformin. She does not know her blood type. Her 1st OB as scheduled for January 25. She does have an hCG from earlier in her initially 42 and then 280. No fever or chills. Related Data Home Medications Medication Instructions Recorded Confirmed ergocalciferol (vitamin D2) 1,250 06/18/22 mcg (50,000 unit) capsule metformin 500 mg tablet mg 06/18/22 ondansetron 4 mg disintegrating mg 06/18/22 tablet sertraline 100 mg tablet mg 06/18/22 Allergies Allergy/AdvReac Type Severity Reaction Status Date / Time Sulfa (Sulfonamide Allergy hives Verified 11/28/22 16:59 Antibiotics) Review of Systems Status of ROS: Reports: 10 or more systems reviewed and unremarkable except as noted in History and below Const: Denies: fever or chills ENMT: Denies: throat pain or neck pain Cardio: Denies: chest pain or shortness of breath with exertion Resp: Denies: shortness of breath GI: Denies: abdominal pain, nausea or vomiting : Denies: painful urination Musculo: Denies: neck pain Neuro: Denies: headache PFSH PFSH Social History Smoking Status: Never smoker Do you use any of these nicotine containing products: None How often do you have a drink containing alcohol: never AUDIT-C Alcohol total score: 0 Non-prescribed substance use: denies use service: No Exam Narrative: Exam Narrative: Patient is alert and oriented very pleasant. External ears eyes nose clear. Heart with regular rate and rhythm care. Lungs are clear. Abdomen soft nontender. Moving all extremities. Nontoxic in appearance. Const: Vital Signs, click to edit/add: Vital Signs - 24 hr 01/04/23 17:20 Temperature 97.9 F Pulse Rate [Pulse Oximeter] 85 Respiratory Rate 20 Blood Pressure [Ri ght Upper Arm] 132/82 Pulse Oximetry 100 Oxygen Delivery Me thod Room Air Documenting provider has reviewed patient's vital signs: yes Course Course Hospital Course: Patient actually received her ultrasound 1st prior to being seen due to high patient volume and extended wait time. At this time there does appear to be a but it is very small. Consultations Consultation #1: Dr. Silveira is contacted regarding patient's spotting and ABO type of A negative. She does agree with gualberto gay Vital Signs Vital signs: Initial Vital Signs Temperature 97.9 F 01/04/23 17:20 Temperature Source Temporal Artery Scan 01/04/23 17:20 Pulse Rate 85 01/04/23 17:20 Respiratory Rate 20 01/04/23 17:20 Blood Pressure 132/82 01/04/23 17:20 Blood Pressure Mean 98 01/04/23 17:20 Pulse Oximetry 100 01/04/23 17:20 Oxygen Delivery Method Room Air 01/04/23 17:20 Vital Signs Temperature 97.9 F 01/04/23 17:20 Pulse Rate 85 01/04/23 17:20 Respiratory Rate 20 01/04/23 17:20 Blood Pressure 132/82 01/04/23 17:20 Pulse Oximetry 100 01/04/23 17:20 Oxygen Delivery Method Room Air 01/04/23 17:20 Temperature 97.9 F 01/04/23 17:20 Pulse Rate 85 01/04/23 17:20 Respiratory Rate 20 01/04/23 17:20 Blood Pressure 132/82 01/04/23 17:20 Pulse Oximetry 100 01/04/23 17:20 Oxygen Delivery Method Room Air 01/04/23 17:20 MDM - OB/Uterine Contractions MDM Narrative Medical decision making narrative: 1. with spotting-patient does have at this time but so early that we are not seeing any cardiac activity. HCG is greater than 15,000. Patient is a candidate for RhoGAM given her blood type of A negative. This confirmed with OB. 2. Disposition-home at this time. Follow-up for repeat ultrasound 7-10 days. Recommend recheck of hCG in the next few days. Return to the ER for worsening symptoms. Medical Records Attestation: I reviewed the patient's medical records. Lab Data Attestation: I reviewed the patient's lab results. Labs: Lab Results 01/04/23 Range/Units 19:41 WBC 4.39 L (4.50-11.00) K/uL RBC 4.28 (4.00-5.20) m/uL Hgb 13.8 (12.0-16.0) gm/dL Hct 39.5 (33.0-51.0) % MCV 92 (80-100) fL MCH 32 (26-34) pg MCHC 35 (32-36) gm/dL RDW Coeff of Rajni 12.5 (11.5-15.5) % Plt Count 172 (140-440) K/uL Neut % (Auto) 59.2 (42.0-72.0) % Lymph % (Auto) 32.8 (20-44) % [place] % (Auto) 5.7 (0.0-11.0) % Eos % (Auto) 1.6 (0.0-7.0) % Baso % (Auto) 0.5 (0.0-3.0) % Neut # (Auto) 2.60 (1.7-7.0) K/uL Lymph # (Auto) 1.40 (0.90-2.90) K/uL [place] # (Auto) 0.30 (0.00-0.90) K/UL Eos # (Auto) 0.10 (0.00-0.50) K/uL Baso # (Auto) 0.00 (0.00-0.30) K/uL Sodium 136 (135-149) mmol/L Potassium 3.7 (3.6-5.1) mmol/L Chloride 105 (96-114) mmol/L Carbon Dioxide 23 (20-32) mmol/L BUN 12 (5-24) mg/dL Creatinine 0.6 (0.5-1.5) mg/dL Estimated Creat Clear 130.68 Estimated GFR 125 ml/min Glucose 86 (60-115) mg/dL Calcium 8.8 (8.4-10.6) mg/dL HCG, Quant > 41749.00 mIU/mL Blood Type A Negative Imaging Data OB ultrasound..: Attestation: I have reviewed the pertinent imaging results. Radiologist's impression: Presence of intrauterine gestation with crown-rump length measuring 2 millimeters. Yolk appears normal. Small subchorionic hemorrhage measuring 1.5 x 0.4 x1 centimeter. No cardiac activity detected. Right ovary measures 5.9 x 2.6 x 4 centimeters. There is a corpus luteum cyst present. Left ovary measures 3.8 x 2.7 x 2.4 centimeters. Small amount of free fluid IMPRESSION: Very early intrauterine with 2 millimeter crown-rump length. cardiac activity not detected at this time. Small subchorionic hemorrhage. Recommend follow-up ultrasound in 7-10 days to assess for normal progression of this early . Discharge Plan Discharge Prescriptions: No Action metformin 500 mg tablet Patient Comments: TAKE 1 TABLET BY MOUTH TWO TIMES A DAY WITH MEALS. sertraline 100 mg tablet Patient Comments: TAKE 1.5 TABLETS BY MOUTH ONCE DAILY. ergocalciferol (vitamin D2) 1,250 mcg (50,000 unit) capsule Patient Comments: TAKE 1 CAPSULE (50,000 UNITS) BY MOUTH EVERY WEDNESDAY AND WEDNESDAY FOR 24 DOSES. ondansetron 4 mg tablet,disintegrating Follow Up/Referrals: Emilee Vail MD [Primary Care Provider] -
[2023-01-04 21:07] VITALS: BP 118/74; PULSE 74; RESP 20; TEMP 36.7; O2SAT 100
[2023-01-04 21:40] VITALS: BP 115/78; PULSE 87; RESP 20; TEMP 36.7; O2SAT 100
[2023-01-04 21:43] VITALS: BP 118/74; PULSE 74; RESP 20; TEMP 36.7
== END 2023-01-04 21:43 | disposition home or self-care (01) ==
PROVIDERS: Emergency Provider Family Medicine; PCP Family Medicine
DX: O26.851 Spotting complicating pregnancy, first trimester (principal); Z3A.01 Less than 8 weeks gestation of pregnancy
CPT/HCPCS: 36415; 76817; 80048; 84702; 85025; 86900; 86901; 99283; 99284; J2791

== ENCOUNTER 2023-01-07 08:12 | Outpatient (CLI) | payer BC, SELFPAY | END 2023-01-07 08:13 | disposition home or self-care (01) | LOC: NFLDREF 01-09 06:02 | PROVIDERS: PCP Family Medicine; Referring Provider Family Medicine; Visit Provider Obstetrics & Gynecology | DX: O20.9 Hemorrhage in early pregnancy, unspecified (principal) | CPT/HCPCS: 84702 ==

== ENCOUNTER 2023-01-15 12:01 | Outpatient (CLI) | payer BC, SELFPAY ==
--- NOTE | 2023-01-15 12:15 | CRLHL7_ITS ---
For Patients: As a result of the Century Cures Act, medical imaging exams and procedure reports are released immediately into your electronic medical record. You may view this report before your referring provider. If you have questions, please contact your health care provider. INDICATION: Follow-up viability, bleeding COMPARISON: 01/04/2023 TECHNIQUE: Real-time bennett-scale imaging of the pelvis was performed. FINDINGS: Sonographic imaging demonstrates a single living intrauterine gestation. The embryo demonstrates a regular cardiac rate measuring 138 beats per minute. The embryo`s crown-rump length measurement of 1.2 cm corresponds to a gestational age of 7 weeks 2 days with a sonographic due date of 09/01/2023. There is a normal-appearing yolk sac. There are no gross abnormalities noted within the embryo at this early state of development. The gestational sac has a normal appearance. There is no evidence of a perigestational hemorrhage. The amount of fluid within the sac appears appropriate for gestational age. The cervix is closed. The myometrium appears normal. There is a right ovarian cyst measuring 3.2 x 3.1 x 3.3 cm, likely a corpus luteal cyst. Normal left ovary. There are no suspicious fluid collections noted in the cul-de-sac. IMPRESSION: Single living intrauterine with sonographic gestational age 7 weeks 2 days and sonographic due date 09/01/2023. Dictated by Bang Miranda MD @ 01/15/2023 6:10:47 PM (Electronically Signed)
== END 2023-01-15 12:02 | disposition home or self-care (01) ==
LOC: US 12:02
PROVIDERS: PCP Family Medicine; Visit Provider Obstetrics & Gynecology
DX: O20.9 Hemorrhage in early pregnancy, unspecified (principal); Z3A.01 Less than 8 weeks gestation of pregnancy
CPT/HCPCS: 76817

== ENCOUNTER 2023-02-23 02:31 | Emergency (ER) | payer BC, SELFPAY ==
[2023-02-23 02:41] VITALS: BP 133/97; PULSE 84; RESP 18; TEMP 36.6; O2SAT 100; BMI 28.6
--- NOTE | 2023-02-23 03:07 | ED_ITS ---
HPI - General Adult General Chief complaint: Vaginal Bleeding Stated complaint: 13 weeks preg - bleeding Time Seen by Provider: 02/23/23 02:35 Source: patient and family Mode of arrival: ambulatory Limitations: no limitations History of Present Illness HPI narrative: 28-year-old female presents to the emergency department with vaginal bleeding, 13 weeks . Reports that she had some spotting and had RhoGAM given at 5 weeks gestation. I reviewed the records and see that this was given 01/04/23 in the clinic. She says that she has been having brown spotting for the past 3 days, saw her Ob provider yesterday and mentioned this. Had a wet prep and workup. Reports that these were benign. She had good heart tones on Doppler they reported. No abdominal trauma, no abdominal pain. No fevers or o ther signs of illness. No dysuria. Review of the records shows that her blood type is A negative. . Past medical history notable for depression anxiety, gastric sleeve surgery within the last year. OB notes reviewed. Home medications reviewed. ROS is notable only for the gynecological symptoms as above, otherwise denies times 12 systems. Related Data Home Medications Medication Instructions Recorded Confirmed ergocalciferol (vitamin D2) 1,250 06/18/22 02/22/23 mcg (50,000 unit) capsule metformin 500 mg tablet mg 06/18/22 02/22/23 sertraline 100 mg tablet mg 06/18/22 02/22/23 cholecalciferol (vitamin D3) 25 25 mcg PO QDAY 01/25/23 02/22/23 mcg (1,000 unit) capsule folic acid 400 mcg tablet 0.4 mg PO QDAY 01/25/23 02/22/23 mecobalamin (vitamin B12) 2,500 mcg PO 01/25/23 02/22/23 mcg chewable tablet pediatric multivitamin 1 tab PO BID 01/25/23 02/22/23 (Flintstones Multivitamin chewable tablet) aspirin 81 mg tablet,delayed 81 mg PO QDAY 02/19/23 02/22/23 release (Adult Low Dose Aspirin) vit no.95-ferrous 1 tab PO DAILY 02/23/23 02/23/23 fumarate 28 mg-folic acid 800 mcg tablet () Allergies Allergy/AdvReac Type Severity Reaction Status Date / Time ethyl alcohol Allergy Intermediate Hives Verified 02/22/23 11:17 Sulfa (Sulfonamide Allergy hives Verified 02/22/23 11:17 Antibiotics) PFSH PFS Medical History Anovulation ?N97.0 - Female infertility associated with anovulation (ICD-10) Surgical History H/O lithotripsy (07/28/22) ?Z98.890 - Other specified postprocedural states (ICD-10) [place] teeth extracted (2009) ?K08.409 - Partial loss of teeth, unspecified cause, unspecified class (ICD- 10) S/P gastric sleeve procedure (~06/2022) ?Z90.3 - Acquired absence of stomach [part of] (ICD-10) Family History Mother Coronary artery disease High blood pressure Chronic mental illness Father Coronary artery disease High blood pressure Social History Narrative: SOCIAL? ? Education: bachelors? ? Work: RN, [employer]? ? Partner: Ishan, , equipment operator/laborer/supervisor manufacturing? ? Lives with: Ishan? ? Pets: 2 dogs? ? Abuse: Denies past Unable to assess current, partner present? ? Special Diet: Denies. Weight loss surgery in April - had the sleeve. ? Ok with a blood transfusion: yes? ? Culture or voodoo beliefs: denies? RISK FACTORS? ? Exercise Times/wk: Having some spotting when she did [employer]. ? ? Depression/Anxiety: mild depression? ? Previous Treatments: Take sertralines, 100 mg. Therapy denies CRISTÓBAL: 0 PHQ 9: 0? ? Seat Belt Use: Routinely ? Smoking: Denies past/present? Alcohol/day: Denies while ? ? Caffeine: minimal, less than 100 mg. ? ? Drug Use: Denies past/present? ? Smoking Status: Never smoker Do you use any of these nicotine containing products: None How often do you have a drink containing alcohol: never AUDIT-C Alcohol total score: 0 Non-prescribed substance use: denies use Little interest or pleasure in doing things: not at all Feeling down, depressed, or hopeless: not at all service: No Exam Const: Vital Signs, click to edit/add: Vital Signs - 24 hr 02/23/23 02:41 Temperature 97.9 F Pulse Rate [Pulse Oximeter] 84 Respiratory Rate 18 Blood Pressure [Le ft Upper Arm] 133/97 H Pulse Oximetry 100 Oxygen Delivery Me thod Room Air Documenting provider has reviewed patient's vital signs: yes Common normals: no apparent distress General appearance: cooperative, comfortable and well kempt HENMT: Common normals: normocephalic Head and scalp: normocephalic Face and sinus: normal facial exam Eye: Other: Normal visual gaze and eye contact. Resp: Common normals: normal respiratory effort Effort & inspection: able to speak in complete sentences GI: Common normals: soft to palpation Palpation: soft Other: Fundal height not palpable. : Other: Normal external genitalia, normal vaginal support. Cervix is visible, nulliparous in appearance, closed. Brown spotting, no clots. Neuro: Common normals: moves all extremities Speech: speech normal Motor exam: no movement abnormalities noted Psych: Common normals: speech normal Appearance: well kempt Speech: normal speech Mood and affect: euthymic mood Insight: insight good Judgement: judgment good Skin: Common normals: no rashes or lesions noted General skin exam: no rashes or lesions noted Course Course Hospital Course: Bedside ultrasound used to confirm Batista IUP with excellent movement and heart rate in the 150s noted. No obvious source of bleeding identified. Vital Signs Vital signs: Initial Vital Signs Temperature 97.9 F 02/23/23 02:41 Temperature Source Temporal Artery Scan 02/23/23 02:41 Pulse Rate 84 02/23/23 02:41 Respiratory Rate 18 02/23/23 02:41 Blood Pressure 133/97 H 02/23/23 02:41 Blood Pressure Mean 109 H 02/23/23 02:41 Pulse Oximetry 100 02/23/23 02:41 Oxygen Delivery Method Room Air 02/23/23 02:41 Vital Signs Temperature 97.9 F 02/23/23 02:41 Pulse Rate 84 02/23/23 02:41 Respiratory Rate 18 02/23/23 02:41 Blood Pressure 133/97 H 02/23/23 02:41 Pulse Oximetry 100 02/23/23 02:41 Oxygen Delivery Method Room Air 02/23/23 02:41 Temperature 97.9 F 02/23/23 02:41 Pulse Rate 84 02/23/23 02:41 Respiratory Rate 18 02/23/23 02:41 Blood Pressure 133/97 H 02/23/23 02:41 Pulse Oximetry 100 02/23/23 02:41 Oxygen Delivery Method Room Air 02/23/23 02:41 Medical Decision Making MDM Narrative Medical decision making narrative: Differential diagnosis including miscarriage, threatened miscarriage, implantation bleeding, cervical bleeding, infection. Notes and labs reviewed from earlier today, Rh-negative status noted. RhoGAM given 01/04. I did speak with Dr. Gonzalez, confirming that we do not need to redraw antibody studies and that the RhoGAM that she has been previously given is sufficient for 12 weeks, she does confirm this for me. Alarm symptoms reviewed with patient as indications that she would come back to the ED, she verbalizes understanding and agreement and has no further questions at this time. She will update the Ob provider later today with her progress and await any further advice from the OB team. Discharge Plan Discharge Clinical Impression: Threatened miscarriage Patient Disposition: Home w/ Parent or Adult Condition: Stable Instructions: Threatened Miscarriage (ED) Additional Instructions: As we discussed, I am not sure of the etiology of the bleeding. Thankfully, there are no signs of any imminent threat to you for the baby at this time. Baby has a good heartbeat and lots of movement which is the most reassuring sign. I would like for you to continue monitoring at home. Come to the emergency department if your completely soaking through pads every hour and if there are signs of symptomatic anemia like severe weakness, lightheadedness or fever over 100.4. Call your OB doctor later today to update on the status of the bleeding and for any further direction and guidance. It is okay to use Tylenol for any cramping. Continue all of your other medications as prescribed. Activity Level: No Restrictions Discharge Diet: Regular Prescriptions: No Action folic acid 400 mcg tablet 0.4 mg PO QDAY Flintstones Multivitamin Tablet,Chewable 1 tab PO BID mecobalamin (vitamin B12) 2,500 mcg tablet,chewable PO cholecalciferol (vitamin D3) 25 mcg (1,000 unit) capsule 25 mcg PO QDAY aspirin [Adult Low Dose Aspirin] 81 mg tablet,delayed release (DR/EC) 81 mg PO QDAY metformin 500 mg tablet Patient Comments: TAKE 1 TABLET BY MOUTH TWO TIMES A DAY WITH MEALS. sertraline 100 mg tablet Patient Comments: TAKE 1.5 TABLETS BY MOUTH ONCE DAILY. ergocalciferol (vitamin D2) 1,250 mcg (50,000 unit) capsule Patient Comments: TAKE 1 CAPSULE (50,000 UNITS) BY MOUTH EVERY WEDNESDAY AND WEDNESDAY FOR 24 DOSES. PNV cmb#95-ferrous fumarate-FA [] 28 mg iron- 800 mcg tablet 1 tab PO DAILY Follow Up/Referrals: Emilee Vail MD [Primary Care Provider] - Stand Alone Forms: [employer] [facility] Info Instructions
== END 2023-02-23 03:33 | disposition home or self-care (01) ==
PROVIDERS: Emergency Provider Family Medicine; PCP Family Medicine
DX: O20.0 Threatened abortion (principal); Z3A.13 13 weeks gestation of pregnancy
CPT/HCPCS: 99283

== ENCOUNTER 2023-05-24 08:46 | Outpatient (CLI) | payer BC, SELFPAY ==
[2023-05-24 08:50] VITALS: PULSE 101; O2SAT 100
[2023-05-24 08:55] VITALS: PULSE 83; O2SAT 99
[2023-05-24 08:57] VITALS: RESP 16; TEMP 36.6
[2023-05-24 09:00] VITALS: PULSE 83; O2SAT 99
[2023-05-24 09:03] VITALS: BP 113/66; PULSE 89
[2023-05-24 09:05] VITALS: PULSE 80; O2SAT 98
[2023-05-24 09:52] LABS: Appearance Urine Cloudy (Clear); Bilirubin Urine Negative (Negative); Blood Urine 3+ (Negative); Color Urine Red (Yellow); Glucose Urine Negative (Negative); Ketones Urine Negative (Negative); Leukocyte Esterase Urine Negative (Negative); Nitrite Urine Negative (Negative); Protein Urine 1+ (Negative); Specific Gravity Urine >= 1.030 (1.000-1.030); Urobilinogen Urine 0.2 (0.2-1.0)
[2023-05-24 10:15] LABS: RBC Urine >100 (0-2); WBC Urine 0-2 (0-5)
[2023-05-24 10:16] LABS: Clue Cells No Clue Cells Seen (None Seen); Trichomonas No Trichomonas Seen (None Seen); Yeast No Yeast Seen (None Seen)
--- NOTE | 2023-05-24 12:20 | PC.OBNST ---
NST Note NST Note Start: 05/24/23 08:56 Freq: ONCE Status: Active Protocol: Document 05/24/23 12:17 MMB (Rec: 05/24/23 12:19 MMB [id number]) NST Note 1 Para (# of births) 0 EDC 09/01/23 Gestational Age In Weeks & Days 25 Weeks & 5 Days Patient Presented with Complaint(s) of Vaginal bleeding Reactive Yes Appropriate for Gestational Age Yes RN Xander Dinh RN Date 05/24/23 Reactive Yes Appropriate for Gestational Age Yes MALATHI Rios RN Date 05/24/23 OB NST charge Yes Complete NST Note via Write Note Yes The provider's electronic signature indicates the NST is reactive/appropriate for gestational age. *Note to provider: If an addendum is required, open the patient's chart and click on the note under the Nurse/Allied Health tab.
== END 2023-05-24 10:25 | disposition home or self-care (01) ==
LOC: OB OUT 08:46 → OB 08:47
PROVIDERS: PCP Family Medicine; Visit Provider Obstetrics & Gynecology
DX: O20.9 Hemorrhage in early pregnancy, unspecified (principal); Z3A.25 25 weeks gestation of pregnancy
CPT/HCPCS: 59025; 81001; 87086; 87210; 99213

== ENCOUNTER 2023-06-11 09:41 | Outpatient (CLI) | payer BC, SELFPAY | END 2023-06-11 09:42 | disposition home or self-care (01) | LOC: NFLDREF 09:42 | PROVIDERS: PCP Family Medicine; Visit Provider Obstetrics & Gynecology | DX: O26.893 Other specified pregnancy related conditions, third trimester (principal); Z67.91 Unspecified blood type, Rh negative; Z3A.28 28 weeks gestation of pregnancy | CPT/HCPCS: 82306; 82607; 82746; 83540; 86592; 86850; J2791 ==

== ENCOUNTER 2023-07-06 05:50 | Outpatient (CLI) | payer BC, SELFPAY ==
[2023-07-06 05:57] VITALS: PULSE 82; O2SAT 99
[2023-07-06 05:58] VITALS: BP 129/80; PULSE 81; RESP 18; TEMP 36.7
[2023-07-06 06:02] VITALS: PULSE 82; O2SAT 98
[2023-07-06 06:30] VITALS: PULSE 85; O2SAT 96
--- NOTE | 2023-07-06 06:45 | CRLHL7_ITS ---
For Patients: As a result of the Century Cures Act, medical imaging exams and procedure reports are released immediately into your electronic medical record. You may view this report before your referring provider. If you have questions, please contact your health care provider. INDICATION: High baseline. TECHNIQUE: Ultrasound OB pelvis transabdominal. Real-time bennett-scale imaging of the fetus was performed without stress testing. COMPARISON: 01/25/2023. FINDINGS: Intrauterine gestation: Present. heart rate: 135 BPM. Presentation: Cephalic. Placenta: Left wall. Amniotic fluid volume single deepest pocket 5.8 cm 2/2. motion 2/2. tone 2/2. breathing movements not seen, 0 out of 2.. IMPRESSION: Single viable intrauterine with a biophysical profile of 6 out of 8. No breathing seen during the examination. Dictated by Clarita Panchal MD @ 07/06/2023 7:44:47 AM (Electronically Signed)
--- NOTE | 2023-07-06 09:17 | PC.OBNST ---
NST Note NST Note Start: 07/06/23 05:54 Freq: ONCE Status: Active Protocol: Document 07/06/23 09:14 MMB (Rec: 07/06/23 09:16 MMB [id number]) NST Note 1 Para (# of births) 0 EDC 09/01/23 Gestational Age In Weeks & Days 31 Weeks & 6 Days Patient Presented with Complaint(s) of Decreased movement Reactive Yes Appropriate for Gestational Age Yes RN Xander Dinh RN Date 07/06/23 Reactive Yes Appropriate for Gestational Age Yes MALATHI Sapp RN Date 07/06/23 OB NST charge Yes Complete NST Note via Write Note Yes The provider's electronic signature indicates the NST is reactive/appropriate for gestational age. *Note to provider: If an addendum is required, open the patient's chart and click on the note under the Nurse/Allied Health tab.
== END 2023-07-06 08:20 | disposition home or self-care (01) ==
LOC: OB OUT 05:51 → OB 05:52
PROVIDERS: PCP Family Medicine; Visit Provider Obstetrics & Gynecology
DX: Z3A.31 31 weeks gestation of pregnancy (principal); O36.8130 Decreased fetal movements, third trimester, not applicable or unspecified
CPT/HCPCS: 59025; 76819; 99213

== ENCOUNTER 2023-07-09 08:07 | Outpatient (CLI) | payer BC, SELFPAY ==
--- NOTE | 2023-07-09 08:15 | CRLHL7_ITS ---
For Patients: As a result of the Century Cures Act, medical imaging exams and procedure reports are released immediately into your electronic medical record. You may view this report before your referring provider. If you have questions, please contact your health care provider. INDICATION: Third trimester scan, evaluate growth. COMPARISON: 07/06/2023 TECHNIQUE: Real time bennett scale imaging of the fetus was performed. FINDINGS: Sonographic imaging demonstrates a single living intrauterine gestation. Fetus demonstrates a regular cardiac rate of 155 beats per minute. Fetus has a vertex position. The placenta lies left sided. Amniotic fluid volume appears normal and there is a single deepest vertical pocket: 5.3 cm. The estimated weight is 1960gm which lies at the 42nd %. BPD 47th percentile. HC 27th percentile. AC 39th percentile. FL 54th percentile. The HC/AC ratio measures 1.06 range (0.96-1.12). IMPRESSION: Sonographic gestational age 32 weeks 4 days and sonographic due date 08/30/2023. Good correlation with dates. Normal interval growth. Estimated weight 42nd percentile. Abdominal circumference 39th percentile. Dictated by Bang Miranda MD @ 07/09/2023 9:03:53 AM (Electronically Signed)
== END 2023-07-09 08:08 | disposition home or self-care (01) ==
LOC: US 08:08
PROVIDERS: PCP Family Medicine; Visit Provider Obstetrics & Gynecology
DX: Z34.93 Encounter for supervision of normal pregnancy, unspecified, third trimester (principal); Z3A.32 32 weeks gestation of pregnancy
CPT/HCPCS: 76816

== ENCOUNTER 2023-07-28 09:54 | Outpatient (CLI) | payer BC, SELFPAY ==
[2023-07-28 09:58] VITALS: BP 119/78; PULSE 87; RESP 16
--- NOTE | 2023-07-28 11:45 | CRLHL7_ITS ---
For Patients: As a result of the Century Cures Act, medical imaging exams and procedure reports are released immediately into your electronic medical record. You may view this report before your referring provider. If you have questions, please contact your health care provider. INDICATION: tachycardia TECHNIQUE: Ultrasound OB pelvis transabdominal. Real-time bennett-scale imaging of the fetus was performed without stress testing. COMPARISON: ultrasound on 07/09/2023 and multiple priors FINDINGS: Intrauterine gestation: Present. heart rate: 150 BPM. Presentation: Cephalic. Placenta: Left wall. Amniotic fluid volume single deepest pocket 6.2 cm 2/2. motion 2/2. tone 2/2. breathing movements 2/2. IMPRESSION: Single viable intrauterine with a biophysical profile 04/20. Dictated by Antonio Lal MD @ 07/28/2023 12:15:33 PM (Electronically Signed)
--- NOTE | 2023-07-28 12:26 | PC.OBNST ---
NST Note NST Note Start: 07/28/23 10:01 Freq: ONCE Status: Active Protocol: Document 07/28/23 12:25 EFFIE (Rec: 07/28/23 12:26 EFFIE [id number]) NST Note 1 Para (# of births) 0 EDC 09/01/23 Gestational Age In Weeks & Days 35 Weeks & 0 Days Patient Presented with Complaint(s) of Decreased movement Reactive Yes Appropriate for Gestational Age Yes MALATHI Rios RNC Date 07/28/23 Reactive Yes Appropriate for Gestational Age Yes MALATHI Cartwright RNC Date 07/28/23 OB NST charge Yes Complete NST Note via Write Note Yes The provider's electronic signature indicates the NST is reactive/appropriate for gestational age. *Note to provider: If an addendum is required, open the patient's chart and click on the note under the Nurse/Allied Health tab.
--- NOTE | 2023-07-28 12:50 | PM.OBLDTN ---
OB - Triage/Final Diagnosis Visit Information Time Seen by Provider: 11:40 Date Seen: 07/28/23 Narrative: The patient is a 28 year old 1 para 0 at 35 weeks gestation by 7 week ultrasound, who presents with decreased movement. course is complicated by history of gastric sleeve, depression/anxiety and history of hypothyroidism. Bina presented after noting decreased movement at home. She was completing a kick count, where she noted baby did continue to move but this was decreased from baseline. She otherwise denies contractions, vaginal bleeding or leaking of fluids. She is feeling well in general with no acute concerns. Evaluation Vital signs: Vital Signs - 24 hr 07/28/23 09:58 07/28/23 09:58 Pulse Rate 87 Respiratory Rate 16 Blood Pressure 119/78 Comments: On arrival, she had a reactive NST. Baseline was noted to be 150 beats per minute, moderate variability, accelerations present, decelerations absent. Through her course of monitoring in triage, normal movement resumed. With this, baby demonstrated periods of prolonged accelerations and later tachycardia with moderate variability. Decision was made to proceed biophysical profile. Just prior to this, at 1136 or so the baseline did seem to settle back to 150 beats per minute with moderate variability, many accelerations and no decelerations noted. We proceeded to BPP - which was noted to be 8/8. Final Diagnosis (1) Decreased movement: Status: Acute Problem details: Ms. Clark is a 28-year-old at 35 weeks 0 days gestational age seen in triage for decreased movement. course is complicated by history of gastric sleeve, obesity, anxiety, depression and history of hypothyroidism. She initially had a reactive NST, followed by a period of prolonged accelerations versus tachycardia. Subsequent biophysical profile was 8/8. I reassured her that an 8/10 BPP is a normal result, where she was ultimately discharged to home. Return precautions were reinforced. Next visit is scheduled for 08/06 with me. Encouraged her to return to care sooner with regular/painful uterine contractions, vaginal bleeding, leaking of fluids or decreased movement. All questions answered.
== END 2023-07-28 12:07 | disposition home or self-care (01) ==
LOC: OB OUT 09:56 → OB 09:56
PROVIDERS: PCP Family Medicine; Visit Provider Obstetrics & Gynecology
DX: O36.8190 Decreased fetal movements, unspecified trimester, not applicable or unspecified (principal)
CPT/HCPCS: 59025; 76819; 99213

== ENCOUNTER 2023-08-06 10:30 | Outpatient (CLI) | payer BC, SELFPAY | END 2023-08-06 10:31 | disposition home or self-care (01) | LOC: NFLDREF 08-08 06:46 | PROVIDERS: PCP Family Medicine; Referring Provider Family Medicine; Visit Provider Obstetrics & Gynecology | DX: Z34.93 Encounter for supervision of normal pregnancy, unspecified, third trimester (principal) | CPT/HCPCS: 87081; 87653 ==

== ENCOUNTER 2023-08-18 14:40 | Inpatient (IN) | payer BC, SELFPAY ==
[2023-08-18] VITALS (26 sets, daily range): BP systolic 96–155; BP diastolic 56–93; PULSE 70–99; RESP 16; TEMP 36.8–36.9; O2SAT 98–99; BMI 35.0
[2023-08-18 12:15] LABS: Hematocrit 36.1 % (33.0-51.0); Hemoglobin* 12.8 gm/dL (12.0-16.0); Mean Corpuscular HGB Conc 36 gm/dL (32-36); Mean Corpuscular Hemoglobin 35 pg (26-34); Mean Corpuscular Volume 97 fL (80-100); Platelet Count* 205 K/uL (140-440); Red Blood Count 3.71 m/uL (4.00-5.20); White Blood Count* 7.65 K/uL (4.50-11.00)
[2023-08-18 12:19] LABS: Slide Review Reflex No
[2023-08-18 12:34] LABS: Albumin* 3.3 g/dL (3.3-5.0); Chloride* 110 mmol/L (96-114); Potassium* 3.4 mmol/L (3.6-5.1); Sodium* 135 mmol/L (135-149)
[2023-08-18 12:36] LABS: Bilirubin Total* 1.9 mg/dL (0.1-1.5); Creatinine* 0.5 mg/dL (0.5-1.5); Est. Creatinine Clearance* 156.82; Estimated Glomerular Filt Rate 131 ml/min
[2023-08-18 12:37] LABS: Alanine Aminotransferase* 14 U/L (4-35); Alkaline Phosphatase* 117 U/L (40-150); Anion Gap 6 mEq/L (7-15); Aspartate Amino Transferase* 26 U/L (12-35); Blood Urea Nitrogen* 9 mg/dL (5-24); Carbon Dioxide* 19 mmol/L (20-32); Glucose* 72 mg/dL (60-115); Total Protein* 6.1 g/dL (6.0-8.3)
[2023-08-18 12:38] LABS: Total Protein Urine 10 mg/dL
[2023-08-18 12:38] LABS: Calcium* 8.3 mg/dL (8.4-10.6)
[2023-08-18 12:39] LABS: Creatinine Urine 117.3 mg/dL
--- NOTE | 2023-08-18 15:21 | P.OBHP_ITS ---
OB - H&P: HPI Labor/Induction History of Present Illness Time Seen by Provider: 15:30 Date Seen: 08/18/23 Chief Complaint: The patient is a 28 year old 1 para 0 at 38 weeks gestation by 7 week US. is complicated by history of gastric sleeve, hypothyroidism, anxiety/depression. She is s/p H&P by Dr. Gonzalez on 08/13. Bina was transferred from OB clinic for BP monitoring in the setting of high normal BPs with symptoms of preeclampsia - including feeling awful with dyspnea and current headache. She additionally has been experiencing intermittent vision changes and RUQ over the last few days, with new nausea/vomiting.Notes increased swelling of her hands and feet. On arrival to triage, she had several mild range BPs of 150-155 systolics. She denies regular/painful contractions, vaginal bleeding and leaking of fluids. Was found to be 1/50/-1 in clinic today. She has had intermittent decreased movement for weeks, last triage visit on 08/16 with 8/10 BPP. Chief complaint: Maternity Specific Issues/Plans : Ishan SERVIN at [facility] 1. Gastric sleeve placed 05/04 * B12 collected at [facility] * increase protein intake - protein powder/shake * QID glucose monitoring completed x several weeks - mild insulin resistance noted, not meeting criteria for GDM (4 of 60 values, then 3 of 30 - with no elevated fasting values) - ok to discontinue * Level II US: 04/02/23 at 18.2wks, suboptimal anatomy views. Normal scan but unable to clearly visualize cardiac structure. Echo recommended: Done on 05/14/2023: normal. * [facility] recommended recheck labs in each trimester: CBC, iron, vitamin B12, folate, vitamin-D. Labs ordered for 28 weeks: Normal * Recommended growth ultrasound at 32 weeks gestation: EFW 42%tile, AC 39%tile 2. Hx of hypothyroid, does not currently take medication -TSH w/ reflex ordered: 1.9 (normal) 3. Depression & anxiety -Stable on 100 mg of sertraline 4. PCOS * Takes metformin 500 mg daily. Advised to stop on 05/14/2023. Wants [id number] w/ SCA, order placed: Negative Flu: Given, 06/08/23 Rhogam: Given, 06/11/23 Tdap: Given, 06/25/23 RSV: Given, 07/21/23 H&P: Dr. Gonzalez on 08/13/2023 Meds Home Medications and Allergies Home Medications Medication Instructions Recorded Confirmed Type sertraline 100 mg tablet 100 mg PO DAILY 06/18/22 08/18/23 History cholecalciferol (vitamin D3) 25 25 mcg PO QDAY 01/25/23 08/18/23 History mcg (1,000 unit) capsule folic acid 400 mcg tablet 0.4 mg PO QDAY 01/25/23 08/18/23 History mecobalamin (vitamin B12) 2,500 2,500 mcg PO DAILY 01/25/23 08/18/23 History mcg chewable tablet pediatric multivitamin 1 tab PO BID 01/25/23 08/18/23 History (Flintstones Multivitamin chewable tablet) vit no.95-ferrous 1 tab PO DAILY 02/23/23 08/18/23 History fumarate 28 mg-folic acid 800 mcg tablet () Allergies Allergy/AdvReac Type Severity Reaction Status Date / Time ethyl alcohol Allergy Intermediate Hives Verified 08/18/23 11:37 Sulfa (Sulfonamide Allergy hives Verified 08/18/23 11:37 Antibiotics) OB - H&P: Exam Physical Exam: Vital signs: Temp Pulse Resp BP Pulse Ox 98.3 F 70 16 124/76 99 08/18/23 11:48 08/18/23 15:03 08/18/23 11:48 08/18/23 15:03 08/18/23 11:49 Narrative: General: Alert and oriented, in no acute distress Heart: Regular rate and rhythm, no rubs/murmurs or gallops Lungs: Clear to auscultation Abdomen: Gravid. Non-tender. NST: Reactive, baseline 140bpm with moderate variability. Accelerations present. Decelerations absent. Cervix: 1/70/-1, s/p cook catheter placement instilled with 60/60cc. OB - Results Labs Labs: Short CBC 08/18/23 Range/Units 12:10 WBC 7.65 (4.50-11.00) K/uL Hgb 12.8 (12.0-16.0) gm/dL Hct 36.1 (33.0-51.0) % Plt Count 205 (140-440) K/uL BMP 08/18/23 12:10 Sodium 135 Potassium 3.4 L Chloride 110 Carbon Dioxide 19 L BUN 9 Creatinine 0.5 Glucose 72 Calcium 8.3 L Liver Function 08/18/23 Range/Units 12:10 Total Bilirubin 1.9 H (0.1-1.5) mg/dL AST 26 (12-35) U/L ALT 14 (4-35) U/L Alkaline Phosphatase 117 (40-150) U/L Albumin 3.3 (3.3-5.0) g/dL OB - Problem Based A/P Additional Plan (1) Supervision of high risk , antepartum: Status: Acute (2) Gestational hypertension: Status: Acute (3) Hypothyroidism: Problem details: Does not take medication for. Only one number slight elevated Status: Chronic (4) Decreased movement: Problem details: Ms. Clark is a 28-year-old at 35 weeks 0 days gestational age seen in triage for decreased movement. course is complicated by history of gastric sleeve, obesity, anxiety, depression and history of hypothyroidism. She initially had a reactive NST, followed by a period of prolonged accelerations versus tachycardia. Subsequent biophysical profile was 8/8. I reassured her that an 8/10 BPP is a normal result, where she was ultimately discharged to home. Return precautions were reinforced. Next visit is scheduled for 08/06 with me. Encouraged her to return to care sooner with regular/painful uterine contractions, vaginal bleeding, leaking of fluids or decreased movement. All questions answered. Status: Acute (5) S/P gastric sleeve procedure: Status: Acute (6) Anxiety: Status: Chronic (7) Depression: Status: Chronic Plan Ms. Clark is a 28yo at 38w0d GA seen in Ob triage in the setting of elevated BP from baseline with symptoms of pre-eclampsia. ANC complicated by obesity, history of gastric sleeve, hypothyroidism, anxiety/depression. Recent Ob history notable for decreased movement at term, s/p triage visit on 08/16 with 8/10 BPP. Since that time, she has progressively felt awful with headache, swelling and dyspnea. She additionally has experienced intermittent headaches and RUQ pain. On arrival to triage, she had two BPs in the 150s systolic. HELLP labs were obtained and found to be within normal limits. status is reassuring, reactive NST. I expressed concern for evolving preeclampsia in the setting of her newly elevated BPs, headaches, swelling, dyspnea and RUQ pain. That said, she currently only is endorsing a mild headache and HELLP labs were found to be within normal limits. She additionally describes recent history of decreased movement at term. Plan to admit to Labor and Delivery for induction of labor with the working diagnosis of gestational HTN at term. She previously signed induction consent form. - Admit to Labor and Delivery - BP monitoring and symptomatic support - IOL was started with Cook catheter, plan low dose pitocin protocol overnight. - Repeat HELLP labs with worsening headache, vision changes, RUQ pain or any severe range BPs - BT A negative, plan cord blood at delivery - GBS Negative
[2023-08-18] MEDS: LACTATED RINGERS 1000 ML 1,000 ML 125 ML IV (21:56)
[2023-08-19] VITALS (55 sets, daily range): BP systolic 94–149; BP diastolic 53–91; PULSE 63–107; RESP 16–18; TEMP 36.6–37.2; O2SAT 97
[2023-08-19] MEDS: OXYTOCIN 30 unit/500 ML in NS 30 UNIT/500 ML BAG IVPB (00:07)
[2023-08-19] MEDS: LACTATED RINGERS 1000 ML 1,000 ML 125 ML IV (01:58)
[2023-08-19] MEDS: hydrOXYzine pamoate 25 MG CAPSULE 100 MG PO (02:41)
--- NOTE | 2023-08-19 09:02 | P.OBPN_ITS ---
Subjective Date Seen: 08/18/23 Narrative: Interval update overnight - delayed documentation. Ms. Clark is ongoing IOL in the setting of suspected gHTN with signs of ANALYTICAL DATA SCIENTIST irritability (headache). I was notified by overnight RN of tachycardia where review of FHR was requested at 2140. Daina was pulled up at home, where historically Bina has had an entirely category 1 FHR tracing with normal baseline, moderate variability, accelerations present and decelerations absent. She has had a baseline change that was preceded by prolonged accelerations. FHR baseline is now 180bpm with moderate variability - rare variable decelerations (vs return to historic baseline). There is no maternal fever or tachycardia, no signs/symptoms of chorioamnionitis. She has not taken any medications/drugs that would lead to iatrogenic tachycardia. History of subclinical hypothyroidism, on no meds. TSH added to previous lab draw. My leading suspicion is for transient tachyarrhythmia - as this did occur on a previous triage visit with a prolonged accel vs tachycardia with subsequent 8/8 BPP. There is no sign of distress related to prolonged tachycardia such as high output heart failure and she has had several episodes of monitoring/US in this . She has a cook catheter in place, hold pitocin initiation pending resolution of tachycardia. I am highly reassured by presence of moderate variability and no other signs of maternal/ instability. Recommend fluid bolus and close interval reassessment. Approximately 30 minutes after initiation of bolus, FHR was noted to return to a normal baseline of 130bpm with moderate variability, accelerations present and absent decelerations. Another hour of expectant management continued with entirely reassuring status prior to initiation of low dose pitocin protocol. FHR tracing remained category 1 through the tomy jules of shift. Objective Vital Signs: Last Vital Signs Temp 98.3 F 08/19/23 08:15 Pulse 70 08/19/23 08:15 Resp 16 08/19/23 08:15 BP 111/63 08/19/23 08:15 Pulse Ox 99 08/18/23 11:49
--- NOTE | 2023-08-19 10:42 | PM.OBPNL ---
Subjective Date Seen: 08/19/23 Narrative: Feeling okay, contractions are getting stronger. Objective Vital Signs: Last Vital Signs Temp 98.3 F 08/19/23 08:15 Pulse 70 08/19/23 08:15 Resp 16 08/19/23 08:15 BP 111/63 08/19/23 08:15 Pulse Ox 99 08/18/23 11:49 Pelvic Exam Dilation (cm): 6 Effacement (%): 90 Station: -1 Contractions Monitor mode: External Contraction pattern: Regular Contraction intensity: Strong/Firm Pitocin Rate (mU/min): 9 Assessment Assessment: induction ongoing Station: -1 Status: Category ll Heart Rate Baseline: 140 Cannon Pinion Adjuster Variability: Moderate (6-25) Monitor Accelerations: Present Monitor Decelerations: Variable Tracing Comments: Sporadic variable decelerations noted, not significant. Labor Progress: Adequate Maternal Status: Stable, blood pressures have been normal, no SUPERVISOR BODY ASSEMBLY irritability symptoms. Plan Plan: Patient would like to get epidural prior to AROM. Will AROM after epidural is in place.
[2023-08-19] MEDS: ROPIVACAINE 0.2% 100 ml 100 ML 12 MG EPIDURAL (11:09)
--- NOTE | 2023-08-19 11:57 | P.ANBPRC_ITS ---
[facility] Medical History Anovulation ?N97.0 - Female infertility associated with anovulation (ICD-10) Surgical History H/O lithotripsy (07/28/22) ?Z98.890 - Other specified postprocedural states (ICD-10) [place] teeth extracted (2009) ?K08.409 - Partial loss of teeth, unspecified cause, unspecified class (ICD- 10) S/P gastric sleeve procedure (~06/2022) ?Z90.3 - Acquired absence of stomach [part of] (ICD-10) Family History Mother Coronary artery disease High blood pressure Chronic mental illness Father Coronary artery disease High blood pressure Social History Narrative: SOCIAL? ? Education: bachelors? ? Work: RN, [employer]? ? Partner: Ishan, , supervisor furnace process manufacturing? ? Lives with: Ishan? ? Pets: 2 dogs? ? Abuse: Denies past Unable to assess current, partner present? ? Special Diet: Denies. Weight loss surgery in April - had the sleeve. ? Ok with a blood transfusion: yes? ? Culture or church beliefs: denies? RISK FACTORS? ? Exercise Times/wk: Having some spotting when she did orange theory. ? ? Depression/Anxiety: mild depression? ? Previous Treatments: Take sertralines, 100 mg. Therapy denies CRISTÓBAL: 0 PHQ 9: 0? ? Seat Belt Use: Routinely ? Smoking: Denies past/present? Alcohol/day: Denies while ? ? Caffeine: minimal, less than 100 mg. ? ? Drug Use: Denies past/present? ? What is your current living situation?: I presently have a place to live Problems where you live: no known problems In the past 12 months, utilities in danger of being shut off: no In past 12 months, lack of transportation kept you from medical appts, meetings, work, or getting things needed for daily living: no In the past 12 mos, have been you worried that your food would run out before you had money to buy more?: never true In the past 12 mos, the food you bought just didn't last and you didn't have money to buy more?: never true Smoking Status: Never smoker Do you use any of these nicotine containing products: None How often do you have a drink containing alcohol: never AUDIT-C Alcohol total score: 0 Non-prescribed substance use: denies use How often does anyone, including family, friends and others, physically hurt you : never How often does anyone, including family, friends and others, insult or talk down to you: never How often does anyone, including family, friends and others, threaten you with harm: never How often does anyone, including family, friends and others, scream or curse at you: never Little interest or pleasure in doing things: not at all Feeling down, depressed, or hopeless: not at all service: No Meds Home Medications and Allergies Home Medications Medication Instructions Recorded Confirmed Type sertraline 100 mg tablet 100 mg PO DAILY 06/18/22 08/18/23 History cholecalciferol (vitamin D3) 25 25 mcg PO QDAY 01/25/23 08/18/23 History mcg (1,000 unit) capsule folic acid 400 mcg tablet 0.4 mg PO QDAY 01/25/23 08/18/23 History mecobalamin (vitamin B12) 2,500 2,500 mcg PO DAILY 01/25/23 08/18/23 History mcg chewable tablet pediatric multivitamin 1 tab PO BID 01/25/23 08/18/23 History (Flintstones Multivitamin chewable tablet) vit no.95-ferrous 1 tab PO DAILY 02/23/23 08/18/23 History fumarate 28 mg-folic acid 800 mcg tablet () Allergies Allergy/AdvReac Type Severity Reaction Status Date / Time ethyl alcohol Allergy Intermediate Hives Verified 08/18/23 11:37 Sulfa (Sulfonamide Allergy hives Verified 08/18/23 11:37 Antibiotics) Results Labs Labs: Laboratory Results - last 24 hr 08/18/23 08/18/23 08/18/23 12:08 12:10 12:12 WBC 7.65 RBC 3.71 L Hgb 12.8 Hct 36.1 MCV 97 MCH 35 H MCHC 36 Plt Count 205 Sodium 135 Potassium 3.4 L Chloride 110 Carbon Dioxide 19 L Anion Gap 6 L BUN 9 Creatinine 0.5 Estimated Creat Clear 156.82 Estimated GFR 131 Glucose 72 Calcium 8.3 L Total Bilirubin 1.9 H AST 26 ALT 14 Alkaline Phosphatase 117 Total Protein 6.1 Albumin 3.3 TSH Urine Creatinine 117.3 Protein/Creatinin Ratio 0.00 Urine Total Protein 10 Lab Acknowledgement Blood Type A Negative Antibody Screen POSITIVE 08/18/23 08/18/23 21:30 21:59 WBC RBC Hgb Hct MCV MCH MCHC Plt Count Sodium Potassium Chloride Carbon Dioxide Anion Gap BUN Creatinine Estimated Creat Clear Estimated GFR Glucose Calcium Total Bilirubin AST ALT Alkaline Phosphatase Total Protein Albumin TSH 1.800 Urine Creatinine Protein/Creatinin Ratio Urine Total Protein Lab Acknowledgement Test Added Blood Type Antibody Screen Vital Signs Vital Signs: Last Vital Signs Temp 98.3 F 08/19/23 08:15 Pulse 79 08/19/23 11:56 Resp 16 08/19/23 08:15 BP 127/70 08/19/23 11:56 Pulse Ox 99 08/18/23 11:49 Weight: 98.566 kg Height: 167.64 cm Anesthesia Procedures Epidural Insertion Patient Location: OB Start Time: 11:00 Stop Time: 12:00 Start Date: 08/19/23 Stop Date: 08/19/23 Reason for Block: procedure for pain Patient Position: sitting Performed By: Eric Cortez Preanesthetic Checklist: IV checked, risks and benefits discussed, surgical consent, monitors and equipment checked, pre-op evaluation, timeout performed and anesthesia consent Prep: chlorhexidine gluconate Monitoring: blood pressure monitoring, continuous pulse oximetry and heart rate Approach: midline Vertebral Space: lumbar (1-5) Epidural Technique: RUFUS saline Needle Type: Tuohy needle Injection Technique: continuous catheter Needle gauge: 17 Needle Length (cm): 10 cm Needle Insertion Depth (cm): 9 Catheter Gauge: 19 Catheter Type: multi-orifice Catheter at skin depth (cm): 14 Test Dose Result: negative and lidocaine 1.5% with epinephrine 1 to 200,000
--- NOTE | 2023-08-19 15:54 | W.PM.VAGDE_ITS ---
OB Procedure Vag Delivery Mother Details Mother Details: The patient is a 28 year-old, 1, Para 0, admitted on 08/18/23 at 38 0/7 weeks gestation. Admitted yesterday for IOL due to recent diagnosis of gestational hypertension. IOL started with placement of cook catheter, IV oxytocin. Patient progressed adequately, received epidural and SROM. Blood pressures overnight remained all normal. Today she has had some mild range elevated blood pressures, none on severity range and no VB DEVELOPER irritability symptom s. : 1 Para: 1 Weeks Gestation: 38.1 Admission Date: 08/18/23 Additional Details Amniotic Membrane Status: SROM Amniotic Membrane Rupture Date: 08/19/23 Amniotic Membrane Rupture Time: 12:15 Amniotic Membrane Fluid Description: Clear Analgesia/Anesthesia Type: Epidural Waterbirth: No Pitcoin: Yes Intrapartal Events: Labor Induction Induction Method: per pitocin protocol Delivery augmentation: pitocin Labor Onset: 10:30 Complete: 13:30 Pushin:30 Heart: heart tones during second stage were category 2. After SROM, deep variable decelerations noted, Oxytocin was decreased and position changes attempted. Patient then progressed quickly to 9cm. I evaluated patient at the bedside and found her to be a rim and good accelerations with scalp stimulation as well as moderate variability. After this we started pushing about 15 minutes after her last exam. While pushing heart rate was found to be tachycardic. Oxytocin was discontinued, IV fluid bolus given. She was making adequate descent and had good pushing efforts. Delivery Details Delivery Date: 08/19/23 Delivery Time: 14:29 Route of delivery: Gender: Female Infant Viability: Alive; Heart Rate Present Position at Delivery: OA Delivery Details: Delivered over intact perineum via spontaneous vaginal delivery. Infant was placed on maternal abdomen.? Cord was clamped and cut after a 30-60 second delay. Nose and mouth were bulb suctioned.? Infant weight pending. 1 Minute Interval Total Score: 7 5 Minute Interval Total Score: 8 Additional Details Shoulder Dystocia: No Placenta Delivery Time: 14:31 Placental Delivery Description: Spontaneous Delivery repair: Vicryl Procedure Done: Global Blood Loss: 505 Laceration: Vaginal - 1st Degree (.) Episiotomy Description: None Blood Loss Measurement Type: QBL Bakri Used: No Sponge/Need Count Correct: Yes Cord Vessel Description: 3 Vessels, Nuchal Cord and Delivered through Event Summary Status: A vaginal laceration identified to be bleeding and repaired with Vicryl 3-0. Uterus palpated well contracted but a trickle of bright red blood was still seen after repair of laceration. Uterine massage revealed good tone. Bimanual exam performed and evacuated blood clots at the lower uterine segment and this confirmed adequate tone. I decided to also place Cytotec 800mcg rectally. Afterwards, bleeding still persisted to be bright red and more than usual. I then proceeded to evaluate cervix. Confirmed adequate pain management with epidural. I first tried out a Breisky retractor but was unable to completely evaluate the posterior cervical lip. I decided to try a speculum. Utilizing a speculum, cervix was evaluated with a ring forceps circumferentially. At 7-8 o clock there was a 1cm laceration noted to be bleeding. I was able to grasp the edges and utilizing Vicryl 3-0 a figure of 8 was done and edges approximated. Hemostasis secured. Mother and were stable after delivery. Disposition: floor
[2023-08-19] MEDS: ACETAMINOPHEN 500 MG TABLET 1000 MG PO (20:31)
[2023-08-19] MEDS: LANOLIN CREAM 1 APPLIC TOPICAL (21:27)
[2023-08-20 02:20] VITALS: BP 106/72; PULSE 66; RESP 16; TEMP 36.6; O2SAT 98
[2023-08-20] MEDS: ACETAMINOPHEN 500 MG TABLET 1000 MG PO ×2 (05:09→11:52)
[2023-08-20 05:24] VITALS: BP 118/80; PULSE 67; RESP 16; TEMP 36.6; O2SAT 99
--- NOTE | 2023-08-20 07:32 | P.OBPN_ITS ---
OB - PN:Subj Subjective Date Seen: 08/20/23 Patient comments OB post-: no complaints, pain well controlled, tolerating diet and flatus present [place] status: and doing well [place] feeding status: exclusively Narrative: The patient feels well.? The pain is well controlled with current medications.? She has no new complaints.? Urinary output is adequate and she is voiding w ithout difficulty.? Has a good appetite, is tolerating a general diet, is passing flatus, and has had a bowel movement.? Has small amount of rubra lochia.? She is ambulating well.?Blood pressures have been WNL. OB - PN: Obj Exam Physical Exam: Vital signs: Temp Pulse Resp BP Pulse Ox O2 Del Method 97.9 F 67 16 118/80 99 Room Air 08/20/23 05:24 08/20/23 05:24 08/20/23 05:24 08/20/23 05:24 08/20/23 05:24 08/20/23 05:24 Narrative: GENERAL APPEARANCE:? normal affect, alert, no distress? MOOD:? appropriate? CHEST:? clear to auscultation and percussion? HEART:? regular rate and rhythm? ABDOMEN:? soft, non-tender the uterine fundus is U/2 and is appropriate for the stage of recovery.? PERINEUM:? mild edema of the perineum, there is a 1st degree and cervical laceration that is healing well.? EXTREMITIES:? normal and no edema OB - PN: A/P Delivery Assessment and Plan (1) Gestational hypertension: Status: Acute (2) Hypothyroidism: Problem details: Does not take medication for. Only one number slight elevated Status: Chronic (3) S/P gastric sleeve procedure: Status: Acute (4) Anxiety: Status: Chronic (5) Depression: Status: Chronic (6) Lactating mother: Status: Acute (7) care following vaginal delivery: Status: Acute Plan Anticipate discharge home tomorrow. Plan day: 1 Plan: routine care
[2023-08-20 07:56] VITALS: BP 112/78; PULSE 59; RESP 16; TEMP 36.6; O2SAT 98
[2023-08-20 11:53] VITALS: BP 118/73; PULSE 74; RESP 16; TEMP 36.6; O2SAT 98
--- NOTE | 2023-08-20 13:24 | PM.ANPOST ---
Post Anesthesia Note Post Anesthesia Note Patient seen: Inpatient Respiratory Status: adequate Cardiovascular Status: adequate Mental Status: baseline Pain: adequate Temp: baseline Anesthetic awareness: N/A Complications: none Follow care: none
[2023-08-20 20:57] VITALS: BP 122/84; PULSE 62; RESP 18; TEMP 36.7; O2SAT 98
[2023-08-21 00:22] VITALS: BP 110/75; PULSE 75; RESP 18; TEMP 36.7; O2SAT 97
[2023-08-21 03:46] VITALS: BP 114/79; PULSE 60; RESP 18; O2SAT 99
[2023-08-21 08:53] VITALS: BP 114/77; PULSE 60; RESP 16; TEMP 36.6; O2SAT 99
[2023-08-21] MEDS: ACETAMINOPHEN 500 MG TABLET 1000 MG PO (09:00)
--- NOTE | 2023-08-21 11:28 | P.DS_ITS ---
DS: Providers Provider Date Seen: 08/21/23 Date of admission: 08/18/23 14:40 Primary care physician: Sanjana Ramos MD Admitting Clinician: Sanjana Ramos MD Attending Physician on discharge: Tena Pacheco MD Date of Discharge: 08/21/23 DS: Diagnosis Discharge Diagnosis (1) Status post normal vaginal delivery: Status: Acute Exam Const: Vital Signs, click to edit/add: Vital Signs - 24 hr 08/20/23 11:53 08/20/23 20:57 08/21/23 00:22 Temperature 97.8 F 98.0 F 98.0 F Pulse Rate [Pulse Oximeter] 74 62 75 Respiratory Rate 16 18 18 Blood Pressure [Le ft Arm] 118/73 122/84 110/75 Pulse Oximetry 98 98 97 Oxygen Delivery Me thod Room Air Room Air Room Air 08/21/23 03:46 08/21/23 08:53 Temperature 97.9 F Pulse Rate [Pulse Oximeter] 60 60 Respiratory Rate 18 16 Blood Pressure [Le ft Arm] 114/79 114/77 Pulse Oximetry 99 99 Oxygen Delivery Me thod Room Air Room Air Documenting provider has reviewed patient's vital signs: yes Common normals: no apparent distress and oriented x3 General appearance: cooperative and comfortable HENMT: Common normals: normocephalic Head and scalp: normocephalic Resp: Common normals: normal respiratory effort Cardio: Common normals: regular rate and regular rhythm Rate: regular rate Rhythm: regular rhythm GI: Common normals: soft to palpation and non-tender Inspection: normal to inspection Palpation: soft Extremity: Common normals: normal to inspection and no pedal edema Neuro: Common normals: oriented x3 Psych: Common normals: affect normal OB - DS: Summary Hospital Course Hospital Course: The patient is a 28 year old G 1 now P 1001 that was admitted to the Center on 08/18/23 for induction labor at 38 weeks gestation for gestational hypertension without severe features. She had an uncomplicated vaginal delivery. She delivered a viable female infant. She is breast feeding. the patient has done well. Peripartum Data Infant delivery method: Vaginal Laceration description: Vaginal - 1st Degree (As well as a 1 cm cervical laceration) complications: none Couch Infant Gender: Female Discharge Plan: Home Time Spent with Patient Time attestation: Total time spent providing and/or coordinating discharge services: Discharge Plan Discharge Disposition: Home, Self-Care Date of Admission: 08/18/23 14:40 Attending Provider on Discharge: Ivone Pacheco Primary Care Provider: Sanjana Ramos Condition: Stable Anticipated Discharge Date/Time: 08/21/23 11:32 Discharge Medications: Continued folic acid 400 mcg tablet 0.4 mg PO QDAY Flintstones Multivitamin Tablet,Chewable 1 tab PO BID mecobalamin (vitamin B12) 2,500 mcg tablet,chewable 2,500 mcg PO DAILY cholecalciferol (vitamin D3) 25 mcg (1,000 unit) capsule 25 mcg PO QDAY sertraline 100 mg tablet 100 mg PO DAILY Patient Comments: TAKE 1.5 TABLETS BY MOUTH ONCE DAILY. PNV cmb#95-ferrous fumarate-FA [] 28 mg iron- 800 mcg tablet 1 tab PO DAILY Discharge Orders: Discharge Order (Routine); Ordered 08/21/23 Ordered By: Ivone Pacheco Additional Instructions: Discharge instructions were reviewed with the patient including signs and symptoms of infection and home going medications Nothing vaginally for 6 weeks: no tampons or intercourse Do not drive while taking narcotic pain medication(s) Off Work or School for 8 weeks Symptoms to report to doctor: * Bleeding that saturates more than one pad per hour * Passing clots larger than the size of a golf ball * Pain not relieved by prescribed medication * Fever above 100.4 degrees Fahrenheit * A foul vaginal odor * Difficulty in emotions, mood, and functions * Thoughts of hurting yourself and/or * Painful, reddened area in your breast * Any drainage, redness, or tenderness in your IV/epidural site * Severe headache that doesn't improve after taking medications * Changes in vision, including temporary loss of vision, blurred vision, and/or light sensitivity * Upper abdominal pain (usually under ribs on the right side) * Decrease in urination or painful, frequent urinating * Chest pain * Shortness of breath * Tenderness or pain with redness and/swelling in the calf(s) of your leg [facility] for a BP check?in 2 weeks (see 2-week visit) Call with BP greater than or equal to 160/110 2-week visit: discuss infant feeding concerns, review control options and screen for anxiety/depression. 6-week visit for an annual exam. consultation services are available to all mothers and babies for the first year after delivery.? To make an appointment, please call [phone]. Follow Up Appointments: Sanjana Ramos MD [Primary Care Provider] - Forms: Yappe Info Instructions
== END 2023-08-21 12:20 | disposition home or self-care (01) | DRG 542 ==
LOC: OB OUT 14:40 → OB 14:40
PROVIDERS: Obstetrics & Gynecology; Admitting Provider Obstetrics & Gynecology; PCP Obstetrics & Gynecology; Visit Provider Obstetrics & Gynecology
DX: O13.4 Gestational [pregnancy-induced] hypertension without significant proteinuria, complicating childbirth (principal); O36.8130 Decreased fetal movements, third trimester, not applicable or unspecified; O70.0 First degree perineal laceration during delivery; O71.3 Obstetric laceration of cervix; O76 Abnormality in fetal heart rate and rhythm complicating labor and delivery; O99.344 Other mental disorders complicating childbirth; F41.9 Anxiety disorder, unspecified; F32.A Depression, unspecified; O99.284 Endocrine, nutritional and metabolic diseases complicating childbirth; E03.9 Hypothyroidism, unspecified; O99.844 Bariatric surgery status complicating childbirth; Z3A.38 38 weeks gestation of pregnancy; Z37.0 Single live birth
CPT/HCPCS: 01967; 36415; 59025; 59200; 76819; 80053; 82570; 84156; 84443; 85018; 85027; 85461; 86850; 86870; 86880; 86900; 86901; 88305; 99213; A9270; C1726; J2371; J2791; J2795; J7120; S0020

== ENCOUNTER 2023-09-03 09:32 | Outpatient (CLI) | payer BC, SELFPAY ==
--- NOTE | 2023-09-03 17:00 | P.LACCB_ITS ---
Consult Note - Mom Date of Visit Date of visit: 09/03/23 independent crop consultant: Pau Lloyd Visit Code: Visit Patient's Information Phone number: [phone] : 1 Para: 1 Allergies ethyl alcohol Allergy (Intermediate, Verified 09/02/23 10:47) Hives Sulfa (Sulfonamide Antibiotics) Allergy (Verified 09/02/23 10:47) hives Mother's Medical History: Medical History (Updated 08/24/23 @ 00:01 by Background Daemon) Anovulation ?N97.0 - Female infertility associated with anovulation (ICD-10) PCOS depression/anxiety GHTN Delivery Information Delivery type: Vaginal Weeks Gestation: 38.1 Gestational Age: AGA Weight: 3.06 kg Discharge Weight: 2.892 kg Baby's Information Baby's Age at Visit: 2 weeks Baby's Provider or Clinic: Dr. Markham Jaundice: No Reason for Consult Reason for Consult: concern with supply, transfer Past Experience Past Experience: No Current Frequency of Day Feedings: every 2 hours Frequency of Night Feedings: every 3 hours Both Breasts: Yes Suck: fairly strong Latch: wide Length of Time: 15 - 20 minutes total Pumping Pumping: Yes (on occasion) Quantity Pumped: .5 - 2.5 oz Supplementing EMB Supplement: Yes (POC started supplementing with 1 oz EBM/formula after a few fdings on 09/02) Formula Supplement: Yes Baby Elimination Number of Wet Diapers a Day: with almost every feeding Number of BM a Day: with almost every feeding Breast/Nipple Condition Breast Information: WNL Maternal Nipple Condition - Left: Common Nipple Maternal Nipple Condition - Right: Common Nipple Onsite Pre-Feed weight: 2.924 kg Post-Feed weight: 2.98 kg Milk Transferred (mL): 56 Assessments/Interventions Assessments/Interventions: Met with mom and this now 2 week old ex- term AGA baby for consult. Saw mom at [facility] on 09/01 and she was concerned with baby's slow weight gain and her supply. She states that she tries to nurse baby every 2 hours during the day and every 3 hours overnight. She offers both sides and feedings last about 20 minutes total. She was only pumping on occasion until yesterday when she pumped three times. States her supply has gone from .5 oz - 2 oz total. POC supplemented baby with 1 oz formula three times yesterday and stated she seemed more content. Mom has a new Spectra pump and just received the smaller flanges she had ordered. Mom with hx of PCOS. Breasts are more widely spaced than normal with the intramammary distance being about 2 inches. They're symmetrical, but the lower quadrants are more flat than rounded. Mom reports a sense of her milk coming in but no engorgement. Nipples are everted and don't flatten or retract on compression, no damage noted. Baby has gained only 84 grams since her last visit on 08/23 and is 4% below BW at 2 weeks of life. POC deny any caput/cephalohematoma at delivery. State baby has equal ROM when turning her head and moving her extremities. Baby's palate is a little high. Her upper lip is easy to flange but the gums do derek. Her tongue just barely extends past the gum line when sucking on a finger, but there's good lateral movement. The lower frenulum looks to be WNL. Mom latched baby to the left side and baby had a fairly wide latch. She had a little difficulty maintaining it so mom was verbally coached to exaggerate pointing nipple to nose. This seemed to help baby better maintain the latch. She wasn't aggressive at the breast and needed quite a bit of stimulation to stay actively suckling. Mom switched sides after about 15 minutes and baby nursed on the right for about 10 minutes. She transferred 56 ml. Dad was shown an exercise to hopefully help baby extend her tongue a little further over the gum line and strengthen her suck. Plan: 1. Mom to nurse ALD or at least every three hours. Continue to offer both srinath es, try to get the best latch by exaggerating nipple to nose, and work to keep her actively suckling. OK to keep the feedings to 20 - 30 minutes. 2. Pump 6 times in 24 hours for 15 - 20 minutes, adding in some hand expression during that time. 3. Dad will supplement with 1 - 2 oz EBM/formula after every nursing session. POC are practicing paced feeding and were given a handout on safe formula jacquie mcpherson. 4. Encouraged dad to try the tongue exercise 3 - 5 times/day. 5. Baby has 2 week WCC today and we will f/u in [facility] on 09/08/23. Meds Home Medications and Allergies Home Medications Medication Instructions Recorded Confirmed Type sertraline 100 mg tablet 100 mg PO DAILY 06/18/22 09/02/23 History cholecalciferol (vitamin D3) 25 25 mcg PO QDAY 01/25/23 09/02/23 History mcg (1,000 unit) capsule folic acid 400 mcg tablet 0.4 mg PO QDAY 01/25/23 09/02/23 History mecobalamin (vitamin B12) 2,500 2,500 mcg PO DAILY 01/25/23 09/02/23 History mcg chewable tablet pediatric multivitamin 1 tab PO BID 01/25/23 09/02/23 History (Flintstones Multivitamin chewable tablet) vit no.95-ferrous 1 tab PO DAILY 02/23/23 09/02/23 History fumarate 28 mg-folic acid 800 mcg tablet () Allergies Allergy/AdvReac Type Severity Reaction Status Date / Time ethyl alcohol Allergy Intermediate Hives Verified 09/02/23 10:47 Sulfa (Sulfonamide Allergy hives Verified 09/02/23 10:47 Antibiotics)
== END 2023-09-03 09:33 | disposition home or self-care (01) ==
LOC: OB LAC 09:32
PROVIDERS: PCP Family Medicine; Visit Provider Obstetrics & Gynecology
DX: P92.5 Neonatal difficulty in feeding at breast (principal)
CPT/HCPCS: G0463

== ENCOUNTER 2024-05-07 22:43 | Emergency (ER) | payer OTHER, SELFPAY ==
[2024-05-07 22:48] VITALS: BP 117/104; PULSE 117; RESP 18; TEMP 34.8; O2SAT 97; BMI 34.7
[2024-05-07 22:55] VITALS: O2SAT 97
[2024-05-07 22:56] VITALS: PULSE 104; O2SAT 97
--- NOTE | 2024-05-07 22:59 | ED.GENADULT ---
HPI - General Adult General Chief complaint: Shortness of Breath/Dyspnea Stated complaint: difficulty breathing, chest pain Time Seen by Provider: 05/07/24 22:50 History of Present Illness HPI narrative: 29-year-old female with polycystic ovarian disease status post , anxiety depression, migraine headaches, hypothyroidism presents with not feeling well, started with nausea and vomiting diarrhea. Patient now feels generalized achiness and discomfort in her abdomen. She has a sense of impending doom. She does have a history of anxiety. She has no cyanosis, does describe intermittent shortness of breath, no real chest pain, no bleeding or clotting problems. She reports she is not stressed by any activities or issues at home Related Data Home Medications ?Medication ?Instructions ?Recorded ?Confirmed sertraline 100 mg tablet 100 mg PO DAILY 06/18/22 05/07/24 cholecalciferol (vitamin D3) 25 25 mcg PO QDAY 01/25/23 05/07/24 mcg (1,000 unit) capsule folic acid 400 mcg tablet 0.4 mg PO QDAY 01/25/23 05/07/24 mecobalamin (vitamin B12) 2,500 2,500 mcg PO DAILY 01/25/23 05/07/24 mcg chewable tablet vit no.95-ferrous 1 tab PO DAILY 02/23/23 05/07/24 fumarate 28 mg-folic acid 800 mcg tablet () metformin 500 mg tablet 500 mg PO BID 03/22/24 05/07/24 Allergies Allergy/AdvReac Type Severity Reaction Status Date / Time ethyl alcohol Allergy Intermediate Hives Verified 05/07/24 22:51 Sulfa (Sulfonamide Allergy hives Verified 05/07/24 22:51 Antibiotics) Review of Systems Status of ROS: Reports: 6 or more systems reviewed and unremarkable except as noted in History and below [facility] Medical History Herpes zoster ?B02.9 - Zoster without complications (ICD-10) Anovulation ?N97.0 - Female infertility associated with anovulation (ICD-10) Surgical History H/O lithotripsy (07/28/22) ?Z98.890 - Other specified postprocedural states (ICD-10) [place] teeth extracted (2009) ?K08.409 - Partial loss of teeth, unspecified cause, unspecified class (ICD-10) S/P gastric sleeve procedure (~06/2022) ?Z90.3 - Acquired absence of stomach [part of] (ICD-10) Family History Mother Coronary artery disease High blood pressure Chronic mental illness Father Coronary artery disease High blood pressure Social History Narrative: SOCIAL? ? Education: bachelors? ? Work: RN, [employer]? ? Partner: Ishan, , licensed embalmer supervisor manufacturing? ? Lives with: Ishan? ? Pets: 2 dogs? ? Abuse: Denies past Unable to assess current, partner present? ? Special Diet: Denies. Weight loss surgery in April - had the sleeve. ? Ok with a blood transfusion: yes? ? Culture or moravian beliefs: denies? RISK FACTORS? ? Exercise Times/wk: Having some spotting when she did orange theory. ? ? Depression/Anxiety: mild depression? ? Previous Treatments: Take sertralines, 100 mg. Therapy denies CRISTÓBLA: 0 PHQ 9: 0? ? Seat Belt Use: Routinely ? Smoking: Denies past/present? Alcohol/day: Denies while ? ? Caffeine: minimal, less than 100 mg. ? ? Drug Use: Denies past/present? ? What is your current living situation?: I presently have a place to live Problems where you live: no known problems In the past 12 months, utilities in danger of being shut off: no In past 12 months, lack of transportation kept you from medical appts, meetings, work, or getting things needed for daily living: no In the past 12 mos, have been you worried that your food would run out before you had money to buy more?: never true In the past 12 mos, the food you bought just didn't last and you didn't have money to buy more?: never true Smoking Status: Never smoker Do you use any of these nicotine containing products: None How often do you have a drink containing alcohol: never AUDIT-C Alcohol total score: 0 Non-prescribed substance use: denies use How often does anyone, including family, friends and others, physically hurt you: never How often does anyone, including family, friends and others, insult or talk down to you: never How often does anyone, including family, friends and others, threaten you with harm: never How often does anyone, including family, friends and others, scream or curse at you: never Little interest or pleasure in doing things: not at all Feeling down, depressed, or hopeless: not at all service: No Exam Narrative: Exam Narrative: Objective: Vital signs look largely unremarkable other than slightly elevated pulse Alert orient x3 Patient seems anxious with some breathy breathing and keeps her eyes closed for the most part. She is able to open her eyes. HEENT is unremarkable and dry mucous membranes in the mouth neck is supple chest clear heart rhythm regular heart murmur Abdomen benign soft nontender Extremities are no edema neurologic nonfocal Const: Vital Signs, click to edit/add: Vital Signs - 24 hr 05/07/24 22:48 05/07/24 22:55 05/07/24 22:56 Temperature 94.6 F L Pulse Rate 104 H Pulse Rate [Pulse Oximeter] 117 H Respiratory Rate 18 Blood Pressure Blood Pressure [Le ft Upper Arm] 117/104 H Pulse Oximetry 97 97 97 Oxygen Delivery Me thod Room Air Room Air 05/07/24 23:19 05/07/24 23:30 05/07/24 23:31 Temperature Pulse Rate 85 115 H 112 H Pulse Rate [Pulse Oximeter] Respiratory Rate 16 Blood Pressure 128/89 Blood Pressure [Le ft Upper Arm] Pulse Oximetry 97 98 99 Oxygen Delivery Me thod Room Air Course Vital Signs Vital signs: Initial Vital Signs Temperature 94.6 F L 05/07/24 22:48 Temperature Source Temporal Artery Scan 05/07/24 22:48 Pulse Rate 117 H 05/07/24 22:48 Respiratory Rate 18 05/07/24 22:48 Blood Pressure 117/104 H 05/07/24 22:48 Blood Pressure Mean 108 H 05/07/24 22:48 Blood Pressure Position Supine 05/07/24 22:48 Pulse Oximetry 97 05/07/24 22:48 Oxygen Delivery Method Room Air 05/07/24 22:48 Vital Signs Temperature 94.6 F L 05/07/24 22:48 Pulse Rate 117 H 05/07/24 22:48 Respiratory Rate 18 05/07/24 22:48 Blood Pressure 117/104 H 05/07/24 22:48 Pulse Oximetry 97 05/07/24 22:48 Oxygen Delivery Method Room Air 05/07/24 22:48 Temperature 94.6 F L 05/07/24 22:48 Pulse Rate 112 H 05/07/24 23:31 Respiratory Rate 16 05/07/24 23:31 Blood Pressure 128/89 05/07/24 23:31 Pulse Oximetry 99 05/07/24 23:31 Oxygen Delivery Method Room Air 05/07/24 23:31 Medications Administered Medications: Discontinued Medications Generic Name Dose Route Start Last Admin Trade Name Kin PRN Reason Stop Dose Admin Sodium Chloride 1,000 mls @ 6,000 mls/hr 05/07/24 23:00 05/07/24 23:15 0.9 % Sodium Chloride 1000 Ml IV 05/07/24 23:09 6,000 mls/hr .Q10M MARILYNN Administration Lorazepam 1 mg 05/07/24 22:55 05/07/24 23:14 Lorazepam 2 Mg/Ml Inj IVP 05/07/24 22:56 1 mg ONCE ONE Administration Ondansetron HCl 4 mg 05/07/24 22:55 05/07/24 23:14 Ondansetron 2 Mg/Ml Inj IVP 05/07/24 22:56 4 mg ONCE ONE Administration Medical Decision Making MDM Narrative Medical decision making narrative: 29-year-old white female mother with history of anxiety depression with a sense of impending doom and feeling poorly. Possible anxiety related. Rule out viral syndrome, rule out metabolic disturbance, will check a test, lab studies, give IV fluids IV Zofran and Ativan. Disposition pending findings above. Patient does not believe she is this time. Patient requested the nurses that we cancel a COVID test due to cost. Addendum 11:30 p.m.: The patient feels markedly better with IV fluids and some anti nausea medicine. Her test is positive. She has no further feeling of dread she isn't nauseated, she has no chest back breathing issue at this time. Patient was informed of her positive test. She will follow-up with the OB as needed. She feels better at this time, no anxiety, no chest pain breathing problem no abdominal pain. Given her status I would not do a troponin or D-dimer other workup for other causes as I think this is more anxiety related and it has completely resolved with medication, her nausea is also gone with anti nausea medicine. Lab Data Labs: Lab Results 05/07/24 Range/Units 22:55 WBC 11.84 H (4.50-11.00) K/uL RBC 5.72 H (4.00-5.20) m/uL Hgb 17.7 H (12.0-16.0) gm/dL Hct 50.9 (33.0-51.0) % MCV 89 (80-100) fL MCH 31 (26-34) pg MCHC 35 (32-36) gm/dL RDW Coeff of Rajni 12.6 (11.5-15.5) % Plt Count 241 (140-440) K/uL Neut % (Auto) 89.9 H (42.0-72.0) % Lymph % (Auto) 3.5 L (20-44) % Dewey % (Auto) 5.3 (0.0-11.0) % Eos % (Auto) 0.8 (0.0-7.0) % Baso % (Auto) 0.2 (0.0-3.0) % Neut # (Auto) 10.60 H (1.7-7.0) K/uL Lymph # (Auto) 0.40 L (0.90-2.90) K/uL Dewey # (Auto) 0.60 (0.00-0.90) K/UL Eos # (Auto) 0.10 (0.00-0.50) K/uL Baso # (Auto) 0.00 (0.00-0.30) K/uL Abs Immat Gran (auto) 0.00 (0.00-0.30) K/uL Imm/Tot Granulo (auto) 0.3 % Sodium 138 (135-149) mmol/L Potassium 3.5 L (3.6-5.1) mmol/L Chloride 112 (96-114) mmol/L Carbon Dioxide 12 L (20-32) mmol/L Anion Gap 14 (7-15) mEq/L BUN 13 (5-24) mg/dL Creatinine 0.7 (0.5-1.5) mg/dL Estimated Creat Clear 111.01 Estimated GFR 120 ml/min Glucose 193 H (60-115) mg/dL Calcium 9.4 (8.4-10.6) mg/dL Total Bilirubin 2.1 H (0.1-1.5) mg/dL Direct Bilirubin 0.4 (0.0-0.5) mg/dL AST 20 (12-35) U/L ALT 15 (4-35) U/L Alkaline Phosphatase 85 (40-150) U/L C-Reactive Protein < 0.5 L (0.5-1.0) mg/dL Total Protein 8.2 (6.0-8.3) g/dL Albumin 5.1 H (3.3-5.0) g/dL HCG, Qual Positive (Negative) Discharge Plan Discharge Clinical Impression: Nausea vomiting and diarrhea, Anxiety, Patient Disposition: Home w/ Parent or Adult Condition: Improved Additional Instructions: Rest, fluids, light activity, follow up with obstetric healthcare within the next couple of weeks. Return to ED as needed. Activity Level: Light activity Discharge Diet: Full Liquid Diet Detail: Advance diet as tolerated over the next couple of days Prescriptions: No Action folic acid 400 mcg tablet 0.4 mg PO QDAY mecobalamin (vitamin B12) 2,500 mcg tablet,chewable 2,500 mcg PO DAILY cholecalciferol (vitamin D3) 25 mcg (1,000 unit) capsule 25 mcg PO QDAY metformin 500 mg tablet 500 mg PO BID sertraline 100 mg tablet 100 mg PO DAILY Patient Comments: TAKE 1.5 TABLETS BY MOUTH ONCE DAILY. PNV cmb#95-ferrous fumarate-FA [] 28 mg iron- 800 mcg tablet 1 tab PO DAILY Follow Up/Referrals: Emilee Villalobos MD [Primary Care Provider] - Stand Alone Forms: [facility] Info Instructions
[2024-05-07] MEDS: ONDANSETRON 2 MG/ML inj 4 MG IVP (23:14)
[2024-05-07] MEDS: LORazepam 2 MG/ML inj 1 MG IVP (23:14)
[2024-05-07] MEDS: 0.9 % SODIUM CHLORIDE 1000 ml 1,000 ML 6000 ML IV (23:15)
[2024-05-07 23:19] VITALS: PULSE 85; O2SAT 97
[2024-05-07 23:19] LABS: Albumin* 5.1 g/dL (3.3-5.0)
[2024-05-07 23:20] LABS: Chloride* 112 mmol/L (96-114); Potassium* 3.5 mmol/L (3.6-5.1); Sodium* 138 mmol/L (135-149)
[2024-05-07 23:22] LABS: Alkaline Phosphatase* 85 U/L (40-150); Aspartate Amino Transferase* 20 U/L (12-35); Bilirubin Direct* 0.4 mg/dL (0.0-0.5); Bilirubin Total* 2.1 mg/dL (0.1-1.5); Total Protein* 8.2 g/dL (6.0-8.3)
[2024-05-07 23:23] LABS: Alanine Aminotransferase* 15 U/L (4-35); Creatinine* 0.7 mg/dL (0.5-1.5); Est. Creatinine Clearance* 111.01; Estimated Glomerular Filt Rate 120 ml/min
[2024-05-07 23:24] LABS: Anion Gap 14 mEq/L (7-15); Blood Urea Nitrogen* 13 mg/dL (5-24); Calcium* 9.4 mg/dL (8.4-10.6); Carbon Dioxide* 12 mmol/L (20-32); Glucose* 193 mg/dL (60-115); HCG Qualitative Serum* Positive (Negative)
[2024-05-07 23:28] LABS: Basophils Percent Auto 0.2 % (0.0-3.0); Eosinophils Percent Auto 0.8 % (0.0-7.0); Hematocrit 50.9 % (33.0-51.0); Hemoglobin* 17.7 gm/dL (12.0-16.0); Immature Granulocytes Pct Auto 0.3 %; Lymphocytes Percent Auto 3.5 % (20-44); Mean Corpuscular HGB Conc 35 gm/dL (32-36); Mean Corpuscular Hemoglobin 31 pg (26-34); Mean Corpuscular Volume 89 fL (80-100); Monocytes Percent Auto 5.3 % (0.0-11.0); Neutrophils Percent Auto 89.9 % (42.0-72.0); Platelet Count* 241 K/uL (140-440); RDW Coefficient of Variation % 12.6 % (11.5-15.5); Red Blood Count 5.72 m/uL (4.00-5.20); White Blood Count* 11.84 K/uL (4.50-11.00)
[2024-05-07 23:30] VITALS: PULSE 115; O2SAT 98
[2024-05-07 23:30] LABS: C Reactive Protein* < 0.5 mg/dL (0.5-1.0); Slide Review Reflex No
[2024-05-07 23:31] VITALS: BP 128/89; PULSE 112; RESP 16; O2SAT 99
--- OUTSIDE RECORDS SUMMARY | 2024-05-07 23:37 | XMS_ITS | Encounter Summary ---
Author Organization [facility] Address [address] [place] [address]. [place] [address] Care Team Providers Care Rn Ent Name Role Phone Nancy August Unavailable [facility], [facility] Primary [facility] Pr ovider Florencia Alcantar MD Unavailable [phone] Clinic, [facility] Primary Care Provider + Reason for Visit * Reason Comments Fall Head Injury Wrist Pain Encounter Details Date Type Department Care Team (Late st Contact Info) Description 04/17/2024 9:58 PM CDT - 04/18/2024 12:35 AM CDT Emergency [facility] Emergency Dept [address] [place] [id number] [phone] Maile Ruiz, DO [facility] [address] [place] [address] Fall, initial encounter (Primary Dx); Closed nondisplaced fracture of neck of right radius, initial encounter; Elbow effusion, right; Closed head injury, initial encounter; Contusion of scalp, initial encounter Discharge Disposition: Home or Self Care Social History Tobacco Use Types Packs/Day Years Used Date Smoking Tobacco: Never Alcohol Use Standard Drinks/Week Comments Yes 0 (1 standard drink = 0.6 oz pur e alcohol) Adolescent Education Answer Date Record ed Getting School Help Needed Not on file 06/27 Sex and Gender Information Value Date Recorded Sex Assigned at Not on file Gender Identity Not on file Sexual Orientation Not on file documented as of this encounter Last Filed Vital Signs Vital Sign Reading Time Taken Comments Blood Pressure 131/98 04/17/2024 9:57 PM CDT Pulse 80 04/17/2024 9:57 PM CDT Temperature 36.4 ??C (97.6 ??F) 04/17/2024 9:57 PM CD T Respiratory Rate 16 04/17/2024 9:57 PM CDT Oxygen Saturation 100% 04/17/2024 9:57 PM CDT Inhaled Oxygen Concentration - - Weight - - Height - - Body Mass Index - - documented in this encounter Discharge Instructions * Discharge Instructions* Maile Ruiz, DO - 04/17/2024 11:15 PM CDT You can take ibuprofen/your home norco as needed for pain. Monitor for increasing headache, vomiting, numbness in extremity. Limit screen time. Elevate arm at night. Discharge Instructions Concussion You were seen today for signs of a concussion. The symptoms will vary, depending on the nature of your injury and your health. You may have: headache, confusion, nausea (feel sick to your stomach), vomiting (throwing up) and problems with memory, concentrating, or sleep. You may feel dizzy, irritable, and tired. Children and teens may need help from their parents, teachers, and coaches to watch for symptoms as they recover. Generally, every Emergency Department visit should have a follow-up clinic visit with either a primary or a specialty clinic/provider. Please follow-up as instructed by your emergency provider today. Return to the Emergency Department if: Your headache gets worse or you start to have a really bad headache even with the recommended treatment plan. You feel drowsier, have growing confusion, or slurred speech. You keep repeating yourself. You have strange behavior or are feeling more irritable. You have a seizure. You vomit (throw up) more than once. You have trouble walking. You have weakness or numbness. Your neck pain gets worse. You have a loss of consciousness. You have blood for fluid coming from your ears or nose. You have new symptoms or anything that worries you. Home Care: Get lots of rest and get enough sleep at night. Take daytime naps or rest if you feel tired. Limit physical activity and ???thinking?? activities. These can make symptoms worse. Physical activities include gym, sports, weight training, running, exercise, and heavy lifting. Thinking activities include homework, class work, job-related work, and screen time (phone, computer, tablet, TV, and video games). Stick to a healthy diet and drink lots of fluids. Avoid alcohol. As symptoms improve, you may slowly return to your daily activities. If symptoms get worse or return, reduce your activity. Know that it is normal to feel sad or frustrated when you do not feel right and are less active. Going Back to Work: Your care team will tell you when you are ready to return to work. Limit the amount of work you do soon after your injury. This may speed healing. Take breaks if yoursymptoms get worse. You should also reduce your physical activity as well as activities that require a lot of thinking until you see your doctor. You may need shorter work days and a track service person workload. Avoid heavy lifting, working with machinery, driving and working at heights until your symptoms are gone or you are cleared by a provider. Going Back to School: If you are still having symptoms, you may need extra help at school. Tell your teachers and school nurse about your injury and symptoms. Ask them to watch for problems with learning, memory, and concentrating. Symptoms may get worse when you do schoolwork, and you maybecome more irritable. You may need shorter school days, a reduced workload, and to postpone testing. Do not drive or take gym class (physical activity) until cleared by a provider. Returning to Sports: Never return to play if you have any symptoms. A full recovery will reduce the chances of getting hurt again. Remember, it is better to miss one or two games than a whole season. You should rest from all physical activity until you see your provider. Generally, if all symptoms have completely cleared, your provider can help guide you to slowly return to sports. If symptoms return or worsen, stop the activity and see your provider. Important: If you are in an organized sport and under age 18, you will need written consent from a healthcare provider before you return to sports. Typically, this will be your primary care or sportsmedicine provider. Please make an appointment. If you were given a prescription for medicine here today, be sure to read all of the information (including the package insert) that comes with your prescription. This will include important information about the medicine, its side effects, and any warnings that you need to know about. The pharmacist who fills the prescription can provide more information and answer questions you may have about the medicine. If you have questions or concerns that the pharmacist cannot address, please call or return to the Emergency Department. Remember that you can always come back to the Emergency Department if you are not able to see your regular provider in the amount of time listed above, if you get any new symptoms, or if there is anything that worries you. * Attachments The following attachments cannot be sent through Care Everywhere. * Arm Fracture (Uzbek) documented in this encounter ED Notes * Bella Edwards - 04/17/2024 11:55 PM CDT Tech assisted [address] with a ortho glass splint. Tech applied sling and ice pack * Debbie Urena RN - 04/17/2024 9:58 PM CDT Bed: [facility] Expected date: 04/17/24 Expected time: 9:23 PM Means of arrival: Comments: JARED 4/5 or MH * Mala Cotter RN - 04/17/2024 9:55 PM CDT Slipped on wet, uneven surface of sidewalk immediately outside of hospital exit. Hit head and rightarm on pavement. No LOC, no thinners. Swelling noted to right forehead. Pain in right arm, CMS intact. * Maile Ruiz DO - 04/17/2024 9:53 PM CDT Emergency Department Note History of Present Illness Chief Complaint Fall, Head Injury, and Wrist Pain HPI Bina Clark is a 29 year old female, R. Hand dominant, presenting s/p a fall. Patient was leaving the Emergency Room after shift and stepped down on a curb, falling forward, bracing fall with R. Hand. She reports striking her head on concrete though no LOC. She was able to get up on her own.She reports having R. Wrist pain at this time. She complains of slight headache though no vision changes, vomiting, neck pain, back pain, chest pain, dyspnea, paresthesias or other symptoms. No history anticoagulation. Tetanus UTD. Independent Historian None Review of External Notes 04/12/24 office visit Past Medical History Medical History and Problem List No past medical history on file. Medications No current outpatient medications on file. Physical Exam Patient Vitals for the past 24 hrs: BP Temp Temp src Pulse Resp SpO2 04/17/24 2157 (!) 131/98 97.6 ??F (36.4 ??C) Temporal 80 16 100 % Physical Exam General: Alert. Appears uncomfortable Head: The R. Fontal region is with 2cm contusion with overlying abrasion just superior to R. eyebrow Eyes: Sclera white; Pupils are equal and round ENT: External ears normal. External nares normal. No septal hematoma. Neck: No midline tenderness or pain with full ROM. CV: Rate as above with regular rhythm 2/2 radial pulses Resp: Breath sounds clear and equal bilaterally Non-labored, no retractions or accessory muscle use GI: Abdomen soft, non-tender, non-distended No rebound tenderness or guarding MSK: No midline tenderness or bony step-off No deformity Moves all extremities equally and symmetrically other than RUE; no R. Shoulder tenderness; tenderness to R. Elbow and R. Wrist, able to range all fingers. Decreased ROM flexion/extension elbow and wrist 2/2 to pain. Mild soft tissue swelling to R. elbow Skin: No rash or lesions noted. Neuro: No apparent deficit. Strength 5/5 x4. Sensation intact x4. GCS: 15 Psych: Normal affect. Diagnostics Lab Results None Imaging Elbow XR, G/E 3 views, right Final Result IMPRESSION: There is likely a subtle nondisplaced radial neck fracture with very slight cortical irregularity. Bones otherwise normal. There is a large joint effusion present. XR Wrist Right G/E 3 Views Final Result IMPRESSION: Normal joint spaces and alignment. No fracture. Radius/Ulna XR, PA & LAT, right Final Result IMPRESSION: Multiple views of the right forearm. Large anterior elbow effusion. No definite fracture identified. No radiopaque foreign bodies. Normal alignment is seen at the elbow and wrist. I wouldrecommend dedicated views of the elbow. Independent Interpretation X-ray of right elbow shows radial neck fracture Xray or right wrist: no focal fracture ED Course Medications Administered Medications ibuprofen (ADVIL/MOTRIN) tablet 600 mg (600 mg Oral $Given 04/17/242240) HYDROmorphone (PF) (DILAUDID) injection 0.5 mg (0.5 mg Intramuscular $Given 04/17/242240) oxyCODONE (ROXICODONE) tablet 5 mg (5 mg Oral $Given 04/17/242326) Procedures Procedures Splint Placement Procedure: Splint Placement Indication: Fracture, R. Radial head Consent: Verbal Location: Right Arm Preparation: Wounds were cleansed and dressed with a non-adherent bandage Procedure detail: Splint was applied by Tech/Nurse with my assistance Splint type: Long-arm posterior and Stirrup Splint materilal: Fiberglass After placement I checked and adjusted the fit as needed to ensure proper positioning/fit. Sensation and circulation are intact after splint placement. Patient Status: The patient tolerated the procedure well: Yes. There were no complications. Discussion of Management None ED Course ED Course as of 04/18/24 0004 WedApr 17, [id number] I obtained history and examined the patient as noted above. 2237 I rechecked the patient. 2305 I rechecked the patient and explained findings. 2334 I placed the splint as noted above in the procedure note. I discussed findings and discharge with the patient. All questions answered. Additional Documentation None Medical Decision Making / Diagnosis [facility] Diagnoses: None MIPS None [facility] Bina Clark is a 29 year old female presenting status post mechanical fall. She complains predominantly of right wrist and elbow pain at bedside. She has clear evidence of scalp contusion withabrasion on exam though is otherwise neurologically intact. We did discuss utility of CT neuroimaging though she is wishing to defer at this point in time. She expressed understanding of missed or delayed diagnoses. There was no reported loss of consciousness, severe headache, vomiting, seizure activity or other worrisome symptomatology. I did discuss however she is to be managed as a closed headinjury. Secondary impact syndrome discussed as well as postconcussive syndrome. Red flags reviewed which would necessitate return to the ED. Regarding the remainder of her trauma exam she was found to have concerns for a right nondisplaced radial head fracture. She was placed in a splint as noted within. She remained neurovascularly intact. Plans for close outpatient orthopedic follow-up. I recommended ibuprofen and she has prescription for [place] at home which I recommended every 6 hours as needed. Ice and elevation encouraged. The remainder of her trauma exam is without serious injury. Return precautions given, all questions addressed. Disposition The patient was discharged. Diagnosis ICD-10-CM 1. Fall, initial encounter W19.XXXA 2. Closed nondisplaced fracture of neck of right radius, initial encounter S52.134A 3. Elbow effusion, right M25.421 4. Closed head injury, initial encounter S09.90XA 5. Contusion of scalp, initial encounter S00.03XA Discharge Medications New Prescriptions No medications on file Scribe Disclosure: IYassine, am serving as a scribe at 10:39 PM on 04/17/2024 to document services personally performed by Maile Ruiz DO based on my observations and the provider's statements to me. Maile Ruiz DO 04/18/24 0022 documented in this encounter Plan of Treatment Not on file documented as of this encounter Procedures Procedure Name Priority Date/Time Associated Diagnosis Comments XR ELBOW RIGHT G/E 3 VIEWS STAT 04/17/2024 10:59 PM CDT XR WRIST RIGHT G/E 3 VIEWS STAT 04/17/2024 10:21 PM CDT XR FOREARM RIGHT 2 VIEWS STAT 04/17/2024 10:20 PM CDT documented in this encounter Results * Elbow XR, G/E 3 views, right (04/17/2024 10:59 PM CDT) Anatomical Region Laterality Modality Elbow, Right Elbow Right Digital Radio graphy 04/17/2024 10:5 9 PM CDT Impressions 04/17/2024 11:02 PM CDT IMPRESSION: There is likely a subtle nondisplaced radial neck fracture with very slight cortical irregularity. Bones otherwise normal. There is a large joint effusion present. Narrative 04/17/2024 11:02 PM CDT EXAM: XR ELBOW RIGHT G/E 3 VIEWS LOCATION: [facility] DATE: 04/17/2024 INDICATION: right elbow pain COMPARISON: None. Procedure Note Gumaro Caicedo MD - 04/17/2024 EXAM: XR ELBOW RIGHT G/E 3 VIEWS LOCATION: [facility] DATE: 04/17/2024 INDICATION: right elbow pain COMPARISON: None. IMPRESSION: There is likely a subtle nondisplaced radial neck fracturewith very slight cortical irregularity. Bones otherwise normal. There is a large joint effusion present. Maile Ruiz DO [facility] ORDERABLES * XR Wrist Right G/E 3 Views (04/17/2024 10:21 PM CDT) Anatomical Region Laterality Modality Wrist, Right Wrist Right Digital Radio graphy 04/17/2024 10:2 1 PM CDT Impressions 04/17/2024 10:22 PM CDT IMPRESSION: Normal joint spaces and alignment. No fracture. Narrative 04/17/2024 10:22 PM CDT EXAM: XR WRIST RIGHT G/E 3 VIEWS LOCATION: [facility] DATE: 04/17/2024 INDICATION: r wrist pain COMPARISON: None. Procedure Note Gumaro Caicedo MD - 04/17/2024 EXAM: XR WRIST RIGHT G/E 3 VIEWS LOCATION: [facility] DATE: 04/17/2024 INDICATION: r wrist pain COMPARISON: None. IMPRESSION: Normal joint spaces and alignment. No fracture. Maile Ruiz DO IMG DIAGNOSTIC [facility]ING ORDERABLES * Radius/Ulna XR, PA & LAT, right (04/17/2024 10:20 PM CDT) Anatomical Region Laterality Modality Forearm, Right Forearm Right Digital R adiography 04/17/2024 10:2 0 PM CDT Impressions 04/17/2024 10:24 PM CDT IMPRESSION: Multiple views of the right forearm. ??Large anterior elbow effusion. No definite fracture identified. No radiopaque foreign bodies. Normal alignment is seen at the elbow and wrist. I would recommend dedicated views of the elbow. Narrative 04/17/2024 10:24 PM CDT EXAM: XR FOREARM RIGHT 2 VIEWS LOCATION: [facility] DATE: 04/17/2024 INDICATION: arm pain COMPARISON: None. Procedure Note Brayden Martinez MD - 04/17/2024 EXAM: XR FOREARM RIGHT 2 VIEWS LOCATION: [facility] DATE: 04/17/2024 INDICATION: arm pain COMPARISON: None. IMPRESSION: Multiple views of the right forearm. Large anterior elboweffusion. No definite fracture identified. No radiopaque foreign bodies.Normal alignment is seen at the elbow and wrist. I would recommenddedicated views of the elbow. Maile Ruiz DO [facility] ORDERABLES documented in this encounter Visit Diagnoses Diagnosis Fall, initial encounter- Primary Closed nondisplaced fracture of neck of right radius, initial encounter Elbow effusion, right Closed head injury, initial encounter Contusion of scalp, initial encounter documented in this encounter Administered Medications Inactive Administered Medications - up to 3 most recent administrations Medication Order MAR Action Action Date Dose Rate Site HYDROmorphone (PF) (DILAUDID) injection 0.5 mg 0.5 mg, Intramuscular, ONCE, On Wed04/17/24 at 2240, For 1 dose $Given 04/17/2024 10:41 PM CDT 0.5 mg Left Deltoid ibuprofen (ADVIL/MOTRIN) tablet 600 mg 600 mg, Oral, ONCE, On Wed04/17/24 at 2235, For 1 dose, Give with food. $Given 04/17/2024 10:41 PM CDT 600 mg oxyCODONE (ROXICODONE) tablet 5 mg 5 mg, Oral, ONCE, On Wed04/17/24 at 2320, For 1 dose $Given 04/17/2024 11:27 PM CDT 5 mg documented in this encounter Active and Recently Administered Medications Times are shown in CDT. Scheduled Medication Order 04/16/2024 04/17/2024 04/18/2024 HYDROmorphone (PF) (DILAUDID) injection 0.5 mg (COMPLETED) 0.5 mg, Intramuscular, ONCE, On Wed04/17/24 at 2240, For 1 dose 2241 ($Given - Provider: Kaylyn Gerardo RN) ibuprofen (ADVIL/MOTRIN) tablet 600 mg (COMPLETED) 600 mg, Oral, ONCE, On Wed04/17/24 at 2235, For 1 dose, Give with food. 224 ($Given - Provider: Kaylyn Gerardo RN) oxyCODONE (ROXICODONE) tablet 5 mg (COMPLETED) 5 mg, Oral, ONCE, On Wed04/17/24 at 2320, For 1 dose 2327 ($Given - Provider: Kaylyn Gerardo RN) documented in this encounter Care Teams Rn Ent Relationship Specialty Start Date End Date [facility], [facility] [address] [place] [address] PCP - General 02/09/23 04/17/24 [facility], [facility] [address] [place] [id number] PCP - General 04/18/24 [employer] 03/20/13 Florencia Alcantar MD [address] [place], [place] [address] Assigned OBGYN Provider 04/10/23 documented as of this encounter
--- OUTSIDE RECORDS SUMMARY | 2024-05-07 23:37 | XMS_ITS | Clinical Summary ---
Author Organization [facility] Address [place], [place] [address] Care Team Providers Care Lang Path Therapist Name Role Phone Emilee Villalobos MD Primary Care Provi sandy Blue Aden MD Unavailable [phone] Allison Dunbar RN Unavailable [phone] Unavailable [phone] Allergies Active Allergy Reactions Criticality Noted Date Comments Sulfa (Sulfonamide Antibiotics) Hives Medium 01/12 Medications Medication Sig Dispensed Refills Start Date End Date Status cyanocobalamin (VITAMIN B12) 1,000 mcg tablet Take 1 Tablet (1,000 mcg) by mouth once daily. 90 Tablet Active calcium citrate-vitamin D3, 315 mg-250 units, (CITRACAL WITH VITAMIN D) 315 mg-6.25 mcg (250 unit) tab tablet Take 2 Tablets by mouth two times daily with meals. 0 06/04/2022 Active pediatric multivitamins-iron 18 mg chewable (FLINTSTONES PLUS IRON; BUGS BUNNY PLUS IRON) chewable tablet Chew 1 Tablet by mouth two times daily. 0 09/10/2022 Active sertraline (ZOLOFT) 100 mg tabletIndications:D epressed mood,CRISTÓBAL (generalized anxiety disorder) Take 2 Tablets (200 mg) by mouth once daily. 180 Tablet 3 12/22/2023 Active metFORMIN (GLUCOPHAGE) 500 mg tabletIndications:P COS (polycystic ovarian syndrome) Take 1 Tablet (500 mg) by mouth two times daily with meals. 180 Tablet 3 12/22/2023 Active cephalexin (KEFLEX) 500 mg capsuleIndications: Pharyngitis, unspecified etiology Take 1 Capsule (500 mg) by mouth two times daily for 10 days. 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 05/04/2022 PCOS (polycystic ovarian syndrome) 09/12/2021 BMI 30.0-30.9,adult 09/12/2021 Depressed mood 09/12/2021 CRISTÓBAL (generalized anxiety disorder) 09/12/2021 Resolved Problems Problem Noted Date Diagnosed Date Resolved Date Prediabetes 09/12/2021 09/12/2021 Encounters Date Type Department Care Team Description 04/12/2024 4:30 PM CDT Office Visit [facility] [id number] [address] Lindsay Olivo MD Throat Problem (Sore throat ) 04/12/2024 Travel from Last 3 Months Immunizations Name Administration Dates Next Due AMB INFLUENZA, IIV4 (AGE=>6M OS) MDV (Flu Clinic Only) 07/21/2019 AMB Influenza, IIV4 PF (=>6 mos Flulaval,Fluzone Fluarix)(Flu Clinic Only) 06/05/2022 COVID-19 vaccine (Azaleos 30mcg/0.3mL) PF, MDV 10/14/2020 DTaP 12/09/1999, 0,06/05/1996,07/01,1995,1995 DTaP-HIB (TriHIBIT) 06/05/1996, 5,1995,02/25 Hepatitis B (Adult) 1995,1995,1994 Hib Conjugate, Unspecified 06/05/1996,,1995,02/25 Human Papilloma Virus Vaccine 03/07/2015, 007 Inactivated Polio Vaccine 12/09/1999,,1995,02/25 Influenza, IIV4 06/08/2023,06/25/2021,05/14/2018 Influenza,CCIIV4 PRESERV FREE 07/21/2019 MMR 12/09/1999,06/05/1996 Meningococcal Vaccine (Menactra) 03/24/2007 Oral Polio Vaccine 1995,1995, 995 RSV, Bivalent Vaccine Recons tituted (Abrysvo 120MCG/0.5mL) 07/21/2023 Tdap 06/25/2023,03/02/2017 Tuberculin Skin Test, Unspecified 03/19/2015 Varicella Vaccine 09/10/2022 Family History Medical History Relation Name Comments Anxiety disorder Father Depression Father Hypertension Father No Known Problems Maternal Aunt Lung cancer Maternal Grandfather Unknown Maternal Grandmother No Known Problems Maternal Uncle Anxiety disorder Mother Depression Mother Hypertension Mother Obesity Mother Cancer-pancreatic Paternal Grandfather Coronary artery disease Paternal Grandfather Hypertension Paternal Grandmother Depression Sister Relation Name Status Comments Father Alive Maternal Aunt Maternal Grandfather Maternal Grandmother Maternal Uncle Mother Alive Paternal Grandfather Paternal Grandmother Alive Sister Alive Social History Tobacco Use Types Packs/Day Years Used Date Smoking Tobacco: Never Passive Smoke Exposure: Never Smokeless Tobacco: Never Tobacco Cessation:Counseling Given: Not Answered Alcohol Use Standard Drinks/Week Comments Not Currently 0 (1 standard drink = 0.6 oz pur e alcohol) PHQ-2 Answer Date Recorded PHQ-2 TOTAL SCORE 1 12/22/2023 [place] Depression Scale Answer Date Recorded [place] Depression Scale Total 7 12/22/2023 The thought of harming myself has occurred to me . Never 12/22/2023 Social Connections Answer Date Recorded Frequency of Communication with Friends and Fami ly 0 12/22/2023 Financial Resource Strain Answer Date R ecorded Difficulty of Paying Living Expenses 3 12/22/2023 Difficulty of Paying Living Expenses Not on file 12/22/2023 Food Insecurity Answer Date Recorded Worried About Running Out of Food in the Last Ye ar 1 12/22/2023 Transportation Needs Answer Date Record ed Lack of Transportation (Medical) 1 12/22/2023 Housing Stability Answer Date Recorded Unable to Pay for Housing in the Last Year 1 12/22/2023 Sex and Gender Information Value Date Recorded Sex Assigned at Not on file Gender Identity Not on file Sexual Orientation Not on file Obstetrics History Last Filed Vital Signs Vital Sign Reading Time Taken Comments Blood Pressure 126/86 04/12/2024 4:41 PM CDT MAP - 101 Pulse 79 04/12/2024 4:41 PM CDT Temperature 36.1 ??C (97 ??F) 04/12/2024 4:41 PM CDT Respiratory Rate 16 04/12/2024 4:41 PM CDT Oxygen Saturation 98% 04/12/2024 4:41 PM CDT Inhaled Oxygen Concentration - - Weight 92.4 kg (203 lb 11.2 oz) 12/22/2023 9:50 AM CDT Height 166.4 cm (5' 5.5) 12/22/2023 9:50 AM CDT Body Mass Index 33.38 12/22/2023 9:50 AM CDT Plan of Treatment Health Maintenance Due Date Last Done Comments COVID-19 vaccine series ( season) 2023 08/29/2021, 10/14/2020, 09/24/2020 Influenza for age 9-49 05/14/2024 , 06/05/2022, 06/25/2021, Additional history exists BMI (ht and wt on same day) for age 18+ 12/21/2024 12/22/2023, 09/10/2022, 08/25/2022, Additional history exists Depression screening for age 12+ 12/21/2024 12/22/2023, 09/10/2022, 12/30/2021, Additional history exists Pap test for age 21-65 01/26/2025 01/26/2022, 2018 Tetanus booster 06/25/2033 06/25/2023, 03/02/2017 Hepatitis C screening for age 18-79 Completed 04/21/2022 HIV for age 15-65 Completed 09/10/2022 Tdap Completed 06/25/2023, 03/02/2017 Pneumococcal series for age 6-64 Aged Out No longer eligible based on patient's age to complete this topic Procedures Procedure Name Priority Date/Time Associated Diagnosis Comments STREP A PCR STAT 04/12/2024 4:47 PM CDT Sore throat THROAT RAPID STREP A WITH REFLEX STAT 04/12/2024 4:47 PM CDT Sore throat LC HIV-1/O/2, 4TH GENERATION Routine 09/10/2022 9:50 AM SENIOR WATER RESOURCES ENGINEER Screening for HIV (human immunodeficiency virus) ANTI HCV Routine 04/21/2022 1:10 PM CDT Need for hepatitis C screening test LANGUAGE PATH THIN PREP PAP SCREEN IMAGED Routine 01/26/2022 12:00 PM CDT from Last 3 Months or Most Recently Relevant to Health Maintenance Results * STREP A PCR (04/12/2024 4:47 PM CDT) GROUP A STREP Negative 04/13/2024 3:47 PM CDT [facility] Throat SPECIMEN FROM THROAT / Unknown Non-Blood / Unknown 04/12/2024 4:47 PM CDT 04/12/2024 4:57 PM CDT Lindsay Olivo MD MICROBIOLOGY [facility] [address] [place] [address], [place] * THROAT RAPID STREP A WITH REFLEX [49558.1] - age 0 through 17 yrs (04/12/2024 4:47 PM CDT) STREP A ANTIGEN Negative 04/12/2024 4:58 PM CDT [facility] Comment:PCR to follow. Throat SPECIMEN FROM THROAT / Unknown Non-Blood / Unknown 04/12/2024 4:47 PM CDT 04/12/2024 4:49 PM CDT Lindsay Olivo MD MICROBIOLOGY [facility] [address] [place] [address], [place] * LC HIV-1/O/2, 4TH GENERATION (09/10/2022 9:50 AM SENIOR WATER RESOURCES ENGINEER) HIV Scr 4th Gen Non Reactive Non Reactive 09/12/2022 12:07 PM SENIOR WATER RESOURCES ENGINEER [facility]) Comment: HIV Negative HIV-1/HIV-2 antibodies and HIV-1 p24 antigen were NOT detected. There is no laboratory evidence of HIV infection. Blood BLOOD SPECIMEN / Unknown Venipuncture / Unknown 09/10/2022 9:50 AM SENIOR WATER RESOURCES ENGINEER 09/10/2022 9:51 AM SENIOR WATER RESOURCES ENGINEER Narrative [facility] ([facility]) - 09/12/2022 12:07 PM SENIOR WATER RESOURCES ENGINEER Performed at: ??01 - Lab[address] ??[id number] Local Announcer: Otis Bowser MD, Phone: ??[phone] Zelda Potts MD [facility] Performing Organization Address City/[facility] Co de Phone Number [facility] ([facility]) [address] [place] [address], * ANTI HCV (04/21/2022 1:10 PM CDT) HEPATITIS C ANTIBODY Non-React coleman Non-React coleman 04/21/2022 8:35 PM CDT [facility] Comment:Antibodies to HCV no t detected; does not exclude the possibility of exposure to HCV. Blood BLOOD SPECIMEN / Unknown Venipuncture / Unknown 04/21/2022 1:10 PM CDT 04/21/2022 1:02 PM CDT Emilee Villalobos MD SEND OUTS [facility] [address] [place] [address], * LANGUAGE PATH THIN PREP PAP SCREEN IMAGED (01/26/2022 12:00 PM CDT) Case Report Gynecologic Cytology Report ? Case: [id number] ? Authorizing Provider: ??Edelmira Ellison, LICENSED BONDSMAN ?? Collected: ? 01/26/2022 1200 ? Ordering Location: ? [facility] ?Received: ?01/28/2022 0740 ? First Screen: ?Stephen, Ion ? Specimen: ?LANGUAGE PATH ThinPrep Vial Screening, Cervical/Vaginal ? 02/13/2022 12:00 PM CDT [facility] INTERPRETATION/ RESULT NEGATIVE FOR INTRAEPITHELIAL LESION OR MALIGNANCY (NIL) (none) 02/13/2022 12:00 PM CDT [facility] IMEN ADEQUACY Satisfactory for evaluation Endocervical component present 02/13/2022 12:00 PM CDT [facility] ENTRAL LABOR[facility]ORY HPV REQUEST HPV if ASCUS 02/13/2022 12:00 PM CDT [facility]AL LAB[facility] Date of LMP 06/08/2021 02/13/2022 12:00 PM CDT [facility] Last Pap Date 07/07/2016 02/13/2022 12:00 PM CDT [facility] Last Pap Result NIL 12:00 PM CDT [facility] Additional Information 02/13/2022 12:00 PM CDT [facility] Comment: Interpreted at [facility] - [address], [place] [address] Automated Review Successful 02/13/2022 12:00 PM CDT [facility] Comment:Specimen processed s uccessfully by automated conveyor belt operator device, ThinPrep Imaging System, [employer] Note The pap test is a screening technique, not a diagnostic procedure. It is used primarily to screen for squamous cancers and precursor lesions. Published studies have shown that it is subject to both false negative and false positive results. The pap test should not be used as the sole means to diagnose or exclude pre-malignant and malignant lesions. 02/13/2022 12:00 PM CDT [facility] Other (Cervical/Vagina l) 01/26/2022 12:00 PM CDT 01/28/2022 7:40 AM CDT Edelmira Ellison NP PATHOLOGY/CYTOLOG Y [facility] [address] [place] [address], [place] from Last 3 Months or Most Recently Relevant to Health Maintenance Advance Directives * Full Code (Latest Code Status on File) Date Activated Date Inactivated Comments 07/28/2022 9:56 AM 07/28/2022 4:30 PM Question Answer Comments Code Status Discussion: Not Discussed * Full Code Date Activated Date Inactivated Comments 05/05/2022 9:15 PM 05/06/2022 4:38 PM Question Answer Comments Code Status Discussion: Reviewed Preferences * Full Code Date Activated Date Inactivated Comments 05/05/2022 4:17 PM 05/05/2022 9:15 PM Question Answer Comments Code Status Discussion: Not Discussed Care Teams Lang Path Therapist Relationship Specialty Start Date End Date Emilee Villalobos MD [address] [facility] [place] [address] PCP - General Family Practice 09/12/21 [place] [address] [place] [address] [address] [place] [address] Consulting Physician Surgery - General 12/09/21 Allison Dunbar, RN [address] [facility] [address] [place], [place] [id number] Natural Remedy Consultant Registered Nurse 12/09/[address] [facility] 100 [place], [place] [address] Senior Analytic Consultant/Staff Physical Therapy Assistant Platform Architect 12/09/21
--- OUTSIDE RECORDS SUMMARY | 2024-05-07 23:37 | XMS_ITS | Clinical Summary ---
Author Organization [facility] Address [address] [place] [address] Care Team Providers Care Biology Manager Name Role Phone Lily Sebastian APRN, CNP Primary Care Provid er Source Comments You are receiving this document as you are listed as the primary care provider,follow-up provider, or the patient has been referred to you for consultation.This is in compliance with the Medicare andMedicaid EHR Incentive Program,which states Providers who transition their patient to another setting of careor provider of care or refers their patient to another provider of care shouldprovide summary care record for each transition of care or referral. [facility] Allergies Active Allergy Reactions Criticality Noted Date Comments Sulfa Antibiotics Hives 12/19/2004 Medications Medication Sig Dispensed Refills Start Date End Date Status metFORMIN (GLUCOPHAGE) 500 MG tabletIndications :Infertility associated with anovulation Take 1 Tablet by mouth two times a day with meals. 180 Tablet 08/27/2021 Active Norgestimate-Eth Estradiol (AKA ORTHO-CYCLEN) 0.25-35 MG-MCG tabletIndications :Family planning, BCP ( control pills) initial prescription Take 1 tablet by mouth daily (every 24 hours). Follow package directions 84 tablet 4 03/28/2013 5 Discontinued Active Problems Problem Noted Date Diagnosed Date Contraceptive management 03/07/2015 Obesity (BMI 30-39.9) 03/07/2015 Overview (04/16/2016): See [facility] notes, 12/2015. Started pt on Topamax for weight loss/headaches. Resolved Problems Problem Noted Date Diagnosed Date Resolved Date Family planning, BCP ( control pills) initial prescription 03/28/2013 03/07/2015 Immunizations Name Administration Dates Next Due 4vHPV (Gardasil) 03/07/2015,03/24/2007 DTaP 12/09/1999, 0,06/05/1996,1994,1995,1995 DTaP/Hib 06/05/1996, 5,1995,1994 HepB Adult (Engerix-B, 20+ y rs, 3 dose series) 1995,1995,1995 Hib, Unspecified Formulation 06/05/1996, 1995,1995,1994 IPV (Polio) 12/09/1999, 5,1995,1994 MCV4 (Menactra) 03/24/2007 MMR 12/09/1999,06/05/1996 OPV, Trivalent (Orimune or tOPV) 1995,04/13,1995 TDAP (BOOSTRIX) 03/24/2007 Family History Medical History [...] drink = 0.6 oz pur e alcohol) 2 a week Sex and Gender Information Value Date Recorded Sex Assigned at Not on file Gender Identity Not on file Sexual Orientation Not on file Last Filed Vital Signs [...] 168.9 cm (5' 6.5) 01/16/2022 10:04 AM CD T Body Mass Index 42.29 01/16/2022 10:04 AM CDT Plan of Treatment Health Maintenance Due Date Last Done Comments Cervical Cancer Screening Due 1995 Hep C Screening (Preventive Services) 1995 MTM Covered 1995 HIV Screening (Preventive Services) 2011 Adult Preventive Visit 2013 DTaP/Tdap/Td (7 - Tdap) 03/24/2017 03/24/20 07, 12/09/1999, 12/01/1999, Additional history exists COVID-19 Vaccine ( season) 2023 08/29/2021, 10/14/2020, 09/24/2020 Influenza (#1) 2024 06/25/2021, 04/2019, 07/21/2019, Additional history exists Zoster/Shingles (1 of 2) 2045 HepB Completed 1995, 04/13, 1995 Hib Completed 06/05/1996, 05/15, 1995, Additional history exists IPV (Polio) Completed 12/09/1999, 06/13, 1995, Additional history exists MCV4 Aged Out 03/24/2007 No longer eligi ble based on patient's age to complete this topic Chlamydia Discontinued 03/07/2015, 02/06/2014 HPV Vaccine Completed 03/07/2015, 03/24/2007 HepA Aged Out No longer eligi ble based on patient's age to complete this topic Pneumococcal Aged Out No longer eligi ble based on patient's age to complete this topic Procedures Procedure Name Priority Date/Time Associated Diagnosis Comments CHLAMYDIA & GC (14 YEARS & OLDER) Routine 03/07/2015 11:32 AM CDT Routine screening for STI (sexually transmitted infection) from Last 3 Months or Most Recently Relevant to Health Maintenance Results * Chlamydia & GC (03/07/2015 11:32 AM CDT) Chlamydia Trachomatis STD Negative Negative HP CONVERSION Comment: Test Performed by [employer] CLIA Number [id number] N. gonorrhoeae STD Negative Negative HP CONVERSI ON Comment: Test Performed by [employer] Performed at [facility], [address] [place] [id number] CLIA Number [id number] Source STD Cervix HP CONVERSION Comment:CLIA Number [id number] 03/07/2015 11:3 2 AM CDT 03/07/2015 7:05 PM CDT Lily Sebastian APRN, CNP LAB_1 HP CONVERSION from Last 3 Months or Most Recently Relevant to Health Maintenance Care Teams Biology Manager Relationship Specialty Start Date End Date Lily Sebastian APRN, MECHANICAL MAINTENANCE WORKER [address] [place] [address] PCP - General 03/07/15
--- OUTSIDE RECORDS SUMMARY | 2024-05-07 23:37 | XMS_ITS | Referral Summary ---
Author Organization [facility] Address [address] [place] [address] Care Team Providers Care Rotary Engraver Name Role Phone Nancy August Unavailable Florencia Walker MD Unavailable [phone] Clinic, [facility] Primary Care Provider + Encounters Date Type Department Care Team Description 04/17/2024 9:58 PM CDT - 04/18/2024 12:35 AM T [facility] [address] [place] [address] Maile Ruiz, DO Fall, initial encounter (Primary Dx); Closed nondisplaced fracture of neck of right radius, initial encounter; Elbow effusion, right; Closed head injury, initial encounter; Contusion of scalp, initial encounter Discharge Disposition: Home or Self Care 04/17/2024 Travel from Last 3 Months Allergies Active Allergy Reactions Criticality Noted Date Comments Alcohol Hives High 01/25/2023 Sulfa Antibiotics 03/20/2013 Medications No known medications Immunizations Name Administration Dates Next Due Mantoux Tuberculin Skin Test 03/19/2015 Social History Tobacco Use Types Packs/Day Years [...] CDT Inhaled Oxygen Concentration - - Weight 81.6 kg (180 lb) 03/20/2013 12:57 AM CDT Height - - Body Mass Index - - Plan of Treatment Not on file Procedures Procedure Name Priority Date/Time Associated Diagnosis Comments XR ELBOW RIGHT G/E 3 VIEWS STAT 04/17/2024 10:59 PM CDT XR WRIST RIGHT G/E 3 VIEWS STAT 04/17/2024 10:21 PM CDT XR FOREARM RIGHT 2 VIEWS STAT 04/17/2024 10:20 PM CDT from Last 3 Months Results * Elbow XR, G/E 3 views, [...] XR ELBOW RIGHT G/E 3 VIEWS LOCATION: [facility] DATE: 04/17/2024 INDICATION: right elbow pain COMPARISON: None. Procedure Note Gumaro Caciedo MD - 04/17/2024 EXAM: XR ELBOW RIGHT G/E 3 VIEWS LOCATION: [facility] DATE: 04/17/2024 INDICATION: right elbow pain COMPARISON: [...] XR WRIST RIGHT G/E 3 VIEWS LOCATION: [facility] DATE: 04/17/2024 INDICATION: r wrist pain COMPARISON: None. Procedure Note Gumaro Caicedo MD - 04/17/2024 EXAM: XR WRIST RIGHT G/E 3 VIEWS LOCATION: [facility] DATE: 04/17/2024 INDICATION: r wrist pain COMPARISON: None. IMPRESSION: Normal joint spaces and alignment. No fracture. Maile Ruiz DO G DIAGNOSTIC [facility]SC[facility] GING ORDERABLES * Radius/Ulna XR, [...] EXAM: XR FOREARM RIGHT 2 VIEWS LOCATION: [facility] DATE: 04/17/2024 INDICATION: arm pain COMPARISON: None. Procedure Note Brayden Martinez MD - 04/17/2024 EXAM: XR FOREARM RIGHT 2 VIEWS LOCATION: [facility] DATE: 04/17/2024 INDICATION: arm pain COMPARISON: None. IMPRESSION: Multiple views of the right forearm. Large anterior elboweffusion. No definite fracture identified. No radiopaque foreign bodies.Normal alignment is seen at the elbow and wrist. I would recommenddedicated views of the elbow. Maile E Joseph DO IMG DIAGNOSTIC OSCAR GING ORDERABLES from Last 3 Months Care Teams Rotary Engraver Relationship Specialty Start Date End Date [facility] [address] [place] [phone] PCP - General 04/18/24 Nancy August 03/20/13 Florencia Alcantar MD [address] [facility] [address] [place] [address] Assigned OBGYN Provider 04/10/23
--- OUTSIDE RECORDS SUMMARY | 2024-05-07 23:37 | XMS_ITS | Encounter Summary ---
Author Organization [facility] Address [facility] [place] [address] Care Team Providers Care Clerk Operator Name Role Phone Navid Young MD Primary Care Provider [phone] Noni [place] Unavailable Unavai reilly Coffman [place] Primary Care Provider Unavailable Clinic, [facility] [place] Primary Care Pr ovider Florencia Alcantar MD Unavailable [phone] Clinic, [facility] Primary Care Provider + Encounter Details Date Type Department Care Team (Late st Contact Info) Description 06/15/2012 Orders Only [facility] [address] [place] [phone] Syhre, Remi Abdominal pain (Primary Dx) Social History Tobacco Use Types Packs/Day Years Used Date Smoking Tobacco: Never Assessed Sex and Gender Information Value Date Recorded Sex Assigned at Not on file Gender Identity Not on file Sexual Orientation Not on file documented as of this encounter Plan of Treatment Not on file documented as of this encounter Visit Diagnoses Diagnosis Abdominal pain- Primary Abdominal pain, unspecified site documented in this encounter Care Teams Clerk Operator Relationship Specialty Start Date End Date Navid Young MD [facility] [address] [facility] [address] [place] [address] PCP - General Pediatrics 06/17/12 03/19/13 [facility] [address] [facility] [address] [place] [address] PCP - General 03/20/13 02/08/23 [facility] [address] [place] [address] PCP - General 02/09/23 04/17/24 Clinic, [facility] [address] [place] [address] [place] [phone] PCP - General 04/18/24 [facility] [address] [facility] [address] [place] [address] 03/20/13 Florencia Alcantar MD [address] [facility] [address] [place], [place] [id number] Assigned OBGYN Provider 04/10/23 documented as of this encounter
--- OUTSIDE RECORDS SUMMARY | 2024-05-07 23:37 | XMS_ITS | Data Portability ---
Author Organization [facility], [facility] Address [address] [place] [address] Care Team Providers Care Community Health Nurse Name Role Phone [facility] Primary Care Provider Assessment No assessment recorded. Plan of Treatment Reminders Order Date Submit Date Provider Last Modified By Organization Details Last Modified Time Details Appointments None recorde d. Lab None recorde d. Referral None recorde d. Procedures None recorde d. Surgeries None recorde d. Imaging XR, kidney + ureter + bladder 2021 022 [facility] , [facility] [place], [address], 12:02:59 Medication Orders None recorde d. Patient TargetsNo targets recorded. Patient InstructionsNo instructions recorded. Reason for Referral None Reported. Results Created Date Observation Date Name Description Value Unit Range Abnormal Flag LastModifiedBy Organization Detail LastModifiedTime 06/19/2006/19/2022 CT, abdom en + pelvi s, w/o contr ast No observ ation record ed. [email or web address] [facility] Radiology Department [address] [place], [address], 06/19/2022 11:17:54 06/24/2006/22/2022 XR, kidne y + urete r + bladd er No observ ation record ed. [facility] [address] [place], [address], 06/24/2022 13:17:00 Result Notes None recorded. Procedures Surgical History Date Name Laterality Status Provider Name and Address Organization Details Recorded Time EXTRA CORPOREAL SHOCK WAVE LITHOTRIPSY (SURG) completed Sofi Enamorado [facility] 08/27/2022 12:19:36 Imaging Results Imaging Date Name Status LastModified by Organiz ation Details LastModified Time 06/19/2022 CT, abdomen + pelvis, w/o contrast completed [email or web address] [facility] Radiology Department [address] [place], [address], 06/19/2022 11:17:54 06/22/2022 XR, kidney + ureter + bladder completed [facility] [address] [facility] [place], [address], 06/24/2022 13:17:00 Procedure Notes None recorded. Medical Equipment None Reported. Allergies Allergen ID Allergen Name Allergen Category Reaction Reaction Severity Criticality Documentation Date Start Date Code Code System Note Provider Name and Address Organization Details Recorded Time [id number] Substance with sulfonami de structure and antibacte rial mechanism of action (substanc e) medicatio n Not available Not available Not available 06/22/2022 [id number] SNBRAYDON Mitchell MD [address] [place] [address],[address], [address] [place] [address] Urology 2 11:36:34 Medications Name Sig Start Date Stop Date Status Note LastModified by Organization Details LastModified Time medroxyprog esterone 10 mg tablet TAKE 10MG BY MOUTH DAILY 10 DAYS/SON H DIRECTED 06/22 completed Not Available Not Available Not Available metformin 500 mg tablet TAKE 1 TABLET BY MOUTH TWO TIMES A DAY WITH MEALS. active Not Available Not Available No t Available hydrocodone 5 mg-acetamin ophen 325 mg tablet active Not Available Not Available No t Available sertraline 100 mg tablet TAKE 1.5 TABLETS BY MOUTH ONCE DAILY. active Not Available Not Available No t Available hydromorpho ne 2 mg tablet 06/22 completed Not Available Not Available Not Available progesteron e micronized 200 mg capsule INSERT 1 VAGINALLY 2 TIMES DAILY STARTING DAY AFTER LAST IUI/TC 06/22 completed Not Available Not Available Not Available omeprazole 20 mg capsule,del ayed release 06/22 completed Not Available Not Available Not Available ergocalcife rol (vitamin D2) 1,250 mcg (50,000 unit) capsule TAKE 1 CAPSULE (50,000 UNITS) BY MOUTH EVERY WEDNESDAY AND WEDNESDAY FOR 24 DOSES. 06/22 completed Not Available Not Available Not Available letrozole 2.5 mg tablet TAKE 3 TABS BY MOUTH ONE TIME A DAY DIRECTED 06/22 completed Not Available Not Available Not Available ondansetron 4 mg disintegrat ing tablet active Not Available Not Available N ot Available Ovidrel 250 mcg/0.5 mL subcutaneou s syringe INJECT 2 PREFILLED SYRINGES UNDER THE SKIN DIRECTED 06/22 completed Not Available Not Available Not Available Vitals Date Recorded Body height Body mass index (BMI) Body weight Provider Name and Address Organization Details Last Updated DateTime 06/22/2022 167.64 cm 33.7 kg/m2 10941.81 g Leroy Mitchell MD [address] [place], [place] [address] [place] [address] Urology 06/22/2022 11:36:23 Social History Question Answer Notes LastModified by Organizat ion Details LastModified Time Tobacco Smoking Status Never Smoker Leroy Mitchell MD [address] [place] [address] Urology 06/22/2022 11:38:23 What Was The Date Of Your Most Recent Tobacco Screening? 06/22/2022 [email or web address] Information not available 06/22/2022 Sex: Unknown Functional Status None recorded. Mental Status None recorded. Family History Relationship Description Onset Age of this Age Resolved Age Notes Mother Family history of renal stone Paternal Grandfather Malignant tumor of pancreas Maternal Grandfather Family history of malignant neoplasm of prostate Maternal Grandfather Malignant tumor of lung Medical History Condition Response Sexually Transmitted Infection N Diabetes N Bleeding Disorder N High Blood Pressure N Kidney Stones Y Cancer N Lung Disease N Depression N High Cholesterol N GERD/Acid Reflux N Heart Disease N Gynecological History Statement/Question Response Sexually Active? Y Obstetrics History GPAL:G 0 P 0 0 0 0 Past Encounters Encounter ID Performer Location Encounter Start Date Encounter Closed Date Diagnosis/Indication Diagnosis SNOMED-CT Code [id number] MD CALIXTO Choi_Anny [address] [place] [address] 06/22/2022 11:15:24 06/26/2022 09:00:03 Kidney stone [id number] Health Concerns Section Related Observation LastModified by Organization Detai ls LastModified Time None Recorded Concern Status LastModified by Organization Details LastModified Time None Recorded Advance Directives Directive None Recorded Payers Encounter Date Sequence Insurance Name Policy Number Policy Hayes Covered Member ID Hayes Member ID Guarantor Name 06/22/2022 1 [employer] - OPEN ACCESS CHOICE (HMO) [id number] Bina A Eduardo [id number] Bina A Eduardo Notes Date Note Type Note Provider Name and Address Organization Details Recorded Time 06/22/2022 text/html HPI Notes: She's had intermittent right sided flank pain since this past October. It is worse after exercise. This past the pain intensified and she had emesis. This brought her to the ED and a CT scan was done there It showed an 11mm stone at the right UPJ. She has never had stones before. Her Mother makes them. She woks as an ER nurse. Leroy Mitchell MD [address] [facility],[address], [place], [address], [facility] [place] [facility] 06/22/2022 11:49:28 OBGyn Episode No OBEpisode recorded.
--- OUTSIDE RECORDS SUMMARY | 2024-05-07 23:37 | XMS_ITS | Encounter Summary ---
Author Organization [place] Address [address] [place] [address] Care Team Providers Care Dolly Driver Name Role Phone Nancy August [facility] Pr ovider Florencia Alcantar MD Unavailable [phone] Encounter Details Date Type Department Care Team (Latest Contact Info) Description 04/17/2024 Travel Social History Tobacco Use Types Packs/Day Years [...] documented as of this encounter Visit Diagnoses Not on filedocumented in this encounter Care Teams Dolly Driver Relationship Specialty Start Date End Date Clinic, Noni Cruz [address] [place], [place] [address] PCP - General 02/09/23 04/17/24 Nancy August 03/20/13 Florencia Alcantar MD [address] [place], [place] [address] Assigned OBGYN Provider 04/10/23 documented as of this encounter
--- OUTSIDE RECORDS SUMMARY | 2024-05-07 23:37 | XMS_ITS | Clinical Summary ---
Author Organization [place] Address [address] [place] [address] Care Team Providers Care Home Health Administrator Name Role Phone Nancy August Unavailable Florencia Walker MD Unavailable [phone] Clinic, Ana Olivia Primary Care Provider + Allergies Active Allergy Reactions Criticality Noted Date Comments Alcohol Hives High 01/25/2023 Sulfa Antibiotics 03/20/2013 Medications No known medications Encounters Date Type Department Care Team Description 04/17/2024 9:58 PM CDT - 04/18/2024 12:35 AM CDT Emergency [facility] Emergency Dept [address] [place] [address] Maile Ruiz, DO Fall, initial encounter (Primary Dx); Closed nondisplaced fracture of neck of right radius, initial encounter; Elbow effusion, right; Closed head injury, initial encounter; Contusion of scalp, initial encounter Discharge Disposition: Home or Self Care 04/17/2024 Travel from Last 3 Months Immunizations Name Administration Dates Next Due Mantoux [...] Mass Index - - Plan of Treatment Health Maintenance Due Date Last Done Comments ADVANCE CARE PLANNING 1995 ANNUAL REVIEW OF HM ORDERS 1995 HIV SCREENING 2010 HEPATITIS C SCREENING 2013 COVID-19 Vaccine ( season) 2023 08/29/2021, 10/14/2020, 09/24/2020 YEARLY PREVENTIVE VISIT 09/10/2023 09/10/2022, 09/12 PHQ-2 (once per calendar year) 2023 INFLUENZA VACCINE (#1) 2024 , 06/05/2022, 06/25/2021, Additional history exists PAP 01/26/2025 01/26/2022, 12/09/2018 DTAP/TDAP/TD IMMUNIZATION (9 - Td or Tdap) 06/25/2033 06/25/2023, 03/02/2017, 03/24/2007, Additional history exists HEPATITIS B IMMUNIZATION Completed 996, 1995, 1995 IPV IMMUNIZATION Completed 12/09/1999, , 1995, Additional history exists MENINGITIS IMMUNIZATION Aged Out 03/24/2007 No l onger eligible based on patient's age to complete this topic HPV IMMUNIZATION Completed 03/07/2015, 03/24/2007 Pneumococcal Vaccine: Pediatrics (0 to 5 Years) and At-Risk Patients (6 to 64 Years) Aged Out No longer eligible based on patient's age to complete this topic RSV MONOCLONAL ANTIBODY Aged Out No l onger eligible based on patient's age to complete [...] XR ELBOW RIGHT G/E 3 VIEWS LOCATION: [facility] DATE: 04/17/2024 INDICATION: right elbow pain COMPARISON: None. Procedure Note Gumaro Caicedo MD - 04/17/2024 EXAM: XR ELBOW RIGHT G/E 3 VIEWS LOCATION: [facility] DATE: 04/17/2024 INDICATION: right elbow pain [...] XR WRIST RIGHT G/E 3 VIEWS LOCATION: [facility] DATE: 04/17/2024 INDICATION: r wrist pain COMPARISON: None. Procedure Note Gumaro Caicedo MD - 04/17/2024 EXAM: XR WRIST RIGHT G/E 3 VIEWS LOCATION: [facility] DATE: 04/17/2024 INDICATION: r wrist pain [...] EXAM: XR FOREARM RIGHT 2 VIEWS LOCATION: [facility] DATE: 04/17/2024 INDICATION: arm pain COMPARISON: None. Procedure Note Brayden Martinez MD - 04/17/2024 EXAM: XR FOREARM RIGHT 2 VIEWS LOCATION: [facility] DATE: 04/17/2024 INDICATION: arm pain COMPARISON: None. IMPRESSION: Multiple views of the right forearm. Large anterior elboweffusion. No definite fracture identified. No radiopaque foreign bodies.Normal alignment is seen at the elbow and wrist. I would recommenddedicated views of the elbow. Maile Ruiz DO IMG DIAGNOSTIC OSCAR GING ORDERABLES from Last 3 Months Care Teams Home Health Administrator Relationship Specialty Start Date End Date Clinic, Ana Olivia [address] [place] [address]. [place] [phone] PCP - General 04/18/24 Radha [place] 03/20/13 Florencia Alcantar MD [address] [address] Assigned OBGYN Provider 04/10/23
[2024-05-07 23:42] LABS: Troponin I* < 0.01 ng/mL (0.01-0.04)
[2024-05-07 23:45] LABS: D Dimer Quantitative* 0.39 ug/ml (0.00-0.50)
[2024-05-08 00:08] LABS: HCG Quantitative* 414.42 mIU/mL
--- NOTE | 2024-05-08 00:14 | ED.NURSE ---
Pt called with HCG quantitative results. Detailed VM left, per previous request of pt.
== END 2024-05-07 23:54 | disposition home or self-care (01) ==
LOC: ED 23:35
PROVIDERS: Emergency Provider Family Medicine; PCP Family Medicine
DX: R11.2 Nausea with vomiting, unspecified (principal); F41.9 Anxiety disorder, unspecified; Z32.01 Encounter for pregnancy test, result positive
CPT/HCPCS: 36415; 80048; 80076; 84484; 84702; 84703; 85025; 85379; 86140; 87631; 93005; 94761; 96374; 96375; 99284; J2060; J2405; J7030

== ENCOUNTER 2024-05-16 15:56 | Outpatient (CLI) | payer OTHER, SELFPAY ==
--- NOTE | 2024-05-16 16:00 | CRLHL7_ITS ---
For Patients: As a result of the Century Cures Act, medical imaging exams and procedure reports are released immediately into your electronic medical record. You may view this report before your referring provider. If you have questions, please contact your health care provider. INDICATION: Dating and viability. LMP unsure. COMPARISON: None. TECHNIQUE: Real-time bennett-scale imaging of the pelvis was performed. FINDINGS: Sonographic imaging demonstrates a single intrauterine gestational sac. The mean sac diameter measures 0.9 cm which corresponds to a gestational age of 5 weeks 5 days. There is a normal-appearing yolk sac. No pole identified. The placenta has not yet developed. There is a 2.9 x 0.6 x 0.6 cm subchorionic hemorrhage in the right lower uterus. The right ovary was not visualized. The left ovary was suboptimally visualized and measures approximately 4.1 x 2.3 x 2.2 cm. No free fluid in the pelvic cul-de-sac. IMPRESSION: 1. Intrauterine gestational sac corresponding to an ultrasound gestational age of 5 weeks 5 days. 2. There is a yolk sac but no pole. This could be due to early dates. Recommend follow-up ultrasound in 11 days or more to assess viability. 3. Subchorionic hemorrhage in the right lower uterus. Dictated by Kelsie Hawthorne MD @ 05/17/2024 2:39:48 AM (Electronically Signed)
--- OUTSIDE RECORDS SUMMARY | 2024-05-16 16:00 | XMS_ITS | Clinical Summary ---
Author Organization [place] Address [address] [place] [address] Care Team Providers Care Limnology Teacher Name Role Phone Nancy August Unavailable Florencia Walker MD Unavailable [phone] Clinic, Ana Olivia Primary Care Provider + Allergies Active Allergy Reactions Criticality Noted Date Comments Alcohol Hives High 01/25/2023 Sulfa Antibiotics 03/20/2013 Medications No known medications Encounters Date Type Department Care Team Description 04/17/2024 9:58 PM CDT - 04/18/2024 12:35 AM CDT Emergency [facility] Emergency Dept [address] [place] [address] Maile Ruiz, DO Fall, initial encounter (Primary [...] HEPATITIS B IMMUNIZATION Completed 996, 1995, 1995 MENINGITIS IMMUNIZATION Aged Out 03/24/2007 No l [...] XR ELBOW RIGHT G/E 3 VIEWS LOCATION: [facility] DATE: 04/17/2024 INDICATION: right elbow pain COMPARISON: None. Procedure Note Gumaro Caicedo MD - 04/17/2024 EXAM: XR ELBOW RIGHT G/E 3 VIEWS LOCATION: [facility] DATE: 04/17/2024 INDICATION: right elbow [...] XR WRIST RIGHT G/E 3 VIEWS LOCATION: [facility] DATE: 04/17/2024 INDICATION: r wrist pain COMPARISON: None. Procedure Note Gumaro Caicedo MD - 04/17/2024 EXAM: XR WRIST RIGHT G/E 3 VIEWS LOCATION: [facility] DATE: 04/17/2024 INDICATION: r wrist [...] EXAM: XR FOREARM RIGHT 2 VIEWS LOCATION: [facility] DATE: 04/17/2024 INDICATION: arm pain COMPARISON: None. Procedure Note Brayden Martinez MD - 04/17/2024 EXAM: XR FOREARM RIGHT 2 VIEWS LOCATION: [facility] DATE: 04/17/2024 INDICATION: arm pain COMPARISON: None. IMPRESSION: Multiple views of the right forearm. Large anterior elboweffusion. No definite fracture identified. No radiopaque foreign bodies.Normal alignment is seen at the elbow and wrist. I would recommenddedicated views of the elbow. Maile Ruiz DO IMG DIAGNOSTIC OSCAR GING ORDERABLES from Last 3 Months Care Teams Limnology Teacher Relationship Specialty Start Date End Date Clinic, Ana Olivia [address] [place], [place] [address]. [place] [phone] PCP - General 04/18/24 Nancy August 03/20/13 Florencia Alcantar MD [address] [facility] [address] [place], [place] [address] Assigned OBGYN Provider 04/10/23
--- OUTSIDE RECORDS SUMMARY | 2024-05-16 16:00 | XMS_ITS | Referral Summary ---
Author Organization [place] Address [address] [place] [address] Care Team Providers Care Manager Studio Name Role Phone Nancy August Unavailable Florencia Walker MD Unavailable [phone] Clinic, Ana Olivia Primary Care Provider + Encounters Date Type Department Care Team Description 04/17/2024 9:58 PM CDT - 04/18/2024 12:35 AM T [facility] Emergency Dept [address] [place] [address] Maile Ruiz, DO Fall, initial encounter (Primary [...] XR ELBOW RIGHT G/E 3 VIEWS LOCATION: [facility] DATE: 04/17/2024 INDICATION: right elbow pain COMPARISON: None. Procedure Note Gumaro Caicedo MD - 04/17/2024 EXAM: XR ELBOW RIGHT G/E 3 VIEWS LOCATION: [facility] DATE: 04/17/2024 INDICATION: right elbow pain [...] XR WRIST RIGHT G/E 3 VIEWS LOCATION: [facility] DATE: 04/17/2024 INDICATION: r wrist pain COMPARISON: None. Procedure Note Gumaro Caicedo MD - 04/17/2024 EXAM: XR WRIST RIGHT G/E 3 VIEWS LOCATION: [facility] DATE: 04/17/2024 INDICATION: r wrist pain [...] EXAM: XR FOREARM RIGHT 2 VIEWS LOCATION: [facility] DATE: 04/17/2024 INDICATION: arm pain COMPARISON: None. Procedure Note Brayden Martinez MD - 04/17/2024 EXAM: XR FOREARM RIGHT 2 VIEWS LOCATION: [facility] DATE: 04/17/2024 INDICATION: arm pain COMPARISON: None. IMPRESSION: Multiple views of the right forearm. Large anterior elboweffusion. No definite fracture identified. No radiopaque foreign bodies.Normal alignment is seen at the elbow and wrist. I would recommenddedicated views of the elbow. Maile E Joseph DO IMG DIAGNOSTIC [place] GING ORDERABLES from Last 3 Months Care Teams Manager Studio Relationship Specialty Start Date End Date Clinic, Ana Olivia [address] [place] [phone] PCP - General 04/18/24 Nancy August 03/20/13 Florencia Alcantar MD [address] [facility] [address] [place] [address] Assigned OBGYN Provider 04/10/23
--- OUTSIDE RECORDS SUMMARY | 2024-05-16 16:01 | XMS_ITS | Encounter Summary ---
Author Organization [facility] Address [address] [place] [address]. [place] [address] Care Team Providers Care Student Accounts Manager Name Role Phone Nancy August Unavailable [facility], Noni Cruz Primary Care Pr ovider Florencia Alcantar MD Unavailable [phone] Clinic, Ana Olivia Primary Care Provider + Reason for Visit * Reason Comments Fall Head Injury Wrist Pain Encounter Details Date Type Department Care Team (Late st Contact Info) Description 04/17/2024 9:58 PM CDT - 04/18/2024 12:35 AM CDT Emergency [facility] Emergency Dept [address] [place] [address] [phone] Maile Ruiz, DO [facility] [address] [place] [address] Fall, initial encounter (Primary Dx); Closed nondisplaced [...] 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 Avoid heavy lifting, working with machinery, [...] sent through Care Everywhere. * Arm Fracture (Bhutanese) documented in this encounter ED Notes * Bella Edwards - 04/17/2024 11:55 PM CDT Tech assisted [address] with a ortho glass splint. Tech applied sling and ice pack * Debbie Urena RN - 04/17/2024 9:58 PM CDT Bed: [facility] Expected date: 04/17/24 Expected time: 9:23 PM [...] Documentation None Medical Decision Making / Diagnosis [facility] Diagnoses: None MIPS None [facility] Bina Clark is a 29 year old [...] recommended ibuprofen and she has prescription for [place] at home which I recommended every 6 [...] XR ELBOW RIGHT G/E 3 VIEWS LOCATION: [facility] DATE: 04/17/2024 INDICATION: right elbow pain COMPARISON: None. Procedure Note Gumaro Caicedo MD - 04/17/2024 EXAM: XR ELBOW RIGHT G/E 3 VIEWS LOCATION: [facility] DATE: 04/17/2024 INDICATION: right elbow [...] XR WRIST RIGHT G/E 3 VIEWS LOCATION: [facility] DATE: 04/17/2024 INDICATION: r wrist pain COMPARISON: None. Procedure Note Gumaro Caicedo MD - 04/17/2024 EXAM: XR WRIST RIGHT G/E 3 VIEWS LOCATION: [facility] DATE: 04/17/2024 INDICATION: r wrist [...] EXAM: XR FOREARM RIGHT 2 VIEWS LOCATION: [facility] DATE: 04/17/2024 INDICATION: arm pain COMPARISON: None. Procedure Note Brayden Martinez MD - 04/17/2024 EXAM: XR FOREARM RIGHT 2 VIEWS LOCATION: [facility] DATE: 04/17/2024 INDICATION: arm pain [...] RN) documented in this encounter Care Teams Student Accounts Manager Relationship Specialty Start Date End Date [facility] [address] [place] [address] PCP - General 02/09/23 04/17/24 [facility], Ana Olivia [address] [place] [phone] PCP - General 04/18/24 [facility] 03/20/13 Florencia Alcantar MD [address] [place], [place] [address] Assigned OBGYN Provider 04/10/23 documented as of this encounter
--- OUTSIDE RECORDS SUMMARY | 2024-05-16 16:01 | XMS_ITS | Encounter Summary ---
Author Organization [place] Address [facility] [place] [address] Care Team Providers Care Seed Sales Manager Name Role Phone Navid Young MD Primary Care Provider [phone] Noni Coffman Thomson Unavailable Unavai reilly Coffman Thomson Primary Care Provider Unavailable Clinic, Noni Coffman Thomson Primary Care Pr ovider Florencia Alcantar MD Unavailable [phone] Clinic, Ana Olivia Primary Care Provider + Encounter Details Date Type Department Care Team (Late st Contact Info) Description 06/15/2012 Orders Only [facility] Imaging [address] [place] [phone] Syhre, Remi Abdominal pain (Primary Dx) Social [...] site documented in this encounter Care Teams Seed Sales Manager Relationship Specialty Start Date End Date Navid Young MD [facility] [address] [facility] [address] [place] [address] PCP - General Pediatrics 06/17/12 03/19/13 [facility] PEDIATRICS [address] [facility] [address] [place] [address] PCP - General 03/20/13 02/08/23 [facility] [address] [place] [address] PCP - General 02/09/23 04/17/24 Clinic, Ana Olivia [address] [place] [address] [place] [phone] PCP - General 04/18/24 [facility] PEDIATRICS [address] [facility] [address] [place] [address] 03/20/13 Florencia Alcantar MD [address] [facility] [address] [place], [place] [address] Assigned OBGYN Provider 04/10/23 documented as of this encounter
--- OUTSIDE RECORDS SUMMARY | 2024-05-16 16:01 | XMS_ITS | Data Portability ---
Author Organization [place] [facility] [place] [facility] Address [address] [place] [address] Care Team Providers Care Customer Relations Assistant Name Role Phone [facility] Primary Care Provider [phone] Assessment No assessment recorded. Plan of Treatment Reminders Order Date Submit Date Provider Last Modified By Organization Details Last Modified Time Details Appointments None recorde d. Lab None recorde d. Referral None recorde d. Procedures None recorde d. Surgeries None recorde d. Imaging XR, kidney + ureter + bladder 2021 022 [facility] , [facility], [address], 12:02:59 Medication Orders None recorde d. Patient TargetsNo targets recorded. Patient InstructionsNo instructions recorded. Reason for Referral None Reported. Results Created Date Observation Date Name Description Value Unit Range Abnormal Flag Note LastModifiedBy Organization Detail LastModifiedTime 06/19/2006/19/2022 CT, abdom en + pelvi s, w/o contr ast No observ ation record ed. [email or web address] [facility] Radiology Department [address] [place], [address], 06/19/2022 11:17:54 06/24/2006/22/2022 XR, kidne y + urete r + bladd er No observ ation record ed. [facility] [address] [place], [address], 06/24/2022 13:17:00 Result Notes None recorded. Procedures Surgical History Date Name Laterality Status Provider Name and Address Organization Details Recorded Time 2 EXTRA CORPOREAL SHOCK WAVE LITHOTRIPSY (SURG) completed Sofi Enamorado [facility] Urology 08/27/2022 12:19:36 Imaging Results Imaging Date Name Status LastModified by Organiz ation Details LastModified Time 06/19/2022 CT, abdomen + pelvis, w/o contrast completed [email or web address] [facility] Radiology Department [address] [place], [address], 06/19/2022 11:17:54 06/22/2022 XR, kidney + ureter + bladder completed [facility] [address] [place], [address], 06/24/2022 13:17:00 Procedure Notes None recorded. Medical Equipment None Reported. Allergies Allergen ID Allergen Name Allergen Category Reaction Reaction Severity Criticality Documentation Date Start Date Code Code System Note Provider Name and Address Organization Details Recorded Time 633101 Substance with sulfonami de structure and antibacte rial mechanism of action (substanc e) medicatio n Not available Not available Not available 06/22/2022 [id number] 8003 SNBRAYDON Mitchell MD [address] [place] [address], [address] [place] [address] Urology 2 11:36:34 Medications Name Sig Start [...] Updated DateTime 06/22/2022 167.64 cm 33.7 kg/m2 70917.81 g Leroy Mitchell MD [address] [place] [address] Urology 06/22/2022 11:36:23 Social History Question Answer Notes LastModified by Organizat ion Details LastModified Time Tobacco Smoking Status Never Smoker Leroy Mitchell MD [address] [place] [address] Urology 06/22/2022 11:38:23 What Was The Date [...] tumor of lung Medical History Condition Response Diabetes N Sexually Transmitted Infection N Bleeding Disorder N High Blood Pressure N Kidney Stones Y Cancer N Lung Disease N Depression N High Cholesterol N GERD/Acid Reflux N Heart Disease N Gynecological History Statement/Question Response Sexually Active? Y Obstetrics History GPAL:G 0 P 0 0 0 0 Past Encounters Encounter ID Performer Location Encounter Start Date Encounter Closed Date Diagnosis/Indication Diagnosis SNOMED-CT Code Diagnosis ICD10 Code [id number] Leroy Mitchell MD [facility] [address] [place] [address] 06/22/2022 11:15:24 06/26/2022 09:00:03 Kidney stone 84351269 N20.0 Health Concerns Section Related Observation LastModified by Organization Detai ls LastModified Time None Recorded Concern Status LastModified by Organization Details LastModified Time None Recorded Advance Directives Directive None Recorded Payers Encounter Date Sequence Insurance Name Policy Number Policy Hayes Covered Member ID Hayes Member ID Guarantor Name 06/22/2022 1 [employer] - OPEN ACCESS CHOICE (HMO) [id number] Bina Horan Eduardo [id number] Bina Horan Eduardo Notes Date Note Type Note Provider [...] an ER nurse. Leroy Mitchell MD [address] [facility],[address], [place], [address], [facility] [place] [facility] 06/22/2022 11:49:28 OBGyn Episode No OBEpisode recorded.
--- OUTSIDE RECORDS SUMMARY | 2024-05-16 16:01 | XMS_ITS | Clinical Summary ---
Author Organization [employer] [facility] Address [place], [place] [address] Care Team Providers Care Proof Press Operator Name Role Phone Emilee Villalobos MD Primary Care Provi sandy Blue Aden MD Unavailable [phone] Allison Dunbar RN Unavailable [phone] Unavailable [phone] Allergies Active Allergy Reactions Criticality Noted Date [...] Description 04/12/2024 4:30 PM CDT Office Visit [facility] [address] [address] Lindsay Olivo MD Throat Problem (Sore throat ) 04/12/2024 Travel from Last 3 Months Immunizations Name Administration Dates Next Due AMB INFLUENZA, IIV4 (AGE=>6M OS) MDV (Flu Clinic Only) 07/21/2019 AMB Influenza, IIV4 PF (=>6 mos Flulaval,Fluzone Fluarix)(Flu Clinic Only) 06/05/2022 COVID-19 vaccine (StemBioSys 30mcg/0.3mL) PF, MDV 10/14/2020 DTaP 12/09/1999, 0,06/05/1996,07/01,1995,1995 [...] Date Recorded PHQ-2 TOTAL SCORE 1 12/22/2023 Orland Depression Scale Answer Date Recorded Orland Depression Scale Total 7 12/22/2023 The thought [...] Done Comments COVID-19 vaccine series ( season) 2024 08/29/2021, 10/14/2020, 09/24/2020 Influenza for age 9-49 [...] HIV-1/O/2, 4TH GENERATION Routine 09/10/2022 9:50 AM ROOF TECHNICIAN Screening for HIV (human immunodeficiency virus) ANTI HCV Routine 04/21/2022 1:10 PM CDT Need for hepatitis C screening test MIXER OPERATOR HELPER HOT METAL THIN PREP PAP SCREEN IMAGED Routine 01/26/2022 12:00 PM CDT from Last 3 Months or Most Recently Relevant to Health Maintenance Results * STREP A PCR (04/12/2024 4:47 PM CDT) GROUP A STREP Negative 04/13/2024 3:47 PM CDT [facility] Throat SPECIMEN FROM THROAT / Unknown Non-Blood / Unknown 04/12/2024 4:47 PM CDT 04/12/2024 4:57 PM CDT Lindsay Olivo MD MICROBIOLOGY [facility]ORY [address] [place] [address], [place] * THROAT RAPID STREP A WITH REFLEX [07823.1] - age 0 through 17 yrs (04/12/2024 4:47 PM CDT) STREP A ANTIGEN Negative 04/12/2024 4:[address] [facility] Comment:PCR to follow. Throat SPECIMEN FROM THROAT / Unknown Non-Blood / Unknown 04/12/2024 4:47 PM CDT 04/12/2024 4:49 PM CDT Lindsay Olivo MD MICROBIOLOGY [facility] [address] [place] [address], [place] * LC HIV-1/O/2, 4TH GENERATION (09/10/2022 9:50 AM ROOF TECHNICIAN) HIV Scr 4th Gen Non Reactive Non Reactive 09/12/2022 12:07 PM ROOF TECHNICIAN [facility] Comment: HIV Negative HIV-1/HIV-2 antibodies and HIV-1 p24 antigen were NOT detected. There is no laboratory evidence of HIV infection. Blood BLOOD SPECIMEN / Unknown Venipuncture / Unknown 09/10/2022 9:50 AM ROOF TECHNICIAN 09/10/2022 9:51 AM ROOF TECHNICIAN Narrative [facility] ([facility]) - 09/12/2022 12:07 PM ROOF TECHNICIAN Performed at: ??01 - [address] ??[id number] Microcomputer Technician: Otis Bowser MD, Phone: ??[phone] Zelda Potts MD [facility] Performing Organization Address City/[facility] Co de Phone Number [facility] ([facility]) [address] [place] [address], * ANTI HCV (04/21/2022 1:10 PM CDT) HEPATITIS C ANTIBODY Non-React coleman Non-React coleman 04/21/2022 8:35 PM CDT [facility] [employer] [facility] Comment:Antibodies to HCV no t detected; does not exclude the possibility of exposure to HCV. Blood BLOOD SPECIMEN / Unknown Venipuncture / Unknown 04/21/2022 1:10 PM CDT 04/21/2022 1:02 PM CDT Emilee Villalobos MD SEND OUTS [facility] [address] [place] [address], * MIXER OPERATOR HELPER HOT METAL THIN PREP PAP SCREEN IMAGED (01/26/2022 12:00 PM CDT) Case Report Gynecologic Cytology Report ? Case: [id number] ? Authorizing Provider: ??Edelmira Ellison, GASTROENTEROLOGY PHYSICIAN ?? Collected: ? 01/26/2022 1200 ? Ordering Location: ? [facility] ?Received: ?01/28/2022 0740 ? First Screen: ?Stephen, Ion ? Specimen: ?MIXER OPERATOR HELPER HOT METAL ThinPrep Vial Screening, Cervical/Vaginal ? 02/13/2022 12:00 PM CDT [facility] [employer] LABORATORY- ENTRAL LABORATORY INTERPRETATION/ RESULT NEGATIVE FOR INTRAEPITHELIAL LESION OR MALIGNANCY (NIL) (none) 02/13/2022 12:00 PM CDT [facility] IMEN ADEQUACY Satisfactory for evaluation Endocervical component present 02/13/2022 12:00 PM CDT [facility] ENTRAL LABORATORY HPV REQUEST HPV if ASCUS 02/13/2022 12:00 PM CDT [facility] ENTRAL LABORATORY Date of LMP 06/08/2021 02/13/2022 12:00 PM CDT [facility]AL [facility] Last Pap Date 07/07/2016 02/13/2022 12:00 PM CDT [facility] Last Pap Result NIL 12:00 PM CDT [facility] Additional Information 02/13/2022 12:00 PM CDT [facility] Comment: Interpreted at [facility] - [address], [place] [address] Automated Review Successful 02/13/2022 12:00 PM CDT [facility] Comment:Specimen processed s uccessfully by automated insurance assistant device, ThinPrep Imaging System, [employer] Note The pap test is a [...] and malignant lesions. 02/13/2022 12:00 PM CDT [facility] Other (Cervical/Vagina l) 01/26/2022 12:00 PM CDT 01/28/2022 7:40 AM CDT Edelmira Ellison NP PATHOLOGY/CYTOLOG Y [facility] [address] [place] [address], [place] from Last 3 Months or Most [...] Code Status Discussion: Not Discussed Care Teams Proof Press Operator Relationship Specialty Start Date End Date Emilee Villalobos MD [address] [facility] [place] [address] PCP - General Family Practice 09/12/21 [place] [address] [place] [address] [address] [place] [address] Consulting Physician Surgery - General 12/09/21 Allison Dunbar, RN [address] [facility] [address] [place], [place] [id number] Thermite Welder Registered Nurse 12/09/[address] [facility] 100 [place], [place] [address] Machine Sole Leveler/Lens Generating Machine Tender Quick Service Technician 12/09/21
--- OUTSIDE RECORDS SUMMARY | 2024-05-16 16:01 | XMS_ITS | Clinical Summary ---
[facility] Organization [facility] Address [address] [place] [address] Care Team Providers Care Wildlife Control Operator Name Role Phone Lily Sebastian APRN, CNP [...] for each transition of care or referral. [facility] Allergies Active Allergy Reactions Criticality Noted Date [...] 30-39.9) 03/07/2015 Overview (04/16/2016): See [facility] notes, 12/2015. Started pt on Topamax [...] Negative HP CONVERSION Comment: Test Performed by Working Second Hand Mediated Amplification CLIA Number [id number] N. gonorrhoeae STD Negative Negative HP CONVERSI ON Comment: Test Performed by Working Second Hand Mediated Amplification Performed at [facility], [address] [place] [address] CLIA Number [id number] Source STD Cervix HP CONVERSION Comment:CLIA Number [id number] 03/07/2015 11:3 2 AM CDT 03/07/2015 7:05 PM CDT Lily Sebastian APRN, CNP LAB_1 HP CONVERSION from Last 3 Months or Most Recently Relevant to Health Maintenance Care Teams Wildlife Control Operator Relationship Specialty Start Date End Date Lily Sebastian APRN, [place] [address] [place] [address] PCP - General 03/07/15
--- OUTSIDE RECORDS SUMMARY | 2024-05-16 16:01 | XMS_ITS | Encounter Summary ---
Author Organization [place] Address [address] [place] [address] Care Team Providers Care It Architect Name Role Phone Nancy August Unavailable [facility] Primary [facility] Pr ovider Florencia Alcantar MD Unavailable [phone] Encounter Details Date Type Department Care [...] on filedocumented in this encounter Care Teams It Architect Relationship Specialty Start Date End Date Clinic, [place] [address] [place], [place] [address] PCP - General 02/09/23 04/17/24 Nancy August 03/20/13 Florencia Alcantar MD [address] [place], [place] [address] Assigned OBGYN Provider 04/10/23 documented as of this encounter
== END 2024-05-16 15:57 | disposition home or self-care (01) ==
LOC: US 15:57
PROVIDERS: PCP Family Medicine; Visit Provider Registered Nurse
DX: Z34.91 Encounter for supervision of normal pregnancy, unspecified, first trimester (principal); O20.9 Hemorrhage in early pregnancy, unspecified; Z3A.01 Less than 8 weeks gestation of pregnancy
CPT/HCPCS: 76817; 84702

== ENCOUNTER 2024-05-19 08:20 | Outpatient (CLI) | payer OTHER, SELFPAY ==
--- OUTSIDE RECORDS SUMMARY | 2024-05-25 05:44 | XMS_ITS | Referral Summary ---
Author Organization [place] Address [address] [place] [address] Care Team Providers Care Net Coordinator Name Role Phone Nancy August Unavailable Florencia Walker MD Unavailable [phone] Clinic, Ana Olivai Primary Care Provider + Encounters Date Type Department Care Team Description 04/17/2024 9:58 PM CDT - 04/18/2024 12:35 AM T [facility] [address] [place] [address] Maile Ruiz, DO Fall, initial encounter (Primary [...] XR ELBOW RIGHT G/E 3 VIEWS LOCATION: [facility] DATE: 04/17/2024 INDICATION: right elbow pain COMPARISON: None. Procedure Note Gumaro Caicedo MD - 04/17/2024 EXAM: XR ELBOW RIGHT G/E 3 VIEWS LOCATION: [facility] DATE: 04/17/2024 INDICATION: right elbow pain [...] XR WRIST RIGHT G/E 3 VIEWS LOCATION: [facility] DATE: 04/17/2024 INDICATION: r wrist pain COMPARISON: None. Procedure Note Gumaro Caicedo MD - 04/17/2024 EXAM: XR WRIST RIGHT G/E 3 VIEWS LOCATION: [facility] DATE: 04/17/2024 INDICATION: r wrist pain [...] EXAM: XR FOREARM RIGHT 2 VIEWS LOCATION: [facility] DATE: 04/17/2024 INDICATION: arm pain COMPARISON: None. Procedure Note Brayden [place] MD - 04/17/2024 EXAM: XR FOREARM RIGHT 2 VIEWS LOCATION: [facility] DATE: 04/17/2024 INDICATION: arm pain COMPARISON: None. IMPRESSION: Multiple views of the right forearm. Large anterior elboweffusion. No definite fracture identified. No radiopaque foreign bodies.Normal alignment is seen at the elbow and wrist. I would recommenddedicated views of the elbow. Maile Ascencio Ruiz DO IMG DIAGNOSTIC OSCAR GING ORDERABLES from Last 3 Months Care Teams Net Coordinator Relationship Specialty Start Date End Date Clinic, Ana Olivia [address] [place] [phone] PCP - General 04/18/24 Nancy August 03/20/13 Florencia Alcantar MD [address] [facility] [address] [place] [address] Assigned OBGYN Provider 04/10/23
--- OUTSIDE RECORDS SUMMARY | 2024-05-25 05:44 | XMS_ITS | Clinical Summary ---
[facility] Address [address] [place] [address] Care Team Providers Care Travel Consultant Name Role Phone Lily Sebastian APRN, CNP [...] for each transition of care or referral. [facility] Allergies Active Allergy Reactions Criticality Noted Date [...] Obesity (BMI 30-39.9) 03/07/2015 Overview (04/16/2016): See [facility] notes, 12/2015. Started pt on Topamax for [...] Additional history exists COVID-19 Vaccine ( season) 2024 08/29/2021, 10/14/2020, 09/24/2020 Influenza (#1) 2024 06/25/2021, [...] Negative HP CONVERSION Comment: Test Performed by [facility]givers [facility] Mediated Amplification CLIA Number [id number] N. gonorrhoeae STD Negative Negative HP CONVERSI ON Comment: Test Performed by [facility] Mediated Amplification [facility]formed at [facility], [address] [place] [address] CLIA Number [id number] Source STD Cervix HP CONVERSION Comment:CLIA Number [id number] 03/07/2015 11:3 2 AM CDT 03/07/2015 7:05 PM CDT Lily Sebastian APRN, CNP LAB_1 HP CONVERSION from Last 3 Months or Most Recently Relevant to Health Maintenance Care Teams Travel Consultant Relationship Specialty Start Date End Date Lily Sebastian APRN, DISTRIBUTED GENERATION PROJECT MANAGER [address] [place] [address] PCP - General 03/07/15
--- OUTSIDE RECORDS SUMMARY | 2024-05-25 05:44 | XMS_ITS | Encounter Summary ---
Author Organization [facility] Address [address] [place] [address]. [place] [address] Care Team Providers Care Skin Carver Name Role Phone Nancy August Unavailable [facility], Noni Cruz Primary Care Pr ovider Florencia Alcantar MD Unavailable [phone] Clinic, Ana Olivia Primary Care Provider + Reason for Visit * Reason Comments Fall Head Injury Wrist Pain Encounter Details Date Type Department Care Team (Late st Contact Info) Description 04/17/2024 9:58 PM CDT - 04/18/2024 12:35 AM CDT Emergency [facility] Emergency Dept [address] [place] [address] [phone] Maile Ruiz, DO [facility] [address] [place] [address] Fall, initial encounter (Primary Dx); Closed nondisplaced [...] may need shorter work days and a senior process analyst workload. Avoid heavy lifting, working with machinery, [...] sent through Care Everywhere. * Arm Fracture ([place]man[place]) documented in this encounter ED Notes * Bella Edwards - 04/17/2024 11:55 PM CDT Tech assisted [address] with a ortho glass splint. Tech applied sling and ice pack * Debbie Urena RN - 04/17/2024 9:58 PM CDT Bed: [facility] Expected date: 04/17/24 Expected time: 9:23 PM [...] Documentation None Medical Decision Making / Diagnosis [facility] Diagnoses: None MIPS None [facility] Bina Clark is a 29 year [...] recommended ibuprofen and she has prescription for Tolono at home which I recommended every 6 [...] RN) documented in this encounter Care Teams Skin Carver Relationship Specialty Start Date End Date [facility] [address] [place] [address] PCP - General 02/09/23 04/17/24 [facility], Ana Olivia [address] [place] [phone] PCP - General 04/18/24 [facility] 03/20/13 Florencia Alcantar MD [address] [place], [place] [address] Assigned OBGYN Provider 04/10/23 documented as of this encounter
--- OUTSIDE RECORDS SUMMARY | 2024-05-25 05:44 | XMS_ITS | Data Portability ---
Author Organization [place] [facility] [place] [facility] Address [address] [place] [address] Care Team Providers Care Hazard Waste Handler Name Role Phone [facility] Primary Care Provider Assessment No assessment recorded. Plan of Treatment Reminders Order Date Submit Date Provider Last Modified By Organization Details Last Modified Time Details Appointments None recorde d. Lab None recorde d. Referral None recorde d. Procedures None recorde d. Surgeries None recorde d. Imaging XR, kidney + ureter + bladder 2021 022 [facility] , [facility] [place], [address], 12:02:59 Medication Orders None recorde d. Patient TargetsNo targets recorded. Patient InstructionsNo instructions recorded. Reason for Referral None Reported. Results Created Date Observation Date Name Description Value Unit Range Abnormal Flag Note LastModifiedBy Organization Detail LastModifiedTime 06/19/2006/19/2022 CT, abdom en + pelvi s, w/o contr ast No observ ation record ed. [email or web address] [facility] Radiology Department [address] [place], [address], 06/19/2022 11:17:54 06/24/2006/22/2022 XR, kidne y + urete r + bladd er No observ ation record ed. [facility] [address] [place], [address], 06/24/2022 13:17:00 Result Notes None recorded. Procedures Surgical History Date Name Laterality Status Provider Name and Address Organization Details Recorded Time 2 EXTRA CORPOREAL SHOCK WAVE LITHOTRIPSY (SURG) completed Sofi Enamorado [facility] 08/27/2022 12:19:36 Imaging Results Imaging Date Name Status LastModified by Organiz ation Details LastModified Time 06/19/2022 CT, abdomen + pelvis, w/o contrast completed [email or web address] [facility] Radiology Department [address] [place], [address], 06/19/2022 11:17:54 06/22/2022 XR, kidney + ureter + bladder completed [facility] [address] [facility] [place], [address], 06/24/2022 13:17:00 Procedure Notes None recorded. Medical Equipment None Reported. Allergies Allergen ID Allergen Name Allergen Category Reaction Reaction Severity Criticality Documentation Date Start Date Code Code System Note Provider Name and Address Organization Details Recorded Time 921404 Substance with sulfonami de structure and antibacte rial mechanism of action (substanc e) medicatio n Not available Not available Not available 06/22/2022 [address]06[address] 8003 SNBRAYDON Mitchell MD [address] [place] [address], [address] [place] [address] Urology 2 11:36:34 Medications Name Sig Start [...] Updated DateTime 06/22/2022 167.64 cm 33.7 kg/m2 85780.81 g Leroy Mitchell MD [address] [place], [place] [address] [place] [address] Urology 06/22/2022 11:36:23 Social History Question Answer Notes LastModified by Organizat ion Details LastModified Time Tobacco Smoking Status Never Smoker Leroy Mitchell MD [address] [place] [address] Urology 06/22/2022 11:38:23 What Was The Date [...] Diagnosis/Indication Diagnosis SNOMED-CT Code Diagnosis ICD10 Code [id number] Leroy Mitchell MD [facility] [address] [place] [address] 06/22/2022 11:15:24 06/26/2022 09:00:03 Kidney stone [id number] N20.0 Health Concerns Section Related Observation LastModified by Organization Detai ls LastModified Time None Recorded Concern Status LastModified by Organization Details LastModified Time None Recorded Advance Directives Directive None Recorded Payers Encounter Date Sequence Insurance Name Policy Number Policy Hayes Covered Member ID Hayes Member ID Guarantor Name 06/22/2022 1 [employer] - OPEN ACCESS CHOICE (HMO) [id number] Bina Horan Eduardo [id number] Bina Horan Eduardo Notes Date Note Type [...] nurse. Leroy Mitchell MD [address] [facility],[address], [place], [address], [facility] [place] [facility] 06/22/2022 11:49:28 OBGyn Episode No OBEpisode recorded.
--- OUTSIDE RECORDS SUMMARY | 2024-05-25 05:44 | XMS_ITS | Clinical Summary ---
Author Organization [employer] [facility] s [facility] Address [place], [place] [address] Care Team Providers Care Production Supervisor Off Shift Name Role Phone Emilee Villalobos MD Primary Care Provi sandy Blue Aden MD Unavailable [phone] Allison Dunbar RN Unavailable [phone] Unavailable [phone] Allergies Active Allergy Reactions Criticality Noted Date [...] 0 09/10/2022 Active sertraline (ZOLOFT) 100 mg tabletIndications:De pressed mood,CRISTÓBAL (generalized anxiety disorder) Take 2 Tablets (200 mg) by mouth once daily. 180 Tablet 3 12/22/2023 Active metFORMIN (GLUCOPHAGE) 500 mg tabletIndications:PC OS (polycystic ovarian syndrome) Take 1 Tablet (500 mg) by mouth two times daily with meals. 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 OB TRANSVAGINAL, 05/16/2024 04/12/2024 4:30 PM CDT Office Visit [facility] [address] [facility] [address] [place] [id number] Lindsay Olivo MD Throat Problem (Sore throat ) 04/12/2024 Travel from Last 3 Months Immunizations Name Administration Dates Next Due AMB INFLUENZA, IIV4 (AGE=>6M OS) MDV (Flu Clinic Only) 07/21/2019 AMB Influenza, IIV4 PF (=>6 mos Flulaval,Fluzone Fluarix)(Flu Clinic Only) 06/05/2022 COVID-19 vaccine (Mass Vector NTVlingo 30mcg/0.3mL) PF, MDV 10/14/2020 DTaP 12/09/1999, 0,06/05/1996,07/01,1995,1995 [...] Date Recorded PHQ-2 TOTAL SCORE 1 12/22/2023 Baker Depression Scale Answer Date Recorded Baker Depression Scale Total 7 12/22/2023 The thought [...] Procedure Name Priority Date/Time Associated Diagnosis Comments SCAN-ULTRASOUND REPORT 05/16/2024 12:00 AM CDT STREP A PCR STAT 04/12/2024 4:47 PM CDT Sore throat THROAT RAPID STREP A WITH REFLEX STAT 04/12/2024 4:47 PM CDT Sore throat LC HIV-1/O/2, 4TH GENERATION Routine 09/10/2022 9:50 AM STEEL POURER HELPER Screening for HIV (human immunodeficiency virus) ANTI HCV Routine 04/21/2022 1:10 PM CDT Need for hepatitis C screening test FINANCE ADVISOR THIN PREP PAP SCREEN IMAGED Routine 01/26/2022 12:00 PM CDT from Last 3 Months or Most Recently Relevant to Health Maintenance Results * SCAN-ULTRASOUND REPORT (05/16/2024 12:00 AM CDT) Anatomical Region Laterality Modality Other Scanner OTHER * STREP A PCR (04/12/2024 4:47 PM CDT) GROUP A STREP Negative 04/13/2024 3:47 PM CDT [facility] Throat SPECIMEN FROM THROAT / Unknown Non-Blood / Unknown 04/12/2024 4:47 PM CDT 04/12/2024 4:57 PM CDT Lindsay Olivo MD [facility] [address] [place] [address], * THROAT RAPID STREP A WITH REFLEX [63919.1] - age 0 through 17 yrs (04/12/2024 4:47 PM CDT) STREP A ANTIGEN Negative 04/12/2024 4:58 PM CDT [facility] Comment:PCR to follow. Throat SPECIMEN FROM THROAT / Unknown Non-Blood / Unknown 04/12/2024 4:47 PM CDT 04/12/2024 4:49 PM CDT Lindsay Olivo MD MICROBIOLOGY [facility] [id number] [place] [address], [place] * LC HIV-1/O/2, 4TH GENERATION (09/10/2022 9:50 AM STEEL POURER HELPER) Pathologist [facility] HIV Scr 4th Gen Non Reactive Non Reactive 09/12/2022 12:07 PM STEEL POURER HELPER [facility] Comment: HIV Negative HIV-1/HIV-2 antibodies and HIV-1 p24 antigen were NOT detected. There is no laboratory evidence of HIV infection. Blood BLOOD SPECIMEN / Unknown Venipuncture / Unknown 09/10/2022 9:50 AM STEEL POURER HELPER 09/10/2022 9:51 AM STEEL POURER HELPER Narrative [facility] - 09/12/2022 12:07 PM STEEL POURER HELPER Performed at: ??[address] ??[id number] Device Repair Technician: Otis Bowser MD, Phone: ??[phone] Zelda BERMAN [facility] ([facility]) [address] [place] [address], * ANTI HCV (04/21/2022 1:10 PM CDT) [facility] HEPATITIS C ANTIBODY Non-React coleman Non-React coleman 04/21/2022 8:35 PM CDT [facility] Comment:Antibodies to HCV no t detected; does not exclude the possibility of exposure to HCV. Blood BLOOD SPECIMEN / Unknown Venipuncture / Unknown 04/21/2022 1:10 PM CDT 04/21/2022 1:02 PM CDT Emilee Villalobos MD SEND OUTS [facility] [address] [place] [address], [place] * FINANCE ADVISOR THIN PREP PAP SCREEN IMAGED (01/26/2022 12:00 PM CDT) Case Report Gynecologic Cytology Report ? Case: [id number] ? Authorizing Provider: ??Edelmira Ellison, ASSET MANAGEMENT LEAD ?? Collected: ? 01/26/2022 1200 ? Ordering Location: ? [facility] ?Received: ?01/28/2022 0740 ? First Screen: ?Ion Mitchell ? Specimen: ?FINANCE ADVISOR ThinPrep Vial Screening, Cervical/Vaginal ? 02/13/2022 12:00 PM CDT [facility] INTERPRETATION/ RESULT NEGATIVE FOR INTRAEPITHELIAL LESION OR MALIGNANCY (NIL) (none) 02/13/2022 12:00 PM CDT Contents First- ENTRAL LABORATORY IMEN ADEQUACY Satisfactory for evaluation Endocervical component present 02/13/2022 12:00 PM CDT [facility] HPV REQUEST HPV if ASCUS 02/13/2022 12:00 PM CDT [facility] Date of LMP 06/08/2021 02/13/2022 12:00 PM CDT [facility] Last Pap Date 07/07/2016 02/13/2022 12:00 PM CDT [facility] Last Pap Result NIL 12:00 PM CDT [facility] Additional Information 02/13/2022 12:00 PM CDT [facility] Comment: Interpreted at [facility] - [address], [place] [address] Automated Review Successful 02/13/2022 12:00 PM CDT [facility] Comment:Specimen processed s uccessfully by automated cellulose insulation helper device, ConnexityPrep Imaging System, [employer] Note The pap test is a [...] and malignant lesions. 02/13/2022 12:00 PM CDT [facility] Other (Cervical/Vagina l) 01/26/2022 12:00 PM CDT 01/28/2022 7:40 AM CDT dEelmira Ellison NP PATHOLOGY/CYTOLOG Y [facility] [address] [place] [address], [place] from Last 3 Months or Most [...] Code Status Discussion: Not Discussed Care Teams Production Supervisor Off Shift Relationship Specialty Start Date End Date Emilee Villalobos MD [address] [facility] [place] [address] PCP - General Family Practice 09/12/21 Blue Aden MD [address] [phone] Consulting Physician Surgery - General 12/09/21 Allison Dunbar RN [address] [address] Packing Line Operator Registered Nurse 12/09/[address] [address] Guest Service Supervisor/Insulation Worker Apprentice Cutter Hand 12/09/21
--- OUTSIDE RECORDS SUMMARY | 2024-05-25 05:44 | XMS_ITS | Encounter Summary ---
Author Organization [place] Address [address] [facility] [place] [address] Care Team Providers Care Supervisor Machining Name Role Phone Nancy August Unavailable [facility] Primary Care Pr ovider Florencia Alcantar MD Unavailable [phone] Encounter Details Date Type Department Care [...] filedocumented in this encounter Care Teams Supervisor Machining Relationship Specialty Start Date End Date Clinic, Noni Cruz [address] [place], [place] [address] PCP - General 02/09/23 04/17/24 Nancy August 03/20/13 Florencia Alcantar MD [address] [place], [place] [address] Assigned OBGYN Provider 04/10/23 documented as of this encounter
--- OUTSIDE RECORDS SUMMARY | 2024-05-25 05:44 | XMS_ITS | Encounter Summary ---
Author Organization [place] Address [facility] [place] [address] Care Team Providers Care Entertainment & Media Correspondent Name Role Phone Navid Young MD Primary Care Provider [phone] Noni Coffman Lengby Unavailable Unavai reilly Coffman Lengby Primary Care Provider Unavailable Clinic, Noni Coffman Lengby Primary Care Pr ovider Florencia Alcantar MD Unavailable [phone] Clinic, Ana Olivia Primary Care Provider + Encounter Details Date Type Department Care Team (Late st Contact Info) Description 06/15/2012 Orders Only [facility] Imaging [address] [place] [phone] Syhre, Remi Abdominal pain (Primary Dx) Social [...] site documented in this encounter Care Teams Entertainment & Media Correspondent Relationship Specialty Start Date End Date Navid Young MD [facility] [address] [facility] [address] [place] [address] PCP - General Pediatrics 06/17/12 03/19/13 [facility] PEDIATRICS [address] [facility] [address] [place] [address] PCP - General 03/20/13 02/08/23 [facility] [address] [place] [address] PCP - General 02/09/23 04/17/24 Clinic, Ana Olivia [address] [place] [address] [place] [phone] PCP - General 04/18/24 [facility] PEDIATRICS [address] [facility] [address] [place] [address] 03/20/13 Florencia Alcantar MD [address] [facility] [address] [place], [place] [address] Assigned OBGYN Provider 04/10/23 documented as of this encounter
--- OUTSIDE RECORDS SUMMARY | 2024-05-25 05:44 | XMS_ITS | Clinical Summary ---
Author Organization [place] Address [address] [place] [address] Care Team Providers Care Dopeman Name Role Phone Nancy August Unavailable Florencia Walker MD Unavailable [phone] Clinic, Ana Olivia Primary Care Provider + Allergies Active Allergy Reactions Criticality Noted Date Comments Alcohol Hives High 01/25/2023 Sulfa Antibiotics 03/20/2013 Medications No known medications Encounters Date Type Department Care Team Description 04/17/2024 9:58 PM CDT - 04/18/2024 12:35 AM CDT Emergency [facility] Emergency Dept [address] [place] [address] Maile Ruiz, DO Fall, initial encounter (Primary [...] HIV SCREENING 2010 HEPATITIS C SCREENING 2013 YEARLY PREVENTIVE VISIT 09/10/2023 09/10/2022, 09/12 PHQ-2 (once per calendar year) 2023 COVID-19 Vaccine ( season) 2024 08/29/2021, 10/14/2020, 09/24/2020 INFLUENZA VACCINE (#1) 2024 , 06/05/2022, 06/25/2021, [...] XR ELBOW RIGHT G/E 3 VIEWS LOCATION: [facility] DATE: 04/17/2024 INDICATION: right elbow pain COMPARISON: None. Procedure Note Gumaro Caicedo MD - 04/17/2024 EXAM: XR ELBOW RIGHT G/E 3 VIEWS LOCATION: [facility] DATE: 04/17/2024 INDICATION: right elbow [...] XR WRIST RIGHT G/E 3 VIEWS LOCATION: [facility] DATE: 04/17/2024 INDICATION: r wrist pain COMPARISON: None. Procedure Note Gumaro Caicedo MD - 04/17/2024 EXAM: XR WRIST RIGHT G/E 3 VIEWS LOCATION: [facility] DATE: 04/17/2024 INDICATION: r wrist [...] EXAM: XR FOREARM RIGHT 2 VIEWS LOCATION: [facility] DATE: 04/17/2024 INDICATION: arm pain COMPARISON: None. Procedure Note Brayden Martinez MD - 04/17/2024 EXAM: XR FOREARM RIGHT 2 VIEWS LOCATION: [facility] DATE: 04/17/2024 INDICATION: arm pain COMPARISON: None. IMPRESSION: Multiple views of the right forearm. Large anterior elboweffusion. No definite fracture identified. No radiopaque foreign bodies.Normal alignment is seen at the elbow and wrist. I would recommenddedicated views of the elbow. Maile Ruiz DO IMG DIAGNOSTIC OSCAR GING ORDERABLES from Last 3 Months Care Teams Dopeman Relationship Specialty Start Date End Date Clinic, Ana Olivia [address] [place] [phone] PCP - General 04/18/24 Nancy August 03/20/13 Florencia Alcantar MD [address] [address] Assigned OBGYN Provider 04/10/23
== END 2024-05-19 08:21 | disposition home or self-care (01) ==
LOC: NFLDREF 05-25 05:42
PROVIDERS: PCP Family Medicine; Referring Provider Family Medicine; Visit Provider Registered Nurse
DX: Z34.90 Encounter for supervision of normal pregnancy, unspecified, unspecified trimester (principal)
CPT/HCPCS: 84702

== ENCOUNTER 2024-05-30 14:38 | Outpatient (CLI) | payer OTHER, SELFPAY ==
--- OUTSIDE RECORDS SUMMARY | 2024-05-30 14:40 | XMS_ITS | Referral Summary ---
Author Organization [place] Address [address] [place] [address] Care Team Providers Care Senior Administrative Associate Name Role Phone Nancy August Unavailable Florencia Walker MD Unavailable [phone] Clinic, Ana Olivia Primary Care Provider + Encounters Date Type Department Care Team Description 04/17/2024 9:58 PM CDT - 04/18/2024 12:35 AM T [facility] Emergency Dept [address] [place] [address] Maile Ruiz, DO Fall, initial encounter (Primary [...] XR ELBOW RIGHT G/E 3 VIEWS LOCATION: [facility] DATE: 04/17/2024 INDICATION: right elbow pain COMPARISON: None. Procedure Note Gumaro Caicedo MD - 04/17/2024 EXAM: XR ELBOW RIGHT G/E 3 VIEWS LOCATION: [facility] DATE: 04/17/2024 INDICATION: right elbow pain [...] XR WRIST RIGHT G/E 3 VIEWS LOCATION: [facility] DATE: 04/17/2024 INDICATION: r wrist pain COMPARISON: None. Procedure Note Gumaro Caicedo MD - 04/17/2024 EXAM: XR WRIST RIGHT G/E 3 VIEWS LOCATION: [facility] DATE: 04/17/2024 INDICATION: r wrist pain [...] EXAM: XR FOREARM RIGHT 2 VIEWS LOCATION: [facility] DATE: 04/17/2024 INDICATION: arm pain COMPARISON: None. Procedure Note Brayden Martinez MD - 04/17/2024 EXAM: XR FOREARM RIGHT 2 VIEWS LOCATION: [facility] DATE: 04/17/2024 INDICATION: arm pain COMPARISON: None. IMPRESSION: Multiple views of the right forearm. Large anterior elboweffusion. No definite fracture identified. No radiopaque foreign bodies.Normal alignment is seen at the elbow and wrist. I would recommenddedicated views of the elbow. Maile Ascencio Ruiz DO IMG DIAGNOSTIC OSCAR GING ORDERABLES from Last 3 Months Care Teams Senior Administrative Associate Relationship Specialty Start Date End Date Clinic, Ana Olivia [address] [place] [phone] PCP - General 04/18/24 Nancy August 03/20/13 Florencia Alcantar MD [address] [facility] [address] [place] [address] Assigned OBGYN Provider 04/10/23
--- OUTSIDE RECORDS SUMMARY | 2024-05-30 14:40 | XMS_ITS | Clinical Summary ---
Author Organization [place] Address [address] [place] [address] Care Team Providers Care Follow Up Clerk Name Role Phone Nancy August Unavailable Florencia Walker MD Unavailable [phone] Clinic, Ana Olivia Primary Care Provider + Allergies Active Allergy Reactions Criticality Noted Date Comments Alcohol Hives High 01/25/2023 Sulfa Antibiotics 03/20/2013 Medications No known medications Encounters Date Type Department Care Team Description 04/17/2024 9:58 PM CDT - 04/18/2024 12:35 AM CDT Emergency [facility] Emergency Dept [address] [place] [address] Maile Ruiz, DO Fall, initial encounter (Primary [...] XR ELBOW RIGHT G/E 3 VIEWS LOCATION: [facility] DATE: 04/17/2024 INDICATION: right elbow pain COMPARISON: None. Procedure Note Gumaro Caicedo MD - 04/17/2024 EXAM: XR ELBOW RIGHT G/E 3 VIEWS LOCATION: [facility] DATE: 04/17/2024 INDICATION: right elbow pain COMPARISON: [...] XR WRIST RIGHT G/E 3 VIEWS LOCATION: [facility] DATE: 04/17/2024 INDICATION: r wrist pain COMPARISON: None. Procedure Note Gumaro Caicedo MD - 04/17/2024 EXAM: XR WRIST RIGHT G/E 3 VIEWS LOCATION: [facility] DATE: 04/17/2024 INDICATION: r wrist pain COMPARISON: [...] EXAM: XR FOREARM RIGHT 2 VIEWS LOCATION: [facility] DATE: 04/17/2024 INDICATION: arm pain COMPARISON: None. Procedure Note Brayden Martinez MD - 04/17/2024 EXAM: XR FOREARM RIGHT 2 VIEWS LOCATION: [facility] DATE: 04/17/2024 INDICATION: arm pain COMPARISON: None. IMPRESSION: Multiple views of the right forearm. Large anterior elboweffusion. No definite fracture identified. No radiopaque foreign bodies.Normal alignment is seen at the elbow and wrist. I would recommenddedicated views of the elbow. Maile Ruiz DO IMG DIAGNOSTIC OSCAR GING ORDERABLES from Last 3 Months Care Teams Follow Up Clerk Relationship Specialty Start Date End Date Clinic, Ana Olivia [address] [place] [phone] PCP - General 04/18/24 Nancy August 03/20/13 Florencia Alcantar MD [address] [address] Assigned OBGYN Provider 04/10/23
--- OUTSIDE RECORDS SUMMARY | 2024-05-30 14:40 | XMS_ITS | Encounter Summary ---
Author Organization [place] Address [address] [place] [address]. [place] [address] Care Team Providers Care Cookee Name Role Phone Nancy August Unavailable [facility], [facility] Primary Care Pr ovider Florencia Alcantar MD Unavailable [phone] Clinic, Ana Olivia Primary Care Provider + Reason for Visit * Reason Comments Fall Head Injury Wrist Pain Encounter Details Date Type Department Care Team (Late st Contact Info) Description 04/17/2024 9:58 PM CDT - 04/18/2024 12:35 AM CDT Emergency [facility] Emergency Dept [address] [place] [address] [phone] Maile Ruiz, DO [facility] [address] [place] [address] Fall, initial encounter (Primary Dx); Closed nondisplaced [...] 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 Avoid heavy lifting, working with machinery, [...] sent through Care Everywhere. * Arm Fracture (Tanzanian) documented in this encounter ED Notes * Bella Edwards - 04/17/2024 11:55 PM CDT Tech assisted [address] with a ortho glass splint. Tech applied sling and ice pack * Debbie Urena RN - 04/17/2024 9:58 PM CDT Bed: [facility] Expected date: 04/17/24 Expected time: 9:23 PM [...] Documentation None Medical Decision Making / Diagnosis [facility] Diagnoses: None MIPS None [facility] Bina Clark is a 29 year [...] recommended ibuprofen and she has prescription for [place] at home which I recommended every 6 [...] RN) documented in this encounter Care Teams Cookee Relationship Specialty Start Date End Date [facility] [address] [place] [address] PCP - General 02/09/23 04/17/24 [facility], Ana Olivia [address] [place] [phone] PCP - General 04/18/24 [facility] 03/20/13 Florencia Alcantar MD [address] [place], [place] [address] Assigned OBGYN Provider 04/10/23 documented as of this encounter
--- OUTSIDE RECORDS SUMMARY | 2024-05-30 14:41 | XMS_ITS | Clinical Summary ---
Author Organization [employer] [facility] Address [place], [place] [address] Care Team Providers Care Dermatology Nurse Practitioner Name Role Phone Emilee Villalobos MD Primary Care Provi sandy Blue Aden MD Unavailable [phone] Allison Dunbar RN Unavailable [phone] Unavailable [phone] Allergies Active Allergy Reactions Criticality Noted Date [...] Department Care Team Description 05/16/2024 Orders Only [facility] Scanner 1 scan: (1-Ord) [facility] OB TRANSVAGINAL, 05/16/2024 04/12/2024 4:30 PM CDT Office Visit [facility] [address] [facility] [address] [place] [id number] Lindsay Olivo MD Throat Problem (Sore throat ) 04/12/2024 Travel from Last 3 Months Immunizations Name Administration Dates Next Due AMB INFLUENZA, IIV4 (AGE=>6M OS) MDV (Flu Clinic Only) 07/21/2019 AMB Influenza, IIV4 PF (=>6 mos Flulaval,Fluzone Fluarix)(Flu Clinic Only) 06/05/2022 COVID-19 vaccine ([employer] 30mcg/0.3mL) PF, MDV 10/14/2020 DTaP 12/09/1999, 0,06/05/1996,07/01,1995,1995 [...] Date Recorded PHQ-2 TOTAL SCORE 1 12/22/2023 [place] Depression Scale Answer Date Recorded [place] Depression Scale Total 7 12/22/2023 The thought [...] HIV-1/O/2, 4TH GENERATION Routine 09/10/2022 9:50 AM SHOT POLISHER AND INSPECTOR Screening for HIV (human immunodeficiency virus) ANTI HCV Routine 04/21/2022 1:10 PM CDT Need for hepatitis C screening test QUALITY ASSURANCE PROJECT MANAGER THIN PREP PAP SCREEN IMAGED Routine 01/26/2022 12:00 PM CDT from Last 3 Months or Most Recently Relevant to Health Maintenance Results * SCAN-ULTRASOUND REPORT (05/16/2024 12:00 AM CDT) Anatomical Region Laterality Modality Other Scanner OTHER * STREP A PCR (04/12/2024 4:47 PM CDT) GROUP A STREP Negative 04/13/2024 3:47 PM CDT [facility] Throat SPECIMEN FROM THROAT / Unknown Non-Blood / Unknown 04/12/2024 4:47 PM CDT 04/12/2024 4:57 PM CDT Lindsay Olivo MD [facility]OLOGY [facility] [address] [place] [address], * THROAT RAPID STREP A WITH REFLEX [60151.1] - age 0 through 17 yrs (04/12/2024 4:47 PM CDT) STREP A ANTIGEN Negative 04/12/2024 4:58 PM CDT [facility] Comment:PCR to follow. Throat SPECIMEN FROM THROAT / Unknown Non-Blood / Unknown 04/12/2024 4:47 PM CDT 04/12/2024 4:49 PM CDT Lindsay Olivo MD MICROBIOLOGY [facility] [address] [place] [address], [place] * LC HIV-1/O/2, 4TH GENERATION (09/10/2022 9:50 AM SHOT POLISHER AND INSPECTOR) Pathologist [facility] HIV Scr 4th Gen Non Reactive Non Reactive 09/12/2022 12:07 PM SHOT POLISHER AND INS[facility] Comment: HIV Negative HIV-1/HIV-2 antibodies and HIV-1 p24 antigen were NOT detected. There is no laboratory evidence of HIV infection. Blood BLOOD SPECIMEN / Unknown Venipuncture / Unknown 09/10/2022 9:50 AM SHOT POLISHER AND INSPECTOR 09/10/2022 9:51 AM SHOT POLISHER AND INSPECTOR Narrative [facility] - 09/12/2022 12:07 PM SHOT POLISHER AND INSPECTOR Performed at: ??[address] ??[id number] Phys Therapist: Otis Bowser MD, Phone: ??[phone] Zelda BERMAN [facility] ([facility]) [address] [place] [address], * ANTI HCV (04/21/2022 1:10 PM CDT) [facility] HEPATITIS C ANTIBODY Non-React coleman Non-React coleman 04/21/2022 8:35 PM CDT [facility]AT[facility] Comment:Antibodies to HCV no t detected; does not exclude the possibility of exposure to HCV. Blood BLOOD SPECIMEN / Unknown Venipuncture / Unknown 04/21/2022 1:10 PM CDT 04/21/2022 1:02 PM CDT Emilee Villalobos MD SEND OUTS [facility] [address] [place] [address], [place] * QUALITY ASSURANCE PROJECT MANAGER THIN PREP PAP SCREEN IMAGED (01/26/2022 12:00 PM CDT) Case Report Gynecologic Cytology Report ? Case: [id number] ? Authorizing Provider: ??Edelmira Elliosn, ASSEMBLY LINE MACHINE OPERATOR ?? Collected: ? 01/26/2022 1200 ? Ordering Location: ? [facility] ?Received: ?01/28/2022 0740 ? First Screen: ?Ion Mitchell ? Specimen: ?QUALITY ASSURANCE PROJECT MANAGER ThinPrep Vial Screening, Cervical/Vaginal ? 02/13/2022 12:00 PM CDT [facility] INTERPRETATION/ RESULT NEGATIVE FOR INTRAEPITHELIAL LESION OR MALIGNANCY (NIL) (none) 02/13/2022 12:00 PM CDT [facility] IMEN ADEQUACY Satisfactory for evaluation Endocervical component present 02/13/2022 12:00 PM CDT [facility] HPV REQUEST HPV if ASCUS 02/13/2022 12:00 PM CDT [facility] Date of LMP 06/08/2021 02/13/2022 12:00 PM CDT [facility] Last Pap Date 07/07/2016 02/13/2022 12:[address] [facility] Last Pap Result NIL 12:[address] [facility] Additional Information 02/13/2022 12:[address] [facility] Comment: Interpreted at [facility] - [address], [place] [address] Automated Review Successful 02/13/2022 12:[address] [facility] Comment:Specimen processed s uccessfully by automated chrome tanner device, VitrynPrep Imaging System, [employer] Note The pap test is a [...] and malignant lesions. 02/13/2022 12:[address] [facility] Other (Cervical/Vagina l) 01/26/2022 12:00 PM CDT 01/28/2022 7:40 AM CDT Edelmira Ellison NP PATHOLOGY/CYTOLOG Y [facility] [address] [place] [address], [place] from Last 3 Months or Most [...] Code Status Discussion: Not Discussed Care Teams Dermatology Nurse Practitioner Relationship Specialty Start Date End Date Emilee Villalobos MD 100 [facility] [place] [address] PCP - General Family Practice 09/12/21 Blue Aden MD [address] [phone] Consulting Physician Surgery - General 12/09/21 Allison Dunbar RN [address] [address] Sole Tier Registered Nurse 12/09/[address] [address] Stationary Engineer Supervisor/Church Communications Administrator Chemical Educator 12/09/21
--- OUTSIDE RECORDS SUMMARY | 2024-05-30 14:41 | XMS_ITS | Clinical Summary ---
[facility] Organization [facility] Address [address] [place] [address] Care Team Providers Care Supervisor Inspection Department Name Role Phone Lily Sebastian APRN, CNP [...] for each transition of care or referral. [facility] Allergies Active Allergy Reactions Criticality Noted Date [...] Obesity (BMI 30-39.9) 03/07/2015 Overview (04/16/2016): See [facility] notes, 12/2015. Started pt on Topamax for [...] Negative HP CONVERSION Comment: Test Performed by Job Interviewer Mediated Amplification CLIA Number [id number] N. gonorrhoeae STD Negative Negative HP CONVERSI ON Comment: Test Performed by Job Interviewer Mediated Amplification Performed at [facility], [address] [place] [id number] CLIA Number [id number] Source STD Cervix HP CONVERSION Comment:CLIA Number [id number] 03/07/2015 11:3 2 AM CDT 03/07/2015 7:05 PM CDT Lily Sebastian APRN, CNP LAB_1 HP CONVERSION from Last 3 Months or Most Recently Relevant to Health Maintenance Care Teams Supervisor Inspection Department Relationship Specialty Start Date End Date Lily Sebastian APRN, GARAGE DOOR HANGER [address] [place] [address] PCP - General 03/07/15
--- OUTSIDE RECORDS SUMMARY | 2024-05-30 14:41 | XMS_ITS | Data Portability ---
Author Organization [place] [facility] Address [address] [place] [address] Care Team Providers Care Rocket Engine Tester Name Role Phone [facility] Primary Care Provider Assessment No assessment recorded. Plan of Treatment Reminders Order Date Submit Date Provider Last Modified By Organization Details Last Modified Time Details Appointments None recorde d. Lab None recorde d. Referral None recorde d. Procedures None recorde d. Surgeries None recorde d. Imaging XR, kidney + ureter + bladder [address] [facility] , [facility] [place], [address], 12:02:59 Medication Orders None recorde d. Patient TargetsNo targets recorded. Patient InstructionsNo instructions recorded. Reason for Referral None Reported. Results Created Date Observation Date Name Description Value Unit Range Abnormal Flag Note LastModifiedBy Organization Detail LastModifiedTime 06/19/2006/19/2022 CT, abdom en + pelvi s, w/o contr ast No observ ation record ed. [email or web address] [facility] Radiology Department [address] [place], [address], 06/19/2022 11:17:54 06/24/2006/22/2022 XR, kidne y + urete r + bladd er No observ ation record ed. [facility] [place] [address] [place], [address], 06/24/2022 13:17:00 Result Notes None recorded. Procedures Surgical History Date Name Laterality Status Provider Name and Address Organization Details Recorded Time EXTRA CORPOREAL SHOCK WAVE LITHOTRIPSY (SURG) completed Sofi [facility] 08/27/2022 12:19:36 Imaging Results Imaging Date Name Status LastModified by Organiz ation Details LastModified Time 06/19/2022 CT, abdomen + pelvis, w/o contrast completed [email or web address] [facility] Radiology Department [address] [place], [address], 06/19/2022 11:17:54 06/22/2022 XR, kidney + ureter + bladder completed [facility] [address] [place], [address], 06/24/2022 13:17:00 Procedure Notes None recorded. Medical Equipment None Reported. Allergies Allergen ID Allergen Name Allergen Category Reaction Reaction Severity Criticality Documentation Date Start Date Code Code System Note Provider Name and Address Organization Details Recorded Time [id number] Substance with sulfonami de structure and antibacte rial mechanism of action (substanc e) medicatio n Not available Not available Not available 06/22/2022 [id number] SNBRAYDON Mitchell MD [address] [place] [address], [phone] [place] [address] Urology 11:36:34 Medications Name Sig Start Date Stop [...] Updated DateTime 06/22/2022 167.64 cm 33.7 kg/m2 24847.81 g Leroy Mitchell MD [address] [place] [address], [phone] [place] [address] Urology 06/22/2022 11:36:23 Social History Question Answer Notes LastModified by Organizat ion Details LastModified Time Tobacco Smoking Status Never Smoker Leroy Mitchell MD [address] [place] [address] Urology 06/22/2022 11:38:23 What Was The Date Of Your Most Recent Tobacco Screening? 06/22/2022 [email or web address] Information not available 06/22/2022 Sex: Unknown Functional Status None recorded. Mental Status None recorded. Family History Relationship Description Onset Age of this Age Resolved Age Notes LastModified by Organization Details LastModified Time Mother Family history of renal stone [email or web address] Not available 06/13 11:37:45 Paternal Grandfather Malignant tumor of pancreas csovell Not available 2021 11:38:00 Maternal Grandfather Family history of malignant neoplasm of prostate csovell Not available 2021 11:38:05 Maternal Grandfather Malignant tumor of lung csovell Not available 2021 11:38:17 Medical History Condition Response Diabetes N Sexually [...] Diagnosis/Indication Diagnosis SNOMED-CT Code Diagnosis ICD10 Code [id number] Leroy Mitchell MD [facility] [address] [place] [address] 06/22/2022 11:15:24 06/26/2022 09:00:03 Kidney stone 99798952 N20.0 Health Concerns Section Related Observation LastModified by Organization Detai ls LastModified Time None Recorded Concern Status LastModified by Organization Details LastModified Time None Recorded Advance Directives Directive None Recorded Payers Encounter Date Sequence Insurance Name Policy Number Policy Hayes Covered Member ID Hayes Member ID Guarantor Name 06/22/2022 1 [employer] - OPEN ACCESS CHOICE (HMO) [id number] Bina Clark [id number] Bina Clark Notes Date Note Type Note Provider Name [...] an ER nurse. Leroy Mitchell MD [address] [facility],[address], [place], [address], [facility] 06/22/2022 11:49:28 OBGyn Episode No OBEpisode recorded.
--- OUTSIDE RECORDS SUMMARY | 2024-05-30 14:41 | XMS_ITS | Encounter Summary ---
Author Organization [place] Address [facility] [place] [address] Care Team Providers Care Licensed Guide Name Role Phone Navid Young MD Primary Care Provider [phone] Noni Coffman Paxton Unavailable Unavai reilly Coffman Paxton Primary Care Provider Unavailable Clinic, Noni Coffman Paxton Primary Care Pr ovider Florencia Alcantar MD Unavailable [phone] Clinic, Ana Olivia Primary Care Provider + Encounter Details Date Type Department Care Team (Late st Contact Info) Description 06/15/2012 Orders Only [facility] Imaging [address] [place] [phone] Syhre, Remi Abdominal pain (Primary Dx) Social [...] site documented in this encounter Care Teams Licensed Guide Relationship Specialty Start Date End Date Navid Young MD [facility] [address] [facility] [address] [place] [address] PCP - General Pediatrics 06/17/12 03/19/13 [facility] [address] [facility] [address] [place] [address] PCP - General 03/20/13 02/08/23 [facility] [address] [place] [address] PCP - General 02/09/23 04/17/24 Clinic, Ana Olivia [address] [place] [address] [place] [phone] PCP - General 04/18/24 [facility]IATR[facility] [address] [facility] [address] [place] [address] 03/20/13 Florencia Alcantar MD [address] [facility] [address] [place], [place] [address] Assigned OBGYN Provider 04/10/23 documented as of this encounter
--- OUTSIDE RECORDS SUMMARY | 2024-05-30 14:41 | XMS_ITS | Encounter Summary ---
Author Organization [place] Address [address] [place] [address] Care Team Providers Care Residential Support Specialist Name Role Phone Nancy August [facility] Primary Care Pr ovider Florencia Alcantar MD Unavailable [phone] Encounter Details Date Type Department Care [...] filedocumented in this encounter Care Teams Residential Support Specialist Relationship Specialty Start Date End Date Clinic, Noni Cruz [address] [place], [place] [phone] PCP - General 02/09/23 04/17/24 Nancy August 03/20/13 Florencia Alcantar MD [address] [place], [place] [address] Assigned OBGYN Provider 04/10/23 documented as of this encounter
--- NOTE | 2024-05-30 14:45 | CRLHL7_ITS ---
For Patients: As a result of the Century Cures Act, medical imaging exams and procedure reports are released immediately into your electronic medical record. You may view this report before your referring provider. If you have questions, please contact your health care provider. INDICATION: Follow-up viability COMPARISON: 05/16/2024 TECHNIQUE: Real-time bennett-scale imaging of the pelvis was performed. FINDINGS: Sonographic imaging demonstrates a single living intrauterine gestation. The embryo demonstrates a regular cardiac rate measuring 152 beats per minute. The embryo`s crown-rump length measurement of 1.3 cm corresponds to a gestational age of 7 weeks 4 days with a sonographic due date of 01/12/2025. There is a normal-appearing yolk sac. There are no gross abnormalities noted within the embryo at this early state of development. The gestational sac has a normal appearance. There is no evidence of a perigestational hemorrhage. The amount of fluid within the sac appears appropriate for gestational age. The cervix is closed. The myometrium appears normal. The ovaries are of normal size. Corpus luteal cyst right ovary. There are no suspicious fluid collections noted in the cul-de-sac. IMPRESSION: Single living intrauterine with sonographic gestational age 7 weeks 4 days and sonographic due date of 01/12/2025. Dictated by Bang Miranda MD @ 05/31/2024 12:03:25 PM (Electronically Signed)
== END 2024-05-30 14:39 | disposition home or self-care (01) ==
LOC: US 14:39
PROVIDERS: PCP Family Medicine; Visit Provider Midwife
DX: Z34.91 Encounter for supervision of normal pregnancy, unspecified, first trimester (principal); Z3A.01 Less than 8 weeks gestation of pregnancy
CPT/HCPCS: 76817; 86592; 86703; 86704; 86706; 86762; 86787; 86803; 86850; 86900; 86901; 87086; 87340

== ENCOUNTER 2024-06-26 14:47 | Outpatient (CLI) | payer OTHER, SELFPAY | END 2024-06-26 14:48 | disposition home or self-care (01) | PROVIDERS: PCP Family Medicine; Visit Provider Obstetrics & Gynecology | DX: E03.9 Hypothyroidism, unspecified (principal) | CPT/HCPCS: 84443 ==

== ENCOUNTER 2024-08-30 07:45 | Outpatient (CLI) | payer OTHER, SELFPAY | END 2024-08-30 07:46 | disposition home or self-care (01) | LOC: US 07:46 | PROVIDERS: PCP Family Medicine; Visit Provider Obstetrics & Gynecology | DX: Z34.92 Encounter for supervision of normal pregnancy, unspecified, second trimester (principal); Z3A.20 20 weeks gestation of pregnancy | CPT/HCPCS: 76811 ==

== ENCOUNTER 2024-10-20 09:45 | Outpatient (CLI) | payer OTHER, SELFPAY | END 2024-10-20 09:46 | disposition home or self-care (01) | LOC: NFLDREF 09:46 | PROVIDERS: PCP Family Medicine; Visit Provider Obstetrics & Gynecology | DX: O26.893 Other specified pregnancy related conditions, third trimester (principal); E03.9 Hypothyroidism, unspecified; Z67.91 Unspecified blood type, Rh negative; Z3A.28 28 weeks gestation of pregnancy | CPT/HCPCS: 84443; 86592; 86850; J2791 ==

== ENCOUNTER 2024-11-15 05:11 | Outpatient (CLI) | payer OTHER, SELFPAY ==
[2024-11-15] VITALS (7 sets, daily range): BP systolic 104–118; BP diastolic 56–67; PULSE 81–105; RESP 18; TEMP 36.8
[2024-11-15] MEDS: ACETAMINOPHEN 500 MG TABLET 1000 MG PO (05:41)
[2024-11-15] MEDS: PROCHLORPERAZINE 10 MG TABLET 5 MG PO (05:41)
[2024-11-15] MEDS: diphenhydrAMINE 50 MG/ML inj 25 MG IM (06:54)
[2024-11-15] MEDS: METOCLOPRAMIDE HCL 5 MG/ML INJ IM (06:54)
--- NOTE | 2024-11-15 08:04 | P.OBLDTN_ITS ---
OB - Triage/Final Diagnosis Visit Information Narrative: The patient is a 29 year old 2 para 1 at 31 and 6 weeks gestation by first-trimester ultrasound, who presents with headache and . Patient notes she has had a persistent headache in the last 24 hours, despite neck massage, Tylenol and hydration. She did not have a blood pressure cuff at home, presented out of concern for preeclampsia. Patient notes she has had mild URI for about the last 4 weeks, characterized primarily by nasal congestion. Yesterday, she noted onset of a headache that started at her neck and seem to radiate towards her face. Now, she has more constant pressure and discomfort in her forehead and face. She has noted some discomfort of her upper teeth, and her sense of pain seems to worsen when she bends. No vision changes or right upper quadrant pain. No fevers/chills, neck pain, chest pain/dyspnea, known sick contacts. She denies regular/painful contractions, vaginal bleeding or leaking of fluid. Endorses active movement. On arrival to triage, serial blood pressures were obtained and are entirely within normal limits. Patient was given Tylenol and p.o. Compazine initially by Dr. Gonzalez at 0530, then IM benadryl and reglan at 0700 after this failed to improve her pain. Previously, she had been rating her pain as an 8/10 in severity. I reassessed patient at 0800, where she had noted significant improvement to now a 4/10 in severity. She continued to deny any vision changes or right upper quadrant pain. She remained normotensive throughout her period of monitoring in triage. Physical exam notable for no focal neurologic deficits. She does not have significant tenderness to palpation of the frontal nor maxillary sinuses. Patient's recent upper respiratory infection with persistent nasal congestion and new headache, teeth soreness, worsened pressure in the sinus region when bending is most consistent with sinus infection. Given her duration of symptoms leading up to this, I do have some suspicion for bacterial super infection from a viral URI. As such, plan to proceed with treatment for bacterial sinusitis with amoxicillin 875 mg b.i.d. x5 days. Patient notes she is not normally prone to yeast vulvovaginitis after taking antibiotics, but return precautions for th is reinforced. In addition, my suspicion for dangerous etiologies behind headache in is low given her symptomatic improvement ultimately with Reglan and Benadryl. Encouraged patient to start antibiotics, rest and hydrate today. She can utilize scheduled Tylenol in addition to p.o. Benadryl and Reglan as needed for pain. Prescription for Reglan 5-10 mg sent as needed. Strict return precautions were reinforced for worsening headache. Particularly, patient is having a severe headache or any focal neurologic deficits I would recommend she return to emergency care for consideration of lab/imaging. If she has vision changes, right upper quadrant pain or any other OB concerns I would recommend evaluation. All questions answered. Patient was discharged to home. Recommend she have a sales route driver helper due to potentially sedating pharmacotherapy. Evaluation Vital signs: Vital Signs - 24 hr 11/15/24 05:25 11/15/24 05:26 11/15/24 05:40 Temperature 98.2 F Pulse Rate 105 H 100 Respiratory Rate 18 Blood Pressure 118/67 110/63 11/15/24 05:55 11/15/24 06:10 11/15/24 06:25 Temperature Pulse Rate 90 84 83 Respiratory Rate Blood Pressure 113/61 104/57 L 108/56 L 11/15/24 06:40 Temperature Pulse Rate 81 Respiratory Rate Blood Pressure 105/57 L
--- NOTE | 2024-11-15 08:16 | PC.OBNST ---
NST Note NST Note Start: 11/15/24 05:12 Freq: ONCE Status: Active Protocol: Document 11/15/24 08:13 CUDDYH (Rec: 11/15/24 08:14 CUDDYH [id number]) NST Note 2 Para (# of births) 1 EDC 01/11/25 Gestational Age In Weeks & Days 31 Weeks & 6 Days Patient Presented with Complaint(s) of Headache Reactive Yes Appropriate for Gestational Age Yes RN Jose Guthrie RN Date 11/15/24 Reactive Yes Appropriate for Gestational Age Yes MALATHI Thorpe RN Date 11/15/24 OB NST charge Yes Complete NST Note via Write Note Yes The provider's electronic signature indicates the NST is reactive/appropriate for gestational age. *Note to provider: If an addendum is required, open the patient's chart and click on the note under the Nurse/Allied Health tab.
== END 2024-11-15 08:16 | disposition home or self-care (01) ==
LOC: OB OUT 05:11 → OB 05:11
PROVIDERS: PCP Family Medicine; Visit Provider Obstetrics & Gynecology
DX: O26.893 Other specified pregnancy related conditions, third trimester (principal); R51.9 Headache, unspecified; Z3A.31 31 weeks gestation of pregnancy
CPT/HCPCS: 59025; G0463; A9270; J1200; J2765

== ENCOUNTER 2024-11-20 07:16 | Outpatient (CLI) | payer OTHER, SELFPAY | END 2024-11-20 07:17 | disposition home or self-care (01) | LOC: US 07:16 | PROVIDERS: PCP Family Medicine; Visit Provider Obstetrics & Gynecology | DX: O99.213 Obesity complicating pregnancy, third trimester (principal); O35.HXX0 Maternal care for other (suspected) fetal abnormality and damage, fetal lower extremities anomalies, not applicable or unspecified; O35.8XX0 Maternal care for other (suspected) fetal abnormality and damage, not applicable or unspecified; Z3A.32 32 weeks gestation of pregnancy | CPT/HCPCS: 76816 ==

== ENCOUNTER 2024-12-07 11:23 | Outpatient (CLI) | payer OTHER, SELFPAY ==
[2024-12-07 11:41] VITALS: RESP 16; TEMP 36.9
[2024-12-07 11:43] VITALS: PULSE 8; O2SAT 92
[2024-12-07 11:44] VITALS: BP 121/76; PULSE 93
[2024-12-07 12:48] LABS: Appearance Urine Clear (Clear); Bilirubin Urine Negative (Negative); Blood Urine Negative (Negative); Color Urine Dark yellow (Yellow); Glucose Urine Negative (Negative); Ketones Urine 2+ (Negative); Leukocyte Esterase Urine Trace (Negative); Nitrite Urine Negative (Negative); Protein Urine Negative (Negative); Specific Gravity Urine 1.015 (1.000-1.030)
--- NOTE | 2024-12-07 12:48 | PM.OBLDTN ---
OB - Triage/Final Diagnosis Visit Information Time Seen by Provider: 12:48 Narrative: The patient is a 29 year old 2 para 1 at 35 weeks gestation by first tri US, who presents with low back pain and abnormal discharge. is complicated by history of hypertensive disorder of , PCOS, status post gastric sleeve and obesity. Bina road in the clinic triage reporting some orange discharge over the last few days with a tiny blood clot that she approximates is size of a pencil tip the toilet. She denies any other andreia vaginal bleeding, abnormal vaginal discharge, vulvovaginal itching or burning. She did recently completed extended course of antibiotics for a sinus infection. Patient notes that she has some constant low back pain, seems to have started after several very busy shifts at work ([employer] [facility]). She denies any abdominal cramping or tightening, no leaking of fluids. Endorses active movement. Denies fevers/chills, nausea/vomiting or flank pain. No dysuria, urgency or frequency. On arrival, she is hemodynamically stable and normotensive. heart rate is reactive, no apparent contractions on tocometry. Present on the bedside, where speculum exam was performed. External genitals within normal limits, speculum inserted in vaginal mucosa appears pink well rugated. There is small volume of physiologic. Discharge, as well as some yellow to green color discharge proximally that may represent cervical mucus. Swab obtained for wet prep. No blood was noted in the vagina. Speculum removed, cervix will exam was completed given possibility that her back pain represents contractions. Cervix is 1/50/-4. Plan to proceed with a UA/UC rule out UTI. Altogether, I explained that Bina's clinical picture is reassuring at this time. I do not feel her back pain is clinically consistent with the description contractions, where her cervical exam is within anticipated limits multiparous patient in the 3rd trimester. There are no contractions noted on the tocometer, patient notes her pain does not feel like contractions with her 1st baby. She has no andreia vaginal bleeding. No cervicitis was noted on exam. There is small volume of some abnormal fluid or green discharge proximally, which may represent cervical mucus versus vulvovaginitis. Wet prep pending, UA pending to rule out UTI. Overall, I suspect her low back pain is musculoskeletal in nature related to activity. Work note was provided to allow for more frequent breaks. Strict return precautions worsening pain, any andreia vaginal bleeding, leaking of fluids or any other obstetric concerns. All questions answered, return precautions reinforced. Patient is in agreement with the above plan. Evaluation Laboratory results: Laboratory Tests 12/07/24 Range/Units 12:27 Urine Color Pending Urine Appearance Pending Urine pH Pending Ur Specific [place] Pending Urine Protein Pending Urine Glucose (UA) Pending Urine Ketones Pending Urine Blood Pending Urine Nitrite Pending Urine Bilirubin Pending Urine Urobilinogen Pending Ur Leukocyte Esterase Pending Vaginal Trichomonas Pending Vaginal Yeast Pending Vaginal Clue Cells Pending Vital signs: Vital Signs - 24 hr 12/07/24 11:41 12/07/24 11:43 12/07/24 11:44 Temperature 98.5 F Pulse Rate 93 Respiratory Rate 16 Blood Pressure 121/76 Pulse Oximetry 92 Final Diagnosis (1) Low back pain during : Status: Acute (2) Abnormal urogenital discharge: Status: Acute
[2024-12-07 12:56] LABS: Bacteria Urine Few; Clue Cells No Clue Cells Seen (None Seen); RBC Urine 0-2 (0-2); Squamous Epithelial Cell Urine Few (None-Few); Trichomonas No Trichomonas Seen (None Seen); WBC Urine 0-2 (0-5); Yeast No Yeast Seen (None Seen)
--- NOTE | 2024-12-07 12:58 | PC.OBNST ---
NST Note NST Note Start: 12/07/24 11:29 Freq: ONCE Status: Active Protocol: Document 12/07/24 12:56 CUDDYH (Rec: 12/07/24 12:57 CUDDYH [id number]) NST Note 2 Para (# of births) 1 EDC 01/11/25 Gestational Age In Weeks & Days 35 Weeks & 0 Days Patient Presented with Complaint(s) of Vaginal bleeding,Pain If Pain, describe location lower back pain Reactive Yes Appropriate for Gestational Age Yes RN Jose Guthrie RN Date 12/07/24 Reactive Yes Appropriate for Gestational Age Yes MALATHI Sapp RNC Date 12/07/24 OB NST charge Yes Complete NST Note via Write Note Yes The provider's electronic signature indicates the NST is reactive/appropriate for gestational age. *Note to provider: If an addendum is required, open the patient's chart and click on the note under the Nurse/Allied Health tab.
== END 2024-12-07 12:35 | disposition home or self-care (01) ==
LOC: OB OUT 11:27 → OB 11:27
PROVIDERS: PCP Family Medicine; Visit Provider Obstetrics & Gynecology
DX: O26.893 Other specified pregnancy related conditions, third trimester (principal); O46.93 Antepartum hemorrhage, unspecified, third trimester; M54.50 Low back pain, unspecified; Z3A.35 35 weeks gestation of pregnancy
CPT/HCPCS: 59025; 81001; 81003; 87086; 87210; G0463

== ENCOUNTER 2024-12-13 08:07 | Outpatient (CLI) | payer OTHER, SELFPAY ==
--- NOTE | 2024-12-13 08:15 | CRLHL7_ITS ---
For Patients: As a result of the Cures Act, medical imaging exams and procedure reports are released immediately into your electronic medical record. You may view this report before your referring provider. If you have questions, please contact your health care provider. OB ULTRASOUND PEG by LMP or US: 01/11/2025. GA: 35 w, 6 d Single. Comparison: 11/20/2024, 08/30/2024. INDICATION: Growth. History of gastric sleeve procedure. BMI. TECHNIQUE: Real time grayscale imaging of the fetus was performed. Transabdominal. CERVIX: Not visualized. POSITIONING: Vertex. AMNIOTIC FLUID: 2.9 cm. SDP (N: greater than 2 x 1 cm) PLACENTA: Technique: Transabdominal. PLACENTA POSITION: Anterior. DOPPLER: heart rate: 173 bpm. BIOMETRY: BPD: 8.5 cm. 34 w, 2 d, 17 percent. HC: 31.2 cm. 34 w, 6 d, 6 percent. AC: 30.7 cm. 34 w, 5 d, 25 percent. FL: 6.5 cm. 33 w, 4 d, 4 percent. FL/AC ratio: 21.20 percent. HC/AC ratio: 1.02. EFW: 2409 g. Weight: 5 lbs, 5 oz. age by this US: 34 w, 3 d. PEG by this US: 01/21/2025. Percentile by PEG: 15 percent. IMPRESSION: 1. Sonographic gestational age 34 weeks 3 days and sonographic due date 01/21/2025. Sonographic age is 10 days behind the clinical age. 2. Estimated weight 15th percentile. Abdominal circumference 25th percentile. Bang Miranda M.D. Diagnostic Radiologist [email or web address] ELISA/malick teresa/Dictated by: Bang Miranda MD @ 12/13/2024 1:00:00 PM (Electronically Signed)
== END 2024-12-13 08:08 | disposition home or self-care (01) ==
LOC: US 08:08
PROVIDERS: PCP Family Medicine; Visit Provider Obstetrics & Gynecology
DX: Z90.3 Acquired absence of stomach [part of] (principal); O26.893 Other specified pregnancy related conditions, third trimester; Z3A.35 35 weeks gestation of pregnancy
CPT/HCPCS: 76816; 80053; 82570; 84156; 87086

== ENCOUNTER 2024-12-13 08:44 | Outpatient (CLI) | payer OTHER, SELFPAY ==
[2024-12-14 09:32] LABS: Strep B DNA Probe Negative (Negative)
[2024-12-14 10:07] LABS: Strep B Susceptibility Needed? No
== END 2024-12-13 08:45 | disposition home or self-care (01) ==
PROVIDERS: PCP Family Medicine; Visit Provider Obstetrics & Gynecology
DX: O26.893 Other specified pregnancy related conditions, third trimester (principal); Z90.3 Acquired absence of stomach [part of]; O99.713 Diseases of the skin and subcutaneous tissue complicating pregnancy, third trimester; L29.9 Pruritus, unspecified; Z3A.35 35 weeks gestation of pregnancy
CPT/HCPCS: 80053; 82239; 82570; 84156; 87081; 87086; 87653

== ENCOUNTER 2024-12-15 14:15 | Outpatient (CLI) | payer OTHER, SELFPAY ==
--- NOTE | 2024-12-15 14:00 | CRLHL7_ITS ---
For Patients: As a result of the Century Cures Act, medical imaging exams and procedure reports are released immediately into your electronic medical record. You may view this report before your referring provider. If you have questions, please contact your health care provider. OB ULTRASOUND BIOPHYSICAL PROFILE PEG by LMP: 01/11/2025. GA: 36 w, 1 d. Single. Comparison: 12/13, 11/20, 08/30. INDICATION: Decreased movements. TECHNIQUE: Real time bennett scale imaging of the fetus was performed. Transabdominal. CERVIX: Not visualized. POSITIONING: Vertex. AMNIOTIC FLUID: 3.3 cm. SDP (N: greater than 2 x 1 cm) BIOPHYSICAL PROFILE: Total score: 8/8. Gross body movements: 2. tone: 2. Respiratory activity: 2. Amniotic fluid: 2. (SDP N: greater than 2 x 1 cm) PLACENTA: Technique: Transabdominal. PLACENTA POSITION: Anterior. DOPPLER: heart rate: 161 bpm. Less than 28-34 w = less than 4.0. IMPRESSION: Biophysical Profile 8 of 8. Patti Flores M.D. Diagnostic/Breast Radiologist [email or web address] Transcribed: 10:09 a.m. /Dictated by: Patti Flores MD @ 12/17/2024 9:06:00 PM /Dictated by: Patti Flores MD @ 12/17/2024 9:06:00 PM (Electronically Signed)
== END 2024-12-15 14:16 | disposition home or self-care (01) ==
LOC: US 14:16
PROVIDERS: PCP Family Medicine; Visit Provider Obstetrics & Gynecology
DX: O36.8130 Decreased fetal movements, third trimester, not applicable or unspecified (principal); Z3A.36 36 weeks gestation of pregnancy
CPT/HCPCS: 76819; 82565; 82570; 84156; 84450; 84460; 84520; 87086

== ENCOUNTER 2024-12-19 16:09 | Outpatient (CLI) | payer OTHER, SELFPAY | END 2024-12-19 16:10 | disposition home or self-care (01) | LOC: NFLDREF 12-25 02:46 | PROVIDERS: PCP Family Medicine; Referring Provider Family Medicine; Visit Provider Obstetrics & Gynecology | DX: Z87.59 Personal history of other complications of pregnancy, childbirth and the puerperium (principal) | CPT/HCPCS: 80074; 80076; 83010; 83615 ==

== ENCOUNTER 2024-12-22 12:19 | Outpatient (CLI) | payer OTHER, SELFPAY ==
--- NOTE | 2024-12-22 12:15 | CRLHL7_ITS ---
For Patients: As a result of the Cures Act, medical imaging exams and procedure reports are released immediately into your electronic medical record. You may view this report before your referring provider. If you have questions, please contact your health care provider. OBSTETRICAL BIOPHYSICAL PROFILE 12/22/2024 PEG by US: 01/11/2025. GA: 37 w, 1 d. Single. INDICATION: Obesity. TECHNIQUE: Real time bennett scale imaging of the fetus was performed. Transabdominal. CERVIX: Not visualized. POSITIONING: Vertex. AMNIOTIC FLUID: 4.1 cm. SDP (N: greater than 2 x 1 cm) BIOPHYSICAL PROFILE: Total score: 6. Gross body movements: 0. tone: 2. Respiratory activity: 2. Amniotic fluid: 2. (SDP N: greater than 2 x 1 cm) PLACENTA: Technique: Transabdominal. PLACENTA POSITION: Anterior. DOPPLER: heart rate: 125 bpm. IMPRESSION: Biophysical profile 6/8. No arm or leg movement. Normal tone and gross reactivity. Bang Miranda M.D. Diagnostic Radiologist [email or web address] ELISA/catracho DW/Dictated by: Bang Miranda MD @ 12/23/2024 8:25:00 AM (Electronically Signed)
== END 2024-12-22 12:20 | disposition home or self-care (01) ==
LOC: US 12:19
PROVIDERS: PCP Family Medicine; Visit Provider Obstetrics & Gynecology
DX: O36.8130 Decreased fetal movements, third trimester, not applicable or unspecified (principal); Z3A.37 37 weeks gestation of pregnancy
CPT/HCPCS: 76819

== ENCOUNTER 2024-12-22 13:56 | Inpatient (IN) | payer OTHER, SELFPAY ==
[2024-12-22 14:16] VITALS: PULSE 88; O2SAT 99
[2024-12-22 14:19] VITALS: BP 121/76; PULSE 90
[2024-12-22 14:23] VITALS: BMI 38.5
[2024-12-22 14:30] VITALS: RESP 16; TEMP 37.2
[2024-12-22 15:26] LABS: Basophils Absolute Auto 0.02 K/uL (0.00-0.30); Basophils Percent Auto 0.4 % (0.0-3.0); Eosinophils Absolute Auto 0.03 K/uL (0.00-0.50); Eosinophils Percent Auto 0.6 % (0.0-7.0); Hematocrit 28.7 % (33.0-51.0); Hemoglobin* 9.5 gm/dL (12.0-16.0); Immature Granulocytes Abs Auto 0.01 K/uL (0.00-0.30); Immature Granulocytes Pct Auto 0.2 %; Lymphocytes Percent Auto 44.6 % (20-44); Mean Corpuscular HGB Conc 33 gm/dL (32-36); Mean Corpuscular Hemoglobin 33 pg (26-34); Mean Corpuscular Volume 98 fL (80-100); Monocytes Percent Auto 5.8 % (0.0-11.0); Neutrophils Absolute Auto 2.51 K/uL (1.7-7.0); Neutrophils Percent Auto 48.4 % (42.0-72.0); Platelet Count* 184 K/uL (140-440); RDW Coefficient of Variation % 16.5 % (11.5-15.5); Red Blood Count 2.92 m/uL (4.00-5.20); White Blood Count* 5.18 K/uL (4.50-11.00)
[2024-12-22 15:30] LABS: Slide Review Reflex No
[2024-12-22 15:42] LABS: Chloride* 109 mmol/L (96-114); Potassium* 3.3 mmol/L (3.6-5.1); Sodium* 135 mmol/L (135-149)
[2024-12-22 15:44] LABS: Blood Urea Nitrogen* 8 mg/dL (5-24); Creatinine* 0.5 mg/dL (0.5-1.5); Est. Creatinine Clearance* 155.42; Estimated Glomerular Filt Rate 130 ml/min
[2024-12-22 15:45] LABS: Alanine Aminotransferase* 20 U/L (4-35); Alkaline Phosphatase* 88 U/L (40-150); Anion Gap 7 mEq/L (7-15); Aspartate Amino Transferase* 31 U/L (12-35); Bilirubin Total* 1.9 mg/dL (0.1-1.5); Calcium* 8.2 mg/dL (8.4-10.6); Carbon Dioxide* 19 mmol/L (20-32); Glucose* 67 mg/dL (60-115); Lactate Dehydrogenase* 279 U/L (120-246); Total Protein* 5.5 g/dL (6.0-8.3)
--- NOTE | 2024-12-22 15:53 | P.LDBA_ITS ---
Subjective History of Present Illness Narrative: Patient is being admitted to Labor and Delivery for IOL due to persistent decreased movement, hemolytic anemia and suspected ICP. She is a 29 year old at 37 1/7 weeks gestation. Her full history and physical was dictated by Dr. AVERY on 12/22/24. Please see this for details. Specific Issues/Plans G 2P1 Partner:??Ishan, daughter Cecelia H&P completed by GENA on 12/22/24 NIPT low risk, girl Mark #Pre- BMI 34.8- initial hgbA1C 4.8 - Per MFM recommend growth at 32 - Weekly surveillance starting at 37 weeks - 11/20/24 EFW at 32w4d: 15%. Ordered repeat EFW at 36 weeks. #Anemia with Hb 10.4 on 12/15. Begin iron supplementation QOD # History of Gestational HTN (Dx at 38 weeks) Isolated, mild elevation of AST at 36 weeks. Platelets minimally low at 136, resolved after 2 days. #PCOS- on metformin. Would like to stay on it. Will need review of data for decision making. 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 FOB BT is known B+ Rh+ by [place], plan Rhogam at 28 weks and PP Rhogam given 10/20 ? #SMA carrier [ ] genetics referral placed - risk in this 1:4000 #Itchiness of hand and feet at 35 6/7 weeks ICP labs ordered:normal bile acids 12/13 Imaging:? 1st trimester: 05/16/2024 SLIUP not consistent with LMP dating. 5w5d. PEG 01/12/2024 Repeat 1st tri US 05/30/24 7w4d PEG 01/13/2024?? Level 2: EFW 366g at 33%ile, a/c 44th percentile. No apparent anomalies visualized. Anterior placenta, no previa. MVP of 3.9 cm. Long/closed cervix. 11/20/2024: Vertex, SDP 5.7cm EFW: 1800 g, 3 lb 15 oz, 15%. BPD 43%, HC 10%, AC 34%, FL < 3% 12/13/2024: Vertex, SDP: 2.9cm, BPD: 17%, HC: 6%, AC: 25%, FL: 4%. EFW: 5#5oz, 2409g 15% ? COVID:?declines Flu:?06/26/24 Tdap:?11/02/24 32wk Mental Health:?PHQ-9: 1, CRISTÓBAL-7:0 34wk hgb:?10.9 - recommend oral iron Pap: 01/2022-NILM, no hx of abnormal, Due PP Rhogam: 10/20 OB - Problem Based A/P Additional Plan (1) Hemolytic anemia: Status: Acute (2) History of gestational hypertension: Status: Acute (3) pruritus: Status: Acute Plan 1. IOL started with placement of cook catheter 60mL/60mL. Plan to start IV Oxytocin at midnight per protocol. 2. GBS negative no need for antibiotic prophylaxis. 3. Admission labs show normal platelets, normal liver and kidney function. I am concerned about drop in hemoglobin and previous labs concerning for hemolytic anemia. Differential diagnosis of hemolytic anemia has been revised. Patient does state that her serum bilirubin has always been elevated even prior to her gastric band surgery. Anemia though is a new finding. I decided to consult MFM and also unofficially with hospitalist. I was able to talk with Dr. Brady JAMES at [facility]. She was able to review labs with me and in summary agrees with IOL and agrees that at this moment patient is stable to continue IOL at our institution. Does not believe presentation to be associated with hypertensive disorder of as blood pressures, liver enzymes, platelets are all normal. She did recommend to repeat lab work in 6 hours-plan would be to reevaluate CBC, CMP. Dr. Haney hospitalist ghazal was generous to review patient chart and brainstorm possible lab work that we could add to evaluation. Additional labs/studies ordered tonmarci: peripheral smear, NOÉ, [id number], cold agglutinin titers, hemoglobin electrophoresis, complement levels, abdominal US. Serious life threatening conditions like TTP, HUS are unlikely in the setting of normal platelets. Considered medication related reactions and Metformin has been discontinued, although patient has been utilizing medication for many years. In any case, if her labs trend to lower hemoglobin, decreasing fibrinogen or any new changes in CMP plan will be to contact [facility] for possible transfer, due to risk of needing blood products, consults not available at our institution. All of this was discussed with patient just now and she is in agreement with plan. Will continue to follow up closely. OB Exam Physical Exam Vital signs: Pulse BP Pulse Ox 90 121/76 99 12/22/24 14:19 12/22/24 14:19 12/22/24 14:16 Detailed Labor and Delivery Exam Patient Gravid: Yes Dilation (cm): 1 Effacement (%): 50 Cervix position: mid Consistency: soft Fetus (Single) Station: -2 Amniotic Membrane Status: intact Heart Rate Baseline: 135 Monitor Accelerations: Present Monitor Decelerations: Variable Skilled Nursing Variability: Moderate (6-25)
[2024-12-22 16:05] LABS: INR 1.09 (0.91-1.10); Prothrombin Time 14.9 Seconds
[2024-12-22 16:06] LABS: Fibrinogen* 351 mg/dL (200-450); Reticulocyte Hemoglobin Equivi 31.3 pg (29.0-35.0); Reticulocyte Percent 4.8 % (0.5-2.0); Reticulocytes Absolute 0.14 # (0.03-0.08)
[2024-12-22 17:38] VITALS: BP 115/64; PULSE 95; RESP 16; TEMP 37.1
[2024-12-22 18:03] LABS: Partial Thromboplastin Time* 29 Seconds (23-33)
--- NOTE | 2024-12-22 19:03 | CRLHL7_ITS ---
For Patients: As a result of the Century Cures Act, medical imaging exams and procedure reports are released immediately into your electronic medical record. You may view this report before your referring provider. If you have questions, please contact your health care provider. INDICATION: Right upper quadrant abdomen pain. TECHNIQUE: Ultrasound abdomen limited. Sonographic images of the right upper quadrant were obtained using bennett-scale and color Doppler images. COMPARISON: None. FINDINGS: Liver: Normal in size and echotexture. No suspicious masses. No intrahepatic biliary dilatation. Gallbladder: Biliary sludge. No cholelithiasis. Normal wall thickness. No pericholecystic fluid. Negative sonographic Champion`s sign. Common bile duct: 2 mm. Pancreas: Obscured. Right kidney: Normal in size. Normal echotexture and cortex. No suspicious masses, stones, or hydronephrosis. Vasculature: Proximal abdominal aorta and IVC are unremarkable. IMPRESSION: Biliary sludge. Otherwise, no cholelithiasis, cholecystitis, or biliary obstruction. Dictated by Rustam Jean Baptiste MD @ 12/22/2024 8:30:39 PM (Electronically Signed)
[2024-12-22 19:27] VITALS: BP 118/67; PULSE 89; TEMP 37.1
--- NOTE | 2024-12-22 20:39 | PM.IMCN1 ---
Date of Consult Patient: Ana Patient Consult date: 12/22/24 Requesting Physician: [facility] Primary Care Provider: Emilee Vail MD Consult Narrative Reason for consult: hemolytic anemia Narrative: Bina Clark is a 29 year old female with h/o PCOS for which she has taken metformin for years, obesity, gastric sleeve procedure for which she takes additional vitamin B12, migraine headache, and mild hypothyroidism who is being induced on L&D today for persistent decreased movement, hemolytic anemia and suspected ICP. I am consulted for hemolytic anemia. Bina underwent a gastric sleeve procedure for obesity in 2021. She has taken high doses of oral vitamin B12 since then and has not had anemia until October of this year. Bina's first was complicated by mild gestational hypertension. She did not have pre-eclampsia or anemia. During this she has been on daily baby aspirin to prevent preeclampsia and metformin in addition to vit B12, vit D3, folic acid, vitamin and sertraline. She developed a stomach flu that was self limited at the end of October. Then she was treated with antibiotics for a sinus headache in early November. She noted decreased movement starting in mid November. A little over a week ago, she noted itchiness of her hands, fee, chest, and backs of knees. Labs were drawn at that time. Hgb was 10.7. Tbili was mildly elevated at 1.8 with a direct bili of 0.5. AST was slightly elevated at that time at 41. Platelets were transiently low at 136. Bile acids were 2. She came in today for induction and had repeat labs as below. She is feeling well. She denies any recent fevers or illness in the last couple of weeks. She has noted mild dyspnea in the last few weeks, denies CP. Review of Systems Status of ROS: Reports: 6 or more systems reviewed and unremarkable except as noted in History and below [facility] Medical History (Updated 12/22/24 @ 21:25 by Ashanti Haney MD) Generalized anxiety disorder ?F41.1 - Generalized anxiety disorder (ICD-10) BMI 30.0-30.9,adult ?Z68.30 - Body mass index [BMI] 30.0-30.9, adult (ICD-10) History of gestational hypertension ?Z87.59 - Personal history of other complications of , childbirth and the puerperium (ICD-10) PCOS (polycystic ovarian syndrome) ?E28.2 - Polycystic ovarian syndrome (ICD-10) Oligomenorrhea ?N91.5 - Oligomenorrhea, unspecified (ICD-10) Migraine headache ?G43.909 - Migraine, unspecified, not intractable, without status migrainosus (ICD-10) Hypothyroidism ?E03.9 - Hypothyroidism, unspecified (ICD-10) Depression ?F32.A - Depression, unspecified (ICD-10) Hematuria ?R31.9 - Hematuria, unspecified (ICD-10) Herpes zoster ?B02.9 - Zoster without complications (ICD-10) Anovulation ?N97.0 - Female infertility associated with anovulation (ICD-10) Surgical History (Updated 12/22/24 @ 20:46 by Ashanti Haney MD) S/P gastric sleeve procedure (~06/2022) ?Z90.3 - Acquired absence of stomach [part of] (ICD-10) H/O lithotripsy (07/28/22) ?Z98.890 - Other specified postprocedural states (ICD-10) [place] teeth extracted (2009) ?K08.409 - Partial loss of teeth, unspecified cause, unspecified class (ICD-10) Family History (Updated 12/22/24 @ 20:47 by Ashanti Haney MD) Mother Coronary artery disease High blood pressure Chronic mental illness Father Coronary artery disease High blood pressure Paternal Grandfather Pancreatic cancer Coronary artery disease High blood pressure Maternal Grandfather Lung cancer Social History Narrative: SOCIAL? ? Education: bachelors? ? Work: RN, [employer]? ? Partner: Ishan, , supervisor [employer] manufacturing? ? Lives with: Ishan? ? Pets: 2 dogs? ? Abuse: Denies past Unable to assess current, partner present? ? Special Diet: Denies. Weight loss surgery in April - had the sleeve. ? Ok with a blood transfusion: yes? ? Culture or mu-ism beliefs: denies? RISK FACTORS? ? Exercise Times/wk: Having some spotting when she did orange theory. ? ? Depression/Anxiety: mild depression? ? Previous Treatments: Take sertralines, 100 mg. Therapy denies CRISTÓBAL: 0 PHQ 9: 0? ? Seat Belt Use: Routinely ? Smoking: Denies past/present? Alcohol/day: Denies while ? ? Caffeine: minimal, less than 100 mg. ? ? Drug Use: Denies past/present? ? What is your current living situation?: I presently have a place to live Problems where you live: no known problems In the past 12 months, utilities in danger of being shut off: no In past 12 months, lack of transportation kept you from medical appts, meetings, work, or getting things needed for daily living: no In the past 12 mos, have been you worried that your food would run out before you had money to buy more?: never true In the past 12 mos, the food you bought just didn't last and you didn't have money to buy more?: never true Smoking Status: Never smoker Do you use any of these nicotine containing products: None How often do you have a drink containing alcohol: never AUDIT-C Alcohol total score: 0 Non-prescribed substance use: denies use How often does anyone, including family, friends and others, physically hurt you: never How often does anyone, including family, friends and others, insult or talk down to you: never How often does anyone, including family, friends and others, threaten you with harm: never How often does anyone, including family, friends and others, scream or curse at you: never service: No Meds Home Medications and Allergies Home Medications ?Medication ?Instructions ?Recorded ?Confirmed ?Type sertraline 100 mg tablet 100 mg PO DAILY 06/18/22 12/22/24 History cholecalciferol (vitamin D3) 25 25 mcg PO QDAY 01/25/23 12/22/24 History mcg (1,000 unit) capsule folic acid 400 mcg tablet 0.4 mg PO QDAY 01/25/23 12/22/24 History mecobalamin (vitamin B12) 2,500 2,500 mcg PO DAILY 01/25/23 12/22/24 History mcg chewable tablet vit no.95-ferrous 1 tab PO DAILY 02/23/23 12/22/24 History fumarate 28 mg-folic acid 800 mcg tablet () metformin 500 mg tablet 500 mg PO BID 03/22/24 12/22/24 History aspirin 81 mg chewable tablet 81 mg PO QDAY 09/05/24 12/22/24 History Allergies Allergy/AdvReac Type Severity Reaction Status Date / Time ethyl alcohol Allergy Intermediate Hives Verified 12/22/24 14:27 Sulfa (Sulfonamide Allergy hives Verified 12/22/24 14:27 Antibiotics) Exam Narrative: Exam Narrative: General: No acute distress. Awake alert oriented x3. HEENT: Normocephalic atraumatic, pupils equally round and reactive to light and accommodation. Oropharynx clear. Mucous membranes are moist. No cervical lymphadenopathy, thyromegaly or carotid bruits. No JVD. Cardiovascular: Regular rate and rhythm. No murmurs, gallops, or rubs. Chest: No increased work of breathing. Clear to auscultation bilaterally. No crackles or wheezes. Abdomen: Bowel sounds present. Soft, gravid, nontender. Extremities: No edema, no cyanosis or clubbing. Skin: No jaundice, no pallor, no rashes. Neuro: Grossly intact. No focal deficits. Const: Vital Signs, click to edit/add: Vital Signs - 24 hr 12/22/24 14:16 12/22/24 14:19 12/22/24 14:30 Temperature 98.9 F Pulse Rate 90 Respiratory Rate 16 Blood Pressure 121/76 Pulse Oximetry 99 12/22/24 17:38 12/22/24 17:38 12/22/24 19:27 Temperature 98.8 F Pulse Rate 95 89 Respiratory Rate 16 Blood Pressure 115/64 118/67 Pulse Oximetry 12/22/24 19:27 Temperature 98.8 F Pulse Rate Respiratory Rate Blood Pressure Pulse Oximetry Labs Labs: Short CBC 12/22/24 Range/Units 15:15 WBC 5.18 (4.50-11.00) K/uL Hgb 9.5 L (12.0-16.0) gm/dL Hct 28.7 L (33.0-51.0) % Plt Count 184 (140-440) K/uL BMP 12/22/24 15:15 Sodium 135 Potassium 3.3 L Chloride 109 Carbon Dioxide 19 L BUN 8 Creatinine 0.5 Glucose 67 Calcium 8.2 L Liver Function 12/22/24 Range/Units 15:15 Total Bilirubin 1.9 H (0.1-1.5) mg/dL AST 31 (12-35) U/L ALT 20 (4-35) U/L Alkaline Phosphatase 88 (40-150) U/L Albumin 3.0 L (3.3-5.0) g/dL RDW 15.6%, Retic percent (H) 4.8, LDH (H) 279 U/L, Direct Antiglobulin Test NEGATIVE. 12/19/24 Haptoglobin <10, tbili 1.8, direct bili 0.5. Ordering Physician: Melissa Edgar Date of Service: 12/22/24 Procedure(s): US abdomen limited Accession Number(s): [id number] cc: Melissa Edgar; Emilee Villalobos M.D.~ For Patients: As a result of the Century Cures Act, medical imaging exams and procedure reports are released immediately into your electronic medical record. You may view this report before your referring provider. If you have questions, please contact your health care provider. INDICATION: Right upper quadrant abdomen pain. TECHNIQUE: Ultrasound abdomen limited. Sonographic images of the right upper quadrant were obtained using bennett-scale and color Doppler images. COMPARISON: None. FINDINGS: Liver: Normal in size and echotexture. No suspicious masses. No intrahepatic biliary dilatation. Gallbladder: Biliary sludge. No cholelithiasis. Normal wall thickness. No pericholecystic fluid. Negative sonographic Champion`s sign. Common bile duct: 2 mm. Pancreas: Obscured. Right kidney: Normal in size. Normal echotexture and cortex. No suspicious masses, stones, or hydronephrosis. Vasculature: Proximal abdominal aorta and IVC are unremarkable. IMPRESSION: Biliary sludge. Otherwise, no cholelithiasis, cholecystitis, or biliary obstruction. Dictated by Rustam Jean Baptiste MD @ 12/22/2024 8:30:39 PM (Electronically Signed) Assessment and Plan Assessment and plan (1) Hemolytic anemia: Problem comment: - Hemolytic anemia of diagnosis supported by anemia (Hgb 9.5), increased reticulocyte count, decreased haptoglobin, elevated indirect bilirubin, elevated LDH. - platelet count is not low and AST and ALT are not elevated, excluding the diagnosis of HELLP - Also of note patient has not been febrile or shown other signs of sepsis, white count is within normal limits, renal function is within normal limits - Medications reviewed. Metformin (in patients with G6PD deficiency) and aspirin can cause hemolytic anemia. RECOMMENDATIONS - Stop metformin and aspirin - Agree with obtaining peripheral smear and rechecking labs. I have spoken with our lab about obtaining an urgent ADAMTS 13 test to help rule out TTP (as the treatment for TTP in this scenario would be therapeutic plasma exchange, for which she would need to be transfered since that is not available at this hospital). Unfortunately, this lab is not available urgently here or through send out labs. If ADAMTS 13 is obtained and TTP is unlikely, patient could be given a trial of steroids to presumptively treat AutoImmune Hemolytic Anemia. - I recommend adding Everardo, cold agglutinin titer, compliment levels and activity, and serum protein electrophoresis. Thank you for the consult. We will follow along with you. Status: Acute (2) pruritus: Problem comment: - normal bile acids /, repeated today, these are pending. Status: Acute (3) PCOS (polycystic ovarian syndrome): Problem comment: - chronically on Metformin - now on hold as possible cause of hemolytic anemia Status: Chronic
[2024-12-22 21:01] LABS: Lab Add On Test New Spec Needed
[2024-12-22 21:40] LABS: Basophils Absolute Auto 0.03 K/uL (0.00-0.30); Basophils Percent Auto 0.5 % (0.0-3.0); Eosinophils Absolute Auto 0.06 K/uL (0.00-0.50); Eosinophils Percent Auto 1.1 % (0.0-7.0); Hematocrit 29.1 % (33.0-51.0); Hemoglobin* 9.5 gm/dL (12.0-16.0); Immature Granulocytes Abs Auto 0.01 K/uL (0.00-0.30); Immature Granulocytes Pct Auto 0.2 %; Lymphocytes Percent Auto 44.5 % (20-44); Mean Corpuscular HGB Conc 33 gm/dL (32-36); Mean Corpuscular Hemoglobin 32 pg (26-34); Mean Corpuscular Volume 99 fL (80-100); Neutrophils Absolute Auto 2.73 K/uL (1.7-7.0); Neutrophils Percent Auto 47.7 % (42.0-72.0); Platelet Count* 193 K/uL (140-440); RDW Coefficient of Variation % 16.7 % (11.5-15.5); Red Blood Count 2.95 m/uL (4.00-5.20); Slide Review Reflex Yes; White Blood Count* 5.71 K/uL (4.50-11.00)
[2024-12-22 21:53] LABS: Albumin* 3.1 g/dL (3.3-5.0); Chloride* 110 mmol/L (96-114); Potassium* 3.5 mmol/L (3.6-5.1); Sodium* 134 mmol/L (135-149)
[2024-12-22 21:56] LABS: Alanine Aminotransferase* 20 U/L (4-35); Alkaline Phosphatase* 91 U/L (40-150); Anion Gap 6 mEq/L (7-15); Aspartate Amino Transferase* 28 U/L (12-35); Bilirubin Direct* 0.2 mg/dL (0.0-0.5); Bilirubin Total* 1.8 mg/dL (0.1-1.5); Blood Urea Nitrogen* 8 mg/dL (5-24); Calcium* 8.4 mg/dL (8.4-10.6); Carbon Dioxide* 18 mmol/L (20-32); Creatinine* 0.5 mg/dL (0.5-1.5); Est. Creatinine Clearance* 155.42; Estimated Glomerular Filt Rate 130 ml/min; Glucose* 73 mg/dL (60-115); Total Protein* 5.6 g/dL (6.0-8.3)
[2024-12-22 21:59] LABS: INR 1.08 (0.91-1.10); Prothrombin Time 14.9 Seconds
[2024-12-22 22:05] LABS: Slide Review Acceptable Review (Acceptable)
[2024-12-22 22:07] LABS: Partial Thromboplastin Time* 28 Seconds (23-33)
[2024-12-22 22:08] LABS: Fibrinogen* 329 mg/dL (200-450)
[2024-12-22] MEDS: LACTATED RINGERS 1000 ML 1,000 ML 75 ML IV (23:51)
[2024-12-22] MEDS: OXYTOCIN 30 unit/500 ML in NS 30 UNIT/500 ML BAG IVPB (23:51)
[2024-12-22 23:55] VITALS: BP 119/58; PULSE 77
[2024-12-22] MEDS: hydrOXYzine pamoate 25 MG CAPSULE 100 MG PO (23:58)
[2024-12-23] VITALS (59 sets, daily range): BP systolic 101–146; BP diastolic 49–82; PULSE 78–169; RESP 16–18; TEMP 36.6–37.3; O2SAT 89–100
[2024-12-23 06:57] LABS: Basophils Absolute Auto 0.02 K/uL (0.00-0.30); Basophils Percent Auto 0.4 % (0.0-3.0); Eosinophils Absolute Auto 0.05 K/uL (0.00-0.50); Eosinophils Percent Auto 1.1 % (0.0-7.0); Hematocrit 27.4 % (33.0-51.0); Hemoglobin* 8.9 gm/dL (12.0-16.0); Immature Granulocytes Abs Auto 0.02 K/uL (0.00-0.30); Immature Granulocytes Pct Auto 0.4 %; Lymphocytes Percent Auto 45.4 % (20-44); Mean Corpuscular HGB Conc 33 gm/dL (32-36); Mean Corpuscular Hemoglobin 32 pg (26-34); Mean Corpuscular Volume 100 fL (80-100); Monocytes Percent Auto 6.9 % (0.0-11.0); Neutrophils Absolute Auto 2.12 K/uL (1.7-7.0); Neutrophils Percent Auto 45.8 % (42.0-72.0); Platelet Count* 175 K/uL (140-440); RDW Coefficient of Variation % 16.7 % (11.5-15.5); Red Blood Count 2.75 m/uL (4.00-5.20); White Blood Count* 4.63 K/uL (4.50-11.00)
[2024-12-23 07:06] LABS: Slide Review Reflex No
[2024-12-23 09:10] LABS: Hematocrit 31.2 % (33.0-51.0); Hemoglobin* 10.2 gm/dL (12.0-16.0); Mean Corpuscular HGB Conc 33 gm/dL (32-36); Mean Corpuscular Hemoglobin 32 pg (26-34); Mean Corpuscular Volume 98 fL (80-100); Platelet Count* 204 K/uL (140-440); Red Blood Count 3.17 m/uL (4.00-5.20); White Blood Count* 5.56 K/uL (4.50-11.00)
[2024-12-23 09:31] LABS: Slide Review Reflex No
[2024-12-23 09:36] LABS: Lactate Dehydrogenase* 273 U/L (120-246)
[2024-12-23] MEDS: LACTATED RINGERS 1000 ML 1,000 ML 1200 ML IV (09:38)
[2024-12-23 09:49] LABS: Fibrinogen* 341 mg/dL (200-450); INR 1.11 (0.91-1.10); Partial Thromboplastin Time* 29 Seconds (23-33); Prothrombin Time 15.1 Seconds
[2024-12-23] MEDS: LIDOCAINE 2% (PF) 5 ML VIAL EPIDURAL (10:28)
[2024-12-23] MEDS: ROPIVACAINE 0.2% 100 ml 100 ML 12 MG EPIDURAL (10:31)
[2024-12-23] MEDS: LACTATED RINGERS 1000 ML 1,000 ML 125 ML IV (10:39)
--- NOTE | 2024-12-23 10:40 | PM.ANBPRC ---
[facility] Medical History (Updated 12/22/24 @ 21:25 by Ashanti Haney MD) Generalized anxiety disorder ?F41.1 - Generalized anxiety disorder (ICD-10) BMI 30.0-30.9,adult ?Z68.30 - Body mass index [BMI] 30.0-30.9, adult (ICD-10) History of gestational hypertension ?Z87.59 - Personal history of other complications of , childbirth and the puerperium (ICD-10) PCOS (polycystic ovarian syndrome) ?E28.2 - Polycystic ovarian syndrome (ICD-10) Oligomenorrhea ?N91.5 - Oligomenorrhea, unspecified (ICD-10) Migraine headache ?G43.909 - Migraine, unspecified, not intractable, without status migrainosus (ICD-10) Hypothyroidism ?E03.9 - Hypothyroidism, unspecified (ICD-10) Depression ?F32.A - Depression, unspecified (ICD-10) Hematuria ?R31.9 - Hematuria, unspecified (ICD-10) Herpes zoster ?B02.9 - Zoster without complications (ICD-10) Anovulation ?N97.0 - Female infertility associated with anovulation (ICD-10) Surgical History (Updated 12/22/24 @ 20:46 by Ashanti Haney MD) S/P gastric sleeve procedure (~06/2022) ?Z90.3 - Acquired absence of stomach [part of] (ICD-10) H/O lithotripsy (07/28/22) ?Z98.890 - Other specified postprocedural states (ICD-10) [place] teeth extracted (2009) ?K08.409 - Partial loss of teeth, unspecified cause, unspecified class (ICD-10) Family History (Updated 12/22/24 @ 20:47 by Ashanti Haney MD) Mother Coronary artery disease High blood pressure Chronic mental illness Father Coronary artery disease High blood pressure Paternal Grandfather Pancreatic cancer Coronary artery disease High blood pressure Maternal Grandfather Lung cancer Social History Narrative: SOCIAL? ? Education: bachelors? ? Work: RN, [employer]? ? Partner: Ishan, , supervisor area manufacturing? ? Lives with: Ishan? ? Pets: 2 dogs? ? Abuse: Denies past Unable to assess current, partner present? ? Special Diet: Denies. Weight loss surgery in April - had the sleeve. ? Ok with a blood transfusion: yes? ? Culture or lutheran beliefs: denies? RISK FACTORS? ? Exercise Times/wk: Having some spotting when she did orange theory. ? ? Depression/Anxiety: mild depression? ? Previous Treatments: Take sertralines, 100 mg. Therapy denies CRISTÓBAL: 0 PHQ 9: 0? ? Seat Belt Use: Routinely ? Smoking: Denies past/present? Alcohol/day: Denies while ? ? Caffeine: minimal, less than 100 mg. ? ? Drug Use: Denies past/present? ? What is your current living situation?: I presently have a place to live Problems where you live: no known problems In the past 12 months, utilities in danger of being shut off: no In past 12 months, lack of transportation kept you from medical appts, meetings, work, or getting things needed for daily living: no In the past 12 mos, have been you worried that your food would run out before you had money to buy more?: never true In the past 12 mos, the food you bought just didn't last and you didn't have money to buy more?: never true Smoking Status: Never smoker Do you use any of these nicotine containing products: None How often do you have a drink containing alcohol: never AUDIT-C Alcohol total score: 0 Non-prescribed substance use: denies use How often does anyone, including family, friends and others, physically hurt you: never How often does anyone, including family, friends and others, insult or talk down to you: never How often does anyone, including family, friends and others, threaten you with harm: never How often does anyone, including family, friends and others, scream or curse at you: never service: No Meds Home Medications and Allergies Home Medications ?Medication ?Instructions ?Recorded ?Confirmed ?Type sertraline 100 mg tablet 100 mg PO DAILY 06/18/22 12/22/24 History cholecalciferol (vitamin D3) 25 25 mcg PO QDAY 01/25/23 12/22/24 History mcg (1,000 unit) capsule folic acid 400 mcg tablet 0.4 mg PO QDAY 01/25/23 12/22/24 History mecobalamin (vitamin B12) 2,500 2,500 mcg PO DAILY 01/25/23 12/22/24 History mcg chewable tablet vit no.95-ferrous 1 tab PO DAILY 02/23/23 12/22/24 History fumarate 28 mg-folic acid 800 mcg tablet () metformin 500 mg tablet 500 mg PO BID 03/22/24 12/22/24 History aspirin 81 mg chewable tablet 81 mg PO QDAY 09/05/24 12/22/24 History Allergies Allergy/AdvReac Type Severity Reaction Status Date / Time ethyl alcohol Allergy Intermediate Hives Verified 12/22/24 14:27 Sulfa (Sulfonamide Allergy hives Verified 12/22/24 14:27 Antibiotics) Results Labs Labs: Laboratory Results - last 24 hr 12/22/24 12/22/24 12/22/24 15:15 20:55 21:32 WBC 5.18 5.71 RBC 2.92 L 2.95 L Hgb 9.5 L 9.5 L Hct 28.7 L 29.1 L MCV 98 99 MCH 33 32 MCHC 33 33 RDW Coeff of Rajni 16.5 H 16.7 H Plt Count 184 193 Neut % (Auto) 48.4 47.7 Lymph % (Auto) 44.6 H 44.5 H [place] % (Auto) 5.8 6.0 Eos % (Auto) 0.6 1.1 Baso % (Auto) 0.4 0.5 Neut # (Auto) 2.51 2.73 Lymph # (Auto) 2.30 2.50 [place] # (Auto) 0.30 0.30 Eos # (Auto) 0.03 0.06 Baso # (Auto) 0.02 0.03 Abs Immat Gran (auto) 0.01 0.01 Imm/Tot Granulo (auto) 0.2 0.2 Diff Slide Review Acceptable Review Absolute Retic 0.14 H Percent Retic 4.8 H Immature Retic Fraction 25.0 H Retic Hgb Equivalent 31.3 INR 1.09 1.08 APTT 29 28 Fibrinogen 351 329 Sodium 135 134 L Potassium 3.3 L 3.5 L Chloride 109 110 Carbon Dioxide 19 L 18 L Anion Gap 7 6 L BUN 8 8 Creatinine 0.5 0.5 Estimated Creat Clear 155.42 155.42 Estimated GFR 130 130 Glucose 67 73 Calcium 8.2 L 8.4 Total Bilirubin 1.9 H 1.8 H Direct Bilirubin 0.2 AST 31 ALT 20 Alkaline Phosphatase 88 Lactate Dehydrogenase 279 H Total Protein 5.5 L Albumin 3.0 L Lab Acknowledgement New Spec Needed A Blood Type A Negative Antibody Screen POSITIVE Direct Antiglob Test NEGATIVE Crossmatch ([facility]) See Detail 12/22/24 12/23/24 12/23/24 21:32 05:40 08:58 WBC 4.63 RBC 2.75 L Hgb 8.9 L Hct 27.4 L MCV 100 MCH 32 MCHC 33 RDW Coeff of Rajni 16.7 H Plt Count 175 Neut % (Auto) 45.8 Lymph % (Auto) 45.4 H [place] % (Auto) 6.9 Eos % (Auto) 1.1 Baso % (Auto) 0.4 Neut # (Auto) 2.12 Lymph # (Auto) 2.10 [place] # (Auto) 0.30 Eos # (Auto) 0.05 Baso # (Auto) 0.02 Abs Immat Gran (auto) 0.02 Imm/Tot Granulo (auto) 0.4 Diff Slide Review Absolute Retic Percent Retic Immature Retic Fraction Retic Hgb Equivalent INR APTT Fibrinogen Sodium Potassium Chloride Carbon Dioxide Anion Gap BUN Creatinine Estimated Creat Clear Estimated GFR Glucose Calcium Total Bilirubin Direct Bilirubin Cancelled AST 28 ALT 20 Alkaline Phosphatase 91 Lactate Dehydrogenase 273 H Total Protein 5.6 L Albumin 3.1 L Lab Acknowledgement Blood Type Antibody Screen Direct Antiglob Test Crossmatch ([facility]) 12/23/24 09:05 WBC 5.56 RBC 3.17 L Hgb 10.2 L Hct 31.2 L MCV 98 MCH 32 MCHC 33 RDW Coeff of Rajni Plt Count 204 Neut % (Auto) Lymph % (Auto) [place] % (Auto) Eos % (Auto) Baso % (Auto) Neut # (Auto) Lymph # (Auto) [place] # (Auto) Eos # (Auto) Baso # (Auto) Abs Immat Gran (auto) Imm/Tot Granulo (auto) Diff Slide Review Absolute Retic Percent Retic Immature Retic Fraction Retic Hgb Equivalent INR 1.11 H APTT 29 Fibrinogen 341 Sodium Potassium Chloride Carbon Dioxide Anion Gap BUN Creatinine Estimated Creat Clear Estimated GFR Glucose Calcium Total Bilirubin Direct Bilirubin AST ALT Alkaline Phosphatase Lactate Dehydrogenase Total Protein Albumin Lab Acknowledgement Blood Type Antibody Screen Direct Antiglob Test Crossmatch ([facility]) Vital Signs Vital Signs: Last Vital Signs Temp 98.6 F 12/23/24 10:33 Pulse 99 12/23/24 10:39 Resp 16 12/23/24 10:33 BP 124/70 12/23/24 10:39 Pulse Ox 100 12/23/24 10:36 Weight: 108.4 kg Height: 167.64 cm Anesthesia Procedures Epidural Insertion Patient Location: OB Start Time: 10:00 Stop Time: 11:00 Start Date: 12/23/24 Stop Date: 12/23/24 Reason for Block: procedure for pain Patient Position: sitting Performed By: Antonieta Carreno Preanesthetic Checklist: IV checked, risks and benefits discussed, surgical consent, monitors and equipment checked, pre-op evaluation, timeout performed and anesthesia consent Prep: chlorhexidine gluconate Monitoring: blood pressure monitoring, continuous pulse oximetry and heart rate Approach: midline Vertebral Space: lumbar (1-5) Epidural Technique: RUFUS saline Needle Type: Tuohy needle Injection Technique: continuous catheter (continuous catheter) Needle gauge: 17 Needle Length (cm): 10 cm Needle Insertion Depth (cm): 9 Catheter Gauge: 19 Catheter Type: multi-orifice Catheter at skin depth (cm): 15 Test Dose Result: negative and lidocaine 1.5% with epinephrine 1 to 200,000
[2024-12-23] MEDS: PHENYLEPHRINE 100 MCG/ML SYRINGE IVP (11:00)
[2024-12-23] MEDS: TRANEXAMIC ACID 100 MG/ML INJ 1000 MG IV (13:14)
[2024-12-23] MEDS: OXYTOCIN 10 UNIT/ML INJ IV (13:14)
[2024-12-23] MEDS: miSOPROStoL 800 MCG/4 TABLET PR (13:26)
--- NOTE | 2024-12-23 14:03 | PM.OBPNL ---
Subjective Time Seen by Provider: 09:45 Date Seen: 12/23/24 Narrative: Bina is a 29-year-old at 37 weeks ongoing induction of labor in the setting of persistent decreased movement (6/8 BPP at term), itching concerning for intrahepatic cholestasis of with pending bile acids. is otherwise complicated by anemia, where picture is consistent with possible hemolysis given elevated bilirubin and LDH with low haptoglobin. Peripheral smear and several advanced hematologic studies are pending. Hemoglobin was stable at 9.5 yesterday, where decision was made to proceed with IOL at our institution after consultation with internal Hopsitalist, Dr. Abreu of MFM at [facility] (who spoke to Bina's GI service given history of gastric banding). Induction was started with catheter and low-dose Pitocin. AM labs notable for a slight decrease in her hemoglobin to 8.9. Coags were not previously ordered, thus I did order a repeat set and CBC. This demonstrated improved hemoglobin of 10.2, platelets of 204, INR of 1.11 (from 1.08 and 1.09 previously), aPTT of 29 and fibrinogen of 341. LDH this morning was 273 (279 on 12/22). Peripheral smear and Everardo test pending. I presented to the bedside, where Bina noted her pain was increasing. She was requesting check with consideration for epidural. Objective Exam: General: Alert and oriented, swing hips with pain during contractions. Psych: Appropriate mood and affect Abdomen: Gravid Cervix: 5/70/0 Kline: Difficult to vegetable picker contractions, clinically whitney about every 4 minutes Vital Signs: Last Vital Signs Temp 97.9 F 12/23/24 11:50 Pulse 169 H 12/23/24 14:00 Resp 16 12/23/24 11:50 BP 146/55 H 12/23/24 14:00 Pulse Ox 100 12/23/24 13:12 Assessment Station: -2 Heart Rate Baseline: 135 Monitor Accelerations: Present Monitor Decelerations: Variable Plan Plan: Plan to proceed with epidural placement as patient is approaching active labor. Discuss next step in her induction course would include AROM. Explained that her clinical picture is likely consistent with hemolytic anemia, however her labs are stable in terms of hemoglobin, platelets, LDH and previous bilirubin. Explained there may be some component of tractional deficiencies relating to her anemia or Gilbert's syndrome associated with her chronically elevated bilirubin. Still, I explained that we will diligently monitor for signs/symptoms of active acute blood loss anemia and hemolysis. From an obstetric perspective, importantly she has no evidence of HELLP syndrome this time given normal platelets and liver enzymes. Patient is additionally normotensive. With regard to delivery, I explained that she is not a candidate for transfer of care given active labor. Discussed safety methods that we will put in place to prevent excess bleeding , including 40 units of IV Pitocin in LR and 1 g of IV TXA to be administered immediately upon delivery of the . Explained that we will be very proactive in addressing any uterine atony or lacerations. Explained that I would have a low threshold to transfer to the operating room if excess bleeding is noted, as this would allow me to proceed with any necessary surgical interventions. Plain these could include dilation and curettage, placement of a Bakri/Maria Esther device, exploratory laparotomy for B-Gibson or [place] placement and peartum hysterectomy if there is bleeding that is not responsive to conservative measures. Explained this is unlikely, of course, but patient would be agreeable to any necessary surgeries if massive hemorrhage were to occur. She is typed and crossed for 2 units of packed red blood cells, agreeable to blood transfusion if necessary. All questions answered. Plan of care discussion was held with bedside nurse and Antonieta Carreno (DIRECTOR CARDIOLOGY) for emergency planning if needed. Plan to proceed with AROM after epidural placement.
--- NOTE | 2024-12-23 14:04 | W.PM.VAGD1_ITS ---
Procedure Procedure Done: Global Procedure Details: Normal spontaneous vaginal delivery Vaginal laceration repair Events: Other (Maternal perception of decreased movement, pruritis with concern for intrahepatic cholestasis of , hemolytic anemia) Intrapartal Events: Labor Induction Delivery augmentation: rupture of membranes Delivery monitor: external FHT Route of delivery: Laceration description: Vaginal - 1st Degree Delivery repair: Vicryl Estimated blood loss (mL): 150 Anesthesia type: Epidural Disposition: floor Complications: None Narrative: Bina is a 29 yo at 37w2d GA admitted for induction of labor in the setting of persistent decreased movement, pruritus with concern for intrahepatic cholestasis of (bile acids pending). is complicated by hemolytic anemia, elevated bilirubin, history of gastric band procedure, obesity, generalized anxiety. heart tones on admission were category 1. Her labor was induced with Cook catheter and Pitocin and epidural was utilized for pain management. Status of bag of strong: AROM performed intrapartum, return of clear fluid. heart tones during active labor were category 1 and 2 for intermittent variable decelerations. She had a deep variable that lasted about 1 minute at 1303, where IV Pitocin was discontinued and IV fluid bolus initiated. At that time, she was checked and found to be complete. She started pushing at 1310. She made excellent descent throughout the second stage of labor, and had a normal spontaneous vaginal delivery at 1313. heart tones during second stage of labor were category 2 for recurrent variable decelerations, with rapid return to normal baseline. Baby delivered OA, restituted EBER and the anterior and posterior shoulders delivered without difficulty. Nuchal cord: absent, though cord was noted to be wrapped around bilateral feet. The cord was clamped and cut after delayed cord clamping. Active management of the third stage occurred with IV pitocin, IV TXA and gentle cord traction and the placenta delivered spontaneous and intact at 1317. Cord gases sent: no Cord blood sent for infant ABO: yes details: - Liveborn female fetus at 1313 - weight pending at time of documentation - APGARs were 8 and 9 at 1 and 5 minutes respectively Perineum and vagina were inspected, and the following lacerations were noted: Tiny vaginal laceration, bleeding. Repair was completed in the usual fashion with 3-0 Vicryl in a single [id number] under existing epidural analgesia. Mild lower uterine segment atony was noted, responded well to bimanual massage and Cytotec per rectum. Cervix could be visualized and was noted to be without laceration. Active management to prevent hemorrhage was conducted throughout, given her ongoing hemolytic anemia picture. Excellent hemostasis was noted. The following counts were correct: sponges, needles, instruments. Mother and in stable condition following the . [place] Infant Infant Gender: Female presentation: vertex Placental Delivery Description: Spontaneous Cord Description: Around Extremity x1
[2024-12-23] MEDS: ACETAMINOPHEN 500 MG TABLET 1000 MG PO (17:22)
[2024-12-23 17:26] LABS: Basophils Absolute Auto 0.03 K/uL (0.00-0.30); Basophils Percent Auto 0.4 % (0.0-3.0); Eosinophils Absolute Auto 0.02 K/uL (0.00-0.50); Eosinophils Percent Auto 0.3 % (0.0-7.0); Hematocrit 29.4 % (33.0-51.0); Hemoglobin* 9.7 gm/dL (12.0-16.0); Immature Granulocytes Abs Auto 0.01 K/uL (0.00-0.30); Immature Granulocytes Pct Auto 0.1 %; Mean Corpuscular HGB Conc 33 gm/dL (32-36); Mean Corpuscular Hemoglobin 32 pg (26-34); Mean Corpuscular Volume 98 fL (80-100); Neutrophils Absolute Auto 4.35 K/uL (1.7-7.0); Neutrophils Percent Auto 58.3 % (42.0-72.0); Platelet Count* 216 K/uL (140-440); RDW Coefficient of Variation % 16.6 % (11.5-15.5); White Blood Count* 7.47 K/uL (4.50-11.00)
[2024-12-23 17:39] LABS: Albumin* 2.8 g/dL (3.3-5.0); Chloride* 110 mmol/L (96-114)
[2024-12-23 17:40] LABS: Potassium* 3.4 mmol/L (3.6-5.1); Sodium* 135 mmol/L (135-149)
[2024-12-23 17:42] LABS: Blood Urea Nitrogen* 7 mg/dL (5-24); Creatinine* 0.5 mg/dL (0.5-1.5); Est. Creatinine Clearance* 155.42; Estimated Glomerular Filt Rate 130 ml/min
[2024-12-23 17:43] LABS: Alanine Aminotransferase* 21 U/L (4-35); Alkaline Phosphatase* 82 U/L (40-150); Anion Gap 6 mEq/L (7-15); Aspartate Amino Transferase* 27 U/L (12-35); Bilirubin Direct* 0.2 mg/dL (0.0-0.5); Bilirubin Total* 1.6 mg/dL (0.1-1.5); Calcium* 8.1 mg/dL (8.4-10.6); Carbon Dioxide* 19 mmol/L (20-32); Glucose* 121 mg/dL (60-115); INR 1.11 (0.91-1.10); Lactate Dehydrogenase* 278 U/L (120-246); Partial Thromboplastin Time* 28 Seconds (23-33); Prothrombin Time 15.2 Seconds; Total Protein* 5.3 g/dL (6.0-8.3)
[2024-12-23 17:44] LABS: Fibrinogen* 309 mg/dL (200-450)
[2024-12-23 17:45] LABS: Lymphocytes Percent Auto 34.9 % (20-44); Slide Review Reflex No
[2024-12-24] MEDS: ACETAMINOPHEN 500 MG TABLET 1000 MG PO ×2 (00:38→09:24)
[2024-12-24 00:41] VITALS: BP 110/72; PULSE 88; RESP 18; TEMP 36.9
[2024-12-24 04:40] VITALS: BP 108/73; PULSE 88; RESP 16; TEMP 36.5
[2024-12-24 05:33] LABS: Hematocrit 28.7 % (33.0-51.0); Hemoglobin* 9.5 gm/dL (12.0-16.0); Mean Corpuscular HGB Conc 33 gm/dL (32-36); Mean Corpuscular Hemoglobin 33 pg (26-34); Mean Corpuscular Volume 99 fL (80-100); Platelet Count* 188 K/uL (140-440); Red Blood Count 2.91 m/uL (4.00-5.20); White Blood Count* 6.04 K/uL (4.50-11.00)
[2024-12-24 05:35] LABS: Slide Review Reflex No
[2024-12-24 08:23] VITALS: BP 120/74; PULSE 65; RESP 16; TEMP 36.6; O2SAT 98
--- NOTE | 2024-12-24 08:56 | P.DS_ITS ---
DS: Providers Provider Time Seen by Provider: 08:56 Date Seen: 12/24/24 Date of admission: 12/22/24 13:56 Primary care physician: Emilee Vail MD Admitting Clinician: Melissa Edgar MD Attending Physician on discharge: Melissa Edgar MD Exam Narrative: Exam Narrative: General: Alert and oriented, in no acute distress. Seated upright, baby partner. Psych: Appropriate mood and affect Abdomen: Soft, nondistended and nontender. Fundus palpates firm at 1 below umbilicus, nontender. Extremities: Trace bilateral pedal edema. No calf edema, redness or pain. Const: Vital Signs, click to edit/add: Vital Signs - 24 hr 12/23/24 09:01 12/23/24 10:11 12/23/24 10:12 Temperature Pulse Rate 100 Pulse Rate [Pulse Oximeter] Respiratory Rate Blood Pressure 130/72 Blood Pressure [Ri ght Arm] Pulse Oximetry 100 [facility] 10:16 12/23/24 10:21 12/23/24 10:24 Temperature Pulse Rate 98 Pulse Rate [Pulse Oximeter] Respiratory Rate Blood Pressure 143/80 H Blood Pressure [Ri ght Arm] Pulse Oximetry 100 100 [facility]/24 10:26 12/23/24 10:27 12/23/24 10:29 Temperature Pulse Rate 96 96 93 Pulse Rate [Pulse Oximeter] Respiratory Rate Blood Pressure 131/78 136/71 131/71 Blood Pressure [Ri ght Arm] Pulse Oximetry 100 92 [facility] 10:31 12/23/24 10:33 12/23/24 10:33 Temperature 98.6 F Pulse Rate 86 100 Pulse Rate [Pulse Oximeter] Respiratory Rate 16 Blood Pressure 127/68 126/64 Blood Pressure [Ri ght Arm] Pulse Oximetry 100 [facility] 10:35 12/23/24 10:36 12/23/24 10:37 Temperature Pulse Rate 96 92 Pulse Rate [Pulse Oximeter] Respiratory Rate Blood Pressure 127/66 118/65 Blood Pressure [Ri ght Arm] Pulse Oximetry 100 [facility] 10:39 12/23/24 10:41 12/23/24 10:43 Temperature Pulse Rate 99 96 99 Pulse Rate [Pulse Oximeter] Respiratory Rate Blood Pressure 124/70 124/69 124/70 Blood Pressure [Ri ght Arm] Pulse Oximetry 100 Oxygen Delivery [facility] 12/23/24 10:46 12/23/24 10:49 12/23/24 10:51 Temperature 98.9 F Pulse Rate 90 Pulse Rate [Pulse Oximeter] Respiratory Rate 16 Blood Pressure 127/72 Blood Pressure [Ri ght Arm] Pulse Oximetry 99 Oxygen Delivery [facility] 12/23/24 10:59 12/23/24 11:04 12/23/24 11:09 Temperature Pulse Rate 85 80 101 H Pulse Rate [Pulse Oximeter] Respiratory Rate Blood Pressure 101/49 L 104/58 L 109/58 L Blood Pressure [Ri ght Arm] Pulse Oximetry Oxygen Delivery [facility] 12/23/24 11:14 12/23/24 11:19 12/23/24 11:20 Temperature Pulse Rate 92 Pulse Rate [Pulse Oximeter] Respiratory Rate Blood Pressure 121/68 Blood Pressure [Ri ght Arm] Pulse Oximetry 99 98 93 Oxygen Delivery [facility] 12/23/24 11:24 12/23/24 11:29 12/23/24 11:33 Temperature Pulse Rate 88 93 Pulse Rate [Pulse Oximeter] Respiratory Rate Blood Pressure 119/66 128/70 Blood Pressure [Ri ght Arm] Pulse Oximetry 97 99 89 Oxygen Delivery [facility] 12/23/24 11:35 12/23/24 11:37 12/23/24 11:39 Temperature Pulse Rate 92 90 Pulse Rate [Pulse Oximeter] Respiratory Rate Blood Pressure 116/64 121/63 Blood Pressure [Ri ght Arm] Pulse Oximetry 97 Oxygen Delivery [facility] 12/23/24 11:42 12/23/24 11:44 12/23/24 11:47 Temperature Pulse Rate 82 Pulse Rate [Pulse Oximeter] Respiratory Rate Blood Pressure 120/58 L Blood Pressure [Ri ght Arm] Pulse Oximetry 99 98 Oxygen Delivery [facility] 12/23/24 11:49 12/23/24 11:50 12/23/24 11:54 Temperature 97.9 F Pulse Rate 81 82 Pulse Rate [Pulse Oximeter] Respiratory Rate 16 Blood Pressure 109/56 L 110/58 L Blood Pressure [Ri ght Arm] Pulse Oximetry Oxygen Delivery [facility] 12/23/24 11:59 12/23/24 12:04 12/23/24 12:09 Temperature Pulse Rate 87 90 90 Pulse Rate [Pulse Oximeter] Respiratory Rate Blood Pressure 116/57 L 118/60 113/59 L Blood Pressure [Ri ght Arm] Pulse Oximetry Oxygen Delivery [facility] 12/23/24 12:14 12/23/24 12:19 12/23/24 12:24 Temperature Pulse Rate 78 82 86 Pulse Rate [Pulse Oximeter] Respiratory Rate Blood Pressure 105/53 L 106/58 L 109/61 Blood Pressure [Ri ght Arm] Pulse Oximetry Oxygen Delivery [facility] 12/23/24 12:30 12/23/24 13:12 12/23/24 13:18 Temperature Pulse Rate 90 96 Pulse Rate [Pulse Oximeter] Respiratory Rate Blood Pressure 117/55 L 130/69 Blood Pressure [Ri ght Arm] Pulse Oximetry 100 Oxygen Delivery [facility] 12/23/24 13:18 12/23/24 13:33 12/23/24 13:33 Temperature 99.2 F Pulse Rate 88 Pulse Rate [Pulse Oximeter] Respiratory Rate 16 16 Blood Pressure 124/60 Blood Pressure [Ri ght Arm] Pulse Oximetry Oxygen Delivery [facility] 12/23/24 13:45 12/23/24 13:45 12/23/24 14:00 Temperature Pulse Rate 87 169 H Pulse Rate [Pulse Oximeter] Respiratory Rate 16 Blood Pressure 129/59 L 146/55 H Blood Pressure [Ri ght Arm] Pulse Oximetry Oxygen Delivery [facility] 12/23/24 14:00 12/23/24 14:15 12/23/24 14:15 Temperature Pulse Rate 80 Pulse Rate [Pulse Oximeter] Respiratory Rate 16 16 Blood Pressure 122/56 L Blood Pressure [Ri ght Arm] Pulse Oximetry Oxygen Delivery [facility] 12/23/24 14:30 12/23/24 14:30 12/23/24 14:45 Temperature Pulse Rate 82 82 Pulse Rate [Pulse Oximeter] Respiratory Rate 16 Blood Pressure 114/55 L 122/62 Blood Pressure [Ri ght Arm] Pulse Oximetry Oxygen Delivery [facility] 12/23/24 14:45 12/23/24 15:00 12/23/24 15:00 Temperature Pulse Rate 89 Pulse Rate [Pulse Oximeter] Respiratory Rate 16 16 Blood Pressure 126/78 Blood Pressure [Ri ght Arm] Pulse Oximetry Oxygen Delivery [facility] 12/23/24 15:15 12/23/24 15:15 12/23/24 17:17 Temperature 98.2 F Pulse Rate 88 Pulse Rate [Pulse Oximeter] 84 Respiratory Rate 16 16 Blood Pressure 126/63 Blood Pressure [Ri ght Arm] 109/65 Pulse Oximetry 98 Oxygen Delivery Me [facility] Room Air 12/23/24 20:05 12/24/24 00:41 12/24/24 04:40 Temperature 98.0 F 98.4 F 97.7 F Pulse Rate Pulse Rate [Pulse Oximeter] 88 88 88 Respiratory Rate 18 18 16 Blood Pressure Blood Pressure [Ri ght Arm] 125/82 110/72 108/73 Pulse Oximetry Oxygen Delivery Me thod Room Air Room Air Room Air 12/24/24 08:23 Temperature 97.8 F Pulse Rate Pulse Rate [Pulse Oximeter] 65 Respiratory Rate 16 Blood Pressure Blood Pressure [Ri ght Arm] 120/74 Pulse Oximetry 98 Oxygen Delivery Me thod Room Air OB - DS: Summary Hospital Course Hospital Course: The patient is a 29 year old G 2 P 2 at 37 weeks gestation that was admitted to the Center on 12/22/24 for IOL in the setting of persistent decreased movement, pruritus with concern for intrahepatic cholestasis of (bile acids pending). is complicated by hemolytic anemia, elevated bilirubin, history of gastric band procedure, obesity, generalized anxiety. She had an uncomplicated vaginal delivery, QBL 150cc. She delivered a viable female . She is breast feeding without difficulty. the patient has done well. Her last hemoglobin prior to delivery was 10.2, where a complete set of labs was obtained 4 hours and noted to have a reassuring hemoglobin of 9.8. Remainder of her CBC and CMP was reassuring, where bilirubin was noted to decrease to 1.6. LDH was essentially stable at 278 (from 273) with stable coags. Overnight, Bina notes she was able to get some rest. She denies any constant pain, but will notice uterine cramping with . Analgesia ongoing with ibuprofen and Tylenol. She describes lochia is appropriate, denies any heavy bleeding or passage of large clots. Ambulates without dizziness or lightheadedness, no chest pain or dyspnea. Tolerating p.o. intake without nausea vomiting. Voiding spontaneously, passing flatus. No bowel movement yet. She is breast-feeding without difficulty. Denies headache, vision changes or right upper quadrant pain. AM labs notable CBC notable for stable hemoglobin, at 9.5. Patient would like to discharge to home this evening, after her 24 hour recovery/Baby cares. I did consult with the hospitalist in this regard, Dr. Pat Blount. She agrees there is no contraindication to do so given her stable hemoglobin and unremarkable bleeding. We mutually discussed that a repeat of labs would be recommended this week, plan to coincide with 1st appointment. Plan to obtain a CBC, LDH, liver panel at that time. In the interim, we will diligently watch for her outstanding labs to return. Plan to be modified pending these results. Very strict return precautions were discussed with Bina. Physically, if she has an increase in her bleeding, passage size blood clots, or has any dizziness/lightheadedness, chest pain or dyspnea I would recommend she present to the emergency department. Standard precautions were reinforced f or signs/symptoms of mastitis, endometritis, VTE and mood disorder. Expressed understanding is agreeable to plan. Peripartum Data Infant delivery method: Vaginal Laceration description: Vaginal - 1st Degree Infant Gender: Female Time Spent with Patient Time attestation: Total time spent providing and/or coordinating discharge services: Discharge Plan Discharge Disposition: Home, Self-Care Date of Admission: 12/22/24 13:56 Primary Care Provider: Emilee Villalobos Condition: Stable Anticipated Discharge Date/Time: 12/24/24 08:53 Discharge Medications: Continued folic acid 400 mcg tablet 0.4 mg PO QDAY mecobalamin (vitamin B12) 2,500 mcg tablet,chewable 2,500 mcg PO DAILY cholecalciferol (vitamin D3) 25 mcg (1,000 unit) capsule 25 mcg PO QDAY metformin 500 mg tablet 500 mg PO BID sertraline 100 mg tablet 100 mg PO DAILY Patient Comments: TAKE 1.5 TABLETS BY MOUTH ONCE DAILY. PNV cmb#[id number] fumarate-FA [] 28 mg iron- 800 mcg tablet 1 tab PO DAILY Discontinued aspirin 81 mg tablet,chewable 81 mg PO QDAY Discharge Orders: Discharge Order (Routine); Ordered 12/24/24 Ordered By: Sanjana Ramos Additional Instructions: Discharge instructions were reviewed with the patient including signs and symptoms of infection and home going medications Nothing vaginally for 6 weeks: no tampons or intercourse Do not drive while taking narcotic pain medication(s) Off Work or School for 8 weeks Symptoms to report to doctor: * Bleeding that saturates more than one pad per hour. Any dizziness/lighth eadedness, chest pain or shortness of breath. * Passing clots larger than the size of a golf ball * Pain not relieved by prescribed medication * Fever above 100.4 degrees Fahrenheit * A foul vaginal odor * Difficulty in emotions, mood, and functions * Thoughts of hurting yourself and/or * Painful, reddened area in your breast * Any drainage, redness, or tenderness in your IV/epidural site * Severe headache that doesn't improve after taking medications * Changes in vision, including temporary loss of vision, blurred vision, and/or light sensitivity * Upper abdominal pain (usually under ribs on the right side) * Decrease in urination or painful, frequent urinating * Chest pain * Shortness of breath * Tenderness or pain with redness and/swelling in the calf(s) of your leg You need a lab visit next week, please call clinic to schedule a lab-only visit to coincide with your baby's first Pediatrics appointment - likely 12/27. Optional 2-week visit: discuss infant feeding concerns, review control options and screen for anxiety/depression. 6-week visit for an annual exam. consultation services are available to all mothers and babies for the first year after delivery.? To make an appointment, please call [phone]. Follow Up Appointments: Emilee Villalobos MD [Primary Care Provider] - Forms: [employer] Info Instructions
[2024-12-24] MEDS: FERROUS SULFATE 325 MG TABLET PO (09:20)
[2024-12-24 11:30] VITALS: BP 117/79; PULSE 83; RESP 16; TEMP 36.8; O2SAT 98
[2024-12-24 18:31] LABS: Rapid Plasma Reagin (RPR) Non Reactive (Non Reactive)
--- NOTE | 2024-12-24 19:54 | PM.ANPOST ---
Post Anesthesia Note Post Anesthesia Note Patient seen: Inpatient Respiratory Status: adequate Cardiovascular Status: adequate Mental Status: baseline Pain: adequate Temp: baseline Anesthetic awareness: no Complications: none Follow care: none
[2024-12-26 01:48] LABS: Albumin 2.92 g/dL (3.75-5.01); Alpha 1 Globulin 0.35 g/dL (0.19-0.46); Alpha 2 Globulin 0.56 g/dL (0.48-1.05); Total Protein, Serum 5.2 g/dL (6.3-8.2)
[2024-12-26 02:20] LABS: Bile Acids, Total 5 umol/L (0-10)
== END 2024-12-24 16:50 | disposition home or self-care (01) | DRG 806 ==
PROVIDERS: Family Medicine; Obstetrics & Gynecology; Admitting Provider Obstetrics & Gynecology; PCP Family Medicine; Visit Provider Obstetrics & Gynecology
DX: O99.02 Anemia complicating childbirth (principal); D59.9 Acquired hemolytic anemia, unspecified; Z37.0 Single live birth; O26.643 Intrahepatic cholestasis of pregnancy, third trimester; O62.2 Other uterine inertia; O13.4 Gestational [pregnancy-induced] hypertension without significant proteinuria, complicating childbirth; O70.0 First degree perineal laceration during delivery; O36.8130 Decreased fetal movements, third trimester, not applicable or unspecified; E80.4 Gilbert syndrome; O26.893 Other specified pregnancy related conditions, third trimester; Z67.11 Type A blood, Rh negative; O99.284 Endocrine, nutritional and metabolic diseases complicating childbirth; E03.9 Hypothyroidism, unspecified; E28.2 Polycystic ovarian syndrome; O99.344 Other mental disorders complicating childbirth; F41.1 Generalized anxiety disorder; F32.A Depression, unspecified; O99.844 Bariatric surgery status complicating childbirth; L29.9 Pruritus, unspecified; O99.214 Obesity complicating childbirth; E66.9 Obesity, unspecified; Z3A.37 37 weeks gestation of pregnancy
CPT/HCPCS: 01967; 36415; 59200; 76705; 80048; 80053; 80076; 82239; 82248; 83615; 84165; 85025; 85027; 85045; 85384; 85397; 85461; 85610; 85730; 86157; 86162; 86592; 86850; 86870; 86880; 86900; 86901; 86922; 88307; A9270; C1726; J2590; J2791; J2795; J7120

== ENCOUNTER 2024-12-27 10:46 | Outpatient (CLI) | payer OTHER, SELFPAY | END 2024-12-27 10:47 | disposition home or self-care (01) | LOC: NFLDREF 12-30 18:43 | PROVIDERS: PCP Family Medicine; Referring Provider Family Medicine; Visit Provider Obstetrics & Gynecology | DX: D58.9 Hereditary hemolytic anemia, unspecified (principal) | CPT/HCPCS: 80076; 83615 ==

== ENCOUNTER 2025-02-09 11:54 | Outpatient (CLI) | payer OTHER, SELFPAY ==
[2025-02-10 21:24] LABS: HPV Source Cervix; HPV, High Risk by TMA Not Detected
== END 2025-02-09 11:55 | disposition home or self-care (01) ==
PROVIDERS: PCP Family Medicine; Visit Provider Physician Assistant
DX: Z12.4 Encounter for screening for malignant neoplasm of cervix (principal); Z11.51 Encounter for screening for human papillomavirus (HPV)
CPT/HCPCS: 87624; 87625; 88141; 88142

== ENCOUNTER 2025-07-17 09:30 | Outpatient (RCR) | payer OTHER, SELFPAY ==
[2025-01-22 11:54] LABS: Hematocrit* 40.8 % (33.0-51.0); Hemoglobin* 13.6 gm/dL (12.0-16.0); Immature Granulocytes Abs Auto 0.00 K/uL (0.00-0.30); Immature Granulocytes Pct Auto 0.0 %; Mean Corpuscular HGB Conc 33 gm/dL (32-36); Mean Corpuscular Hemoglobin 30 pg (26-34); Mean Corpuscular Volume 91 fL (80-100); RDW Coefficient of Variation % 12.9 % (11.5-15.5); Red Blood Count* 4.48 m/uL (4.00-5.20); White Blood Count* 4.85 K/uL (4.50-11.00)
[2025-01-22 12:10] LABS: Lymphocytes Absolute Auto 2.20 K/uL (0.90-2.90); Slide Review Reflex No
[2025-01-22 12:33] LABS: Albumin* 4.4 g/dL (3.3-5.0); Chloride* 107 mmol/L (96-114)
[2025-01-22 12:34] LABS: Potassium* 4.5 mmol/L (3.6-5.1); Sodium* 140 mmol/L (135-149)
[2025-01-22 12:36] LABS: Alanine Aminotransferase* 18 U/L (4-35); Anion Gap 9 mEq/L (7-15); Aspartate Amino Transferase* 24 U/L (12-35); Blood Urea Nitrogen* 20 mg/dL (5-24); Carbon Dioxide* 24 mmol/L (20-32); Creatinine* 0.8 mg/dL (0.5-1.5); Est. Creatinine Clearance* 92.53; Estimated Glomerular Filt Rate 102 ml/min
[2025-01-22 12:36] LABS: Iron* 101 ug/dL (37-170)
[2025-01-22 12:37] LABS: Alkaline Phosphatase* 63 U/L (40-150); Bilirubin Total* 1.4 mg/dL (0.1-1.5); Calcium* 9.2 mg/dL (8.4-10.6); Glucose* 110 mg/dL (60-115); Total Protein* 6.9 g/dL (6.0-8.3)
[2025-01-22 13:05] LABS: Immature Reticulocyte Fraction 6.5 % (3.0-15.9); Reticulocyte Hemoglobin Equivi 30.0 pg (29.0-35.0); Reticulocytes Absolute 0.05 # (0.03-0.08)
[2025-01-22 13:12] LABS: Vitamin B12* 529 pg/mL (243-894)
[2025-01-22 13:57] LABS: Total Iron Binding Capacity 379 ug/dL (265-497)
[2025-01-22 14:17] LABS: Percent Iron Saturation 27 % (20-50)
[2025-01-23 10:22] LABS: LDL Cholesterol, Direct 124 mg/dL (0-129)
[2025-01-23 13:31] LABS: Folate, Serum 12.1 ng/mL (>=5.9)
[2025-07-17 10:39] LABS: Hematocrit* 39.9 % (33.0-51.0); Hemoglobin* 13.9 gm/dL (12.0-16.0); Immature Granulocytes Abs Auto 0.00 K/uL (0.00-0.30); Immature Granulocytes Pct Auto 0.0 %; Lymphocytes Absolute Auto 1.80 K/uL (0.90-2.90); Mean Corpuscular HGB Conc 35 gm/dL (32-36); Mean Corpuscular Hemoglobin 30 pg (26-34); Mean Corpuscular Volume 85 fL (80-100); RDW Coefficient of Variation % 12.6 % (11.5-15.5); Red Blood Count* 4.67 m/uL (4.00-5.20); White Blood Count* 4.51 K/uL (4.50-11.00)
[2025-07-17 10:57] LABS: Slide Review Reflex No
[2025-07-17 11:20] LABS: Reticulocyte Hemoglobin Equivi 32.2 pg (29.0-35.0)
[2025-07-17 11:21] LABS: Immature Reticulocyte Fraction 5.8 % (3.0-15.9); Reticulocytes Absolute 0.05 # (0.03-0.08)
[2025-07-17 11:43] LABS: HIV 1/2/P24 Combo Screen* Negative (Negative)
[2025-07-18 17:02] LABS: Folate, Serum 11.5 ng/mL (>=5.9)
== END 2025-07-21 23:59 | disposition home or self-care (01) ==
LOC: CCIC 09:30
PROVIDERS: Obstetrics & Gynecology; PCP Family Medicine; Visit Provider Internal Medicine Hematology & Oncology
DX: R16.1 Splenomegaly, not elsewhere classified (principal); D58.9 Hereditary hemolytic anemia, unspecified; Z98.84 Bariatric surgery status; Z11.4 Encounter for screening for human immunodeficiency virus [HIV]
CPT/HCPCS: 36415; 80053; 82607; 82728; 82746; 83010; 83540; 83550; 83615; 83721; 85025; 85027; 85045; 86703; 99202; 99204; 99214; 99215; G0463

== ENCOUNTER 2025-08-01 16:29 | Outpatient (CLI) | payer OTHER, SELFPAY ==
--- NOTE | 2025-08-01 16:45 | CRLHL7_ITS ---
For Patients: As a result of the Century Cures Act, medical imaging exams and procedure reports are released immediately into your electronic medical record. You may view this report before your referring provider. If you have questions, please contact your health care provider. INDICATION: splenomegaly, ovarian cyst TECHNIQUE: CT chest, abdomen and pelvis acquired 107 milliliters Isovue 370 intravenous contrast. COMPARISON: May 2025 and November 2022 FINDINGS: CHEST: Lungs and Airways: 3 millimeter right upper lobe ground-glass nodule. Axial image 30. No mass or consolidation. No endoluminal lesion. Heart and Mediastinum: The visualized portions of the thyroid are normal. No axillary or supraclavicular lymphadenopathy. No mediastinal, hilar or retrocrural lymphadenopathy. Normal heart size. Normal caliber aorta. Pleura: The pleural spaces are normal. ABDOMEN: Liver: Normal enhancement. No focal suspicious hepatic lesions. Gallbladder and biliary: Normal gallbladder without radiopaque stone. Normal caliber bile ducts. Spleen: Stable splenomegaly measuring 14.7. Pancreas: Normal enhancement without peripancreatic inflammatory changes or ductal dilatation. Adrenal glands: Normal adrenal glands. Kidneys and ureters: Normal enhancement. No radio-opaque calculi. No hydroureteronephrosis. GI tract: Changes of gastric sleeve. Normal caliber small and large bowel loops. Normal appendix. A few colonic diverticula without diverticulitis. Vascular structures: Normal caliber abdominal aorta. Lymph nodes: No lymphadenopathy in the abdomen or pelvis by size criteria. Peritoneum: No free air, free fluid, or focal drainable fluid collection. PELVIS: Genitourinary system: Normal urinary bladder. Age-appropriate uterus and ovaries. Appropriately positioned IUD. SKELETAL STRUCTURES AND SOFT TISSUES: No suspicious lytic or blastic lesions. IMPRESSION: 1. No discrete acute process in the chest, abdomen, or pelvis. 2. Stable splenomegaly measuring 14.7 cm. 3. 3 millimeter right upper lobe ground-glass indeterminate pulmonary nodule. 4. Age-appropriate uterus and ovaries. Please note that all CT scans at this facility use dose modulation, iterative reconstruction, and/or weight-based dosing when appropriate to reduce radiation dose to as low as reasonably achievable. Dictated by Bang Lewis MD @ 08/01/2025 10:20:23 PM (Electronically Signed)
== END 2025-08-01 16:30 | disposition home or self-care (01) ==
LOC: CT 16:29
PROVIDERS: PCP Family Medicine; Visit Provider Internal Medicine Hematology & Oncology
DX: R16.1 Splenomegaly, not elsewhere classified (principal); R91.1 Solitary pulmonary nodule; Z98.890 Other specified postprocedural states; Z30.430 Encounter for insertion of intrauterine contraceptive device; Z01.89 Encounter for other specified special examinations
CPT/HCPCS: 71260; 74177; Q9967